=== PATIENT | female | born 1955 | race Caucasian/White ===

== ENCOUNTER 2017-03-30 15:07 | Emergency (ER) | payer MEDICAID, SELFPAY ==
[2017-03-30 15:07] VITALS: BP 136/84; PULSE 79; RESP 18; TEMP 36.7; O2SAT 97; BMI 23.3
--- NOTE | 2017-03-30 15:53 | EKG12_ITS ---
Test Reason : COUGH Blood Pressure : / mmHG Vent. Rate : 069 BPM Atrial Rate : 069 BPM P-R Int : 136 ms QRS Dur : 084 ms QT Int : 414 ms P-R-T Axes : 077 041 052 degrees QTc Int : 443 ms Normal sinus rhythm Low voltage QRS (limb leads) Confirmed by YIN CHINCHILLA, ANUP ([id number]), sports editor DARWIN LAUREANO ([id number]) on 04/02/2017 2:00:55 PM Referred By: HANNAH Confirmed By:ANUP ESQUEDA MD
--- NOTE | 2017-03-30 15:54 | ED.VISSUMM ---
- ER Visit Summary Date of Service: 03/30/17 Chief Complaint: Left chest pain History of Present Illness: The patient is a 61 F who presents for left-sided chest pain since this morning. Patient states she had a vomiting illness 2 days ago with associated diarrhea. Yesterday she felt just fatigued. Today she is felt better except she woke up with left-sided sharp chest pain, worse with breathing, coughing or laughing. She denies any fever. No history of DVT or PE. She does have a history of pleurisy. No cardiac history but has had an ablation for an arrhythmia. She is not on any blood thinners. Physical Examination: Vital signs: afebrile, hemodynamically stable, no hypoxia on room air General: well nourished, well developed, in no distress Skin: warm, dry, no rash, no pallor HEENT: normocephalic and atraumatic; PERRL, EOMI, moist mucous membranes Cardiovascular: regular rate and rhythm without murmurs, no peripheral edema, 2+ pulses all distal extremities, no chest wall tenderness, no rash Respiratory: No increased work of breathing, inhalation depth limited secondary to pain, lungs are clear to auscultation bilaterally, no rales, rhonchi or wheezing and no pleural friction rubs Abdominal: Abdomen is soft, nontender with normoactive bowel sounds, no guarding or rebound, no masses MSK: Moves all extremities, no deformities, normal strength Neuro: Awake and alert, oriented ?4. No facial droop, sensation and motor function intact and symmetric Test Results: Abnormal Lab Results 03/30/17 03/30/17 03/30/17 16:25 16:25 16:25 WBC 5.8 RBC 4.38 Hgb 14.1 Hct 41.5 MCV 94.7 MCH 32.2 H MCHC 34.0 RDW 13.7 RDW Differential 46.0 H Plt Count 217 MPV 9.5 Immature Gran % (Auto) 0.200 Neut % (Auto) 53.7 Lymph % (Auto) 36.8 [place] % (Auto) 7.4 Eos % (Auto) 1.2 Baso % (Auto) 0.7 Absolute Neuts (auto) 3.1 Absolute Lymphs (auto) 2.13 Total Counted Not Reportable PT 13.5 INR 1.1 APTT 26.4 D-Dimer Quant (PE/DVT) 0.37 Sodium 140 Potassium 3.4 L Chloride 107 Carbon Dioxide 27.0 Anion Gap 6 BUN 20 H Creatinine 0.76 Estim Creat Clear Calc 70.83 Est GFR (MDRD) Af Amer 99 Est GFR (MDRD) Non-Af 82 BUN/Creatinine Ratio 26.2 H Glucose 81 Calcium 8.5 Troponin I < 0.02 Emergency Department Course and Treatment: Patient was given aspirin and morphine. EKG showed sinus rhythm without ischemia or ectopy. Chest x-ray showed no infiltrate, effusion or pneumothorax. Labs were unremarkable. Troponin negative. D-dimer was within normal limits. Patient's workup was on concerning for an emergent cause of her chest pain, and this is most likely pleurisy versus a strained muscle in the chest wall from vomiting. Patient was given a prescription for Motrin to use to help with the inflammation and pain. She was given return precautions. Discharged home. Treatment Plan: [] Disposition: [] Impression: Pleurisy This note was generated with [employer] dictation software. It may contain incorrect words, spelling, and punctuation that were not noted in review of the chart prior to signing ED Disposition - Plan for ED Patient: Disposition: Home or Assisted Living Chief Complaint: Cough Instructions: ED Chest Pain Pleurisy Prescriptions: Ibuprofen 600 mg PO 4X/DAY #30 tab Referrals: Alexi Montesinos MD [Primary Care Provider] - 3-5 Days if not improving Additional Instructions: Please use the ibuprofen every 6 hours for the first 3 days to help with pain and inflammation in your left chest. After that you may use it as needed. You may also find some relief from a heating pad. If you have any worsening of your condition or any new concerning symptoms, please come back to emergency department for another evaluation.
[2017-03-30 15:56] VITALS: O2SAT 98
--- NOTE | 2017-03-30 16:00 | RAD_ITS ---
STUDY: X-RAY CHEST REASON FOR EXAM: Female, 61 years old. Left chest pain with inspiration. TECHNIQUE: 2 views COMPARISON: Prior chest of November 29, 2016 FINDINGS: Continued hyperexpansion of the lungs without new consolidation, focal atelectasis or a substantial pleural effusion. Stable chronic changes. Normal size heart. Normal mediastinum and tena. Normal visualized pulmonary arteries. There is atherosclerotic tortuosity of the aortic arch and descending thoracic aorta. Minimal degenerative changes of the thoracic spine. Normal visualized ribs, clavicles, and shoulders. There is no demonstrated abnormality of the visualized soft tissue structures of the upper abdomen. RAD/Chest PA and Lateral IMPRESSION: No acute cardiopulmonary findings or changes. Continued hyperexpansion and stable chronic changes. Normal cardiac size without pulmonary venous congestion. Negative for pleural effusion. Electronically Signed: Zahra Bazan MD at 16:17 EST , Service support ,
[2017-03-30] MEDS: 0.9% Normal Saline 1,000 ML 1000 ML IV (16:22)
[2017-03-30] MEDS: Aspirin 81 MG TAB.CHEW 324 MG PO (16:22)
[2017-03-30 16:44] LABS: Absolute Lymphocyte Count 2.13 X10^3/ul (0.83-4.51); Absolute Neutrophil Count 3.1 X10^3/uL (2.0-7.7); Basophil# 0.04 X10^3/uL; Basophil% 0.7 % (0-1); Eosinophil# 0.07 X10^3/uL; Eosinophils% 1.2 % (0-5); Hematocrit 41.5 % (37-47); Hemoglobin 14.1 g/dl (12.0-15.0); Lymphocyte # 2.13 X10^3/ul (4.0); Lymphocyte % 36.8 % (19-41); Mean Corpuscular Hgb 32.2 pg (27.0-32.0); Mean Corpuscular Volume 94.7 fL (81-99); Mean Platelet Vol. 9.5 fl (6.2-12.0); Monocyte# 0.43 X10^3/uL; Monocyte% 7.4 % (0-10); Neutrophil # 3.11 X10^3/uL (2.7-7.7); Neutrophil % 53.7 % (47-70); Platelet Count 217 K/mm3 (150-450); RBC Distribution Width CV 13.7 % (11.6-14.6); Red Blood Count 4.38 M/mm3 (4.2-5.4); White Blood Count 5.8 K/mm3 (4.4-11.0)
[2017-03-30 16:45] LABS: POSITIVE COUNT NO; POSITIVE DIFFERENTIAL NO; POSITIVE MORPHOLOGY NO
[2017-03-30 17:01] LABS: International Normalized Ratio 1.1; Prothrombin Time (Protime)PT. 13.5 SECONDS (11.7-14.9)
[2017-03-30 17:02] LABS: Partial Thromboplast Time 26.4 Seconds (24.1-36.2)
[2017-03-30 17:04] LABS: Anion Gap 6 (5-15); BUN 20 mg/dL (7-18); BUN/Creat Ratio 26.2 RATIO (10-20); Calcium,Total 8.5 mg/dL (8.5-10.1); Chloride 107 mmol/L (98-107); Creatinine, Serum 0.76 mg/dL (0.55-1.02); EST Glomerular Filtration Rate 82 mL/min (>60); Est Glom Filt Rate - Afr Amer 99 mL/min (>60); Estimated Creatinine Clearance 70.83 ml/min; Glucose 81 mg/dL (74-106); Potassium 3.4 mmol/L (3.5-5.1); Sodium Level 140 mmol/L (136-145)
[2017-03-30 17:07] LABS: D-Dimer Quantitative (DVT/PE) 0.37 FEU/ug/m (0.27-0.49)
[2017-03-30 17:16] VITALS: BP 143/79; PULSE 75; RESP 22; O2SAT 96
--- NOTE | 2017-03-30 17:52 | ED.DEP ---
ED Disposition - Plan for ED Patient: Disposition: Home or Assisted Living Chief Complaint: Cough Instructions: ED Chest Pain Pleurisy Prescriptions: Ibuprofen 600 mg PO 4X/DAY #30 tab Referrals: Alexi Montesinos MD [Primary Care Provider] - 3-5 Days if not improving Additional Instructions: Please use the ibuprofen every 6 hours for the first 3 days to help with pain and inflammation in your left chest. After that you may use it as needed. You may also find some relief from a heating pad. If you have any worsening of your condition or any new concerning symptoms, please come back to emergency department for another evaluation.
[2017-03-30] MEDS: Ketorolac 30 MG/ML Syringe 15 MG IV (18:02)
[2017-03-30 18:05] VITALS: BP 144/80; PULSE 68
== END 2017-03-30 18:06 | disposition home or self-care (01) ==
PROVIDERS: Emergency Provider Emergency Medicine; Family Provider Family Medicine; PCP Family Medicine
DX: R09.1 Pleurisy (principal); Z72.0 Tobacco use
CPT/HCPCS: 71046; 80048; 84484; 85025; 85379; 85610; 85730; 93005; 99285

== ENCOUNTER → 2017-04-07 14:01 | Outpatient (CLI) | payer MEDICAID, SELFPAY ==
--- NOTE | 2017-04-07 14:06 | RAD_ITS ---
STUDY: X-RAY - PELVIS AND LEFT HIP REASON FOR EXAM: Female, 61 years old. Patient fell TECHNIQUE: Radiological exam, hip, unilateral, with pelvis when performed; 2 or 3 views. COMPARISON: None. FINDINGS: The sacroiliac and right hip joints look well-maintained. There are minimal degenerative changes of the left hip. There is suspicion of a fracture involving the medial aspect of the body of the pubic bone on the left. A CT scan is suggested if pain continues. RAD/Hip 2-3 Views with Pelvis IMPRESSION: Suspicion of a fracture involving the medial aspect of the body of the left pubic bone. Confirmation with a CT scan is suggested. Electronically Signed: Mychal Boggs, at 3:01 EST Tel , Service support ,
--- NOTE | 2017-04-07 14:07 | RAD_ITS ---
STUDY: X-RAY - LUMBAR SPINE REASON FOR EXAM: Female, 61 years old. Patient fell TECHNIQUE: 4 view(s) of the lumbar spine were obtained. COMPARISON: None FINDINGS: There is a 23 degree thoracolumbar scoliosis with convexity to the right with the apex of the curve at L2. Bilateral laminectomies at L4 and L5 are noted. Intervertebral osteochondrosis at L3-4 L4-5 and L5-S1 are seen. These aren't demonstrated by narrowing of the disc spaces. There are no acute fracture. RAD/L/S Spine Comp/w Bending Views IMPRESSION: No acute fractures. 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 A 23 degree thoracolumbar scoliosis with convexity to the right with the apex at L2 Electronically Signed: Mychal Boggs, at 3:07 EST Tel , Service support ,
== END ==
PROVIDERS: Family Provider Family Medicine; PCP Family Medicine
DX: M79.606 Pain in leg, unspecified (principal); M54.16 Radiculopathy, lumbar region
CPT/HCPCS: 72114; 73502

== ENCOUNTER → 2017-04-07 14:35 | Outpatient (CLI) | payer MEDICAID, SELFPAY ==
[2017-04-07 16:06] LABS: BUN 10 mg/dL (7-18); Creatinine, Serum 0.89 mg/dL (0.55-1.02); EST Glomerular Filtration Rate 69 mL/min (>60); Est Glom Filt Rate - Afr Amer 83 mL/min (>60)
== END ==
PROVIDERS: Family Provider Family Medicine; PCP Family Medicine
DX: M54.16 Radiculopathy, lumbar region (principal)
CPT/HCPCS: 36415; 72114; 73502; 82565; 84520

== ENCOUNTER → 2017-04-14 09:10 | Outpatient (CLI) | payer MEDICAID, SELFPAY ==
--- NOTE | 2017-04-14 09:21 | MRI_ITS ---
STUDY: MRI LUMBAR SPINE WITH AND WITHOUT CONTRAST REASON FOR EXAM: Female, 61 years old. radiculopathy, LBP, RT LEG PAIN, HX PRIOR SURGERY. TECHNIQUE: Standardized fat and water weighted pulse sequences were obtained in the sagittal and axial planes. 7 ml of Gadavist contrast material was administered for the contrast portion of the examination. COMPARISON: December 08, 2015 FINDINGS: T12-L1: There is no significant disc herniation, spinal canal or foramina stenosis. Normal lumbar lordosis. There is mild scoliosis Normal conus medullaris that terminates at the L1 L1-2: There is a small Schmorl's node. There is no significant disc herniation, spinal canal or foramina stenosis.. L2-3: There is a small Schmorl's node. There is no significant disc herniation, spinal canal or foramina stenosis.. L3-4: There is moderate disc space narrowing and endplate spondylosis asymmetric to the left. There is moderate disc bulge asymmetric to the left with moderate left foraminal stenosis. There is a decompression laminectomy now with patent central canal and right foraminal stenosis. L4-5: There is moderate disc space narrowing and endplate spondylosis asymmetric to the right with moderate right foraminal stenosis. There is a decompression laminectomy now. There is a widely patent central canal and left foraminal. L5-S1: There is moderate disc space narrowing and endplate spondylosis asymmetric to the right with moderate right foraminal stenosis. There is a decompression laminectomy now. The central canal is widely patent. There is mild left foraminal stenosis. Normal visualized paraspinous soft tissue structures. MRI/Spine Lumbar W/WO Contrast IMPRESSION: Interval decompression laminectomies. Scoliosis and multilevel degenerative changes. L3/L4: Stable moderate left foraminal stenosis. L4/L5: Stable moderate right foraminal stenosis. L5/S1: Stable moderate right foraminal stenosis. Electronically Signed: Brandie Yates MD at 8:04 EST Tel , Service support ,
== END ==
PROVIDERS: Family Provider Family Medicine; PCP Family Medicine
DX: M54.16 Radiculopathy, lumbar region (principal)
CPT/HCPCS: 72158; A9585

== ENCOUNTER → 2017-05-01 06:37 | Outpatient (CLI) | payer MEDICAID, SELFPAY ==
--- NOTE | 2017-05-01 06:42 | CT_ITS ---
STUDY: CT PELVIS WITHOUT CONTRAST REASON FOR EXAM: Female, 61 years old. Pain status post fall 3 weeks ago. RADIATION DOSAGE (If Supplied By Facility): CTDIvol = ( 13.71 ) mGy, DLP = ( 355.91 ) mGycm TECHNIQUE: Transaxial imaging of the pelvis was performed without oral contrast, and without intravenous administration of contrast material. Multiplanar coronal and sagittal images were reformatted. Individualized dose optimization techniques were used for this CT. COMPARISON: X-ray April 07, 2017 FINDINGS: Normal urinary bladder. Normal visualized small intestine. Normal visualized colon. There is no pelvic fluid. There is a 5.3 cm right pelvic intermediate density structure suggesting enlarged adnexa. Normal visualized pelvic arteries. Normal abdominal wall. There is degenerative change of the lower spine with previous laminectomy. There is mild arthritic change of the sacroiliac joints. There is mild degenerative change of the right hip. There is moderate degenerative change of the left hip. There is a nonspecific 0.8 cm sclerotic region of the intertrochanteric region of the proximal left femur. CT/Pelvis without IV Contrast IMPRESSION: Degenerative change. No fracture. Possible adnexal mass. Ultrasound recommended for further evaluation. N.B. : The above information has been verbally conveyed by Santino Hernandez MD to Umu Montgomery, Referring Physician- statistical engineer, on 05/02/2017 10:38:05 (ET). Electronically Signed: Santino Hernandez MD at 10:31 EDT , Service support , N.B. : The above information has been verbally conveyed by Santino Hernandez MD to Umu Montgomery, Referring Physician- statistical engineer, on 05/02/2017 10:38:05 (ET).
== END ==
PROVIDERS: Family Provider Family Medicine; PCP Family Medicine; Visit Provider Family Medicine
DX: R10.2 Pelvic and perineal pain (principal)
CPT/HCPCS: 72192

== ENCOUNTER → 2017-05-07 10:31 | Outpatient (CLI) | payer MEDICAID, SELFPAY ==
--- NOTE | 2017-05-07 10:34 | US_ITS ---
STUDY: PELVIC ULTRASOUND TRANSVAGINAL REASON FOR EXAM: Female, 61 years old. Right adnexal mass LMP: Unknown. TECHNIQUE: Transverse and longitudinal imaging of the pelvis was obtained transvaginally using real-time ultrasound. COMPARISON: CT pelvis dated May 01, 2017 FINDINGS: The uterus is surgically absent. The right ovary is visualized. The right ovary measures 6.0 x 2.8 x 4.5 cm. There is a cystic mass in the right ovary measuring 1.7 cm. There is no visualized right adnexal mass or complex lesion. There is normal arterial and normal venous vascularity. The left ovary is not visualized. There is no fluid in the cul-de-sac. US/Transvaginal Non- IMPRESSION: The right ovary is enlarged and shows evidence of a collapsed cyst measuring 1.7 cm. No other discrete masses are seen in the right ovary. A follow-up ultrasound can be obtained in 4-6 weeks to reevaluate. Electronically Signed: Naz Pinto MD at 19:26 EDT Tel Direct: [phone], Service support ,
== END ==
PROVIDERS: Family Provider Family Medicine; PCP Family Medicine; Visit Provider Family Medicine
DX: R19.00 Intra-abdominal and pelvic swelling, mass and lump, unspecified site (principal)
CPT/HCPCS: 76830; 93976

== ENCOUNTER 2017-05-14 22:04 | Emergency (ER) | payer MEDICARE, MEDICAID, SELFPAY ==
[2017-05-14 22:06] VITALS: BP 126/83; PULSE 91; RESP 16; TEMP 36.6; O2SAT 99; BMI 23.1
--- NOTE | 2017-05-14 22:35 | ED.VISSUMM ---
- ER Visit Summary Date of Service: 05/14/17 Chief Complaint: Bilateral leg and back pain History of Present Illness: The patient is a 61 F history of COPD, chronic back pain status post laminectomies, who presents for 4 days of leg pain and now back pain. She states 4 days ago she struck her right serna getting out of the car, and later had a large bruise develop on the lateral serna. She thought it was a varicose vein ruptured. She had pain and swelling at the area and was examined by her doctor yesterday, who encouraged her to continue taking ibuprofen.. Patient states the pain is now radiating up her leg. She then began having back pain on the left lumbar paraspinal region radiating around the hip into the groin. She states today her pain in both legs was severe and caused her to fall, landing on her tailbone. Patient has been taking gabapentin, ibuprofen and Mobic for her pain without relief. She denies shortness of breath, chest pain, urinary symptoms, bowel changes, abdominal pain, fever. Patient states that 1-1/2 months ago she had fallen and was diagnosed with a questionable pelvis fracture and placed on Vicodin. She had a CT scan performed that showed no fracture but showed a pelvic mass, that was later shown to be a ruptured ovarian cyst. Chart review shows the CT scan showed no pelvic fracture and the ultrasound showed no adnexal mass but rather a decompressed right ovarian cyst. Physical Examination: Vital signs: afebrile, hemodynamically stable, no hypoxia on room air General: well nourished, well developed, in no distress Skin: warm, dry, no rash, no pallor HEENT: normocephalic and atraumatic; PERRL, EOMI, moist mucous membranes Cardiovascular: regular rate and rhythm without murmurs, no peripheral edema, 2+ pulses all distal extremities Respiratory: No increased work of breathing, lungs are clear to auscultation bilaterally, no rales, rhonchi or wheezing Abdominal: Abdomen is soft, nontender with normoactive bowel sounds, no guarding or rebound, no masses Back: Paraspinal tenderness over the lumbar left region and hip. No deformities. Negative logroll bilaterally. Large midline surgical scar well-healed, no erythema, induration or fluctuance MSK: Moves all extremities, no deformities, normal strength in the plantar flexion, dorsiflexion and EHL. Right serna has a healing contusion on the anterolateral distal third. Neuro: Awake and alert, oriented ?4. No facial droop, sensation and motor function intact and symmetric Test Results: [] Emergency Department Course and Treatment: Patient has no red flag symptoms on her history or exam that would be concerning for cauda equina syndrome, epidural hematoma or abscess. Patient was given [place] for pain. X-rays were performed of the hips, pelvis and lumbar spine and showed no acute fractures. Patient's pain is consistent with her chronic back pain. We discussed her current pain regimen, and she is currently taking Mobic and multiple doses of ibuprofen daily. We discussed that these are both NSAIDs and she should not take both. She will switch to Tylenol instead of the ibuprofen. She was given a home dose pack of the [place], but we discussed that I cannot write her prescription for opiates as she is a chronic pain patient. Patient agreed and is to follow-up with her primary care doctor. There was no findings on exam that were concerning for DVT, as the location of patient's right lower extremity pain is not consistent with the deep venous circulation and appears as a healing contusion consistent with patient's area of injury 4 days ago.. She was discharged home. Treatment Plan: [] Disposition: [] Impression: acute exacerbation of chronic back pain, right lower extremity contusion This note was generated with [employer] dictation software. It may contain incorrect words, spelling, and punctuation that were not noted in review of the chart prior to signing ED Disposition - Plan for ED Patient: Disposition: Home or Assisted Living Chief Complaint: Lower Extremity Injury Instructions: ED Low Back Pain Injury Referrals: Alexi Montesinos MD [Primary Care Provider] - As soon as possible Additional Instructions: Your x-rays did not show any fractures. Please apply ice to the bruise on your right lower leg to help with pain. Continue your pain medications as prescribed, but do not take ibuprofen with the Mobic. Please take Tylenol instead. Follow-up with your doctor as soon as possible to discuss further pain regimen changes since you are having worsening chronic pain. If you have any worsening of your condition or any new concerning symptoms, please return to the emergency department for another evaluation.
--- NOTE | 2017-05-14 22:39 | ED.DCSUM_ITS ---
- ER Visit Summary Date of Service: 05/14/17 Chief Complaint: Bilateral leg and back pain History of Present Illness: The patient is a 61 F history of COPD, chronic back pain status post laminectomies, who presents for 4 days of leg pain and now back pain. She states 4 days ago she struck her right serna getting out of the car, and later had a large bruise develop on the lateral serna. She thought it was a varicose vein ruptured. She had pain and swelling at the area and was examined by her doctor yesterday, who encouraged her to continue taking ibuprofen.. Patient states the pain is now radiating up her leg. She then began having back pain on the left lumbar paraspinal region radiating around the hip into the groin. She states today her pain in both legs was severe and caused her to fall, landing on her tailbone. Patient has been taking gabapentin , ibuprofen and Mobic for her pain without relief. She denies shortness of breath, chest pain, urinary symptoms, bowel changes, abdominal pain, fever. Patient states that 1-1/2 months ago she had fallen and was diagnosed with a questionable pelvis fracture and placed on Vicodin. She had a CT scan performed that showed no fracture but showed a pelvic mass, that was later shown to be a ruptured ovarian cyst. Chart review shows the CT scan showed no pelvic fracture and the ultrasound showed no adnexal mass but rather a decompressed right ovarian cyst. Physical Examination: Vital signs: afebrile, hemodynamically stable, no hypoxia on room air General: well nourished, well developed, in no distress Skin: warm, dry, no rash, no pallor HEENT: normocephalic and atraumatic; PERRL, EOMI, moist mucous membranes Cardiovascular: regular rate and rhythm without murmurs, no peripheral edema, 2 + pulses all distal extremities Respiratory: No increased work of breathing, lungs are clear to auscultation bilaterally, no rales, rhonchi or wheezing Abdominal: Abdomen is soft, nontender with normoactive bowel sounds, no guarding or rebound, no masses Back: Paraspinal tenderness over the lumbar left region and hip. No deformities. Negative logroll bilaterally. Large midline surgical scar well- healed, no erythema, induration or fluctuance MSK: Moves all extremities, no deformities, normal strength in the plantar flexion, dorsiflexion and EHL. Right serna has a healing contusion on the anterolateral distal third. Neuro: Awake and alert, oriented ?4. No facial droop, sensation and motor function intact and symmetric Test Results: [] Emergency Department Course and Treatment: Patient has no red flag symptoms on her history or exam that would be concerning for cauda equina syndrome, epidural hematoma or abscess. Patient was given [place] for pain. X-rays were performed of the hips, pelvis and lumbar spine and showed no acute fractures. Patient's pain is consistent with her chronic back pain. We discussed her current pain regimen, and she is currently taking Mobic and multiple doses of ibuprofen daily. We discussed that these are both NSAIDs and she should not take both. She will switch to Tylenol instead of the ibuprofen. She was given a home dose pack of the [place], but we discussed that I cannot write her prescription for opiates as she is a chronic pain patient. Patient agreed and is to follow-up with her primary care doctor. There was no findings on exam that were concerning for DVT, as the location of patient's right lower extremity pain is not consistent with the deep venous circulation and appears as a healing contusion consistent with patient's area of injury 4 days ago.. She was discharged home. Treatment Plan: [] Disposition: [] Impression: acute exacerbation of chronic back pain, right lower extremity contusion This note was generated with [employer] dictation software. It may contain incorrect words, spelling, and punctuation that were not noted in review of the chart prior to signing ED Disposition - Plan for ED Patient: Disposition: Home or Assisted Living Chief Complaint: Lower Extremity Injury Instructions: ED Low Back Pain Injury Referrals: Alexi Montesinos MD [Primary Care Provider] - As soon as possible Additional Instructions: Your x-rays did not show any fractures. Please apply ice to the bruise on your right lower leg to help with pain. Continue your pain medications as prescribed , but do not take ibuprofen with the Mobic. Please take Tylenol instead. Follow-up with your doctor as soon as possible to discuss further pain regimen changes since you are having worsening chronic pain. If you have any worsening of your condition or any new concerning symptoms, please return to the emergency department for another evaluation.
[2017-05-14] MEDS: HYDROcodone Bitartrate/Apap 5/325 Tablet PO (22:40)
--- NOTE | 2017-05-14 22:40 | RAD_ITS ---
STUDY: X-RAY - LUMBAR SPINE REASON FOR EXAM: Female, 61 years old. Back pain TECHNIQUE: 3 view(s) of the lumbar spine were obtained. COMPARISON: None FINDINGS: Mild dextro convex lumbar scoliotic curvature. This space narrowing at multiple levels. Degenerative changes in the sacroiliac joints. Multilevel facet arthrosis. Prior laminectomies in the lower lumbar spine. Anterior and posterior osteophytic spurring. Vascular calcifications of the abdominal aorta. Prior cholecystectomy clips. IMPRESSION: Dextroconvex lumbar curvature with spondylotic changes. No evidence for acute lumbar spine fractures Electronically Signed: Shayne Jeffrey, at 23:37 EDT Tel , Service support , RAD/Lumbar Spine 2 or 3 Views
--- NOTE | 2017-05-14 22:43 | RAD_ITS ---
STUDY: X-RAY - PELVIS AND BILATERAL HIPS REASON FOR EXAM: Female, 61 years old. Bilateral hip pain TECHNIQUE: Radiological exam, hip, bilateral, with pelvis when performed; minimum of 5 views COMPARISON: None. FINDINGS: Degenerative changes in the hip joints. No definite evidence for acute fractures. Bony pelvic ring appears intact. Overlying bowel gas limits assessment of the sacrum. Degenerative changes in the lower lumbar spine. Degenerative changes in the sacroiliac joints. Ill-defined sclerotic density in the left proximal femur possibly enchondroma however this can be assessed with nonemergent bone scan IMPRESSION: No definite evidence for acute fractures Electronically Signed: Shayne Jeffrey, at 23:36 EDT Tel , Service support , RAD/Hips B/L min 2 views w/ Pelvis
--- NOTE | 2017-05-15 00:14 | DCINST.ED_ITS ---
ED Disposition - Plan for ED Patient: Chief Complaint: Lower Extremity Injury Instructions: ED Low Back Pain Injury Referrals: Alexi Montesinos MD [Primary Care Provider] - As soon as possible Additional Instructions: Your x-rays did not show any fractures. Please apply ice to the bruise on your right lower leg to help with pain. Continue your pain medications as prescribed , but do not take ibuprofen with the Mobic. Please take Tylenol instead. Follow-up with your doctor as soon as possible to discuss further pain regimen changes since you are having worsening chronic pain. If you have any worsening of your condition or any new concerning symptoms, please return to the emergency department for another evaluation.
[2017-05-15 00:27] VITALS: PULSE 78; O2SAT 97
[2017-05-15] MEDS: HYDROcodone Bitartrate/Apap 5/325 Tablet PO (00:27)
== END 2017-05-15 00:28 | disposition home or self-care (01) ==
PROVIDERS: Emergency Provider Emergency Medicine; Family Provider Family Medicine; PCP Family Medicine
DX: G89.29 Other chronic pain (principal); M54.9 Dorsalgia, unspecified; S80.11XA Contusion of right lower leg, initial encounter; W22.8XXA Striking against or struck by other objects, initial encounter; Y93.9 Activity, unspecified; Y92.89 Other specified places as the place of occurrence of the external cause; Y99.9 Unspecified external cause status; J44.9 Chronic obstructive pulmonary disease, unspecified
CPT/HCPCS: 72100; 73521; 99283

== ENCOUNTER → 2017-06-18 10:39 | Outpatient (CLI) | payer MEDICARE, MEDICAID, SELFPAY ==
--- NOTE | 2017-06-18 10:43 | US_ITS ---
STUDY: ULTRASOUND TRANSVAGINAL CLINICAL: Female, 61 years old. Follow-up right ovarian cyst TECHNIQUE: Transvaginal COMPARISON: Prior study of 05/07/2017 FINDINGS: Status post hysterectomy changes are noted. There is a cervical nabothian cyst. Normal right ovary, measuring 9.8 x 8.0 x 6.1 cm. There is a large right ovarian cyst containing debris measuring 8.4 x 6.3 x 4.6 cm.. The left ovary was not visualized. There is no free fluid in the pelvis. Polycystic ovary disease: No. US/Transvaginal Non- IMPRESSION: Status post hysterectomy. Large right ovarian cyst containing debris measuring 8.4 x 6.3 x 4.6 cm. This has significantly increased in size from prior ultrasound of 05/07/2017, where it measured 1.7 cm. The possibility of neoplastic process should be considered. Cervical nabothian cyst. The left ovary was not identified. Electronically Signed: Juan Brewster MD at 19:46 EDT , Service support ,
== END ==
PROVIDERS: Family Provider Family Medicine; PCP Family Medicine; Visit Provider Family Medicine
DX: R19.00 Intra-abdominal and pelvic swelling, mass and lump, unspecified site (principal)
CPT/HCPCS: 76830

== ENCOUNTER → 2017-06-25 14:23 | Outpatient (CLI) | payer MEDICARE, MEDICAID, SELFPAY | PROVIDERS: Visit Provider Obstetrics & Gynecology | DX: D39.12 Neoplasm of uncertain behavior of left ovary (principal) | CPT/HCPCS: 36415; 86304 ==

== ENCOUNTER 2017-07-02 08:14 | Day surgery (SDC) | payer MEDICARE, MEDICAID, SELFPAY ==
--- NOTE | 2017-07-01 12:37 | EKG12_ITS ---
Test Reason : PRE-OP Blood Pressure : / mmHG Vent. Rate : 067 BPM Atrial Rate : 067 BPM P-R Int : 130 ms QRS Dur : 080 ms QT Int : 410 ms P-R-T Axes : 075 045 057 degrees QTc Int : 433 ms Normal sinus rhythm Normal ECG Confirmed by YIN CHINCHILLA, ANUP ([id number]), general expeditor DARWIN LAUREANO ([id number] on 07/04/2017 11:00:50 AM Referred By: Glen Richey Confirmed By:ANUP ESQUEDA MD
[2017-07-01 12:48] LABS: Hematocrit 47.1 % (37-47); Hemoglobin 15.8 g/dl (12.0-15.0); Mean Corp Hgb Conc 33.5 g/gl (32-36); Mean Corpuscular Hgb 32.4 pg (27.0-32.0); Mean Corpuscular Volume 96.5 fL (81-99); Mean Platelet Vol. 9.7 fl (6.2-12.0); Platelet Count 214 K/mm3 (150-450); RBC Distribution Width CV 13.3 % (11.6-14.6); RBC Distribution Width SD 47.3 fl (35.1-43.9); Red Blood Count 4.88 M/mm3 (4.2-5.4); Scan Indicated on CBC? Y/N NO; White Blood Count 6.5 K/mm3 (4.4-11.0)
[2017-07-01 13:03] LABS: Prothrombin Time (Protime)PT. 12.9 SECONDS (11.7-14.9)
--- NOTE | 2017-07-01 13:03 | RAD_ITS ---
STUDY: X-RAY CHEST REASON FOR EXAM: Female, 62 years old. Preoperative evaluation. History of COPD. TECHNIQUE: PA and lateral views of the chest. COMPARISON: Comparison is made with prior study dated March 30, 2017. FINDINGS: Hyperinflation. Decreased bronchovascular markings in the upper lobes suggestive of emphysematous changes. No acute abnormality is seen. There is no demonstrated pleural abnormality. Normal size heart. Normal mediastinum and tena. Normal visualized pulmonary arteries. Normal visualized aortic arch and descending thoracic aorta. There are mild degenerative changes of the visualized thoracic spine. Mild dextro scoliosis of the thoracolumbar spine. Normal visualized ribs, clavicles, and shoulders. There is no demonstrated abnormality of the visualized soft tissue structures of the upper abdomen. RAD/Chest PA and Lateral IMPRESSION: Hyperinflation. No acute infiltrate is seen. Electronically Signed: Ari Doran MD at 14:44 EDT Tel [phone], Service support ,
[2017-07-01 13:04] LABS: Partial Thromboplast Time 26.4 Seconds (24.1-36.2)
[2017-07-01 13:26] LABS: ALB/GLOB Ratio 0.9 RATIO (0.9-2.4); AST(SGOT) 17 U/L (15-37); Alanine Aminotransfer ALT/SGPT 19 U/L (13-56); Albumin, Serum 3.6 g/dL (3.2-5.0); Alkaline Phosphatase 98 U/L (45-117); Anion Gap 6 (5-15); BUN 16 mg/dL (7-18); BUN/Creat Ratio 13.3 RATIO (10-20); Chloride 104 mmol/L (98-107); EST Glomerular Filtration Rate 49 mL/min (>60); Est Glom Filt Rate - Afr Amer 59 mL/min (>60); Glucose 76 mg/dL (74-106); Potassium 4.4 mmol/L (3.5-5.1); Protein, Total 7.6 g/dL (6.4-8.2); Sodium Level 140 mmol/L (136-145)
[2017-07-02] VITALS (11 sets, daily range): BP systolic 95–146; BP diastolic 65–91; PULSE 65–90; RESP 16; TEMP 36.4–36.8; O2SAT 95–99; BMI 22.2
--- NOTE | 2017-07-02 10:00 | OV_PTH ---
PATIENT: KENZIE HYLTON LOC: [facility] – [place] U#:[id number] AGE/SX: 62/F ROOM: RE07/02/[address]: Dr. Glen Richey MD : 1955 BED: DIS: 07/02/2017 SPEC #: [id number] RECD: 07/02/17 12:39 STATUS: AMALIA RACHEL #: [id number] MILES: 07/02/17 10:[address]: Glen Richey DEPT: SURGICAL PATHOLOGY RECD BY: Vasu Beltran ENTERED: 07/02/17 12:40 SP TYPE: OVARY OTHR DR: Dr. 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 Bilateral fallopian tubes - no pathologic diagnosis. SJ:yovany 07/04/17 COMMENT OVARIAN TUMOR SUMMARY: Specimen ? bilateral fallopian tubes and ovaries Procedure - bilateral salpingo-oophorectomy Lymph node sampling ? not performed Specimen integrity ? intact both right and left ovary Primary tumor site ? right ovary Ovarian surface involvement - absent Tumor size: Right ovary ? approximately 7 x 5 x 2.5 cm. Almost entire ovary is completely involved by the tumor. Left ovary ? 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 not applicable. Implants ? not applicable Regional lymph nodes ? no nodes submitted or found Distant metastasis ? 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 Ancillary studies ? not performed Clinical history ? not applicable PATHOLOGIC STAGE: pT1a pNx Mx The above summary is in compliance with [employer] (CAP) Cancer Protocols Checklist and [place] Joint Committee on Cancer (AJCC), Staging Manual, 8th Ed. The granulosa cell tumor involves >90% of the right ovary and appears to be confined to the ovary. Case has been reviewed in consultation with Dr. Corley who concurs with the above diagnosis. IDC:AM MICROSCOPIC DESCRIPTION Slides are reviewed. GROSS DESCRIPTION Received in fixative is one container labeled with the patient's name and designated ovaries and fallopian tubes. The specimen consists of a smooth, glistening, crinkled, pink-yellow left ovary measuring 3 x 1.7 x 1 cm. Adjacent to this is a fragment of fallopian tube measuring 4 cm in length and 0.5 cm in diameter and containing a normal fimbriated end. The fallopian tube is focally adherent to the ovary. This ovary and fallopian tube is inked in blue ink. Serial sections do not reveal mass lesions. Incubator Tender sections from this ovary and fallopian tube are submitted in cassettes 1 & 2. The right ovary is smooth, glistening and cystic in appearance measuring 7 x 5 x 2.5 cm. A fallopian tube is attached to it along one aspect measuring 7 cm in length and 0.4 cm in average diameter. No tubo-ovarian adhesions are seen and a normal fimbriated end is present. The external surface of this right ovary and portions of fallopian tube are inked in black ink. Serial sections of this ovary reveal a friable, reddish-malagon cut surface which appears to form a central cyst occupying 30% of the ovary. Incubator Tender sections of the right fallopian tube are submitted in cassette 3. Incubator Tender sections of the right ovary are submitted in cassettes 4-8. / AM:yovany 07/02/17 More sections are submitted as follows: 9 ? rest of the left ovary, 10-13 ? labor service representative sections of right ovary. / SJ:yovany 07/03/17 TC:1 CPT: 29362 x2
--- NOTE | 2017-07-02 10:00 | FLU_PTH ---
PATIENT: KENZIE HYLTON LOC: [facility] [place] U#:[id number] AGE/SX: 62/F ROOM: RE07/02/[address]: Dr. Glen Richey MD : 1955 BED: DIS: 07/02/2017 SPEC #: [id number] RECD: 07/02/17 12:40 STATUS: AMALIA RACHEL #: [id number] MILES: 07/02/17 10:[address]: Glen Richey DEPT: CYTOLOGY RECD BY: Vasu Beltran ENTERED: 07/02/17 12:40 SP TYPE: Fluid OTHR DR: Dr. Renzo Montesinos MD Tissues: Pelvis, NOS Procedures: Pap Stain (control) Special Stain Group II Surgery Specimen Level IV Cell Block Cytospin Fluid HEADER OPERATION: Laparoscopic salpingo-oophorectomy, pelvic washings PRE-OP DIAGNOSIS: Large complex right adnexal mass view on ultrasound TISSUE SUBMITTED: Pelvic washings DIAGNOSIS CYTOLOGY Pelvic washings (cytospin and cell block): Negative for malignant cells. See cytology study. SJ:rg 07/03/17 CYTOLOGY STUDY Slides are reviewed. The specimen predominantly consists of benign mesothelial cells and a few macrophages and inflammatory cells. CYTOLOGY GROSS Received is 50 ml of pink, cloudy fluid labeled with the patient's name and and designated per the requisition as pelvic washings. Submitted for cytology preparation including cell block. / 07/02/17 TC:5 CPT: 07101, 36601
--- NOTE | 2017-07-02 11:08 | PCM.DC ---
- Discharge Diagnoses Reason(s) for Visit for Discharge Instructions: Laparoscopy You will use the following diet at home:: No restrictions Discharge Activity: Return to Normal Activity, May Not Drive, May not drive while taking narcotic pain medications., May Shower Return to work on:: 07/21/17 May resume sexual activity in: 3 weeks Call your doctor if your incision/area has: Sudden Increased Bleeding, Increased Pain/ Swelling, Increased Redness, Foul Smelling Discharge, Swelling at the incision site Call your doctor if you observe: Fever of 101 or Higher, Inability to urinate, Inability to have a bowel movement, Using more than one pad per hour, Shortness of breath, Chest pain, Calf discomfort, Uncontrolled pain Remove Dressing in (days):: 1 Cleanse incision/area with: Soap & Water Allergies/Adverse Reactions: Allergies No Known Allergies Allergy (Verified 06/30/17 14:18) Medications to take at Discharge Gabapentin 800 mg PO TID 05/01/14 Albuterol Inhaler [Ventolin Hfa] 2 puff INHALATION Q6H PRN PRN #1 inhaler 05/02/14 Clonazepam [Klonopin] 0.5 mg PO DAILY 10/30/15 Meloxicam [Mobic] 15 mg PO DAILY 08/03/16 Mometasone/Formoterol [Dulera 100 Mcg/5 Mcg Inhaler] 2 puff IH BID 08/03/16 Tiotropium [place] [Spiriva 18 MCG] 1 puff INHALATION DAILY 08/03/16 Omeprazole 20 mg PO DAILY 11/29/16 Tizanidine HCl 4 mg PO TID 11/29/16 Duloxetine Hcl [Cymbalta] 120 mg PO DAILY 01/05/17 Albuterol Aerosols [Ventolin Aerosols] 2.5 mg INHALATION Q6HWA.RT PRN 06/30/17 traZODone [Desyrel] 100 mg PO QHS 06/30/17 Ibuprofen [Ibu] 600 mg PO Q6H PRN PRN #30 tab 07/02/17 Oxycodone [Oxyir] 10 mg PO Q6H PRN PRN 7 Days #30 tab 07/02/17 The following prescriptions were given: Ibuprofen [Ibu] 600 mg PO Q6H PRN PRN #30 tab PRN Reason: pain or cramping Oxycodone [Oxyir] 10 mg PO Q6H PRN PRN 7 Days #30 tab PRN Reason: Severe Pain (-11/19) Primary Care Physician: Alexi Montesinos MD [Primary Care Provider] - Please Follow Up With: Glen Richey MD When: one week Proposed Discharge Date: 07/02/17
--- NOTE | 2017-07-02 11:10 | PCM.OPRPT ---
Problem List (1) Adnexal mass Status: Chronic Report of Operation Date of Procedure: 07/02/17 Pre-Operative Diagnosis: Right Adnexal Mass Post-Operative Diagnosis: Large right hemorrhagic ovarian cyst. Surgery/Procedure Performed:: Laparoscopic bilateral salpingooophorectomy, pelvic washings Description of Surgical Findings:: Right hemorrhagic ovarian cyst (likely endometrioma), Normal appearing left ovary, normal fallopian tubes bilaterally. Some adhesions of bowel to left lower abdomen and pelvis. Normal appearing liver and appendix. dropper tank storage: Luly Pizano Type of Anesthesia:: General Anesthesiologist: Jarod Pemberton Special Medications: none Specimen's removed: Right and left ovaries and fallopian tubes Drains: none Estimated Blood Loss (mL): minimal Fluids Replaced: 800cc LR Description of Procedure: Janeth was taken to the OR with IV running. She was given 2 grams of Cefotetan intravenously prior to the start of the procedure. General anesthesia was introduced without complication. She was then prepped and draped in the supine position. A red rubber catheter was used to drain the bladder. A 5mm vertical skin incision was made in the lower base of the umbilicus. The underlying subcutaneous tissue was dissected down to the level of the facia using blunt dissection with a Divya clamp. The abdominal wall was then elevated and a Veress needle was placed through the umbilical defect into the abdominal cavity. The abdomen was then inflated to 12 Torr using CO2 gas. The Veress needle was then removed and replaced with a 5mm trocar and sleeve. The trocar was removed and replaced with the laparoscope. Two lateral side prots were placed one on the right and one on the left about 3 cm below the level of the umbilicus lateral to the inferior epigastric vessels. Both were placed with direct visualization with the laparoscope. hemostasis was excellent after port placement. A thorough survey of the abdomen and pelvis was performed. Attention was then directed to the right adnexa. The ovary was grasped, elevated and using the Ligasure device the right infundibulopelvic ligament was grasped, cauterized and cut. The mesosalpinx/mesoovarian tissue was then dissected thus removing all connections of the ovary and tube to the pelvic sidewall. In a similar fashion the left ovary and fallopian tube were dissected. The umbilical port site was enlarged and the 5 mm laparoscopic port was replaced with a 12 mm port. The specimens were then placed in an endocatch and brought to the abdomen. The right ovary was incised and using suction was evaluated of fluid (this was bloody). The specimens were then removed without spillage from the abdomen. Inspection revealed good hemostasis at all surgical sites. Pelvic washings were then obtained. The laparoscopic ports were removed The umbilical deep fascial layer was closed with 0-Vicryl suture. The skin incisions were closed with 4-0 Monocryl. The skin incision sites were injected with 0.25% Marcaine. Sponge, needle and instrument counts were correct. She was reversed from anesthesia and taken to the recovery room in stable condition. Grafts/Implants Used: none - Complications none - Admit VTE Documentation VTE Present on Admission: No VTE Mechan Device Prophylaxis: SCD's VTE Pharm Prophylaxis ordered?: No
[2017-07-02] MEDS: Bupivacaine 0.25% 30 ML Vial (11:53)
[2017-07-02] MEDS: oxyCODONE 5 MG Tablet 10 MG PO (14:20)
[2017-07-11 13:50] LABS: Cytology, Body Fluid / CSF SEE PATHOLOGY REPORT
== END 2017-07-02 14:56 | disposition home or self-care (01) ==
LOC: SDC 08:15 → AC 08:16
PROVIDERS: Family Provider Family Medicine; PCP Family Medicine; Visit Provider Obstetrics & Gynecology
PROC: (CPT 58661; principal; 2017-07-02 09:45)
DX: D39.11 Neoplasm of uncertain behavior of right ovary (principal); J44.9 Chronic obstructive pulmonary disease, unspecified; F17.200 Nicotine dependence, unspecified, uncomplicated; K21.9 Gastro-esophageal reflux disease without esophagitis
CPT/HCPCS: 00840; 58661; 36415; 71046; 80053; 85027; 85610; 85730; 86850; 86900; 88108; 88305; 88307; 88313; 93005; J7120

== ENCOUNTER → 2017-10-07 11:58 | Outpatient (CLI) | payer MEDICARE, SELFPAY ==
[2017-10-07 14:00] LABS: Erythrocyte Sedimentation Rate 19 mm/hr (0-30)
[2017-10-07 14:03] LABS: Absolute Lymphocyte Count 2.01 X10^3/ul (0.83-4.51); Absolute Neutrophil Count 4.4 X10^3/uL (2.0-7.7); Basophil# 0.02 X10^3/uL; Basophil% 0.3 % (0-1); Eosinophil# 0.12 X10^3/uL; Eosinophils% 1.7 % (0-5); Hematocrit 42.9 % (37-47); Lymphocyte # 2.01 X10^3/ul (4.0); Lymphocyte % 28.6 % (19-41); Mean Corp Hgb Conc 32.6 g/gl (32-36); Mean Corpuscular Hgb 31.7 pg (27.0-32.0); Mean Corpuscular Volume 97.3 fL (81-99); Mean Platelet Vol. 9.7 fl (6.2-12.0); Monocyte# 0.51 X10^3/uL; Monocyte% 7.3 % (0-10); Neutrophil # 4.35 X10^3/uL (2.7-7.7); POSITIVE COUNT NO; POSITIVE DIFFERENTIAL NO; POSITIVE MORPHOLOGY NO; Platelet Count 229 K/mm3 (150-450); RBC Distribution Width CV 13.9 % (11.6-14.6); RBC Distribution Width SD 49.7 fl (35.1-43.9); Red Blood Count 4.41 M/mm3 (4.2-5.4)
[2017-10-07 14:20] LABS: ALB/GLOB Ratio 0.9 RATIO (0.9-2.4); AST(SGOT) 13 U/L (15-37); Alanine Aminotransfer ALT/SGPT 21 U/L (13-56); Albumin, Serum 3.5 g/dL (3.2-5.0); Alkaline Phosphatase 87 U/L (45-117); Anion Gap 9 (5-15); BUN 11 mg/dL (7-18); BUN/Creat Ratio 11.3 RATIO (10-20); CPK Total, Creatine Kinase 44 U/L (26-192); CRP < 2.90 mg/L (0.0-3.0); Calcium,Total 8.8 mg/dL (8.5-10.1); Chloride 107 mmol/L (98-107); Creatinine, Serum 0.97 mg/dL (0.55-1.02); EST Glomerular Filtration Rate 62 mL/min (>60); Est Glom Filt Rate - Afr Amer 75 mL/min (>60); Ferritin 41 ng/mL (8-252); Globulin 3.7 g/dL (2.2-4.2); Glucose 81 mg/dL (74-106); Iron 80 ug/dL (50-170); Magnesium 2.2 mg/dL (1.6-2.6); Potassium 4.2 mmol/L (3.5-5.1); Prealbumin 19.9 mg/dL (20.0-40.0); Protein, Total 7.2 g/dL (6.4-8.2); Rheumatoid Factor < 10.0 IU/mL (<15); Sodium Level 142 mmol/L (136-145); Thyroid Stim Hormone (TSH) 2.56 uIU/mL (0.358-3.74)
[2017-10-08 09:50] LABS: Vitamin B12 257 pg/mL (211-911); Vitamin D,25 Hydroxy 68.4 ng/mL (29.95-100.01)
[2017-10-08 14:58] LABS: ANTINUCLEAR ANTIBODIES DIRECT Negative (Negative)
[2017-10-08 16:11] LABS: PROEL- Albumin 3.4 g/dL (2.9-4.4); PROEL- Alpha-1 Globulin 0.2 g/dL (0.0-0.4); PROEL- Alpha-2 Globulin 0.8 g/dL (0.4-1.0); PROEL- Gamma Globulin 1.4 g/dL (0.4-1.8); PROEL- Globulin, Total 3.4 g/dL (2.2-3.9); PROEL- TOTAL PROTEIN 6.8 g/dL (6.0-8.5)
[2017-10-08 17:14] LABS: Aldolase 3.8 U/L (3.3-10.3)
[2017-10-09 14:07] LABS: PROELU- Albumin, Urine 37.6 % (.); PROELU- Alpha-1-Globulin,Ur 2.6 % (.); PROELU- Alpha-2-Globulin,Ur 20.5 % (.); PROELU- Beta Globulin, Ur 28.6 % (.); PROELU- Gamma Globulin, Ur 10.8 % (.); Total Protein, Ur 6.4 mg/dL (Not Estab.)
== END ==
PROVIDERS: Family Provider Family Medicine; PCP Family Medicine; Visit Provider Nurse Practitioner Adult Health
DX: R05 Cough (principal); R63.4 Abnormal weight loss; M79.7 Fibromyalgia; R25.2 Cramp and spasm
CPT/HCPCS: 36415; 71046; 80053; 82085; 82306; 82550; 82607; 82728; 83540; 83735; 84134; 84165; 84166; 84443; 85025; 85652; 86038; 86140; 86431

== ENCOUNTER → 2017-10-14 13:52 | Outpatient (CLI) | payer MEDICARE, SELFPAY | PROVIDERS: Family Provider Family Medicine; PCP Family Medicine; Visit Provider Family Medicine | DX: M54.2 Cervicalgia (principal); M25.512 Pain in left shoulder | CPT/HCPCS: 72050; 73030 ==

== ENCOUNTER 2017-12-04 10:37 | Inpatient (IN) | payer MEDICARE, SELFPAY ==
[2017-12-04] VITALS (18 sets, daily range): BP systolic 86–117; BP diastolic 55–78; PULSE 54–87; RESP 14–20; TEMP 36.3–36.8; O2SAT 94–100; BMI 22.4; BMI 21.3
--- NOTE | 2017-12-04 10:47 | RAD_ITS ---
STUDY: X-RAY CHEST REASON FOR EXAM: Female, 62 years old. Cough. Increasing shortness of breath. TECHNIQUE: Single AP portable view of the chest. COMPARISON: Comparison is made with prior study dated October 07, 2017. FINDINGS: EKG electrodes are seen. Hyperinflation. No acute abnormality is seen. There is no demonstrated pleural abnormality. Normal size heart. Normal mediastinum and tena. Normal visualized pulmonary arteries. Normal visualized aortic arch and descending thoracic aorta. Normal visualized thoracic spine. Normal visualized ribs, clavicles, and shoulders. There is no demonstrated abnormality of the visualized soft tissue structures of the upper abdomen. RAD/Chest 1 View (Portable) IMPRESSION: Hyperinflation. Electronically Signed: Ari Doran MD at 11:23 EDT Tel [phone], Service support ,
--- NOTE | 2017-12-04 10:47 | EKG12_ITS ---
Test Reason : Blood Pressure : / mmHG Vent. Rate : 073 BPM Atrial Rate : 073 BPM P-R Int : 130 ms QRS Dur : 082 ms QT Int : 410 ms P-R-T Axes : 084 034 064 degrees QTc Int : 451 ms Normal sinus rhythm Normal ECG Confirmed by JENIFER CESPEDES ([id number]), rewrite editor DARWIN LAUREANO ([id number]) on 12/09/2017 8:58:18 AM Referred By: CONRADO Confirmed By:JENIFER CESPEDES
[2017-12-04 11:07] LABS: Absolute Lymphocyte Count 1.55 X10^3/ul (0.83-4.51); Absolute Neutrophil Count 5.4 X10^3/uL (2.0-7.7); Basophil# 0.02 X10^3/uL; Basophil% 0.3 % (0-1); Eosinophil# 0.06 X10^3/uL; Eosinophils% 0.8 % (0-5); Hematocrit 45.8 % (37-47); Hemoglobin 15.4 g/dl (12.0-15.0); Lymphocyte # 1.55 X10^3/ul (4.0); Lymphocyte % 20.9 % (19-41); Mean Corp Hgb Conc 33.6 g/gl (32-36); Mean Corpuscular Hgb 32.6 pg (27.0-32.0); Mean Platelet Vol. 8.9 fl (6.2-12.0); Monocyte# 0.41 X10^3/uL; Monocyte% 5.5 % (0-10); Neutrophil # 5.37 X10^3/uL (2.7-7.7); Neutrophil % 72.4 % (47-70); Platelet Count 253 K/mm3 (150-450); RBC Distribution Width CV 13.2 % (11.6-14.6); RBC Distribution Width SD 47.3 fl (35.1-43.9); Red Blood Count 4.72 M/mm3 (4.2-5.4); White Blood Count 7.4 K/mm3 (4.4-11.0)
[2017-12-04 11:09] LABS: POSITIVE COUNT NO; POSITIVE DIFFERENTIAL NO; POSITIVE MORPHOLOGY NO
[2017-12-04] MEDS: Aspirin 81 MG TAB.CHEW 324 MG PO (11:15)
[2017-12-04 11:23] LABS: Anion Gap 8 (5-15); BUN 15 mg/dL (7-18); BUN/Creat Ratio 14.4 RATIO (10-20); Calcium,Total 9.6 mg/dL (8.5-10.1); Chloride 104 mmol/L (98-107); Creatinine, Serum 1.04 mg/dL (0.55-1.02); EST Glomerular Filtration Rate 57 mL/min (>60); Est Glom Filt Rate - Afr Amer 69 mL/min (>60); Estimated Creatinine Clearance 51.12 ml/min; Glucose 108 mg/dL (74-106); Potassium 3.8 mmol/L (3.5-5.1); Sodium Level 138 mmol/L (136-145)
[2017-12-04] MEDS: Enoxaparin 60 MG/0.6 ML Syringe SC (12:35)
--- NOTE | 2017-12-04 12:36 | PCM.CONS.C ---
Problem List (1) Pleuritic chest pain Status: Acute (2) Shortness of breath Status: Acute (3) Tobacco dependence syndrome Status: Chronic Reason for Consult Date of Consultation: 12/04/17 Reason for Consultation: Chest pain, shortness of breath, COPD, History of Present Illness: The patient is a 62 year old F, nondiabetic, current smoker of 1-2 packs/day, started smoking at age 19 with a total of 34-lpbg-bcvs history thus far, on chronic O2 therapy at night only, no previous CVA or coronary artery disease. Patient was doing well up until around 3 weeks ago when she contracted a respiratory illness which is progressively worsened into shortness of breath, dyspnea on exertion, productive sputum but no fevers or chills. Patient is also noted substernal chest pressure after walking up several flights of stairs which requires between 15 and 60 minutes to resolve. In addition she was awoken this morning with substernal chest pressure similar to her exertional symptoms which took about 15 minutes to resolve as well. Patient's pain was described as a chest heaviness, without radiation with associated shortness of breath. The patient presented to [facility] ER and an EKG was performed which showed normal sinus rhythm, no acute changes, no previous myocardial infarction noted. Chest x-ray demonstrates no overt pneumonia but does have evidence of COPD. In addition her initial troponin was negative. On further history the patient has never had a echocardiogram, but did have PVR several years ago by a peripheral vascular surgeon at the [facility]. She was told that they were normal. In addition the patient complains of bilateral lower extremity claudication type symptoms although she has excellent 2+ DP and PT pulses bilaterally. Patient does not have a survey research analyst despite her O2 therapy at night. She also states that her symptoms are somewhat pleuritic with respiration of the last several weeks. She denies any presyncope, syncope, lightheadedness, dizziness, lower extremity edema, nausea or vomiting. [] Past Medical History Allergies/Adverse Reactions: Allergies No Known Allergies Allergy (Verified 06/30/17 14:18) Home Medications: Ambulatory Orders Medication Instructions Recorded Gabapentin 800 mg PO TID 05/01/14 Albuterol Inhaler [Ventolin Hfa] 2 puff INHALATION Q6H PRN PRN #1 05/02/14 inhaler Clonazepam [Klonopin] 0.5 mg PO DAILY PRN 10/30/15 Tiotropium [place] [Spiriva 18 MCG] 1 puff INHALATION DAILY 08/03/16 Omeprazole 20 mg PO DAILY 11/29/16 Tizanidine HCl 4 mg PO TID 11/29/16 Duloxetine Hcl [Cymbalta] 120 mg PO DAILY 01/05/17 Albuterol Aerosols [Ventolin 2.5 mg INHALATION Q6HWA.RT PRN 06/30/17 Aerosols] traZODone [Desyrel] 100 mg PO QHS 06/30/17 Ibuprofen [Ibu] 600 mg PO Q6H PRN PRN #30 tab 07/02/17 Oxycodone [Oxyir] 5 mg PO Q6H PRN PRN 12/04/17 Past Medical History (Chronic Problems): Chronic Problems Adnexal mass (Chronic) Panic disorder (Chronic) Tobacco dependence syndrome (Chronic) COPD (chronic obstructive pulmonary disease) (Chronic) Fibromyalgia (Chronic) Surgical History: cholecystectomy, hysterectomy, tonsillectomy, - - Heart ablation, foot surgery Psychiatric History: - - Panic disorder 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 Denies: Fever, Fatigue, Night Sweats Cardiovascular: Reports: Chest Discomfort, Chest Discomfort at Rest, Chest Discomfort with Exertion, Chest Pressure, Chest Tightness, Shortness of Breath, Shortness of Breath at Rest, Shortness of Breath with Exertion, Claudication. Denies: Orthopnea, PND, Peripheral Edema, Palpitations, Lightheadedness, Dizziness, Near Syncope, Syncope Respiratory: Denies: Cough, Sputum Production, Hemoptysis Gastrointestinal: Denies: Hematemesis, Hematochezia, Melena Genitourinary: Denies: Dysuria, Hematuria Skin: Denies: Rash Subjectve: Patient resting comfortably, no acute distress. Hemodynamically stable. Family at the bedside. Objective: Vital Signs Temp Pulse Resp BP Pulse Ox 98.1 F 79 18 107/74 98 12/04/17 10:38 12/04/17 12:21 12/04/17 12:21 12/04/17 12:21 12/04/17 12:21 Oxygen Flow Rate (L/min) 2 Oxygen Delivery Method Room Air Weight: 134 lb 11.239 oz Body Mass Index (BMI) 22.4 General: Awake, Alert, Oriented x 3 HEENT: PERRL, EOMI, Sclera Non Icteric Neck: Supple, Good ROM, No Lymph Node Enlargement Lungs: Clear to auscultation Cardiovascular: Regular Rhythm, Normal S1, Normal S2, No Murmurs, No Rubs, No Gallops Vascular: No Carotid Bruits, Normal Femoral Pulses, Normal Radial Pulses, Normal Dorsalis Pedal Pulse, Normal Posterior Tibial Pulses Abdomen: Bowel Sounds Present, Soft, Non Tender, No HSM, No Organomegaly Extremities: No Cyanosis, No Clubbing, No edema Neurological: No Focal Motor or Sensory Deficit 12/04/17 11:01: WBC 7.4, RBC 4.72, Hgb 15.4 H, Hct 45.8, MCV 97.0, MCH 32.6 H, MCHC 33.6, RDW 13.2, RDW Differential 47.3 H, Plt Count 253, MPV 8.9, Immature Gran % (Auto) 0.100, Neut % (Auto) 72.4 H, Lymph % (Auto) 20.9, [place] % (Auto) 5.5, Eos % (Auto) 0.8, Baso % (Auto) 0.3, Absolute Neuts (auto) 5.4, Total Counted Not Reportable 12/04/17 11:01: Sodium 138, Potassium 3.8, Chloride 104, Carbon Dioxide 26.0, Anion Gap 8, BUN 15, Creatinine 1.04 H, Est GFR (MDRD) Af Amer 69, Est GFR (MDRD) Non-Af 57 L, BUN/Creatinine Ratio 14.4, Glucose 108 H, Calcium 9.6, Troponin I < 0.015 Rhythm: EKG: Normal sinus rhythm, normal axis, normal interval. No acute changes. No previous myocardial infarction. ECHO: Pending Stress Test: Pending Cardiac Cath: PCI: CT Surgery: Holter monitor: EPS: PPM: CXR: Chest CT Scan: Assessment/Plan 1. Chest pain: Patient has been struggling with what sounds like bronchitis over the last several weeks with worsening shortness of breath, dyspnea on exertion, and exertional chest pain symptoms at the top of walking several flights of stairs. This morning, upon awakening the patient had recurrent substernal chest pressure which was nonradiating which lasted approximately 15 minutes and sought medical attention at [facility]. Her initial troponin is negative and her EKG is negative as well. The patient has several risk factors for coronary disease including her age, heavy smoking history, ongoing smoking, and previous hyperlipidemia. I recommended the patient be given baby aspirin x4 which is artery been done, and loaded with Plavix 300 mg x1 now should her troponins become abnormal. If her troponins remain negative, I recommend a modified [place] treadmill echocardiogram to determine the patient's exercise capacity, blood pressure response to exercise, and to evaluate for possible ischemia. If this is grossly abnormal, she may require diagnostic coronary angiogram. If her troponins become abnormal throughout the evening, I would skip her stress test and go directly to left heart catheterization tomorrow morning. She will continue baby aspirin and Plavix 75 mg p.o. daily. In addition I recommend she undergo a 2D echo with Doppler to assess her LV function. If her LV function is poor, I would skip her stress test as well and go directly to left heart catheterization. Would also recommend the patient have a pulmonary consultation for her COPD/emphysema and her chronic O2 therapy at night. 2. Hyperlipidemia: Recommend obtaining a fasting lipid profile. Recommend treating with statin based medications of her LDL is greater than 130. 3. Pleuritic type chest pain: Recommend obtaining sed rate or at bedtime CRP to evaluate for possible pleuritis/pericarditis. 4. Discussed with Dr. Vuong and Dr. Alva. Thank you very much for the opportunity to put dissipate in the cardiac care of your patient. Consultation time took place between 12 PM and 12:45 PM. Code Visit Inpatient E&M: 57004 Init Hosp L2
--- NOTE | 2017-12-04 12:37 | ED.VISSUMM ---
- ER Visit Summary Date of Service: 12/04/17 Chief Complaint: Shortness of breath and chest discomfort patient states upon awakening she noted she had pressure sensation mid chest/left side of the chest with shortness of breath without radiation and nausea. She denied diaphoresis. History of Present Illness: The patient is a 62 F who presents with shortness of breath and chest pain. Chest pain occurred at rest. She described as a pressure sensation mid left chest without radiation. There was associated nausea, and dyspnea. Upon further questioning she admits to exertional chest heaviness past week. She states when she was up a flight of stairs to become short of breath has become diaphoretic nauseated short of breath. After she is at the top step and takes anywhere between 15-60+ minutes before the chest tightness goes away. The past several months she has had symptoms of claudication both calves. She is a smoker 1-1/2 packs/day. She does have history of COPD. She denies history hypertension, hypercholesterolemia or diabetes. She denies fever, chills or night sweats. She does report mild nasal congestion and sore throat which is chronic. She denies orthopnea or PND. She denies vomiting or diarrhea. She denies urologic symptoms. She denies myalgias, arthralgias or back pain. She denies rash, abrasion or any skin lesions. She denies headache, anesthesia, paresthesia or motor weakness. She has no allergic symptoms. Physical Examination: Vital signs noted and are unremarkable. Patient is well developed and somewhat cachectic. Head is atraumatic normocephalic. Pupils are equal round reactive. Extraocular muscles are intact. TMs are pearly white with landmarks noted. Nares patent with no drainage. Posterior pharynx without erythema or exudate. Uvula is midline. There is no dysphonia or dysphasia. Trachea is midline. There is no stridor with auscultation of the neck. Heart is regular without murmur, gallop or rub. S1 and S2 are normal. Lungs are clear to auscultation with good movement of air bilaterally. Abdomen is soft nontender. There is no palpable cell mass abdominal bruit. Lower extremity exam is remarkable for stigmata of peripheral arterial disease. There is no palpable pulses. There is no hair on her toes. Neuro exam is nonfocal. Test Results: EKG reveals a sinus rhythm rate of 73 and is normal. [place] interval, Q bapt[place], QT interval and axis are normal. Portable chest x-ray reveals chronic changes with normal chronic silhouette, mediastinum and lung parenchyma. The chest x-ray was interpreted by me at the time it was taken. Blood work is unremarkable. Troponin is less than 0.015. Creatinine is 1.04. Emergency Department Course and Treatment: Chest pain order set was initiated to evaluate patient's chest pain. Concerned this represents classic exertional angina. She was treated with aspirin, nitroglycerin sublingual and 1 mg/kg of Lovenox subcu Case was discussed with Dr. Bahena and the hospitalist Dr. Alva. Treatment Plan: Aspirin, nitro, Lovenox cardiology consult Disposition: PCU Impression: 1. New onset exertional angina 2. History of COPD 3. History depression This note was generated with [employer] dictation software. It may contain incorrect words, spelling, and punctuation that were not noted in review of the chart prior to signing ED Disposition - Plan for ED Patient: Chief Complaint: Shortness of Breath Referrals: Alexi Montesinos MD [Primary Care Provider] -
--- NOTE | 2017-12-04 12:39 | ED.RN ---
DR CESPEDES DOWN AT BEDSIDE WITH DR. SANCHEZ TO DISCUSS CARE.
--- NOTE | 2017-12-04 12:41 | ED.DCSUM_ITS ---
- ER Visit Summary Date of Service: 12/04/17 Chief Complaint: Shortness of breath and chest discomfort patient states upon awakening she noted she had pressure sensation mid chest/left side of the chest with shortness of breath without radiation and nausea. She denied diaphoresis. History of Present Illness: The patient is a 62 F who presents with shortness of breath and chest pain. Chest pain occurred at rest. She described as a pressure sensation mid left chest without radiation. There was associated nausea, and dyspnea. Upon further questioning she admits to exertional chest heaviness past week. She states when she was up a flight of stairs to become short of breath has become diaphoretic nauseated short of breath. After she is at the top step and takes anywhere between 15-60+ minutes before the chest tightness goes away. The past several months she has had symptoms of claudication both calves. She is a smoker 1-1/2 packs/day. She does have history of COPD. She denies history hypertension, hypercholesterolemia or diabetes. She denies fever, chills or night sweats. She does report mild nasal congestion and sore throat which is chronic. She denies orthopnea or PND. She denies vomiting or diarrhea. She denies urologic symptoms. She denies myalgias, arthralgias or back pain. She denies rash, abrasion or any skin lesions. She denies headache, anesthesia, paresthesia or motor weakness. She has no allergic symptoms. Physical Examination: Vital signs noted and are unremarkable. Patient is well developed and somewhat cachectic. Head is atraumatic normocephalic. Pupils are equal round reactive. Extraocular muscles are intact. TMs are pearly white with landmarks noted. Nares patent with no drainage. Posterior pharynx without erythema or exudate. Uvula is midline. There is no dysphonia or dysphasia. Trachea is midline. There is no stridor with auscultation of the neck. Heart is regular without murmur, gallop or rub. S1 and S2 are normal. Lungs are clear to auscultation with good movement of air bilaterally. Abdomen is soft n ontender. There is no palpable cell mass abdominal bruit. Lower extremity exam is remarkable for stigmata of peripheral arterial disease. There is no palpable pulses. There is no hair on her toes. Neuro exam is nonfocal. Test Results: EKG reveals a sinus rhythm rate of 73 and is normal. [place] interval, Q yaz[place], QT interval and axis are normal. Portable chest x-ray reveals chronic changes with normal chronic silhouette, mediastinum and lung parenchyma. The chest x-ray was interpreted by me at the time it was taken. Blood work is unremarkable. Troponin is less than 0.015. Creatinine is 1.04. Emergency Department Course and Treatment: Chest pain order set was initiated to evaluate patient's chest pain. Concerned this represents classic exertional angina. She was treated with aspirin, nitroglycerin sublingual and 1 mg/kg of Lovenox subcu Case was discussed with Dr. Bahena and the hospitalist Dr. Alva. Treatment Plan: Aspirin, nitro, Lovenox cardiology consult Disposition: PCU Impression: 1. New onset exertional angina 2. History of COPD 3. History depression This note was generated with [employer] dictation software. It may contain incorrect words, spelling, and punctuation that were not noted in review of the chart prior to signing ED Disposition - Plan for ED Patient: Chief Complaint: Shortness of Breath Referrals: Alexi Motnesinos MD [Primary Care Provider] -
--- NOTE | 2017-12-04 12:41 | CON.PCM_ITS ---
Problem List (1) Pleuritic chest pain Status: Acute (2) Shortness of breath Status: Acute (3) Tobacco dependence syndrome Status: Chronic Reason for Consult Date of Consultation: 12/04/17 Reason for Consultation: Chest pain, shortness of breath, COPD, History of Present Illness: The patient is a 62 year old F, nondiabetic, current smoker of 1-2 packs/day, started smoking at age 19 with a total of [id number] history thus far, on chronic O2 therapy at night only, no previous CVA or coronary artery disease. Patient was doing well up until around 3 weeks ago when she contracted a respiratory illness which is progressively worsened into shortness of breath, dyspnea on exertion, productive sputum but no fevers or chills. Patient is also noted substernal chest pressure after walking up several flights of stairs which requires between 15 and 60 minutes to resolve. In addition she was awoken this morning with substernal chest pressure similar to her exertional symptoms which took about 15 minutes to resolve as well. Patient's pain was described as a chest heaviness, without radiation with associated shortness of breath. The patient presented to [facility] ER and an EKG was performed which showed normal sinus rhythm, no acute changes, no previous myocardial infarction noted. Chest x-ray demonstrates no overt pneumonia but does have evidence of COPD. In addition her initial troponin was negative. On further history the patient has never had a echocardiogram, but did have PVR several years ago by a peripheral vascular surgeon at the [facility]. She was told that they were normal. In addition the patient complains of bilateral lower extremity claudication type symptoms although she has excellent 2+ DP and PT pulses bilaterally. 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 She also states that her symptoms are somewhat pleuritic with respiration of the last several weeks. She denies any presyncope, syncope, lightheadedness, dizziness, lower extremity edema, nausea or vomiting. [] Past Medical History Allergies/Adverse Reactions: Allergies No Known Allergies Allergy (Verified 06/30/17 14:18) Home Medications: Ambulatory Orders Medication Instructions Recorded Gabapentin 800 mg PO TID 05/01/14 Albuterol Inhaler [Ventolin Hfa] 2 puff INHALATION Q6H PRN PRN #1 05/02/14 inhaler Clonazepam [Klonopin] 0.5 mg PO DAILY PRN 10/30/15 Tiotropium [place] [Spiriva 18 MCG] 1 puff INHALATION DAILY 08/03/16 Omeprazole 20 mg PO DAILY 11/29/16 Tizanidine HCl 4 mg PO TID 11/29/16 Duloxetine Hcl [Cymbalta] 120 mg PO DAILY 01/05/17 Albuterol Aerosols [Ventolin 2.5 mg INHALATION Q6HWA.RT PRN 06/30/17 Aerosols] traZODone [Desyrel] 100 mg PO QHS 06/30/17 Ibuprofen [Ibu] 600 mg PO Q6H PRN PRN #30 tab 07/02/17 Oxycodone [Oxyir] 5 mg PO Q6H PRN PRN 12/04/17 Past Medical History (Chronic Problems): Chronic Problems Adnexal mass (Chronic) Panic disorder (Chronic) Tobacco dependence syndrome (Chronic) COPD (chronic obstructive pulmonary disease) (Chronic) Fibromyalgia (Chronic) Surgical History: cholecystectomy, hysterectomy, tonsillectomy, - - Heart ablation, foot surgery Psychiatric History: - - Panic disorder 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 Denies: Fever, Fatigue, Night Sweats Cardiovascular: Reports: Chest Discomfort, Chest Discomfort at Rest, Chest Discomfort with Exertion, Chest Pressure, Chest Tightness, Shortness of Breath, Shortness of Breath at Rest, Shortness of Breath with Exertion, Claudication. Denies: Orthopnea, PND, Peripheral Edema, Palpitations, Lightheadedness, Dizziness, Near Syncope, Syncope Respiratory: Denies: Cough, Sputum Production, Hemoptysis Gastrointestinal: Denies: Hematemesis, Hematochezia, Melena Genitourinary: Denies: Dysuria, Hematuria Skin: Denies: Rash Subjectve: Patient resting comfortably, no acute distress. Hemodynamically stable. Family at the bedside. Objective: Vital Signs Temp Pulse Resp BP Pulse Ox 98.1 F 79 18 107/74 98 12/04/17 10:38 12/04/17 12:21 12/04/17 12:21 12/04/17 12:21 12/04/17 12:21 Oxygen Flow Rate (L/min) 2 Oxygen Delivery Method Room Air Weight: 134 lb 11.239 oz Body Mass Index (BMI) 22.4 General: Awake, Alert, Oriented x 3 HEENT: PERRL, EOMI, Sclera Non Icteric Neck: Supple, Good ROM, No Lymph Node Enlargement Lungs: Clear to auscultation Cardiovascular: Regular Rhythm, Normal S1, Normal S2, No Murmurs, No Rubs, No Gallops Vascular: No Carotid Bruits, Normal Femoral Pulses, Normal Radial Pulses, Normal Dorsalis Pedal Pulse, Normal Posterior Tibial Pulses Abdomen: Bowel Sounds Present, Soft, Non Tender, No HSM, No Organomegaly Extremities: No Cyanosis, No Clubbing, No edema Neurological: No Focal Motor or Sensory Deficit 12/04/17 11:01: WBC 7.4, RBC 4.72, Hgb 15.4 H, Hct 45.8, MCV 97.0, MCH 32.6 H, MCHC 33.6, RDW 13.2, RDW Differential 47.3 H, Plt Count 253, MPV 8.9, Immature Gran % (Auto) 0.100, Neut % (Auto) 72.4 H, Lymph % (Auto) 20.9, [place] % (Auto) 5.5, Eos % (Auto) 0.8, Baso % (Auto) 0.3, Absolute Neuts (auto) 5.4, Total Counted Not Reportable 12/04/17 11:01: Sodium 138, Potassium 3.8, Chloride 104, Carbon Dioxide 26.0, Anion Gap 8, BUN 15, Creatinine 1.04 H, Est GFR (MDRD) Af Amer 69, Est GFR (MDRD) Non-Af 57 L, BUN/Creatinine Ratio 14.4, Glucose 108 H, Calcium 9.6, Troponin I < 0.015 Rhythm: EKG: Normal sinus rhythm, normal axis, normal interval. No acute changes. No previous myocardial infarction. ECHO: Pending Stress Test: Pending Cardiac Cath: PCI: CT Surgery: Holter monitor: EPS: PPM: CXR: Chest CT Scan: Assessment/Plan 1. Chest pain: Patient has been struggling with what sounds like bronchitis over the last several weeks with worsening shortness of breath, dyspnea on exertion, and exertional chest pain symptoms at the top of walking several flights of stairs. This morning, upon awakening the patient had recurrent substernal chest pressure which was nonradiating which lasted approximately 15 minutes and sought medical attention at [facility]. Her initial troponin is negative and her EKG is negative as well. The patient has several risk factors for coronary disease including her age, heavy smoking history, ongoing smoking, and previous hyperlipidemia. I re commended the patient be given baby aspirin x4 which is artery been done, and loaded with Plavix 300 mg x1 now should her troponins become abnormal. If her troponins remain negative, I recommend a modified [place] treadmill echocardiogram to determine the patient's exercise capacity, blood pressure response to exercise, and to evaluate for possible ischemia. If this is grossly abnormal, she may require diagnostic coronary angiogram. If her troponins become abnormal throughout the evening, I would skip her stress test and go directly to left heart catheterization tomorrow morning. She will continue baby aspirin and Plavix 75 mg p.o. daily. In addition I recommend she undergo a 2D echo with Doppler to assess her LV function. If her LV function is poor, I would skip her stress test as well and go directly to left heart catheterization. Would also recommend the patient have a pulmonary consultation for her COPD/emphysema and her chronic O2 therapy at night. 2. Hyperlipidemia: Recommend obtaining a fasting lipid profile. Recommend treating with statin based medications of her LDL is greater than 130. 3. Pleuritic type chest pain: Recommend obtaining sed rate or at bedtime CRP to evaluate for possible pleuritis/pericarditis. 4. Discussed with Dr. Vuong and Dr. Alva. Thank you very much for the opportunity to put dissipate in the cardiac care of your patient. Consultation time took place between 12 PM and 12:45 PM. Code Visit Inpatient E&M: 82669 Init Hosp L2
[2017-12-04] MEDS: Clopidogrel Bisulfate 300 MG Tablet PO (12:45)
--- NOTE | 2017-12-04 12:54 | PCM.HP.STD ---
Problem List (1) Unstable angina Status: Acute (2) COPD exacerbation Status: Acute (3) Adnexal mass Status: Chronic (4) Lactic acid acidosis Status: Resolved (5) SIRS (systemic inflammatory response syndrome) Status: Resolved (6) Pneumonia Status: Resolved (7) Pleuritic chest pain Status: Acute (8) Shortness of breath Status: Acute (9) Panic disorder Status: Chronic (10) Tobacco dependence syndrome Status: Chronic (11) Fibromyalgia Status: Chronic (12) Chronic lumbar back pain Status: Chronic History of Present Illness Date of Admission: 12/04/17 Chief Complaint: Progressive worsening of shortness of breath and chest pressure today The patient is a 62 year old F with history of nicotine dependence, current smoker 1/2 packs/day since age of 19, COPD/emphysema, chronic hypoxic respiratory failure on 2 L of oxygen at night, last admission in October 2015 for COPD exacerbation came to ER with progressive worsening of shortness of breath on exertion for 3 weeks URI symptoms of cold, postnasal drip, chronic cough and chest pressure/tightness today. Chest pressure is located anteriorly midsternal without exacerbating, relieving or precipitating factor. She had shortness of breath persistent even at rest today. Patient had to use oxygen even during daytime today. she denies any previous history of coronary artery disease. [] Had echo in December 2015 which shows EF 60% With diastolic dysfunction. Trivial TR, unable to estimate RV systolic pressure you technically difficult study. In ED, EKG shows normal sinus rhythm at 73 bpm. She was seen by nougat cutter machine Dr. Bahena. Given aspirin 325 and loading dose of Plavix 300 mg. First troponin is negative. Chest x-ray shows chronic changes of COPD. Past Medical History Past Medical History (Chronic Problems): Chronic Problems Adnexal mass (Chronic) Chronic lumbar back pain (Chronic) Panic disorder (Chronic) Tobacco dependence syndrome (Chronic) Fibromyalgia (Chronic) Allergies No Known Allergies Allergy (Verified 06/30/17 14:18) Home Medications: Ambulatory Orders Medication Instructions Recorded Gabapentin 800 mg PO TID 05/01/14 Albuterol Inhaler [Ventolin Hfa] 2 puff INHALATION Q6H PRN PRN #1 05/02/14 inhaler Clonazepam [Klonopin] 0.5 mg PO DAILY PRN 10/30/15 Tiotropium [place] [Spiriva 18 MCG] 1 puff INHALATION DAILY 08/03/16 Omeprazole 20 mg PO DAILY 11/29/16 Tizanidine HCl 4 mg PO TID 11/29/16 Duloxetine Hcl [Cymbalta] 120 mg PO DAILY 01/05/17 Albuterol Aerosols [Ventolin 2.5 mg INHALATION Q6HWA.RT PRN 06/30/17 Aerosols] traZODone [Desyrel] 100 mg PO QHS 06/30/17 Ibuprofen [Ibu] 600 mg PO Q6H PRN PRN #30 tab 07/02/17 Oxycodone [Oxyir] 5 mg PO Q6H PRN PRN 12/04/17 Surgical History: cholecystectomy, hysterectomy, tonsillectomy, - - Heart ablation, foot surgery Psychiatric History: - - Panic disorder 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 Denies: Head Aches, Sinus Drainage Cardiovascular: Reports: Chest Pressure, Chest Tightness. Denies: Palpitations Respiratory: Reports: Shortness of breath at rest, Shortness of breath upon exertion. Denies: Cough, Sputum production Gastrointestinal: Denies: Abdominal Pain, Nausea, Vomiting Genitourinary: Denies: Dysuria Musculoskeletal: Reports: Back Pain, Joint Pain, Leg Pain. Denies: Joint Tenderness Skin: Denies: Rash, Wounds Neurological: Denies: Numbness, Tingling, Focal weakness Psychiatric: Denies: Anxiety, Depression, Homicidal Ideations, Suicidal Ideations Hematologic/ Lymphatic: Denies: Easy Bruising, Easy Bleeding VTE Information - Inpt Only VTE Present on Admission: No VTE Mechan Device Prophylaxis: None VTE Pharm Prophylaxis ordered?: Yes Patient Problems: Active and Suspected Problems Unstable angina (Acute) COPD exacerbation (Acute) - Physical Exam General: Alert, Oriented x3, Cooperative HEENT: Atraumatic, PERRLA, EOMI, Normocephalic Neck: Supple, No JVD, Negative Carotid Bruits Lungs: Diminished - Air entry severely diminished bilaterally, Rhonchi - Expiratory rhonchi present., - - On 2 L of oxygen. Cardiovascular: Regular rate, No murmurs Abdomen: Bowel Sounds Present, Soft, Non Tender Extremities: No edema, Capillary Refill Less than 3 Seconds, - - Bilateral [employer], dorsalis pedis and popliteal artery are palpable and good volume Skin: No rashes, No breakdown Musculoskeletal: No Tenderness to Palpation of Joints or Extremities, Arthritic Changes, Muscle Wasting Neurological: Cranial nerves II-XII grossly intact, Motor Exam 5/5 strength throughout Psych/Mental Status: Normal Affect, Appropriate Vital Signs Temp Pulse Resp BP Pulse Ox 98.1 F 78 18 102/59 L 100 12/04/17 10:38 12/04/17 12:42 12/04/17 12:42 12/04/17 12:42 12/04/17 12:42 Oxygen Flow Rate (L/min) 2 Oxygen Delivery Method Room Air Weight: 134 lb 11.239 oz Body Mass Index (BMI) 22.4 Laboratory Tests Past 24 Hrs 12/04/17 12/04/17 12/04/17 11:01 11:01 11:01 WBC 7.4 RBC 4.72 Hgb 15.4 H Hct 45.8 MCV 97.0 MCH 32.6 H MCHC 33.6 RDW 13.2 RDW Differential 47.3 H Plt Count 253 MPV 8.9 Immature Gran % (Auto) 0.100 Neut % (Auto) 72.4 H Lymph % (Auto) 20.9 [place] % (Auto) 5.5 Eos % (Auto) 0.8 Baso % (Auto) 0.3 Absolute Neuts (auto) 5.4 Absolute Lymphs (auto) 1.55 Total Counted Not Reportable ESR Sodium 138 Potassium 3.8 Chloride 104 Carbon Dioxide 26.0 Anion Gap 8 BUN 15 Creatinine 1.04 H Estim Creat Clear Calc 51.12 Est GFR (MDRD) Af Amer 69 Est GFR (MDRD) Non-Af 57 L BUN/Creatinine Ratio 14.4 Glucose 108 H Calcium 9.6 Troponin I < 0.015 Triglycerides Pending Cholesterol Pending LDL Cholesterol Pending VLDL Cholesterol Pending HDL Cholesterol Pending 12/04/17 11:01 WBC RBC Hgb Hct MCV MCH MCHC RDW RDW Differential Plt Count MPV Immature Gran % (Auto) Neut % (Auto) Lymph % (Auto) [place] % (Auto) Eos % (Auto) Baso % (Auto) Absolute Neuts (auto) Absolute Lymphs (auto) Total Counted ESR Pending Sodium Potassium Chloride Carbon Dioxide Anion Gap BUN Creatinine Estim Creat Clear Calc Est GFR (MDRD) Af Amer Est GFR (MDRD) Non-Af BUN/Creatinine Ratio Glucose Calcium Troponin I Triglycerides Cholesterol LDL Cholesterol VLDL Cholesterol HDL Cholesterol Assessment/Plan All Active Problems Unstable angina (Acute) COPD exacerbation (Acute) Lactic acid acidosis (Resolved) SIRS (systemic inflammatory response syndrome) (Resolved) Pneumonia (Resolved) Pleuritic chest pain (Acute) Shortness of breath (Acute) The patient is a 62 year old F with history of nicotine dependence, current smoker 1/2 packs/day since age of 19, COPD/emphysema, chronic hypoxic respiratory failure on 2 L of oxygen at night, last admission in October 2015 for COPD exacerbation came to ER with progressive worsening of shortness of breath on exertion for 3 weeks URI symptoms of cold, postnasal drip, chronic cough and chest pressure/tightness today. Chest pressure is located anteriorly midsternal without exacerbating, relieving or precipitating factor. She denies any previous history of coronary artery disease. [] Had echo in December 2015 which shows EF 60% With diastolic dysfunction. Trivial TR, unable to estimate RV systolic pressure you technically difficult study. In ED, EKG shows normal sinus rhythm at 73 bpm without ischemic changes. She was seen by nougat cutter machine Dr. Bahena. First troponin is negative. Chest x-ray shows chronic changes of COPD. 1. Atypical chest pain with shortness of breath high suspicion of unstable angina: Patient is being admitted in PCU floor. On ACS protocol with serial troponin enzymes. Stress echo tomorrow morning if troponins are negative. If troponins are positive, Dr. Bahena explained the procedure of cardiac cath. Patient received 1 dose of Lovenox 60 mg, loading dose of Plavix and aspirin 325 mg in the ER. 2. COPD exacerbation nicotine dependence: Started on bronchodilator every 4 hourly while awake, Solu-Medrol, incentive spirometry, chest physiotherapy and Zithromax. Influenza test ordered. Sputum culture. Chest x-ray reviewed and does not show acute consolidation but chronic changes suggestive of COPD. Patient was a strongly encouraged for smoking cessation by me and the nougat cutter machine. 3. Chronic lumbar back pain most probably secondary to moderate lumbar spinal stenosis with sciatica pain radiation into mainly right lower extremity: C had a CT lumbar spinal in January 2016 which reported multilevel degenerative changes with marked disc narrowing at L3-4, L4-5 and L5-S1 with moderate ligamentous and facet hypertrophy and moderate to mild bilateral foraminal narrowing. PT and OT ordered. Further management as an outpatient with pain management. 4. Moderate protein calorie malnutrition: Patient weight is 134 pounds. Looks thin with mild to moderate muscle atrophy in extremities. Gas Cutter consult. Other chronic disorders include chronic smoking, fibromyalgia, and panic disorder. DVT prophylaxis: On Lovenox 40 mg subcu daily Code Visit Inpatient E&M: 76060 Init Hosp L3
--- NOTE | 2017-12-04 13:00 | HP.PCM_ITS ---
Problem List (1) Unstable angina Status: Acute (2) COPD exacerbation Status: Acute (3) Adnexal mass Status: Chronic (4) Lactic acid acidosis Status: Resolved (5) SIRS (systemic inflammatory response syndrome) Status: Resolved (6) Pneumonia Status: Resolved (7) Pleuritic chest pain Status: Acute (8) Shortness of breath Status: Acute (9) Panic disorder Status: Chronic (10) Tobacco dependence syndrome Status: Chronic (11) Fibromyalgia Status: Chronic (12) Chronic lumbar back pain Status: Chronic History of Present Illness Date of Admission: 12/04/17 Chief Complaint: Progressive worsening of shortness of breath and chest pressure today The patient is a 62 year old F with history of nicotine dependence, current smoker 1/2 packs/day since age of 19, COPD/emphysema, chronic hypoxic respira tory failure on 2 L of oxygen at night, last admission in October 2015 for COPD exacerbation came to ER with progressive worsening of shortness of breath on exertion for 3 weeks URI symptoms of cold, postnasal drip, chronic cough and chest pressure/tightness today. Chest pressure is located anteriorly midsternal without exacerbating, relieving or precipitating factor. She had shortness of breath persistent even at rest today. Patient had to use oxygen even during daytime today. she denies any previous history of coronary artery disease. [] Had echo in December 2015 which shows EF 60% With diastolic dysfunction. Trivial TR, unable to estimate RV systolic pressure you technically difficult study. In ED, EKG shows normal sinus rhythm at 73 bpm. She was seen by bonbon cream warmer Dr. Bahena. Given aspirin 325 and loading dose of Plavix 300 mg. First troponin is negative. Chest x-ray shows chronic changes of COPD. Past Medical History Past Medical History (Chronic Problems): Chronic Problems Adnexal mass (Chronic) Chronic lumbar back pain (Chronic) Panic disorder (Chronic) Tobacco dependence syndrome (Chronic) Fibromyalgia (Chronic) Allergies No Known Allergies Allergy (Verified 06/30/17 14:18) Home Medications: Ambulatory Orders Medication Instructions Recorded Gabapentin 800 mg PO TID 05/01/14 Albuterol Inhaler [Ventolin Hfa] 2 puff INHALATION Q6H PRN PRN #1 05/02/14 inhaler Clonazepam [Klonopin] 0.5 mg PO DAILY PRN 10/30/15 Tiotropium [place] [Spiriva 18 MCG] 1 puff INHALATION DAILY 08/03/16 Omeprazole 20 mg PO DAILY 11/29/16 Tizanidine HCl 4 mg PO TID 11/29/16 Duloxetine Hcl [Cymbalta] 120 mg PO DAILY 01/05/17 Albuterol Aerosols [Ventolin 2.5 mg INHALATION Q6HWA.RT PRN 06/30/17 Aerosols] traZODone [Desyrel] 100 mg PO QHS 06/30/17 Ibuprofen [Ibu] 600 mg PO Q6H PRN PRN #30 tab 07/02/17 Oxycodone [Oxyir] 5 mg PO Q6H PRN PRN 12/04/17 Surgical History: cholecystectomy, hysterectomy, tonsillectomy, - - Heart ablation, foot surgery Psychiatric History: - - 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 Denies: Head Aches, Sinus Drainage Cardiovascular: Reports: Chest Pressure, Chest Tightness. Denies: Palpitations Respiratory: Reports: Shortness of breath at rest, Shortness of breath upon exertion. Denies: Cough, Sputum production Gastrointestinal: Denies: Abdominal Pain, Nausea, Vomiting Genitourinary: Denies: Dysuria Musculoskeletal: Reports: Back Pain, Joint Pain, Leg Pain. Denies: Joint Tenderness Skin: Denies: Rash, Wounds Neurological: Denies: Numbness, Tingling, Focal weakness Psychiatric: Denies: Anxiety, Depression, Homicidal Ideations, Suicidal Ideations Hematologic/ Lymphatic: Denies: Easy Bruising, Easy Bleeding VTE Information - Inpt Only VTE Present on Admission: No VTE Mechan Device Prophylaxis: None VTE Pharm Prophylaxis ordered?: Yes Patient Problems: Active and Suspected Problems Unstable angina (Acute) COPD exacerbation (Acute) - Physical Exam General: Alert, Oriented x3, Cooperative HEENT: Atraumatic, PERRLA, EOMI, Normocephalic Neck: Supple, No JVD, Negative Carotid Bruits Lungs: Diminished - Air entry severely diminished bilaterally, Rhonchi - Expiratory rhonchi present., - - On 2 L of oxygen. Cardiovascular: Regular rate, No murmurs Abdomen: Bowel Sounds Present, Soft, Non Tender Extremities: No edema, Capillary Refill Less than 3 Seconds, - - Bilateral [employer] DIRECTOR [employer] SALES, dorsalis pedis and popliteal artery are palpable and good volume Skin: No rashes, No breakdown Musculoskeletal: No Tenderness to Palpation of Joints or Extremities, Arthritic Changes, Muscle Wasting Neurological: Cranial nerves II-XII grossly intact, Motor Exam 5/5 strength throughout Psych/Mental Status: Normal Affect, Appropriate Vital Signs Temp Pulse Resp BP Pulse Ox 98.1 F 78 18 102/59 L 100 12/04/17 10:38 12/04/17 12:42 12/04/17 12:42 12/04/17 12:42 12/04/17 12:42 Oxygen Flow Rate (L/min) 2 Oxygen Delivery Method Room Air Weight: 134 lb 11.239 oz Body Mass Index (BMI) 22.4 Laboratory Tests Past 24 Hrs 12/04/17 12/04/17 12/04/17 11:01 11:01 11:01 WBC 7.4 RBC 4.72 Hgb 15.4 H Hct 45.8 MCV 97.0 MCH 32.6 H MCHC 33.6 RDW 13.2 RDW Differential 47.3 H Plt Count 253 MPV 8.9 Immature Gran % (Auto) 0.100 Neut % (Auto) 72.4 H Lymph % (Auto) 20.9 [place] % (Auto) 5.5 Eos % (Auto) 0.8 Baso % (Auto) 0.3 Absolute Neuts (auto) 5.4 Absolute Lymphs (auto) 1.55 Total Counted Not Reportable ESR Sodium 138 Potassium 3.8 Chloride 104 Carbon Dioxide 26.0 Anion Gap 8 BUN 15 Creatinine 1.04 H Estim Creat Clear Calc 51.12 Est GFR (MDRD) Af Amer 69 Est GFR (MDRD) Non-Af 57 L BUN/Creatinine Ratio 14.4 Glucose 108 H Calcium 9.6 Troponin I < 0.015 Triglycerides Pending Cholesterol Pending LDL Cholesterol Pending VLDL Cholesterol Pending HDL Cholesterol Pending 12/04/17 11:01 WBC RBC Hgb Hct MCV MCH MCHC RDW RDW Differential Plt Count MPV Immature Gran % (Auto) Neut % (Auto) Lymph % (Auto) [place] % (Auto) Eos % (Auto) Baso % (Auto) Absolute Neuts (auto) Absolute Lymphs (auto) Total Counted ESR Pending Sodium Potassium Chloride Carbon Dioxide Anion Gap BUN Creatinine Estim Creat Clear Calc Est GFR (MDRD) Af Amer Est GFR (MDRD) Non-Af BUN/Creatinine Ratio Glucose Calcium Troponin I Triglycerides Cholesterol LDL Cholesterol VLDL Cholesterol HDL Cholesterol Assessment/Plan All Active Problems Unstable angina (Acute) COPD exacerbation (Acute) Lactic acid acidosis (Resolved) SIRS (systemic inflammatory response syndrome) (Resolved) Pneumonia (Resolved) Pleuritic chest pain (Acute) Shortness of breath (Acute) The patient is a 62 year old F with history of nicotine dependence, current smoker 1/2 packs/day since age of 19, COPD/emphysema, chronic hypoxic respiratory failure on 2 L of oxygen at night, last admission in October 2015 for COPD exacerbation came to ER with progressive worsening of shortness of breath on exertion for 3 weeks URI symptoms of cold, postnasal drip, chronic cough and chest pressure/tightness today. Chest pressure is located anteriorly midsternal without exacerbating, relieving or precipitating factor. She denies any previous history of coronary artery disease. [] Had echo in December 2015 which shows EF 60% With diastolic dysfunction. Trivial TR, unable to estimate RV systolic pressure you technically difficult study. In ED, EKG shows normal sinus rhythm at 73 bpm without ischemic changes. She was seen by bonbon cream warmer Dr. Bahena. First troponin is negative. Chest x-ray shows chronic changes of COPD. 1. Atypical chest pain with shortness of breath high suspicion of unstable angina: Patient is being admitted in PCU floor. On ACS protocol with serial troponin enzymes. Stress echo tomorrow morning if troponins are negative. If troponins are positive, Dr. Bahena explained the procedure of cardiac cath. Patient received 1 dose of Lovenox 60 mg, loading dose of Plavix and aspirin 325 mg in the ER. 2. COPD exacerbation nicotine dependence: Started on bronchodilator every 4 hourly while awake, Solu-Medrol, incentive spirometry, chest physiotherapy and Zithromax. Influenza test ordered. Sputum culture. Chest x-ray reviewed and does not show acute consolidation but chronic changes suggestive of COPD. Patient was a strongly encouraged for smoking cessation by me and the bonbon cream warmer. 3. Chronic lumbar back pain most probably secondary to moderate lumbar spinal stenosis with sciatica pain radiation into mainly right lower extremity: C had a CT lumbar spinal in January 2016 which reported multilevel degenerative changes with marked disc narrowing at L3-4, L4-5 and L5-S1 with moderate ligamentous and facet hypertrophy and moderate to mild bilateral foraminal narrowing. PT and OT ordered. Further management as an outpatient with pain management. 4. Moderate protein calorie malnutrition: Patient weight is 134 pounds. Looks thin with mild to moderate muscle atrophy in extremities. Hand Flesher consult. Other chronic disorders include chronic smoking, fibromyalgia, and panic disorder. DVT prophylaxis: On Lovenox 40 mg subcu daily Code Visit Inpatient E&M: 56097 Init Hosp L3
[2017-12-04 13:04] LABS: Erythrocyte Sedimentation Rate 26 mm/hr (0-30)
[2017-12-04 13:06] LABS: Cholesterol 181 mg/dL (200); High Density Lipoprotein 57 mg/dL; Triglycerides 113 mg/dL; Very Low Density Lipoprotein 23 mg/dL (5-40)
--- NOTE | 2017-12-04 13:20 | ECHOD_ITS ---
[id number] ECHO^ECHOD^Echo Complete [id number] TAG_START [facility] Echocardiogram [address] [place], [place] [address] Ordering Physician: Trenton Bahena TAG_ENDED TAG_START Name: KENZIE HYLTON Study Date: 12/04/2017 02:28 PM BP: 102/55 mmHg Patient Location: [facility]^[id number]^1 BSA: 1.6 m2 : 1955 Gender: Female Height: 65 in Age: 62 yrs Ethnicity: C Weight: 128 lb History: COPD, SMOKER, Adnexal mass, pneumonia, panic disorder TAG_ENDED Reason For Study: Chest pain Procedure This was a 2D Doppler, Color Flow transthoracic echocardiogram. Exam performed portable in patient room. Left Ventricle Normal size and thickness. The estimated ejection fraction is 65 %. Normal diastology for age. No regional wall motion abnormalities noted. TAG_START I Segments Size 1-2 small X - Cannot 1 - Normal 2 - 3 - Akinetic 4 - Dyskinetic3-5 moderate Interpret Hypokinetic 6-14 large 5 - Aneurysmal 15-16 diffuse TAG_ENDED Right Ventricle Normal size and thickness. Normal systolic function. Atria Normal left atrium. Normal right atrium. Normal atrial septum. Mitral Valve The mitral valve is structurally normal. No prolapse or stenosis seen. Tricuspid Valve Normal tricuspid valve. Trivial tricuspid valve insufficiency. Right ventricular systolic pressure estimated to be 25 mmHg. Aortic Valve Trisinus/trileaflet aortic valve. Normal aortic valve. Pulmonic Valve Normal pulmonic valve. Great Vessels Normal aortic root. Normal arch. Normal inferior vena cava. Inferior vena cava collapse with sniff. Pericardium/Pleural No pericardial effusion. MMode/2D Measurements & Calculations RVDd: 3.4 cm LVIDd: 4.3 cm FS: 31.3 % IVSd: 0.72 cm LVIDs: 3.0 cm LVPWd: 0.77 cm Ao root diam: 3.2 cm LVAd ap4: 26.2 cm2 SV(MOD-sp4): 42.9 ml LA dimension: 2.7 cm EDV(MOD-sp4): 69.8 ml EDV(sp4-el): 71.6 ml LVAs ap4: 15.0 cm2 ESV(MOD-sp4): 27.0 ml ESV(sp4-el): 27.0 ml EF(MOD-sp4): 61.4 % EF(sp4-el): 62.3 % SV(sp4-el): 44.6 ml Doppler Measurements & Calculations MV E max jose: 63.9 cm/sec MV V2 max: 79.0 cm/sec MV dec time: 0.42 sec MV A max jose: 58.3 cm/sec MV max P.5 mmHg MV E/A: 1.1 MV V2 mean: 54.8 cm/sec MV mean P.3 mmHg MV V2 VTI: 25.5 cm Ao V2 max: 108.6 cm/sec LV V1 max P.3 mmHg TR max jose: 225.2 cm/sec Ao max P.7 mmHg LV V1 max: 90.9 cm/sec TR max P.3 mmHg Pediatric Measurements & Calculations Lat Peak E' Jose: 11.4 cm/sec Med Peak E' Jose: 8.8 cm/sec Interpretation Summary The estimated ejection fraction is 65 %. Normal diastology for age. Trivial tricuspid valve insufficiency. Right ventricular systolic pressure estimated to be 25 mmHg. Compared to echo report dated 12/14/2015, no appreciable changes noted. TAG_START TAG_ENDED Ordering Physician: Trenton Bahena Referring Physician: FUNMILAYO LIRIANO Performed By: Nan Knutson, KAILASH, RVT
[2017-12-04] MEDS: 0.9% Normal Saline 1,000 ML 75 ML IV (14:24)
[2017-12-04] MEDS: 0.9% NaCl Peripheral Flush Adult/Peds IV (14:24)
[2017-12-04] MEDS: Acetaminophen 325 MG Tablet 650 MG PO (14:28)
[2017-12-04] MEDS: Ipratropium/Albuterol Sulfate 3 ML AMPUL.NEB INHALATION ×2 (15:20→18:54)
--- NOTE | 2017-12-04 16:00 | EKG12_ITS ---
Test Reason : CP ADMISSION Blood Pressure : / mmHG Vent. Rate : 061 BPM Atrial Rate : 061 BPM P-R Int : 130 ms QRS Dur : 082 ms QT Int : 440 ms P-R-T Axes : 074 049 067 degrees QTc Int : 442 ms Normal sinus rhythm with sinus arrhythmia Normal ECG When compared with ECG of 04-DEC-2017 11:04, MANUAL COMPARISON REQUIRED, DATA IS UNCONFIRMED Confirmed by JENIFER CESPEDES ([id number]), editor producer DARWIN LAUREANO ([id number]) on 12/09/2017 11:23:44 AM Referred By: DANIEL Confirmed By:JENIFER CESPEDES
--- NOTE | 2017-12-04 16:06 | LEAS ---
Arterial Study - Arterial Study Arterial Study: Bilateral lower extremity noninvasive arterial exam at rest Right lower extremity The right PT and DP ankle-brachial index at rest to 1.051.01 respectively with triphasic Doppler waveforms. Volume pulse recordings do not demonstrate amplification the calf the ankle and digital waveforms are adequately maintained Left lower extremity The left PT and DP ankle-brachial index at rest are 1.19 and 1.28 respectively with triphasic Doppler waveforms. The volume pulse recordings do not demonstrate amplification the calf the ankle and digital waveforms are adequately maintained Impression Normal bilateral lower extremity resting ankle-brachial indices and waveforms. If vascular claudication is of concern then would consider pursuing a exercise PVR Jai Mae M.D., F.A.C.S.
[2017-12-04] MEDS: oxyCODONE 5 MG Tablet PO (17:12)
[2017-12-04] MEDS: Gabapentin 800 MG Tablet PO (21:13)
[2017-12-04] MEDS: traZODone 100 MG Tablet PO (21:13)
[2017-12-04] MEDS: tiZANidine HCl 2 MG Tablet 4 MG PO (21:14)
[2017-12-05] VITALS (39 sets, daily range): BP systolic 89–147; BP diastolic 57–105; PULSE 64–106; RESP 14–27; TEMP 36.4–36.7; O2SAT 94–99
--- NOTE | 2017-12-05 05:55 | EKG12_ITS ---
Test Reason : MORNING EKG Blood Pressure : / mmHG Vent. Rate : 066 BPM Atrial Rate : 066 BPM P-R Int : 144 ms QRS Dur : 080 ms QT Int : 418 ms P-R-T Axes : 075 054 053 degrees QTc Int : 438 ms Normal sinus rhythm Normal ECG When compared with ECG of 04-DEC-2017 13:12, MANUAL COMPARISON REQUIRED, DATA IS UNCONFIRMED Confirmed by JENIFER CESPEDES ([id number]), editor map DARWIN LAURENAO ([id number] on 12/09/2017 12:48:35 PM Referred By: DANIEL Confirmed By:JENIFER CESPEDES
[2017-12-05] MEDS: tiZANidine HCl 2 MG Tablet 4 MG PO ×3 (06:08→21:16)
[2017-12-05] MEDS: Gabapentin 800 MG Tablet PO ×3 (06:08→21:16)
[2017-12-05] MEDS: Aspirin E.C. 81 MG Tablet PO (06:08)
[2017-12-05] MEDS: 0.9% NaCl Peripheral Flush Adult/Peds IV ×3 (06:09→21:16)
[2017-12-05] MEDS: Ibuprofen 600 MG Tablet PO (06:12)
[2017-12-05 06:48] LABS: Absolute Lymphocyte Count 0.97 X10^3/ul (0.83-4.51); Absolute Neutrophil Count 9.9 X10^3/uL (2.0-7.7); Hemoglobin 13.9 g/dl (12.0-15.0); Lymphocyte # 0.97 X10^3/ul (4.0); Lymphocyte % 8.8 % (19-41); Mean Corp Hgb Conc 33.9 g/gl (32-36); Mean Corpuscular Hgb 32.9 pg (27.0-32.0); Mean Corpuscular Volume 97.2 fL (81-99); Mean Platelet Vol. 9.3 fl (6.2-12.0); Monocyte# 0.22 X10^3/uL; Neutrophil # 9.85 X10^3/uL (2.7-7.7); Neutrophil % 89.1 % (47-70); Platelet Count 280 K/mm3 (150-450); RBC Distribution Width CV 12.8 % (11.6-14.6); Red Blood Count 4.22 M/mm3 (4.2-5.4); White Blood Count 11.1 K/mm3 (4.4-11.0)
[2017-12-05 06:50] LABS: International Normalized Ratio 1.1; Partial Thromboplast Time 26.7 Seconds (24.1-36.2); Prothrombin Time (Protime)PT. 13.7 SECONDS (11.7-14.9)
[2017-12-05 06:53] LABS: POSITIVE COUNT NO; POSITIVE DIFFERENTIAL NO; POSITIVE MORPHOLOGY NO
[2017-12-05] MEDS: Ipratropium/Albuterol Sulfate 3 ML AMPUL.NEB INHALATION ×3 (06:56→19:12)
[2017-12-05 07:16] LABS: Anion Gap 7 (5-15); BUN 14 mg/dL (7-18); BUN/Creat Ratio 17.3 RATIO (10-20); Calcium,Total 9.1 mg/dL (8.5-10.1); Chloride 107 mmol/L (98-107); Creatinine, Serum 0.81 mg/dL (0.55-1.02); EST Glomerular Filtration Rate 76 mL/min (>60); Est Glom Filt Rate - Afr Amer 92 mL/min (>60); Estimated Creatinine Clearance 65.63 ml/min; Glucose 129 mg/dL (74-106); Potassium 4.4 mmol/L (3.5-5.1); Sodium Level 140 mmol/L (136-145); Thyroid Stim Hormone (TSH) 0.62 uIU/mL (0.358-3.74)
[2017-12-05] MEDS: oxyCODONE 5 MG Tablet PO ×2 (07:19→13:19)
--- NOTE | 2017-12-05 08:00 | STE_ITS ---
[id number] ECHO^CECILIO^Stress Test Echo w/o Contrast [id number] TAG_START Cardiovascular Services Stress Echocardiogram [facility] [place] [id number] Ordering Physician: Trenton Bahena TAG_ENDED TAG_START Name: KENZIE HYLTON Study Date: 12/05/2017 09:46 AM BP: 110/64 mmHg Patient Location: [place] [address]^1 BSA: 1.6 m2 : 1955 Gender: Female Height: 65 in Age: 62 yrs Weight: 128 lb History: HLD, Smoker, Family HX of CAD, COPD, Adrenal Mass, Fibromyalgia, Lumbar Pain, Back Surgery Medications: Aspirin, Klonopin, Colace, Cymbalta, Lovenox, Neurontin, Solu-Medrol, Protonix, Miralax, Desyrel, Zanaflex TAG_ENDED Reason For Study: Chest Pain Stress Results Protocol: Modified [place]hel Protocol Maximum Predicted HR: 159 bpm Target HR: 135 bpm % Maximum Predicted HR: 87 % DurationHeart Rate Stage (mm:ss) (bpm) BP Comment Baseline 68 110/64No Chest Pain Modified [place] Protocol Stage 0 3:00 121 116/62No Chest Pain; Mild Dyspnea Modified [place]hel Protocol Stage 1/2 3:00 133 136/60No Chest Pain; Moderate Dyspnea Modified [place]hel Protocol Stage 1 2:00 139 142/66No Chest Pain; Moderate Dyspnea Recovery 88 118/70No Chest Pain; No Dyspnea Stress Duration: 8:00 mm:ss Maximum Stress HR: 139 bpm METS: 4 TAG_START I Segments Size 1-2 small X - Cannot 1 - Normal 2 - 3 - Akinetic 4 - Dyskinetic3-5 moderate Interpret Hypokinetic 6-14 large 5 - Aneurysmal 15-16 diffuse TAG_ENDED Baseline Echocardiogram Findings The estimated ejection fraction is 65 %. Stress Echo Wall motion Data Resting WM Intermediate WM Stress WM Resting Wall Motion Wall Motion Stress No regional wall motion No regional wall motion abnormalities noted. abnormalities noted. EKG Data The baseline ECG displays normal sinus rhythm. No clinical angina was noted. Interpretation Summary The estimated ejection fraction is 65 %. Normal, adequate, modified Bethel treadmill echocardiogram. Negative for ischemia by EKG and echocardiographic criteria. No anginal symptoms noted. No arrhythmias noted. Appropriate blood pressure response to exercise. Markedly reduced exercise capacity for age. Moderate dyspnea experienced during peak exercise which may be an anginal equivalent. Final LVEF is 75%. No complications. TAG_START TAG_ENDED Ordering Physician: Trenton Bahena Referring Physician: Trenton Bahena Performed By: Nan Knutson, KAILASH, RVT
[2017-12-05] MEDS: Pantoprazole Sodium 20 MG Tablet PO (10:23)
[2017-12-05] MEDS: DULoxetine Hcl 60 MG Capsule 120 MG PO (10:23)
[2017-12-05] MEDS: Polyethylene Glycol 3350 17 GM PACKET PO (10:28)
--- NOTE | 2017-12-05 12:33 | PCM.PROGNOTE ---
<Yulia Foley - Last Filed: 12/05/17 13:14> Patient Problems: Active and Suspected Problems Unstable angina (Acute) COPD exacerbation (Acute) Subjective: Patient seen and examined. Denies further chest pain. Complains of increased shortness of breath and wheezing. States she has had upper respiratory symptoms for 3 weeks now. Patient underwent stress echo this morning which was negative for ischemia. - Physical Exam General: Alert, Oriented x3, Cooperative HEENT: Atraumatic, PERRLA, EOMI, Normocephalic Neck: Supple, No JVD, Negative Carotid Bruits Lungs: Diminished, Wheezes Cardiovascular: Regular rate, Regular Rhythm, Normal S1, Normal S2, No murmurs Abdomen: Bowel Sounds Present, Soft, Non Tender, Non-Distended Extremities: No clubbing, No cyanosis, No edema, Capillary Refill Less than 3 Seconds Skin: No rashes, No breakdown Musculoskeletal: No Tenderness to Palpation of Joints or Extremities Neurological: Cranial nerves II-XII grossly intact, Neuro grossly intact Psych/Mental Status: Normal Affect, Appropriate Vital Signs Temp Pulse Resp BP Pulse Ox 98 F 91 16 103/58 L 97 12/05/17 10:18 12/05/17 10:38 12/05/17 10:38 12/05/17 10:18 12/05/17 10:18 Oxygen Flow Rate (L/min) 2 Oxygen Delivery Method Room Air Weight: 128 lb 1.417 oz Body Mass Index (BMI) 21.3 Intake and Output for Last 24 Hours 12/03/17 12/04/17 12/05/17 23:59 23:59 23:59 Intake Total 1474 / 1474 1076 / 1076 Balance 1474 / 1474 1076 / 1076 Microbiology Past 72 Hours 12/04/17 15:17 Influenza Types A,B Direct FA (PEDRO) - Final Mucosa - Nasopharyngeal Laboratory Tests Past 24 Hrs 12/04/17 12/04/17 12/04/17 11:01 11:01 14:02 WBC RBC Hgb Hct MCV MCH MCHC RDW RDW Differential Plt Count MPV Immature Gran % (Auto) Neut % (Auto) Lymph % (Auto) Mcdonough % (Auto) Eos % (Auto) Baso % (Auto) Absolute Neuts (auto) Absolute Lymphs (auto) Total Counted ESR 26 PT INR APTT Sodium Potassium Chloride Carbon Dioxide Anion Gap BUN Creatinine Estim Creat Clear Calc Est GFR (MDRD) Af Amer Est GFR (MDRD) Non-Af BUN/Creatinine Ratio Glucose Calcium Troponin I < 0.015 Triglycerides 113 Cholesterol 181 LDL Cholesterol 101 VLDL Cholesterol 23 HDL Cholesterol 57 TSH 12/04/17 12/04/17 12/05/17 17:07 19:21 05:39 WBC RBC Hgb Hct MCV MCH MCHC RDW RDW Differential Plt Count MPV Immature Gran % (Auto) Neut % (Auto) Lymph % (Auto) Mcdonough % (Auto) Eos % (Auto) Baso % (Auto) Absolute Neuts (auto) Absolute Lymphs (auto) Total Counted ESR PT INR APTT Sodium 140 Potassium 4.4 Chloride 107 Carbon Dioxide 26.0 Anion Gap 7 BUN 14 Creatinine 0.81 Estim Creat Clear Calc 65.63 Est GFR (MDRD) Af Amer 92 Est GFR (MDRD) Non-Af 76 BUN/Creatinine Ratio 17.3 Glucose 129 H Calcium 9.1 Troponin I < 0.015 < 0.015 Triglycerides Cholesterol LDL Cholesterol VLDL Cholesterol HDL Cholesterol TSH 0.62 12/05/17 12/05/17 05:39 05:39 WBC 11.1 H RBC 4.22 Hgb 13.9 Hct 41.0 MCV 97.2 MCH 32.9 H MCHC 33.9 RDW 12.8 RDW Differential 45.0 H Plt Count 280 MPV 9.3 Immature Gran % (Auto) 0.100 Neut % (Auto) 89.1 H Lymph % (Auto) 8.8 L Mcdonough % (Auto) 2.0 Eos % (Auto) 0.0 Baso % (Auto) 0.0 Absolute Neuts (auto) 9.9 H Absolute Lymphs (auto) 0.97 Total Counted Not Reportable ESR PT 13.7 INR 1.1 APTT 26.7 Sodium Potassium Chloride Carbon Dioxide Anion Gap BUN Creatinine Estim Creat Clear Calc Est GFR (MDRD) Af Amer Est GFR (MDRD) Non-Af BUN/Creatinine Ratio Glucose Calcium Troponin I Triglycerides Cholesterol LDL Cholesterol VLDL Cholesterol HDL Cholesterol TSH Medical Necessity - Tobacco Use Smoking Status: Current every day smoker Assessment/Plan All Active Problems Unstable angina (Acute) COPD exacerbation (Acute) Lactic acid acidosis (Resolved) SIRS (systemic inflammatory response syndrome) (Resolved) Pneumonia (Resolved) Pleuritic chest pain (Acute) Shortness of breath (Acute) 1. Atypical chest pain-Troponin negative. Patient underwent stress echo which was negative for ischemia. EF 65%. Cardiology consulted. Patient to undergo cardiac catheterization due to dyspnea during stress echo. Echocardiogram showed an EF of 65%, RVSP estimated to be 25 mmHg. 2. Acute on chronic hypoxic respiratory failure secondary to COPD exacerbation-now stable on room air. Wears supplemental oxygen at bedtime at home. Continue IV Solu-Medrol. Continue IV azithromycin. Albuterol and DuoNeb aerosols. Chest x-ray on admission showed hyperinflation. Previously followed with Dr. Estes. States she was unable to see him due to unpaid bill. Called pulmonary medicine office and she is able to return to their office for outpatient follow-up. 3. Chronic lumbar back pain-PT/OT. Continue home PRN pain regimen. 4. Moderate protein malnutrition-nutrition consult. 5. GERD-continue PPI. 6. Depression/anxiety-continue home Cymbalta, Klonopin regimen. 7. Tobacco dependence-encourage smoking cessation. 8. Chronic kidney disease stage II-stable, trend BMP. DVT prophylaxis-heparin subcu This patient was seen by Yulia Foley NP-C under the supervision of Dr. Alva. <Jeremi Alva - Last Filed: 12/05/17 18:37> Subjective: The patient was seen and examined. Patient is still short of breath and wheezing. Rapidly due to COPD exacerbation. Patient had stress echo which was negative for inducible ischemia. - Physical Exam Lungs: Diminished - Air entry diminished bilaterally. Bilateral wheezing present. Patient is still short of breath, Short of Breath Cardiovascular: Regular rate, Regular Rhythm, Normal S1, Normal S2, No murmurs Abdomen: Bowel Sounds Present, Soft, Non Tender, Non-Distended Extremities: No clubbing, No cyanosis, No edema, Capillary Refill Less than 3 Seconds Skin: No rashes, No breakdown Musculoskeletal: No Tenderness to Palpation of Joints or Extremities, Arthritic Changes, Muscle Wasting Neurological: Cranial nerves II-XII grossly intact, Neuro grossly intact Vital Signs Temp Pulse Resp BP Pulse Ox 98.0 F 84 19 H 122/71 H 98 12/05/17 14:24 12/05/17 18:17 12/05/17 18:17 12/05/17 18:17 12/05/17 18:17 Oxygen Flow Rate (L/min) 2 Oxygen Delivery Method Room Air Weight: 128 lb 1.417 oz Body Mass Index (BMI) 21.3 Intake and Output for Last 24 Hours 12/03/17 12/04/17 12/05/17 23:59 23:59 23:59 Intake Total 1474 / 1474 1076 / 1076 Balance 1474 / 1474 1076 / 1076 Microbiology Past 72 Hours 12/04/17 15:17 Influenza Types A,B Direct FA (PEDRO) - Final Mucosa - Nasopharyngeal Laboratory Tests Past 24 Hrs 12/04/17 12/05/17 12/05/17 19:21 05:39 05:39 WBC 11.1 H RBC 4.22 Hgb 13.9 Hct 41.0 MCV 97.2 MCH 32.9 H MCHC 33.9 RDW 12.8 RDW Differential 45.0 H Plt Count 280 MPV 9.3 Immature Gran % (Auto) 0.100 Neut % (Auto) 89.1 H Lymph % (Auto) 8.8 L Mcdonough % (Auto) 2.0 Eos % (Auto) 0.0 Baso % (Auto) 0.0 Absolute Neuts (auto) 9.9 H Absolute Lymphs (auto) 0.97 Total Counted Not Reportable PT INR APTT Activated Clotting Time Specimen Type pH Bicarbonate Actual POC Total CO2 Base Excess O2 Saturation ABG pCO2 ABG pO2 VBG pH VBG pO2 VBG O2 Sat (Calc) VBG O2 Content VBG Base Excess POC Mix VBG pCO2 Pt Tmp Sodium 140 Potassium 4.4 Chloride 107 Carbon Dioxide 26.0 Anion Gap 7 BUN 14 Creatinine 0.81 Estim Creat Clear Calc 65.63 Est GFR (MDRD) Af Amer 92 Est GFR (MDRD) Non-Af 76 BUN/Creatinine Ratio 17.3 Glucose 129 H Calcium 9.1 Troponin I < 0.015 TSH 0.62 12/05/17 12/05/17 12/05/17 05:39 14:57 15:00 WBC RBC Hgb Hct MCV MCH MCHC RDW RDW Differential Plt Count MPV Immature Gran % (Auto) Neut % (Auto) Lymph % (Auto) Mcdonough % (Auto) Eos % (Auto) Baso % (Auto) Absolute Neuts (auto) Absolute Lymphs (auto) Total Counted PT 13.7 INR 1.1 APTT 26.7 Activated Clotting Time Specimen Type CHARLA CHARLA pH Bicarbonate Actual POC Total CO2 Base Excess O2 Saturation ABG pCO2 ABG pO2 VBG pH 7.44 H 7.43 H VBG pO2 38 41 H VBG O2 Sat (Calc) 74 H 78 H VBG O2 Content 25 25 VBG Base Excess -1 -1 POC Mix VBG pCO2 Pt Tmp 35.1 L 35.4 L Sodium Potassium Chloride Carbon Dioxide Anion Gap BUN Creatinine Estim Creat Clear Calc Est GFR (MDRD) Af Amer Est GFR (MDRD) Non-Af BUN/Creatinine Ratio Glucose Calcium Troponin I TSH 12/05/17 12/05/17 12/05/17 15:04 15:23 18:00 WBC RBC Hgb Hct MCV MCH MCHC RDW RDW Differential Plt Count MPV Immature Gran % (Auto) Neut % (Auto) Lymph % (Auto) Mcdonough % (Auto) Eos % (Auto) Baso % (Auto) Absolute Neuts (auto) Absolute Lymphs (auto) Total Counted PT INR APTT Activated Clotting Time 208 H 164 H Specimen Type ART pH 7.43 Bicarbonate Actual 23.5 POC Total CO2 25 Base Excess -1 O2 Saturation 93 L ABG pCO2 35.7 ABG pO2 65 L VBG pH VBG pO2 VBG O2 Sat (Calc) VBG O2 Content VBG Base Excess POC Mix VBG pCO2 Pt Tmp Sodium Potassium Chloride Carbon Dioxide Anion Gap BUN Creatinine Estim Creat Clear Calc Est GFR (MDRD) Af Amer Est GFR (MDRD) Non-Af BUN/Creatinine Ratio Glucose Calcium Troponin I TSH Assessment/Plan This patient was seen in conjunction with PUBLIC EMPLOYMENT MEDIATOR, Yulia. I have independently interviewed and examined the patient and reviewed pertinent history, examination findings, laboratory and plan of management. I have reviewed the note and agree with the documented findings with the few additional points. In brief, patient is admitted for acute on chronic hypoxic respiratory failure secondary to COPD examination and chest tightness which was concern for unstable angina. Patient had stress echo which was negative for ischemia by EKG and echocardiographic criteria although patient had moderate dyspnea during peak exercise which may be an anginal equivalent. No arrhythmias noted. Echo reported as EF 65% with normal diastole for age. No regional wall motion abnormality. He denies normal-sized right ventricle and systolic function. Normal left and right atria. Trivial TR, RVSP 25. Thereafter, patient was taken for diagnostic cardiac cath and showed single vessel coronary disease of mid circumflex 55%. EF by LV gram 65%. FFR baseline 0.9 and and FFR post adenosine 0.92. patient was transferred to ICU she had FFR and the sheath could not able to pulled out. Goes to the nursing staff. I have discussed my assessment with PUBLIC EMPLOYMENT MEDIATORYulia and orders have been reviewed. Code Visit Inpatient E&M: 34890 Subs Hosp L3
--- NOTE | 2017-12-05 12:47 | CASEMGMT ---
According to [place] website, the following are in-network tertiary facilities: [facility], [place], [facility], [facility], [facility], [facility], [facility], [facility], and . Anuel CORREIA CM
--- NOTE | 2017-12-05 13:08 | CASEMGMT ---
MASOOD SOLORZANO assessment: Face to Face with patient for initial transition planning/care coordination assessment. MASOOD SOLORZANO introduced self and role at [facility], pt voices understanding and consents to assessment at this time. Pt is sitting up in chair in no distress at this time. Pt is A/O x4 at this time and answers all questions appropriately at this time. Care providers, pharmacy, and demographics verified at this time. PCP: [facility]: Pt states does not currently have any specialists. Preferred Pharmacy: [facility] Insurance: [employer] Prescription Benefit: [employer] Living Will/HPOA: Pt states does not currently have LW/HPOA but states would like to complete at this time. Pt gets teary eyed when discussing this at this time but she also just found out that she is going to now have a heart cath. Referral to Kimberlee GARCIA at this time, voices understanding and into room to speak with pt at this time. LNOK: Divya Dalton, daughter; Smith Staples, son Living Arrangements: Pt states lives with friends on the main level of a 2 story home and states no concerns at home at this time. Transportation: Pt states drives self and states no transportation concerns at this time. DME/HHC: :Pt states has home oxygen at bedtime, 2liters, thru [employer]. Pt states no hx of HHC or SNF in the past. Pt states no concerns with going home at time of discharge. Pt states still smokes 1.5pack/day and states drinks ETOH occasionally. Pt voices no further concerns/needs at this time. CM to follow for any further discharge planning/needs. Advised pt to ask for CM if any further questions/concerns/needs arise, voices understanding. Plan: [place] MASOOD SOLORZANO
--- NOTE | 2017-12-05 13:12 | PN_ITS ---
<Yulia Foley - Last Filed: 12/05/17 13:14> Patient Problems: Active and Suspected Problems Unstable angina (Acute) COPD exacerbation (Acute) Subjective: Patient seen and examined. Denies further chest pain. Complains of increased shortness of breath and wheezing. States she has had upper respiratory symptoms for 3 weeks now. Patient underwent stress echo this morning which was negative for ischemia. - Physical Exam General: Alert, Oriented x3, Cooperative HEENT: Atraumatic, PERRLA, EOMI, Normocephalic Neck: Supple, No JVD, Negative Carotid Bruits Lungs: Diminished, Wheezes Cardiovascular: Regular rate, Regular Rhythm, Normal S1, Normal S2, No murmurs Abdomen: Bowel Sounds Present, Soft, Non Tender, Non-Distended Extremities: No clubbing, No cyanosis, No edema, Capillary Refill Less than 3 Seconds Skin: No rashes, No breakdown Musculoskeletal: No Tenderness to Palpation of Joints or Extremities Neurological: Cranial nerves II-XII grossly intact, Neuro grossly intact Psych/Mental Status: Normal Affect, Appropriate Vital Signs Temp Pulse Resp BP Pulse Ox 98 F 91 16 103/58 L 97 12/05/17 10:18 12/05/17 10:38 12/05/17 10:38 12/05/17 10:18 12/05/17 10:18 Oxygen Flow Rate (L/min) 2 Oxygen Delivery Method Room Air Weight: 128 lb 1.417 oz Body Mass Index (BMI) 21.3 Intake and Output for Last 24 Hours 12/03/17 12/04/17 12/05/17 23:59 23:59 23:59 Intake Total 1474 / 1474 1076 / 1076 Balance 1474 / 1474 1076 / 1076 Microbiology Past 72 Hours 12/04/17 15:17 Influenza Types A,B Direct FA (PEDRO) - Final Mucosa - Nasopharyngeal Laboratory Tests Past 24 Hrs 12/04/17 12/04/17 12/04/17 11:01 11:01 14:02 WBC RBC Hgb Hct MCV MCH MCHC RDW RDW Differential Plt Count MPV Immature Gran % (Auto) Neut % (Auto) Lymph % (Auto) [place] % (Auto) Eos % (Auto) Baso % (Auto) Absolute Neuts (auto) Absolute Lymphs (auto) Total Counted ESR 26 PT INR APTT Sodium Potassium Chloride Carbon Dioxide Anion Gap BUN Creatinine Estim Creat Clear Calc Est GFR (MDRD) Af Amer Est GFR (MDRD) Non-Af BUN/Creatinine Ratio Glucose Calcium Troponin I < 0.015 Triglycerides 113 Cholesterol 181 LDL Cholesterol 101 VLDL Cholesterol 23 HDL Cholesterol 57 TSH 12/04/17 12/04/17 12/05/17 17:07 19:21 05:39 WBC RBC Hgb Hct MCV MCH MCHC RDW RDW Differential Plt Count MPV Immature Gran % (Auto) Neut % (Auto) Lymph % (Auto) [place] % (Auto) Eos % (Auto) Baso % (Auto) Absolute Neuts (auto) Absolute Lymphs (auto) Total Counted ESR PT INR APTT Sodium 140 Potassium 4.4 Chloride 107 Carbon Dioxide 26.0 Anion Gap 7 BUN 14 Creatinine 0.81 Estim Creat Clear Calc 65.63 Est GFR (MDRD) Af Amer 92 Est GFR (MDRD) Non-Af 76 BUN/Creatinine Ratio 17.3 Glucose 129 H Calcium 9.1 Troponin I < 0.015 < 0.015 Triglycerides Cholesterol LDL Cholesterol VLDL Cholesterol HDL Cholesterol TSH 0.62 12/05/17 12/05/17 05:39 05:39 WBC 11.1 H RBC 4.22 Hgb 13.9 Hct 41.0 MCV 97.2 MCH 32.9 H MCHC 33.9 RDW 12.8 RDW Differential 45.0 H Plt Count 280 MPV 9.3 Immature Gran % (Auto) 0.100 Neut % (Auto) 89.1 H Lymph % (Auto) 8.8 L [place]on % (Auto) 2.0 Eos % (Auto) 0.0 Baso % (Auto) 0.0 Absolute Neuts (auto) 9.9 H Absolute Lymphs (auto) 0.97 Total Counted Not Reportable ESR PT 13.7 INR 1.1 APTT 26.7 Sodium Potassium Chloride Carbon Dioxide Anion Gap BUN Creatinine Estim Creat Clear Calc Est GFR (MDRD) Af Amer Est GFR (MDRD) Non-Af BUN/Creatinine Ratio Glucose Calcium Troponin I Triglycerides Cholesterol LDL Cholesterol VLDL Cholesterol HDL Cholesterol TSH Medical Necessity - Tobacco Use Smoking Status: Current every day smoker Assessment/Plan All Active Problems Unstable angina (Acute) COPD exacerbation (Acute) Lactic acid acidosis (Resolved) SIRS (systemic inflammatory response syndrome) (Resolved) Pneumonia (Resolved) Pleuritic chest pain (Acute) Shortness of breath (Acute) 1. Atypical chest pain-Troponin negative. Patient underwent stress echo which was negative for ischemia. EF 65%. Cardiology consulted. Patient to undergo cardiac catheterization due to dyspnea during stress echo. Echocardiogram showed an EF of 65%, RVSP estimated to be 25 mmHg. 2. Acute on chronic hypoxic respiratory failure secondary to COPD exacerbation- now stable on room air. Wears supplemental oxygen at bedtime at home. Continue IV Solu-Medrol. Continue IV azithromycin. Albuterol and DuoNeb aerosols. Chest x-ray on admission showed hyperinflation. Previously followed with Dr. Estes. States she was unable to see him due to unpaid bill. Called pulmonary medicine office and she is able to return to their office for outpatient follow- up. 3. Chronic lumbar back pain-PT/OT. Continue home PRN pain regimen. 4. Moderate protein malnutrition-nutrition consult. 5. GERD-continue PPI. 6. Depression/anxiety-continue home Cymbalta, Klonopin regimen. 7. Tobacco dependence-encourage smoking cessation. 8. Chronic kidney disease stage II-stable, trend BMP. DVT prophylaxis-heparin subcu This patient was seen by Yulia Foley NP-C under the supervision of Dr. Alva. <Jeremi Alva - Last Filed: 12/05/17 18:37> Subjective: The patient was seen and examined. Patient is still short of breath and wheezing. Rapidly due to COPD exacerbation. Patient had stress echo which was negative for inducible ischemia. - Physical Exam Lungs: Diminished - Air entry diminished bilaterally. Bilateral wheezing present. Patient is still short of breath, Short of Breath Cardiovascular: Regular rate, Regular Rhythm, Normal S1, Normal S2, No murmurs Abdomen: Bowel Sounds Present, Soft, Non Tender, Non-Distended Extremities: No clubbing, No cyanosis, No edema, Capillary Refill Less than 3 Seconds Skin: No rashes, No breakdown Musculoskeletal: No Tenderness to Palpation of Joints or Extremities, Arthritic Changes, Muscle Wasting Neurological: Cranial nerves II-XII grossly intact, Neuro grossly intact Vital Signs Temp Pulse Resp BP Pulse Ox 98.0 F 84 19 H 122/71 H 98 12/05/17 14:24 12/05/17 18:17 12/05/17 18:17 12/05/17 18:17 12/05/17 18:17 Oxygen Flow Rate (L/min) 2 Oxygen Delivery Method Room Air Weight: 128 lb 1.417 oz Body Mass Index (BMI) 21.3 Intake and Output for Last 24 Hours 12/03/17 12/04/17 12/05/17 23:59 23:59 23:59 Intake Total 1474 / 1474 1076 / 1076 Balance 1474 / 1474 1076 / 1076 Microbiology Past 72 Hours 12/04/17 15:17 Influenza Types A,B Direct FA (PEDRO) - Final Mucosa - Nasopharyngeal Laboratory Tests Past 24 Hrs 12/04/17 12/05/17 12/05/17 19:21 05:39 05:39 WBC 11.1 H RBC 4.22 Hgb 13.9 Hct 41.0 MCV 97.2 MCH 32.9 H MCHC 33.9 RDW 12.8 RDW Differential 45.0 H Plt Count 280 MPV 9.3 Immature Gran % (Auto) 0.100 Neut % (Auto) 89.1 H Lymph % (Auto) 8.8 L [place] % (Auto) 2.0 Eos % (Auto) 0.0 Baso % (Auto) 0.0 Absolute Neuts (auto) 9.9 H Absolute Lymphs (auto) 0.97 Total Counted Not Reportable PT INR APTT Activated Clotting Time Specimen Type pH Bicarbonate Actual POC Total CO2 Base Excess O2 Saturation ABG pCO2 ABG pO2 VBG pH VBG pO2 VBG O2 Sat (Calc) VBG O2 Content VBG Base Excess POC Mix VBG pCO2 Pt Tmp Sodium 140 Potassium 4.4 Chloride 107 Carbon Dioxide 26.0 Anion Gap 7 BUN 14 Creatinine 0.81 Estim Creat Clear Calc 65.63 Est GFR (MDRD) Af Amer 92 Est GFR (MDRD) Non-Af 76 BUN/Creatinine Ratio 17.3 Glucose 129 H Calcium 9.1 Troponin I < 0.015 TSH 0.62 12/05/17 12/05/17 12/05/17 05:39 14:57 15:00 WBC RBC Hgb Hct MCV MCH MCHC RDW RDW Differential Plt Count MPV Immature Gran % (Auto) Neut % (Auto) Lymph % (Auto) [place] % (Auto) Eos % (Auto) Baso % (Auto) Absolute Neuts (auto) Absolute Lymphs (auto) Total Counted PT 13.7 INR 1.1 APTT 26.7 Activated Clotting Time Specimen Type CHARLA CHARLA pH Bicarbonate Actual POC Total CO2 Base Excess O2 Saturation ABG pCO2 ABG pO2 VBG pH 7.44 H 7.43 H VBG pO2 38 41 H VBG O2 Sat (Calc) 74 H 78 H VBG O2 Content 25 25 VBG Base Excess -1 -1 POC Mix VBG pCO2 Pt Tmp 35.1 L 35.4 L Sodium Potassium Chloride Carbon Dioxide Anion Gap BUN Creatinine Estim Creat Clear Calc Est GFR (MDRD) Af Amer Est GFR (MDRD) Non-Af BUN/Creatinine Ratio Glucose Calcium Troponin I TSH 12/05/17 12/05/17 12/05/17 15:04 15:23 18:00 WBC RBC Hgb Hct MCV MCH MCHC RDW RDW Differential Plt Count MPV Immature Gran % (Auto) Neut % (Auto) Lymph % (Auto) [place] % (Auto) Eos % (Auto) Baso % (Auto) Absolute Neuts (auto) Absolute Lymphs (auto) Total Counted PT INR APTT Activated Clotting Time 208 H 164 H Specimen Type ART pH 7.43 Bicarbonate Actual 23.5 POC Total CO2 25 Base Excess -1 O2 Saturation 93 L ABG pCO2 35.7 ABG pO2 65 L VBG pH VBG pO2 VBG O2 Sat (Calc) VBG O2 Content VBG Base Excess POC Mix VBG pCO2 Pt Tmp Sodium Potassium Chloride Carbon Dioxide Anion Gap BUN Creatinine Estim Creat Clear Calc Est GFR (MDRD) Af Amer Est GFR (MDRD) Non-Af BUN/Creatinine Ratio Glucose Calcium Troponin I TSH Assessment/Plan This patient was seen in conjunction with CLERK ENTRY LEVEL, Yulia. I have independently interviewed and examined the patient and reviewed pertinent history, examination findings, laboratory and plan of management. I have reviewed the note and agree with the documented findings with the few additional points. In brief, patient is admitted for acute on chronic hypoxic respiratory failure secondary to COPD examination and chest tightness which was concern for unstable angina. Patient had stress echo which was negative for ischemia by EKG and echocardiographic criteria although patient had moderate dyspnea during peak exercise which may be an anginal equivalent. No arrhythmias noted. Echo re ported as EF 65% with normal diastole for age. No regional wall motion abnormality. He denies normal-sized right ventricle and systolic function. Normal left and right atria. Trivial TR, RVSP 25. Thereafter, patient was taken for diagnostic cardiac cath and showed single vessel coronary disease of mid circumflex 55%. EF by LV gram 65%. FFR baseline 0.9 and and FFR post adenosine 0.92. patient was transferred to ICU she had FFR and the sheath could not able to pulled out. Goes to the nursing staff. I have discussed my assessment with CLERK ENTRY LEVELYulia and orders have been reviewed. Code Visit Inpatient E&M: 79649 Subs Hosp L3
--- NOTE | 2017-12-05 14:08 | CASEMGMT ---
SW met with patient, introduced self and role at [facility]. SW completed advance directives with patient. Copies made, a copy of each placed in chart and originals given to patient. Farzana GARCIA
[2017-12-05] MEDS: DiphenhydrAMINE 25 MG Capsule 50 MG PO (14:18)
[2017-12-05] MEDS: Clopidogrel Bisulfate 75 MG Tablet PO (14:18)
--- NOTE | 2017-12-05 15:33 | CL.D_ITS ---
Patient Name: KENZIE HYLTON Study Date: 12/05/2017 Performing: Trenton Bahena MD Ht: 64.96 inches 165 cm : 1955 Wt: 127.87 lbs 58 kg Age: 62 Gender: female BSA: 1.63 PROCEDURE(S) PERFORMED [id number]/LHC/COR/LV [id number], CORONARY OR GRAFT, INITIAL VESSEL CLINICAL PROFILE AND INDICATIONS Indications: ACS <= 24 hrs Heart Failure: None Stress/Imaging Stress Echocardiogram: Yes Result: NegativeStress Echocardiogram: Negative Angina Classification Anginal Classification w/in 2 Weeks: CCS III CAD Presentations: Unstable angina. Comorbidities/Risk Factors: Current/Recent Smoker (< 1year) Hypertension Dyslipidemia Chronic Lung Disease CONCLUSIONS Single vessel CAD of the LCX Normal Left Ventricular systolic function Normal LV size, wall motion,and systolic function RECOMMENDATIONS Staged for FFR Risk factor modification ASA Indefinitely Management as per referring Program Eligibility Specialist d/c plavix. Tobacco cessation. Manual sheath removal. DESCRIPTION OF PROCEDURE The patient arrived to the procedure lab. The risks and benefits of the procedure as well as a full d escription of our services here and current unavailability of surgical backup were fully explained to the patient and/or their significant other prior to the catheterization. The Timeout was completed, verifying the correct patient and procedure. The patient's procedural site was prepped and draped in the usual fashion. Local anesthetic was given subcutaneously to right groin region with Lidocaine 2%. Using a modified Seldinger technique, arterial access was obtained via the right femoral artery, a 4 Fr sheath was inserted Venous access was obtained via the right femoral vein, a 7Fr sheath was insert ed. A 7Fr thermal dilution catheter was inserted and right heart pressures were recorded, it was then advanced to PA position for cardiac outputs. Thermal dilution cardiac outputs were then recorded. O2 saturations were then obtained. The Thermal dilution catheter was then removed. Simultaneous pressures were then recorded. Left Ventriculography was performed in HOLT projection usin g a 4 Fr. Pigtail catheter. LV to AO pullback pressures were then recorded. Left Coronary Artery wojciech ctive angiography was performed in multiple views using a 4 Fr. JL5 catheter. Right Coronary Artery s elective angiography was then performed in multiple views using a 4 Fr. 3DRC catheter. The FFR wire w as inserted. The pressure wire was then positioned across the lesion in the Circumflex. Adenosine was then given per protocol. Pressures and FFR were recorded. FFR Ratio Baseline: 0.99. FFR Ratio Post A denosine: 0.92.The arterial sheath was sutured in place and capped. The venous sheath was then suture d inplace and capped CORONARY ANGIOGRAPHY DOMINANCE: Right Dominant LEFT HEART ASSESSMENT Left Ventricular Ejection Fraction: by LV Gram 65 % Normal LV wall motion Normal Left Ventricular systolic function RIGHT HEART ASSESSMENT Thermal CO: 6.8 Thermal CI: 4.17 Philip CO: 6.75 Philip CI: 4.14 PW: 11 PA: 32/11 22 RV: 36/0 8 RA: 09/15 3 PVR: 129 SVR: 965 LEFT MAIN: Angiographically normal LEFT ANTERIOR DECENDING ARTERY: Angiographically normal CIRCUMFLEX ARTERY: MID CIRC: 50 % Stenosis RIGHT CORONARY ARTERY: Angiographically normal COMPLICATIONS No Complications PROCEDURE MEDICATIONS Versed 1 mg IV Heparin 6000 unit(s) IV 12/05/2017 15:12:24 Nitro 200 mcg IC 12/05/2017 15:05:17 Nitro 200 mcg IC 12/05/2017 15:05:17 SUMMARY OF HEMODYNAMIC DATA Time AIR REST ECG 14:41:08 RA / (3) SV 14:53:26 RV 36/0, 8 14:53:39 PW (11) PV 14:54:18 PA 32/11 (22) PA 14:54:29 LV 130/-20, 5 14:58:34 LV 135/-20, 5 14:58:41 LV 120/-16, 5 14:59:04 PW 01/22 (9) 14:59:04 LV 130/-22, 9 14:59:27 RV 35/-2, 7 14:59:27 LV 120/-18, 16 15:00:43 LV 119/-19, 13 15:00:50 LVp 122/-19, 11 15:00:55 AOp 124/61 (88) 15:01:00 AO 105/68 (85) SA 15:02:58 Type SV CO (l/m) CI (l/m/ HR Time AIR REST Thermal 75.60 6.80 4.17 90 14:41:08 Philip 75.00 6.75 4.14 90 14:41:08 Label % O2 Pres/Loc Time AIR REST AO 93 PV 15:08:08 PA 76 PA 15:08:19 Signed By Trenton Bahena MD On 12/05/2017 15:32:27 Trenton Bahena MD
[2017-12-05 15:41] LABS: Blood Gas Specimen Type VEN; VBG BASE EXCESS -1 mmol/L (-1.0-3.5); VBG Bicarbonate 24 mmol/L (22-26); VBG Oxygen Content 25 mmol/L (23-33); VBG PO2 38 mmHg (25-40); VBG SO2 74 % (50-70); VBG pCO2 35.1 mmHg (41-51); VBG pH 7.44 (7.32-7.42)
[2017-12-05 15:41] LABS: Blood Gas Specimen Type VEN; VBG BASE EXCESS -1 mmol/L (-1.0-3.5); VBG Bicarbonate 24 mmol/L (22-26); VBG Oxygen Content 25 mmol/L (23-33); VBG PO2 41 mmHg (25-40); VBG SO2 78 % (50-70); VBG pCO2 35.4 mmHg (41-51); VBG pH 7.43 (7.32-7.42)
[2017-12-05 15:41] LABS: Base Excess -1 mmol/L (-2 to +2); Bicarbonate 23.5 mmol/L (22-26); Blood Gas Specimen Type ART; PO2 65 mmHG (75-100); SO2 93 % (95-99); Total Carbon Dioxide 25 mmol/L; pCO2 35.7 mmHg (35-45); pH 7.43 (7.35-7.45)
[2017-12-05 15:41] LABS: ACT Activated Clotting Time 208 sec (74-137)
[2017-12-05] MEDS: Morphine 2 MG/ML Syringe IV (18:05)
[2017-12-05 18:15] LABS: ACT Activated Clotting Time 164 sec (74-137)
[2017-12-05] MEDS: traZODone 100 MG Tablet PO (21:16)
[2017-12-06] VITALS (16 sets, daily range): BP systolic 81–108; BP diastolic 50–64; PULSE 54–81; RESP 15–24; TEMP 36.9; O2SAT 94–99
[2017-12-06] MEDS: Morphine 2 MG/ML Syringe IV (04:35)
[2017-12-06] MEDS: 0.9% NaCl Peripheral Flush Adult/Peds IV ×2 (04:36→05:41)
[2017-12-06] MEDS: Gabapentin 800 MG Tablet PO (05:42)
[2017-12-06] MEDS: tiZANidine HCl 2 MG Tablet 4 MG PO (05:42)
[2017-12-06] MEDS: Ipratropium/Albuterol Sulfate 3 ML AMPUL.NEB INHALATION (07:02)
[2017-12-06] MEDS: predniSONE 10 MG Tablet 40 MG PO (10:01)
[2017-12-06] MEDS: Aspirin E.C. 81 MG Tablet PO (10:01)
[2017-12-06] MEDS: Pantoprazole Sodium 20 MG Tablet PO (10:01)
[2017-12-06] MEDS: DULoxetine Hcl 60 MG Capsule 120 MG PO (10:02)
[2017-12-06] MEDS: Polyethylene Glycol 3350 17 GM PACKET PO (10:02)
--- NOTE | 2017-12-06 10:02 | PCM.DC ---
- Discharge Diagnoses Current Active Problems: Current Active and Chronic Problems Unstable angina (Acute) COPD exacerbation (Acute) Chronic lumbar back pain (Chronic) You will use the following diet at home:: Cardiac Discharge Activity: Return to Normal Activity Call your doctor if you observe: Fever of 101 or Higher, Shortness of breath, Dizziness, Fainting spells, Chest pain Allergies/Adverse Reactions: Allergies No Known Allergies Allergy (Verified 06/30/17 14:18) Medications to take at Discharge Gabapentin 800 mg PO TID 05/01/14 Albuterol Inhaler [Ventolin Hfa] 2 puff INHALATION Q6H PRN PRN #1 inhaler 05/02/14 Clonazepam [Klonopin] 0.5 mg PO DAILY PRN 10/30/15 Tiotropium [place] [Spiriva 18 MCG] 1 puff INHALATION DAILY 08/03/16 Omeprazole 20 mg PO DAILY 11/29/16 Tizanidine HCl 4 mg PO TID 11/29/16 Duloxetine Hcl [Cymbalta] 120 mg PO DAILY 01/05/17 Albuterol Aerosols [Ventolin Aerosols] 2.5 mg INHALATION Q6HWA.RT PRN 06/30/17 traZODone [Desyrel] 100 mg PO QHS 06/30/17 Ibuprofen [Ibu] 600 mg PO Q6H PRN PRN #30 tab 07/02/17 Oxycodone [Oxyir] 5 mg PO Q6H PRN PRN 12/04/17 Aspirin E.C. [Ecotrin] 81 mg PO DAILY@0800 #30 tablet 12/06/17 Atorvastatin Calcium [Lipitor] 20 mg PO QHS #30 tablet 12/06/17 Azithromycin [Zithromax] 250 mg PO DAILY #3 tablet 12/06/17 Prednisone See Taper PO DAILY #30 tablet 12/06/17 The following prescriptions were given: Aspirin E.C. [Ecotrin] 81 mg PO DAILY@0800 #30 tablet Atorvastatin Calcium [Lipitor] 20 mg PO QHS #30 tablet Azithromycin [Zithromax] 250 mg PO DAILY #3 tablet Prednisone See Taper PO DAILY #30 tablet Primary Care Physician: Alexi Montesinos MD [Primary Care Provider] - Please follow up with your Primary Care Physician in: 1 Week Test Results: Test results from this visit will be discussed in further detail at your follow-up appointment, if applicable. Please Follow Up With: Bethel Estes MD When: Call for appt in 1-2 weeks, May see DAY TRADER Please Follow Up With: Trenton Bahena MD When: Office to call you Friday for appt within next 2 weeks Proposed Discharge Date: 12/06/17
--- NOTE | 2017-12-06 10:08 | DCINST_ITS ---
- Discharge Diagnoses Current Active Problems: Current Active and Chronic Problems Unstable angina (Acute) COPD exacerbation (Acute) Chronic lumbar back pain (Chronic) You will use the following diet at home:: Cardiac Discharge Activity: Return to Normal Activity Call your doctor if you observe: Fever of 101 or Higher, Shortness of breath, Dizziness, Fainting spells, Chest pain Allergies/Adverse Reactions: Allergies No Known Allergies Allergy (Verified 06/30/17 14:18) Medications to take at Discharge Gabapentin 800 mg PO TID 05/01/14 Albuterol Inhaler [Ventolin Hfa] 2 puff INHALATION Q6H PRN PRN #1 inhaler 05/02/14 Clonazepam [Klonopin] 0.5 mg PO DAILY PRN 10/30/15 Tiotropium [place] [Spiriva 18 MCG] 1 puff INHALATION DAILY 08/03/16 Omeprazole 20 mg PO DAILY 11/29/16 Tizanidine HCl 4 mg PO TID 11/29/16 Duloxetine Hcl [Cymbalta] 120 mg PO DAILY 01/05/17 Albuterol Aerosols [Ventolin Aerosols] 2.5 mg INHALATION Q6HWA.RT PRN 06/30/17 traZODone [Desyrel] 100 mg PO QHS 06/30/17 Ibuprofen [Ibu] 600 mg PO Q6H PRN PRN #30 tab 07/02/17 Oxycodone [Oxyir] 5 mg PO Q6H PRN PRN 12/04/17 Aspirin E.C. [Ecotrin] 81 mg PO DAILY@0800 #30 tablet 12/06/17 Atorvastatin Calcium [Lipitor] 20 mg PO QHS #30 tablet 12/06/17 Azithromycin [Zithromax] 250 mg PO DAILY #3 tablet 12/06/17 Prednisone See Taper PO DAILY #30 tablet 12/06/17 The following prescriptions were given: Aspirin E.C. [Ecotrin] 81 mg PO DAILY@0800 #30 tablet Atorvastatin Calcium [Lipitor] 20 mg PO QHS #30 tablet Azithromycin [Zithromax] 250 mg PO DAILY #3 tablet Prednisone See Taper PO DAILY #30 tablet Primary Care Physician: Alexi Montesinos MD [Primary Care Provider] - Please follow up with your Primary Care Physician in: 1 Week Test Results: Test results from this visit will be discussed in further detail at your follow- up appointment, if applicable. Please Follow Up With: Bethel Estes MD When: Call for appt in 1-2 weeks, May see HOUSEKEEPING ROOM ATTENDANT Please Follow Up With: Trenton Bahena MD When: Office to call you Friday for appt within next 2 weeks Proposed Discharge Date: 12/06/17
--- NOTE | 2017-12-06 10:10 | PCM.PN.CARD ---
Subjectve: Patient doing very well this morning. No chest pain or 24-hour events. Telemetry shows normal sinus rhythm, no acute changes. Right groin is clean/dry/intact without evidence of thrills, bruits or hematoma. Objective: Vital Signs Temp Pulse Resp BP Pulse Ox 98.4 F 67 17 99/63 96 12/06/17 04:00 12/06/17 09:00 12/06/17 09:00 12/06/17 09:00 12/06/17 09:00 Oxygen Flow Rate (L/min) 2 Oxygen Delivery Method Room Air Weight: 128 lb 11.999 oz Body Mass Index (BMI) 21.3 Intake and Output for Last 24 Hours 12/04/17 12/05/17 12/06/17 23:59 23:59 23:59 Intake Total 1474 / 1474 1476 / 1476 720 / 720 Output Total 650 / 650 1225 / 1225 Balance 1474 / 1474 826 / 826 -505 / -505 General: Awake, Alert, Oriented x 3 HEENT: PERRL, EOMI, Sclera Non Icteric Neck: Supple, Good ROM, No Lymph Node Enlargement Lungs: Clear to auscultation Cardiovascular: Regular Rhythm, Normal S1, Normal S2, No Murmurs, No Rubs, No Gallops Vascular: No Carotid Bruits, Normal Femoral Pulses, Normal Radial Pulses, Normal Dorsalis Pedal Pulse, Normal Posterior Tibial Pulses Abdomen: Bowel Sounds Present, Soft, Non Tender, No HSM, No Organomegaly Extremities: No Cyanosis, No Clubbing, No edema Neurological: No Focal Motor or Sensory Deficit 12/05/17 14:57: VBG pH 7.44 H, VBG pO2 38, VBG O2 Sat (Calc) 74 H, VBG O2 Content 25, VBG Base Excess -1 12/05/17 15:00: VBG pH 7.43 H, VBG pO2 41 H, VBG O2 Sat (Calc) 78 H, VBG O2 Content 25, VBG Base Excess -1 12/05/17 15:04: pH 7.43, Bicarbonate Actual 23.5, POC Total CO2 25, Base Excess -1, O2 Saturation 93 L, ABG pCO2 35.7, ABG pO2 65 L Rhythm: EKG: ECHO: Stress Test: Cardiac Cath: Nonobstructive coronary artery disease. FFR of left circumflex was 0.92. No stenting performed. Normal LV function per PCI: CT Surgery: Holter monitor: EPS: PPM: CXR: Chest CT Scan: Medical Necessity - Tobacco Use Smoking Status: Current every day smoker Assessment/Plan 1. Chest pain: Patient has been struggling with what sounds like bronchitis over the last several weeks with worsening shortness of breath, dyspnea on exertion, and exertional chest pain symptoms at the top of walking several flights of stairs. This morning, upon awakening the patient had recurrent substernal chest pressure which was nonradiating which lasted approximately 15 minutes and sought medical attention at [facility]. Her initial troponin is negative and her EKG is negative as well. The patient has several risk factors for coronary disease including her age, heavy smoking history, ongoing smoking, and previous hyperlipidemia. Patient underwent a treadmill echocardiogram in which he became profoundly dyspneic which may have been an anginal equivalent although she had no overt wall motion abnormalities. She underwent a left and right heart catheterization which showed normal right heart pressures, normal LV function, nonobstructive coronary disease with a possibly significant left circumflex lesion. She underwent FFR evaluation which was 0.92 and therefore no stenting was performed. At this point I recommend discontinuation of Plavix continuing baby aspirin, and aggressive LDL reduction for plaque stabilization purposes. She was placed on Lipitor 20 mill grams p.o. nightly, and will repeat lipid profile in 6 weeks time. She will can follow-up with Dr. Bahena going forward. Would also recommend the patient have a pulmonary consultation for her COPD/emphysema and her chronic O2 therapy at night. 2. Hyperlipidemia: Recommend obtaining a fasting lipid profile. Recommend treating with statin based medications of her LDL is greater than 130. 3. Pleuritic type chest pain: Recommend obtaining sed rate or at bedtime CRP to evaluate for possible pleuritis/pericarditis. 4. Patient may be discharged home.
--- NOTE | 2017-12-06 10:14 | PN.CARD_ITS ---
Subjectve: Patient doing very well this morning. No chest pain or 24-hour events. Telemetry shows normal sinus rhythm, no acute changes. Right groin is clean/ dry/intact without evidence of thrills, bruits or hematoma. Objective: Vital Signs Temp Pulse Resp BP Pulse Ox 98.4 F 67 17 99/63 96 12/06/17 04:00 12/06/17 09:00 12/06/17 09:00 12/06/17 09:00 12/06/17 09:00 Oxygen Flow Rate (L/min) 2 Oxygen Delivery Method Room Air Weight: 128 lb 11.999 oz Body Mass Index (BMI) 21.3 Intake and Output for Last 24 Hours 12/04/17 12/05/17 12/06/17 23:59 23:59 23:59 Intake Total 1474 / 1474 1476 / 1476 720 / 720 Output Total 650 / 650 1225 / 1225 Balance 1474 / 1474 826 / 826 -505 / -505 General: Awake, Alert, Oriented x 3 HEENT: PERRL, EOMI, Sclera Non Icteric Neck: Supple, Good ROM, No Lymph Node Enlargement Lungs: Clear to auscultation Cardiovascular: Regular Rhythm, Normal S1, Normal S2, No Murmurs, No Rubs, No Gallops Vascular: No Carotid Bruits, Normal Femoral Pulses, Normal Radial Pulses, Normal Dorsalis Pedal Pulse, Normal Posterior Tibial Pulses Abdomen: Bowel Sounds Present, Soft, Non Tender, No HSM, No Organomegaly Extremities: No Cyanosis, No Clubbing, No edema Neurological: No Focal Motor or Sensory Deficit 12/05/17 14:57: VBG pH 7.44 H, VBG pO2 38, VBG O2 Sat (Calc) 74 H, VBG O2 Content 25, VBG Base Excess -1 12/05/17 15:00: VBG pH 7.43 H, VBG pO2 41 H, VBG O2 Sat (Calc) 78 H, VBG O2 Content 25, VBG Base Excess -1 12/05/17 15:04: pH 7.43, Bicarbonate Actual 23.5, POC Total CO2 25, Base Excess -1, O2 Saturation 93 L, ABG pCO2 35.7, ABG pO2 65 L Rhythm: EKG: ECHO: Stress Test: Cardiac Cath: Nonobstructive coronary artery disease. FFR of left circumflex was 0.92. No stenting performed. Normal LV function per PCI: CT Surgery: Holter monitor: EPS: PPM: CXR: Chest CT Scan: Medical Necessity - Tobacco Use Smoking Status: Current every day smoker Assessment/Plan 1. Chest pain: Patient has been struggling with what sounds like bronchitis over the last several weeks with worsening shortness of breath, dyspnea on exertion, and exertional chest pain symptoms at the top of walking several flights of stairs. This morning, upon awakening the patient had recurrent substernal chest pressure which was nonradiating which lasted approximately 15 minutes and sought medical attention at [facility] [place]. Her initial troponin is negative and her EKG is negative as well. The patient has several risk factors for coronary disease including her age, heavy smoking history, ongoing smoking, and previous hyperlipidemia. Patient underwent a treadmill echocardiogram in which he became profoundly dyspneic which may have been an anginal equivalent although she had no overt wall motion abnormalities. She underwent a left and right heart catheterization which showed normal right heart pressures, normal LV function, nonobstructive coronary disease with a possibly significant left circumflex lesion. She underwent FFR evaluation which was 0.92 and therefore no stenting was performed. At this point I recommend discontinuation of Plavix continuing baby aspirin, and aggressive LDL reduction for plaque stabilization purposes. She was placed on Lipitor 20 mill grams p.o. nightly, and will repeat lipid profile in 6 weeks time. She will can follow-up with Dr. Bahena going forward. Would also recommend the patient have a pulmonary consultation for her COPD/emphysema and her chronic O2 therapy at night. 2. Hyperlipidemia: Recommend obtaining a fasting lipid profile. Recommend tr eating with statin based medications of her LDL is greater than 130. 3. Pleuritic type chest pain: Recommend obtaining sed rate or at bedtime CRP to evaluate for possible pleuritis/pericarditis. 4. Patient may be discharged home.
--- NOTE | 2017-12-06 10:16 | PCM.DC.SUM ---
<uYlia Foley - Last Filed: 12/06/17 10:27> Discharge Date and Diagnosis Date of Admission: 12/04/17 Date of Discharge: 12/06/17 - Primary Discharge Diagnosis Active and Suspected Problems 1. Atypical chest pain, nonobstructive coronary disease-ACS ruled out 2. Acute on chronic hypoxic respiratory failure secondary to COPD exacerbation 3. Chronic lumbar back pain 4. Moderate protein calorie malnutrition 5. GERD 6. Depression/anxiety 7. Tobacco dependence 8. Chronic kidney disease stage II - Secondary Discharge Diagnosis Chronic Problems Adnexal mass (Chronic) Chronic lumbar back pain (Chronic) Panic disorder (Chronic) Tobacco dependence syndrome (Chronic) Fibromyalgia (Chronic) Hospital Course and Treatment Imaging Results: Diagnostic Data Chest X-Ray 12/04/17 10:47 IMPRESSION: Hyperinflation. Electronically Signed: Ari Doran MD at 11:23 EDT Tel [phone], Service support , Dr. Bahena- Cardiology Operations: None Procedures: Cardiac catheterization, - - Stress echo Summary of Care Provided: The patient is a 62 year old F admitted 12/04/2017 due to progressive shortness of breath and chest pressure. 1. Atypical chest pain, nonobstructive coronary artery disease-ACS ruled out. Troponin negative. Patient underwent stress echo which was negative for ischemia. EF 65%. Cardiology consulted. Patient underwent cardiac catheterization due to dyspnea during stress echo. Echocardiogram showed an EF of 65%, RVSP estimated to be 25 mmHg. Patient underwent cardiac catheterization 12/05/2017 which showed nonobstructive coronary artery disease with possibly significant left circumflex lesion. She underwent FFR and no stenting was necessary. Continue aspirin, statin. 2. Acute on chronic hypoxic respiratory failure secondary to COPD exacerbation-now stable on room air. Wears supplemental oxygen at bedtime at home. Prednisone taper at discharge. Continue azithromycin for 3 days at discharge to complete 5-day course. Continue home inhaler and aerosol regimen. Chest x-ray on admission showed hyperinflation. Previously followed with Dr. Estes. States she was unable to see him due to unpaid bill. Called pulmonary medicine office and she is able to return to their office for outpatient follow-up. Follow-up with Dr. Estes or [facility] in 1-2 weeks. 3. Chronic lumbar back pain-Continue home PRN pain regimen. 4. Moderate protein malnutrition 5. GERD-continue PPI. 6. Depression/anxiety-continue home Cymbalta, Klonopin regimen. 7. Tobacco dependence-encourage smoking cessation. 8. Chronic kidney disease stage II-stable. General: Alert, Oriented x3, Cooperative HEENT: Atraumatic, PERRLA, EOMI, Normocephalic Neck: Supple, No JVD, Negative Carotid Bruits Lungs: Diminished, Wheezes Cardiovascular: Regular rate, Regular Rhythm, Normal S1, Normal S2, No murmurs Abdomen: Bowel Sounds Present, Soft, Non Tender, Non-Distended Extremities: No clubbing, No cyanosis, No edema, Capillary Refill Less than 3 Seconds Skin: No rashes, No breakdown Musculoskeletal: No Tenderness to Palpation of Joints or Extremities Neurological: Cranial nerves II-XII grossly intact, Neuro grossly intact Psych/Mental Status: Normal Affect, Appropriate Patient seen exam prior to discharge. Physical assessment as noted above. Patient stable for discharge home with the follow-up her conditions as noted above. This patient was seen by LACHELLE Madison under the supervision of Dr. Collins. - Physical Exam Vital Signs Temp Pulse Resp BP Pulse Ox 98.4 F 67 17 99/63 96 12/06/17 04:00 12/06/17 09:00 12/06/17 09:00 12/06/17 09:00 12/06/17 09:00 Oxygen Flow Rate (L/min) 2 Oxygen Delivery Method Room Air Weight: 128 lb 11.999 oz Body Mass Index (BMI) 21.3 Intake and Output for Last 24 Hours 12/04/17 12/05/17 12/06/17 23:59 23:59 23:59 Intake Total 1474 / 1474 1476 / 1476 720 / 720 Output Total 650 / 650 1225 / 1225 Balance 1474 / 1474 826 / 826 -505 / -505 Microbiology Past 72 Hours 12/04/17 15:17 Influenza Types A,B Direct FA (PEDRO) - Final Mucosa - Nasopharyngeal Laboratory Tests Past 24 Hrs 12/05/17 12/05/17 12/05/17 14:57 15:00 15:04 Activated Clotting Time Specimen Type CHARLA CHARLA ART pH 7.43 Bicarbonate Actual 23.5 POC Total CO2 25 Base Excess -1 O2 Saturation 93 L ABG pCO2 35.7 ABG pO2 65 L VBG pH 7.44 H 7.43 H VBG pO2 38 41 H VBG O2 Sat (Calc) 74 H 78 H VBG O2 Content 25 25 VBG Base Excess -1 -1 POC Mix VBG pCO2 Pt Tmp 35.1 L 35.4 L 12/05/17 12/05/17 15:23 18:00 Activated Clotting Time 208 H 164 H Specimen Type pH Bicarbonate Actual POC Total CO2 Base Excess O2 Saturation ABG pCO2 ABG pO2 VBG pH VBG pO2 VBG O2 Sat (Calc) VBG O2 Content VBG Base Excess POC Mix VBG pCO2 Pt Tmp Discharge Diet: Low fat/ Low Cholesterol Discharge Activity: Return to Normal Activity Call your doctor if you observe: Fever of 101 or Higher, Shortness of breath, Dizziness, Fainting spells, Chest pain Home Medications: Medications to take at Discharge Gabapentin 800 mg PO TID 05/01/14 Albuterol Inhaler [Ventolin Hfa] 2 puff INHALATION Q6H PRN PRN #1 inhaler 05/02/14 Clonazepam [Klonopin] 0.5 mg PO DAILY PRN 10/30/15 Tiotropium [place] [Spiriva 18 MCG] 1 puff INHALATION DAILY 08/03/16 Omeprazole 20 mg PO DAILY 11/29/16 Tizanidine HCl 4 mg PO TID 11/29/16 Duloxetine Hcl [Cymbalta] 120 mg PO DAILY 01/05/17 Albuterol Aerosols [Ventolin Aerosols] 2.5 mg INHALATION Q6HWA.RT PRN 06/30/17 traZODone [Desyrel] 100 mg PO QHS 06/30/17 Ibuprofen [Ibu] 600 mg PO Q6H PRN PRN #30 tab 07/02/17 Oxycodone [Oxyir] 5 mg PO Q6H PRN PRN 12/04/17 Aspirin E.C. [Ecotrin] 81 mg PO DAILY@0800 #30 tablet 12/06/17 Atorvastatin Calcium [Lipitor] 20 mg PO QHS #30 tablet 12/06/17 Azithromycin [Zithromax] 250 mg PO DAILY #3 tablet 12/06/17 Prednisone See Taper PO DAILY #30 tablet 12/06/17 Following Prescrptions Were Given to Patient: Aspirin E.C. [Ecotrin] 81 mg PO DAILY@0800 #30 tablet Atorvastatin Calcium [Lipitor] 20 mg PO QHS #30 tablet Azithromycin [Zithromax] 250 mg PO DAILY #3 tablet Prednisone See Taper PO DAILY #30 tablet Primary Care Physician: Alexi Montesinos MD [Primary Care Provider] - Please follow up with your Primary Care Physician in: 1 Week Please Follow Up With: Bethel Estes MD When: Call for appt in 1-2 weeks, May see [facility] Please Follow Up With: Trenton Bahena MD When: Office to call you Friday for appt within next 2 weeks Disposition: Home Minutes spent on discharge:: 35 Patient Condition:: Stable Medical Necessity - Tobacco Use Smoking Status: Current every day smoker Meaningful Use Info Meaningful Use Diagnoses (Choose all that apply): None applicable <Kristen Collins - Last Filed: 12/08/17 07:32> Discharge Date and Diagnosis - Secondary Discharge Diagnosis Chronic Problems Adnexal mass (Chronic) Chronic lumbar back pain (Chronic) Panic disorder (Chronic) Tobacco dependence syndrome (Chronic) Fibromyalgia (Chronic) Hospital Course and Treatment Summary of Care Provided: The patient is a 62 year old F with past history of nicotine dependence, COPD, history of chronic hypoxic respiratory failure on 2 L of home oxygen admitted with progressive shortness of breath as well as chest pain. Patient had chest pain that was midsternal, persistent , no aggravating or relieving factors. Patient's EKG on admission shows normal sinus rhythm, no acute ST-T changes. Seen by cardiology, underwent cardiac cath showed nonobstructive coronary artery disease with possibly significant left circumflex lesion. No stenting was done. Patient was medically managed improvement. She was discharged home on 3 more days of azithromycin as well as prednisone. Will follow up with her primary care and pulmonology. Subjective: Patient was seen and examined on the day of discharge. Denied any new complaints. Objective: Physical Exam General: Alert, Oriented x3, Cooperative HEENT: Atraumatic, PERRLA, EOMI, Normocephalic Neck: Supple, No JVD, Negative Carotid Bruits Lungs: Diminished, Wheezes Cardiovascular: Regular rate, Regular Rhythm, Normal S1, Normal S2, No murmurs Abdomen: Bowel Sounds Present, Soft, Non Tender, Non-Distended Extremities: No clubbing, No cyanosis, No edema, Capillary Refill Less than 3 Seconds Skin: No rashes, No breakdown Musculoskeletal: No Tenderness to Palpation of Joints or Extremities Neurological: Cranial nerves II-XII grossly intact, Neuro grossly intact Psych/Mental Status: Normal Affect, Appropriate - Physical Exam Vital Signs Temp Pulse Resp BP Pulse Ox 98.4 F 72 16 95/64 94 12/06/17 04:00 12/06/17 10:03 12/06/17 10:03 12/06/17 10:03 12/06/17 10:03 Oxygen Flow Rate (L/min) 2 Oxygen Delivery Method Room Air Weight: 58.4 kg Body Mass Index (BMI) 21.3 Intake and Output for Last 24 Hours 12/06/17 12/07/17 12/08/17 23:59 23:59 23:59 Intake Total 720 / 720 Output Total 1225 / 1225 Balance -505 / -505 Code Visit Inpatient E&M: 72286 Disch Hosp
--- NOTE | 2017-12-06 10:21 | DS.PCM_ITS ---
<Yulia Foley - Last Filed: 12/06/17 10:27> Discharge Date and Diagnosis Date of Admission: 12/04/17 Date of Discharge: 12/06/17 - Primary Discharge Diagnosis Active and Suspected Problems 1. Atypical chest pain, nonobstructive coronary disease-ACS ruled out 2. Acute on chronic hypoxic respiratory failure secondary to COPD exacerbation 3. Chronic lumbar back pain 4. Moderate protein calorie malnutrition 5. GERD 6. Depression/anxiety 7. Tobacco dependence 8. Chronic kidney disease stage II - Secondary Discharge Diagnosis Chronic Problems Adnexal mass (Chronic) Chronic lumbar back pain (Chronic) Panic disorder (Chronic) Tobacco dependence syndrome (Chronic) Fibromyalgia (Chronic) Hospital Course and Treatment Imaging Results: Diagnostic Data Chest X-Ray 12/04/17 10:47 IMPRESSION: Hyperinflation. Electronically Signed: Ari Doran MD at 11:23 EDT Tel [phone], Service support , Dr. Bahena- Cardiology Operations: None Procedures: Cardiac catheterization, - - Stress echo Summary of Care Provided: The patient is a 62 year old F admitted 12/04/2017 due to progressive shortness of breath and chest pressure. 1. Atypical chest pain, nonobstructive coronary artery disease-ACS ruled out. Troponin negative. Patient underwent stress echo which was negative for ischemia. EF 65%. Cardiology consulted. Patient underwent cardiac catheterization due to dyspnea during stress echo. Echocardiogram showed an EF of 65%, RVSP estimated to be 25 mmHg. Patient underwent cardiac catheterization 12/05/2017 which showed nonobstructive coronary artery disease with possibly significant left circumflex lesion. She underwent FFR and no stenting was necessary. Continue aspirin, statin. 2. Acute on chronic hypoxic respiratory failure secondary to COPD exacerbation- now stable on room air. Wears supplemental oxygen at bedtime at home. Prednisone taper at discharge. Continue azithromycin for 3 days at discharge to complete 5-day course. Continue home inhaler and aerosol regimen. Chest x-ray on admission showed hyperinflation. Previously followed with Dr. Estes. States she was unable to see him due to unpaid bill. Called pulmonary medicine office and she is able to return to their office for outpatient follow-up. Follow-up with Dr. Estes or [facility] in 1-2 weeks. 3. Chronic lumbar back pain-Continue home PRN pain regimen. 4. Moderate protein malnutrition 5. GERD-continue PPI. 6. Depression/anxiety-continue home Cymbalta, Klonopin regimen. 7. Tobacco dependence-encourage smoking cessation. 8. Chronic kidney disease stage II-stable. General: Alert, Oriented x3, Cooperative HEENT: Atraumatic, PERRLA, EOMI, Normocephalic Neck: Supple, No JVD, Negative Carotid Bruits Lungs: Diminished, Wheezes Cardiovascular: Regular rate, Regular Rhythm, Normal S1, Normal S2, No murmurs Abdomen: Bowel Sounds Present, Soft, Non Tender, Non-Distended Extremities: No clubbing, No cyanosis, No edema, Capillary Refill Less than 3 Seconds Skin: No rashes, No breakdown Musculoskeletal: No Tenderness to Palpation of Joints or Extremities Neurological: Cranial nerves II-XII grossly intact, Neuro grossly intact Psych/Mental Status: Normal Affect, Appropriate Patient seen exam prior to discharge. Physical assessment as noted above. Patient stable for discharge home with the follow-up her conditions as noted above. This patient was seen by LACHELLE Madison under the supervision of Dr. Collins. - Physical Exam Vital Signs Temp Pulse Resp BP Pulse Ox 98.4 F 67 17 99/63 96 12/06/17 04:00 12/06/17 09:00 12/06/17 09:00 12/06/17 09:00 12/06/17 09:00 Oxygen Flow Rate (L/min) 2 Oxygen Delivery Method Room Air Weight: 128 lb 11.999 oz Body Mass Index (BMI) 21.3 Intake and Output for Last 24 Hours 12/04/17 12/05/17 12/06/17 23:59 23:59 23:59 Intake Total 1474 / 1474 1476 / 1476 720 / 720 Output Total 650 / 650 1225 / 1225 Balance 1474 / 1474 826 / 826 -505 / -505 Microbiology Past 72 Hours 12/04/17 15:17 Influenza Types A,B Direct FA (PEDRO) - Final Mucosa - Nasopharyngeal Laboratory Tests Past 24 Hrs 12/05/17 12/05/17 12/05/17 14:57 15:00 15:04 Activated Clotting Time Specimen Type CHARLA CHARLA ART pH 7.43 Bicarbonate Actual 23.5 POC Total CO2 25 Base Excess -1 O2 Saturation 93 L ABG pCO2 35.7 ABG pO2 65 L VBG pH 7.44 H 7.43 H VBG pO2 38 41 H VBG O2 Sat (Calc) 74 H 78 H VBG O2 Content 25 25 VBG Base Excess -1 -1 POC Mix VBG pCO2 Pt Tmp 35.1 L 35.4 L 12/05/17 12/05/17 15:23 18:00 Activated Clotting Time 208 H 164 H Specimen Type pH Bicarbonate Actual POC Total CO2 Base Excess O2 Saturation ABG pCO2 ABG pO2 VBG pH VBG pO2 VBG O2 Sat (Calc) VBG O2 Content VBG Base Excess POC Mix VBG pCO2 Pt Tmp Discharge Diet: Low fat/ Low Cholesterol Discharge Activity: Return to Normal Activity Call your doctor if you observe: Fever of 101 or Higher, Shortness of breath, Dizziness, Fainting spells, Chest pain Home Medications: Medications to take at Discharge Gabapentin 800 mg PO TID 05/01/14 Albuterol Inhaler [Ventolin Hfa] 2 puff INHALATION Q6H PRN PRN #1 inhaler 05/02/14 Clonazepam [Klonopin] 0.5 mg PO DAILY PRN 10/30/15 Tiotropium [place] [Spiriva 18 MCG] 1 puff INHALATION DAILY 08/03/16 Omeprazole 20 mg PO DAILY 11/29/16 Tizanidine HCl 4 mg PO TID 11/29/16 Duloxetine Hcl [Cymbalta] 120 mg PO DAILY 01/05/17 Albuterol Aerosols [Ventolin Aerosols] 2.5 mg INHALATION Q6HWA.RT PRN 06/30/17 traZODone [Desyrel] 100 mg PO QHS 06/30/17 Ibuprofen [Ibu] 600 mg PO Q6H PRN PRN #30 tab 07/02/17 Oxycodone [Oxyir] 5 mg PO Q6H PRN PRN 12/04/17 Aspirin E.C. [Ecotrin] 81 mg PO DAILY@0800 #30 tablet 12/06/17 Atorvastatin Calcium [Lipitor] 20 mg PO QHS #30 tablet 12/06/17 Azithromycin [Zithromax] 250 mg PO DAILY #3 tablet 12/06/17 Prednisone See Taper PO DAILY #30 tablet 12/06/17 Following Prescrptions Were Given to Patient: Aspirin E.C. [Ecotrin] 81 mg PO DAILY@0800 #30 tablet Atorvastatin Calcium [Lipitor] 20 mg PO QHS #30 tablet Azithromycin [Zithromax] 250 mg PO DAILY #3 tablet Prednisone See Taper PO DAILY #30 tablet Primary Care Physician: Alexi Montesinos MD [Primary Care Provider] - Please follow up with your Primary Care Physician in: 1 Week Please Follow Up With: Bethel Estes MD When: Call for appt in 1-2 weeks, May see [facility] Please Follow Up With: Trenton Bahena MD When: Office to call you Friday for appt within next 2 weeks Disposition: Home Minutes spent on discharge:: 35 Patient Condition:: Stable Medical Necessity - Tobacco Use Smoking Status: Current every day smoker Meaningful Use Info Meaningful Use Diagnoses (Choose all that apply): None applicable <Kristen Collins - Last Filed: 12/08/17 07:32> Discharge Date and Diagnosis - Secondary Discharge Diagnosis Chronic Problems Adnexal mass (Chronic) Chronic lumbar back pain (Chronic) Panic disorder (Chronic) Tobacco dependence syndrome (Chronic) Fibromyalgia (Chronic) Hospital Course and Treatment Summary of Care Provided: The patient is a 62 year old F with past history of nicotine dependence, COPD, history of chronic hypoxic respiratory failure on 2 L of home oxygen admitted with progressive shortness of breath as well as chest pain. Patient had chest pain that was midsternal, persistent , no aggravating or relieving factors. Patient's EKG on admission shows normal sinus rhythm, no acute ST-T changes. Seen by cardiology, underwent cardiac cath showed nonobstructive coronary artery disease with possibly significant left circumflex lesion. No stenting was done. Patient was medically managed improvement. She was discharged home on 3 more days of azithromycin as well as prednisone. Will follow up with her primary care and pulmonology. Subjective: Patient was seen and examined on the day of discharge. Denied any new complaints. Objective: Physical Exam General: Alert, Oriented x3, Cooperative HEENT: Atraumatic, PERRLA, EOMI, Normocephalic Neck: Supple, No JVD, Negative Carotid Bruits Lungs: Diminished, Wheezes Cardiovascular: Regular rate, Regular Rhythm, Normal S1, Normal S2, No murmurs Abdomen: Bowel Sounds Present, Soft, Non Tender, Non-Distended Extremities: No clubbing, No cyanosis, No edema, Capillary Refill Less than 3 Seconds Skin: No rashes, No breakdown Musculoskeletal: No Tenderness to Palpation of Joints or Extremities Neurological: Cranial nerves II-XII grossly intact, Neuro grossly intact Psych/Mental Status: Normal Affect, Appropriate - Physical Exam Vital Signs Temp Pulse Resp BP Pulse Ox 98.4 F 72 16 95/64 94 12/06/17 04:00 12/06/17 10:03 12/06/17 10:03 12/06/17 10:03 12/06/17 10:03 Oxygen Flow Rate (L/min) 2 Oxygen Delivery Method Room Air Weight: 58.4 kg Body Mass Index (BMI) 21.3 Intake and Output for Last 24 Hours 12/06/17 12/07/17 12/08/17 23:59 23:59 23:59 Intake Total 720 / 720 Output Total 1225 / 1225 Balance -505 / -505 Code Visit Inpatient E&M: [id number] Disch Hosp
--- NOTE | 2017-12-06 11:28 | NURSING ---
Upon d/c pt walking out to elevator, refused wheelchair. Pt son back to unit stating pt c/o tightness in ribs and back. Upon assessment pt denies chest pain and describes it as more of a muscle cramp in ribs. VS obtained BP 116/71 HR 62 RR 32. Yulia Foely STUDENT RECORDS COORDINATOR notified of VS and pt assessment. Ok'd to proceed with d/c.Pt taken by wheelchair to son's vehicle.
== END 2017-12-06 11:50 | disposition home or self-care (01) | DRG 286 ==
LOC: ED 10:54 → PCU 12:50 → ICU 12-05 16:04
PROVIDERS: Internal Medicine Cardiovascular Disease; Admitting Provider Internal Medicine; Emergency Provider Emergency Medicine; Family Provider Family Medicine; PCP Family Medicine; Visit Provider Internal Medicine
DX: R07.89 Other chest pain (principal); J96.21 Acute and chronic respiratory failure with hypoxia; E44.0 Moderate protein-calorie malnutrition; J44.1 Chronic obstructive pulmonary disease with (acute) exacerbation; M79.7 Fibromyalgia; Z68.21 Body mass index [BMI] 21.0-21.9, adult; G89.29 Other chronic pain; M54.5 Low back pain; Z99.81 Dependence on supplemental oxygen; K21.9 Gastro-esophageal reflux disease without esophagitis; F17.210 Nicotine dependence, cigarettes, uncomplicated; F32.9 Major depressive disorder, single episode, unspecified; F41.9 Anxiety disorder, unspecified; N18.3 Chronic kidney disease, stage 3 (moderate); F41.0 Panic disorder [episodic paroxysmal anxiety]
CPT/HCPCS: 36415; 71045; 80048; 80061; 82803; 84443; 84484; 85025; 85347; 85610; 85652; 85730; 87804; 93005; 93017; 93306; 93350; 93460; 93571; 93923; 94640; 94667; 94668; 99285; 99406; J0153; J7030; J7040; Q9967; A4216; C1751; C1769; C1887; C1894

== ENCOUNTER → 2018-04-13 17:08 | Outpatient (CLI) | payer MEDICARE, SELFPAY ==
[2017-12-04 13:11] VITALS: BMI 21.3
--- NOTE | 2018-04-13 17:13 | RAD_ITS ---
STUDY: X-RAY CHEST REASON FOR EXAM: Female, 62 years old. COPD, acute exacerbation TECHNIQUE: Frontal and lateral views COMPARISON: December 04, 2017 FINDINGS: The lungs are mildly hyperaerated. There is no demonstrated pleural abnormality. Normal size heart. Normal mediastinum and tena. Normal visualized pulmonary arteries. Normal visualized aortic arch and descending thoracic aorta. Scoliosis of the thoracic spine. Normal visualized ribs, clavicles, and shoulders. There is no demonstrated abnormality of the visualized soft tissue structures of the upper abdomen. RAD/Chest PA and Lateral IMPRESSION: Mild hyperaeration. No acute pulmonary pathology.. Electronically Signed: Jhony Natarajan DO at 23:23 EST Tel [phone], Service support ,
== END ==
PROVIDERS: Family Provider Family Medicine; PCP Family Medicine; Referring Provider Family Medicine; Visit Provider Family Medicine
DX: J44.1 Chronic obstructive pulmonary disease with (acute) exacerbation (principal)
CPT/HCPCS: 71046

== ENCOUNTER 2018-05-20 09:25 | Emergency (ER) | payer MEDICARE, SELFPAY ==
[2018-05-20 09:27] VITALS: BP 125/96; PULSE 108; RESP 20; TEMP 37.1; O2SAT 8; BMI 22.9
--- NOTE | 2018-05-20 09:35 | EKG12_ITS ---
Test Reason : CP Blood Pressure : / mmHG Vent. Rate : 076 BPM Atrial Rate : 076 BPM P-R Int : 122 ms QRS Dur : 082 ms QT Int : 390 ms P-R-T Axes : 084 048 060 degrees QTc Int : 438 ms Normal sinus rhythm Normal ECG Confirmed by EFE CHINCHILLA, CIRO ([id number]), market editor DARWIN LAUREANO ([id number] on 05/25/2018 4:25:22 PM Referred By: CONRADO Confirmed By:CIRO WILKS MD
--- NOTE | 2018-05-20 09:40 | ED.VIS.GEN ---
History of Present Illness Chief Complaint: Palpitations Informant: Patient Onset: Weeks - Approximately 2 weeks of palpitations and irregular heartbeat. Upon awakening describes aching left-sided chest discomfort. Context: Sudden Onset Timing: Continuous - Chest discomfort is constant since onset at 0600, Intermittent - The palpitations and irregular heartbeat have been intermittent for the past 2 weeks. Quality: Aching chest pain and palpitations skipped beat Location: Chest Current Severity: Mild Maximum Severity: Moderate Worsened by: Nothing Relieved by: Nothing Associated Symptoms: Patient states she is always short of breath. She also complains of consta Narrative: Patient is an elderly woman who presents with palpitations and irregular heartbeat for approximately 2 weeks. She states she feels it skipping a beat. At times she feels as if it stops and there is a grabbing sensation and it restarts. Nothing precipitates, exacerbates or alleviates her palpitations. This morning upon awakening she had discomfort in her chest. She is unable to determine if she is more short of breath than normal and unable to determine if the discomfort in her neck and jaw is different than her chronic pain. She was admitted for unstable angina November 2017. Cardiac catheter reveals 50% stenosis of the circumflex vessel. The left main, left anterior descending and right coronary which is the dominant vessel were all angiographic normal. She states she did not follow-up with network relations consultant as instructed. Triage documents wheezing. Presently she is not wheezing nor is she tachycardia cardiac, tachypneic or complaining of shortness of breath from her baseline. She is a smoker. She denies leg pain, swelling discoloration. There is no history of PE, DVT and she denies any risk factors. - Past Medical History (1) COPD exacerbation Status: Acute (2) Unstable angina Status: Acute (3) Fibromyalgia Status: Chronic (4) Panic disorder Status: Chronic (5) Tobacco dependence syndrome Status: Chronic Past Medical History - Allergies and Home Meds Allergies/Adverse Reactions: Allergies No Known Allergies Allergy (Verified 05/20/18 09:27) Primary Care Physician: Alexi Montesinos MD [STAFF PHYSICIAN] - Prior records reviewed: Yes - Reviewed cath report November 2017 Surgical History: cholecystectomy, hysterectomy, tonsillectomy, - - Heart ablation, foot surgery Lives: Alone Smoking Status: Current every day smoker Alcohol: None - Family History Maternal Family History: Family History (Last Reviewed 01/13/18 @ 17:47 by Terra Blanco) Mother CAD (coronary artery disease) Father Cancer Family History: Reports: Heart Disease Paternal Family History: Family History (Last Reviewed 01/13/18 @ 17:47 by Terra Blanco) Mother CAD (coronary artery disease) Father Cancer Family History: Reports: Cancer Sibling Family History: Family History (Last Reviewed 01/13/18 @ 17:47 by Terra Blanco) Mother CAD (coronary artery disease) Father Cancer Family History: Reports: COPD Review of Systems General: Denies: Chills, Fever, Malaise, Sweats, Weight loss Eyes: Denies: Visual changes - bilaterally, Diplopia ENT: Denies: Rhinorrhea, Sore throat Cardiovascular: Reports: Chest pain, Palpitations Respiratory: Reports: Dyspnea, Cough, Dyspnea on exertion. Denies: Sputum, Orthopnea, Paroxysmal nocturnal dyspnea, -, - Gastrointestinal: Denies: Abdominal pain, Nausea, Vomiting, Diarrhea, Melena, Hematochezia Genitourinary: Denies: Dysuria, Hematuria, Frequency Musculoskeletal: Denies: Back pain, Extremity Pain Skin: Denies: Rash, Wounds Neurological: Denies: Headache, Weakness, Numbness Hematologic: Denies: Easy bruising, Easy bleeding Allergy: Denies: Uticaria Physical Exam Vital Signs/Narrative: Vital Signs Temp Pulse Resp BP Pulse Ox 05/20/18 09:27 98.8 F 108 H 20 H 125/96 H 8 Inital Vital Signs reviewed: Yes General: Well nourished, Well developed, No Acute Distress, - - Patient is very thin. Head: Normocephalic, Atraumatic Eyes: Perrl, EOMI, Pale conjunctiva, Scleral icterus ENT: Moist mucous membranes, No rhinorrhea, TM's clear Neck: Supple, Nontender, No lymphadenopathy, No JVD Cardiovascular: Regular rate, Regular rhythm, No murmurs, Normal S1, Normal S2 Respiratory: No distress, Chest nontender, Rales - Rales noted at the bases, end inspiratory Abdomen: Soft, Nontender, Nondistended, Normal bowel sounds, No masses Rectal: Deferred Back: Nontender, Normal Inspection Extremities: Nontender, No edema, - - There is no asymmetry, swelling, discoloration, leg vein distention, palpable cords or tenderness along the distribution of the deep venous system. Skin: Normal color, No rash. Negative for: Cyanosis, Jaundice Neurological: Alert, Oriented x3, Cranial nerves II-XII grossly intact, Normal Strength, Normal Sensation Psychological: Normal affect, Normal Mood Diagnostic/Tx/Re-eval Chest X-Ray - ED: 1 View, Read by ED Physician, Normal, Heart, Mediastinum, Bony Structures, No Acute Disease, Chronic Changes Impressions Chest X-Ray 05/20/18 09:46 IMPRESSION: Hyperinflation. The lungs are clear. Electronically Signed: Ari Espinoza, at 10:19 EDT , Service support , 05/20/18 09:46 Chest 1 View (Portable) [RAD] Stat Laboratory Results 05/20/18 05/20/18 09:50 09:50 WBC 6.6 RBC 4.62 Hgb 14.5 Hct 42.9 MCV 92.9 MCH 31.4 MCHC 33.8 RDW 13.2 RDW Differential 45.0 H Plt Count 255 MPV 9.4 Immature Gran % (Auto) 0.000 Neut % (Auto) 65.8 Lymph % (Auto) 26.7 [place] % (Auto) 5.7 Eos % (Auto) 1.5 Baso % (Auto) 0.3 Absolute Neuts (auto) 4.4 Absolute Lymphs (auto) 1.77 Total Counted Not Reportable Sodium 139 Potassium 3.8 Chloride 107 Carbon Dioxide 28.0 Anion Gap 4 L BUN 11 Creatinine 0.98 Estim Creat Clear Calc 54.25 Est GFR (MDRD) Af Amer 74 Est GFR (MDRD) Non-Af 61 BUN/Creatinine Ratio 11.2 Glucose 106 Calcium 9.0 Troponin I < 0.015 TSH 2.67 Initial troponin is negative. Since she has known lesion in the circumflex vessel will obtain a 3-hour troponin. Once results are available will contact Dr. Bahena. - Rhythm Strip Rhythm Strip: Sinus Rhythm Rate: 94 Ectopy: None - EKG Initial EKG Interpretation: Sinus Rhythm - Ventricular rate is 76. CA interval, Q adventist, QT interval and axis are normal. The EKG is normal. - Medical Decision Making With complaints of palpitation will assess EKG to determine if there is any dysrhythmia. Because of chest discomfort and abnormal cath will obtain EKG also to evaluate for ischemia. First EKG is suboptimal because artifact. The tech was asked to repeat it because there is abnormality noted and concern for circumflex lesion. She was treated with aspirin. TSH was obtained because she is thin to determine if she is hyperthyroid. Her dyspnea and palpitations may also be dysrhythmia i.e. multifocal H tachycardia since she has a long-standing history of COPD. EKG even though inadequate reveals a sinus rhythm with a ventricular rate of 91. CA interval Q adventist QT interval and axis are normal. Unable to determine if there is abnormality in the distribution of the circumflex vessel because of artifact. Patient did receive aspirin. Case was discussed with Dr. Bahena. Since repeat 3-hour troponin is normal and EKG is normal will discharge to home to follow-up with Dr. Bahena. ED Disposition - Plan for ED Patient: Disposition: Home or Assisted Living Diagnosis: Left-sided chest pain, Intermittent palpitations, Coronary artery disease circumflex arter Instructions: ED Palpitations, ED Chest Pain Atypical Unkn Cause Referrals: Alexi Montesinos MD [STAFF PHYSICIAN] - Frances Bahena MD [[facility]] - 5-7 Days
--- NOTE | 2018-05-20 09:44 | ED.DCSUM_ITS ---
History of Present Illness Chief Complaint: Palpitations Informant: Patient Onset: Weeks - Approximately 2 weeks of palpitations and irregular heartbeat. Upon awakening describes aching left-sided chest discomfort. Context: Sudden Onset Timing: Continuous - Chest discomfort is constant since onset at 0600, Intermittent - The palpitations and irregular heartbeat have been intermittent for the past 2 weeks. Quality: Aching chest pain and palpitations skipped beat Location: Chest Current Severity: Mild Maximum Severity: Moderate Worsened by: Nothing Relieved by: Nothing Associated Symptoms: Patient states she is always short of breath. She also complains of consta Narrative: Patient is an elderly woman who presents with palpitations and irregular heartbeat for approximately 2 weeks. She states she feels it skipping a beat. At times she feels as if it stops and there is a grabbing sensation and it restarts. Nothing precipitates, exacerbates or alleviates her palpitations. This morning upon awakening she had discomfort in her chest. She is unable to determine if she is more short of breath than normal and unable to determine if the discomfort in her neck and jaw is different than her chronic pain. She was admitted for unstable angina November 2017. Cardiac catheter reveals 50% stenosis of the circumflex vessel. The left main, left anterior descending and right coronary which is the dominant vessel were all angiographic normal. She states she did not follow-up with energy conservation representative as instructed. Triage documents wheezing. Presently she is not wheezing nor is she tachycardia cardiac, tachypneic or complaining of shortness of breath from her baseline. She is a smoker. She denies leg pain, swelling discoloration. There is no history of PE, DVT and she denies any risk factors. - Past Medical History (1) COPD exacerbation Status: Acute (2) Unstable angina Status: Acute (3) Fibromyalgia Status: Chronic (4) Panic disorder Status: Chronic (5) Tobacco dependence syndrome Status: Chronic Past Medical History - Allergies and Home Meds Allergies/Adverse Reactions: Allergies No Known Allergies Allergy (Verified 05/20/18 09:27) Primary Care Physician: Alexi Montesinos MD [STAFF PHYSICIAN] - Prior records reviewed: Yes - Reviewed cath report November 2017 Surgical History: cholecystectomy, hysterectomy, tonsillectomy, - - Heart ablation, foot surgery Lives: Alone Smoking Status: Current every day smoker Alcohol: None - Family History Maternal Family History: Family History (Last Reviewed 01/13/18 @ 17:47 by Terra Blanco) Mother CAD (coronary artery disease) Father Cancer Family History: Reports: Heart Disease Paternal Family History: Family History (Last Reviewed 01/13/18 @ 17:47 by Terra Blanco) Mother CAD (coronary artery disease) Father Cancer Family History: Reports: Cancer Sibling Family History: Family History (Last Reviewed 01/13/18 @ 17:47 by Terra Blanco) Mother CAD (coronary artery disease) Father Cancer Family History: Reports: COPD Review of Systems General: Denies: Chills, Fever, Malaise, Sweats, Weight loss Eyes: Denies: Visual changes - bilaterally, Diplopia ENT: Denies: Rhinorrhea, Sore throat Cardiovascular: Reports: Chest pain, Palpitations Respiratory: Reports: Dyspnea, Cough, Dyspnea on exertion. Denies: Sputum, Orthopnea, Paroxysmal nocturnal dyspnea, -, - Gastrointestinal: Denies: Abdominal pain, Nausea, Vomiting, Diarrhea, Melena, Hematochezia Genitourinary: Denies: Dysuria, Hematuria, Frequency Musculoskeletal: Denies: Back pain, Extremity Pain Skin: Denies: Rash, Wounds Neurological: Denies: Headache, Weakness, Numbness Hematologic: Denies: Easy bruising, Easy bleeding Allergy: Denies: Uticaria Physical Exam Vital Signs/Narrative: Vital Signs Temp Pulse Resp BP Pulse Ox 05/20/18 09:27 98.8 F 108 H 20 H 125/96 H 8 Inital Vital Signs reviewed: Yes General: Well nourished, Well developed, No Acute Distress, - - Patient is very thin. Head: Normocephalic, Atraumatic Eyes: Perrl, EOMI, Pale conjunctiva, Scleral icterus ENT: Moist mucous membranes, No rhinorrhea, TM's clear Neck: Supple, Nontender, No lymphadenopathy, No JVD Cardiovascular: Regular rate, Regular rhythm, No murmurs, Normal S1, Normal S2 Respiratory: No distress, Chest nontender, Rales - Rales noted at the bases, end inspiratory Abdomen: Soft, Nontender, Nondistended, Normal bowel sounds, No masses Rectal: Deferred Back: Nontender, Normal Inspection Extremities: Nontender, No edema, - - There is no asymmetry, swelling, discoloration, leg vein distention, palpable cords or tenderness along the distribution of the deep venous system. Skin: Normal color, No rash. Negative for: Cyanosis, Jaundice Neurological: Alert, Oriented x3, Cranial nerves II-XII grossly intact, Normal Strength, Normal Sensation Psychological: Normal affect, Normal Mood Diagnostic/Tx/Re-eval Chest X-Ray - ED: 1 View, Read by ED Physician, Normal, Heart, Mediastinum, Bony Structures, No Acute Disease, Chronic Changes Impressions Chest X-Ray 05/20/18 09:46 IMPRESSION: Hyperinflation. The lungs are clear. Electronically Signed: Ari Espinoza, at 10:19 EDT , Service support , 05/20/18 09:46 Chest 1 View (Portable) [RAD] Stat Laboratory Results 05/20/18 05/20/18 09:50 09:50 WBC 6.6 RBC 4.62 Hgb 14.5 Hct 42.9 MCV 92.9 MCH 31.4 MCHC 33.8 RDW 13.2 RDW Differential 45.0 H Plt Count 255 MPV 9.4 Immature Gran % (Auto) 0.000 Neut % (Auto) 65.8 Lymph % (Auto) 26.7 [place] % (Auto) 5.7 Eos % (Auto) 1.5 Baso % (Auto) 0.3 Absolute Neuts (auto) 4.4 Absolute Lymphs (auto) 1.77 Total Counted Not Reportable Sodium 139 Potassium 3.8 Chloride 107 Carbon Dioxide 28.0 Anion Gap 4 L BUN 11 Creatinine 0.98 Estim Creat Clear Calc 54.25 Est GFR (MDRD) Af Amer 74 Est GFR (MDRD) Non-Af 61 BUN/Creatinine Ratio 11.2 Glucose 106 Calcium 9.0 Troponin I < 0.015 TSH 2.67 Initial troponin is negative. Since she has known lesion in the circumflex vessel will obtain a 3-hour troponin. Once results are available will contact Dr. Bahena. - Rhythm Strip Rhythm Strip: Sinus Rhythm Rate: 94 Ectopy: None - EKG Initial EKG Interpretation: Sinus Rhythm - Ventricular rate is 76. UT interval, Q zoroastrian, QT interval and axis are normal. The EKG is normal. - Medical Decision Making With complaints of palpitation will assess EKG to determine if there is any dysrhythmia. Because of chest discomfort and abnormal cath will obtain EKG also to evaluate for ischemia. First EKG is suboptimal because artifact. The tech was asked to repeat it because there is abnormality noted and concern for circumflex lesion. She was treated with aspirin. TSH was obtained because she is thin to determine if she is hyperthyroid. Her dyspnea and palpitations may also be dysrhythmia i.e. multifocal H tachycardia since she has a long-standing history of COPD. EKG even though inadequate reveals a sinus rhythm with a ventricular rate of 91. UT interval Q zoroastrian QT interval and axis are normal. Unable to determine if there is abnormality in the distribution of the circumflex vessel because of artifact. Patient did receive aspirin. Case was discussed with Dr. Bahena. Since repeat 3-hour troponin is normal and EKG is normal will discharge to home to follow-up with Dr. Bahena. ED Disposition - Plan for ED Patient: Disposition: Home or Assisted Living Diagnosis: Left-sided chest pain, Intermittent palpitations, Coronary artery disease circumflex arter Instructions: ED Palpitations, ED Chest Pain Atypical Unkn Cause Referrals: Alexi Montesinos MD [STAFF PHYSICIAN] - Frances Bahena MD [[facility]] - 5-7 Days
[2018-05-20 09:45] VITALS: BP 136/82; PULSE 86; PULSE 88; RESP 18; RESP 20; TEMP 37.1; O2SAT 98; O2SAT 99
--- NOTE | 2018-05-20 09:46 | RAD_ITS ---
STUDY: X-RAY CHEST REASON FOR EXAM: Female, 62 years old. Chest pain. Tachycardia. TECHNIQUE: Single AP portable view of the chest. COMPARISON: Comparison is made with prior study of April 13, 2018. FINDINGS: EKG electrodes are seen. Hyperinflation. Scattered calcified granulomas. There is no demonstrated pleural abnormality. Normal size heart. Normal mediastinum and tena. Normal visualized pulmonary arteries. Normal visualized aortic arch and descending thoracic aorta. Normal visualized thoracic spine. Normal visualized ribs, clavicles, and shoulders. There is no demonstrated abnormality of the visualized soft tissue structures of the upper abdomen. RAD/Chest 1 View (Portable) IMPRESSION: Hyperinflation. The lungs are clear. Electronically Signed: Ari Doran, at 10:19 EDT , Service support ,
[2018-05-20] MEDS: Aspirin 81 MG TAB.CHEW 324 MG PO (09:58)
[2018-05-20 09:59] LABS: Absolute Lymphocyte Count 1.77 X10^3/ul (0.83-4.51); Absolute Neutrophil Count 4.4 X10^3/uL (2.0-7.7); Basophil# 0.02 X10^3/uL; Basophil% 0.3 % (0-1); Eosinophils% 1.5 % (0-5); Hematocrit 42.9 % (37-47); Hemoglobin 14.5 g/dl (12.0-15.0); Lymphocyte # 1.77 X10^3/ul (4.0); Lymphocyte % 26.7 % (19-41); Mean Corp Hgb Conc 33.8 g/gl (32-36); Mean Corpuscular Hgb 31.4 pg (27.0-32.0); Mean Corpuscular Volume 92.9 fL (81-99); Mean Platelet Vol. 9.4 fl (6.2-12.0); Monocyte# 0.38 X10^3/uL; Monocyte% 5.7 % (0-10); Neutrophil # 4.37 X10^3/uL (2.7-7.7); Neutrophil % 65.8 % (47-70); Platelet Count 255 K/mm3 (150-450); RBC Distribution Width CV 13.2 % (11.6-14.6); Red Blood Count 4.62 M/mm3 (4.2-5.4); White Blood Count 6.6 K/mm3 (4.4-11.0)
[2018-05-20 10:00] LABS: POSITIVE COUNT NO; POSITIVE DIFFERENTIAL NO; POSITIVE MORPHOLOGY NO
[2018-05-20 10:20] LABS: Anion Gap 4 (5-15); BUN 11 mg/dL (7-18); BUN/Creat Ratio 11.2 RATIO (10-20); Chloride 107 mmol/L (98-107); Creatinine, Serum 0.98 mg/dL (0.55-1.02); EST Glomerular Filtration Rate 61 mL/min (>60); Est Glom Filt Rate - Afr Amer 74 mL/min (>60); Estimated Creatinine Clearance 54.25 ml/min; Glucose 106 mg/dL (74-106); Potassium 3.8 mmol/L (3.5-5.1); Sodium Level 139 mmol/L (136-145); Thyroid Stim Hormone (TSH) 2.67 uIU/mL (0.358-3.74)
--- NOTE | 2018-05-20 11:24 | NURSING ---
NOT CURRENT SEPSIS RISK
[2018-05-20 11:39] VITALS: BP 117/72; PULSE 60; RESP 10; O2SAT 99
[2018-05-20 13:35] VITALS: BP 121/74; PULSE 69; RESP 14; O2SAT 98
== END 2018-05-20 13:35 | disposition home or self-care (01) ==
PROVIDERS: Emergency Provider Emergency Medicine; Family Provider Family Medicine; PCP Family Medicine
DX: R07.9 Chest pain, unspecified (principal); R00.2 Palpitations; I25.10 Atherosclerotic heart disease of native coronary artery without angina pectoris; F17.200 Nicotine dependence, unspecified, uncomplicated; J44.9 Chronic obstructive pulmonary disease, unspecified; M79.7 Fibromyalgia; F41.0 Panic disorder [episodic paroxysmal anxiety]
CPT/HCPCS: 71045; 80048; 84443; 84484; 85025; 93005; 99284; A4216

== ENCOUNTER → 2018-06-15 09:59 | Outpatient (CLI) | payer MEDICARE, SELFPAY ==
[2018-05-20 09:27] VITALS: BMI 22.9
[2018-06-15 12:07] LABS: Absolute Lymphocyte Count 1.83 X10^3/ul (0.83-4.51); Absolute Neutrophil Count 4.3 X10^3/uL (2.0-7.7); Basophil# 0.03 X10^3/uL; Basophil% 0.4 % (0-1); Eosinophil# 0.22 X10^3/uL; Eosinophils% 3.2 % (0-5); Hematocrit 45.9 % (37-47); Hemoglobin 15.1 g/dl (12.0-15.0); Lymphocyte # 1.83 X10^3/ul (4.0); Lymphocyte % 26.6 % (19-41); Mean Corp Hgb Conc 32.9 g/gl (32-36); Mean Corpuscular Hgb 30.8 pg (27.0-32.0); Mean Corpuscular Volume 93.5 fL (81-99); Mean Platelet Vol. 10.3 fl (6.2-12.0); Monocyte# 0.48 X10^3/uL; Neutrophil # 4.32 X10^3/uL (2.7-7.7); Neutrophil % 62.7 % (47-70); Platelet Count 274 K/mm3 (150-450); RBC Distribution Width CV 13.3 % (11.6-14.6); RBC Distribution Width SD 44.6 fl (35.1-43.9); Red Blood Count 4.91 M/mm3 (4.2-5.4); White Blood Count 6.9 K/mm3 (4.4-11.0)
[2018-06-15 12:13] LABS: POSITIVE COUNT NO; POSITIVE DIFFERENTIAL NO; POSITIVE MORPHOLOGY NO
[2018-06-15 12:14] LABS: ALB/GLOB Ratio 0.9 RATIO (0.9-2.4); AST(SGOT) 22 U/L (15-37); Alanine Aminotransfer ALT/SGPT 20 U/L (13-56); Albumin, Serum 3.7 g/dL (3.2-5.0); Alkaline Phosphatase 107 U/L (45-117); Anion Gap 7 (5-15); BUN 9 mg/dL (7-18); BUN/Creat Ratio 8.3 RATIO (10-20); Calcium,Total 9.3 mg/dL (8.5-10.1); Chloride 104 mmol/L (98-107); Cholesterol 131 mg/dL (200); Creatinine, Serum 1.09 mg/dL (0.55-1.02); EST Glomerular Filtration Rate 54 mL/min (>60); Est Glom Filt Rate - Afr Amer 65 mL/min (>60); Globulin 3.9 g/dL (2.2-4.2); Glucose 78 mg/dL (74-106); High Density Lipoprotein 59 mg/dL; Potassium 4.3 mmol/L (3.5-5.1); Protein, Total 7.6 g/dL (6.4-8.2); Sodium Level 138 mmol/L (136-145); Triglycerides 75 mg/dL; Very Low Density Lipoprotein 15 mg/dL (5-40)
== END ==
PROVIDERS: Family Provider Family Medicine; PCP Family Medicine; Visit Provider Family Medicine
DX: E78.5 Hyperlipidemia, unspecified (principal); J44.9 Chronic obstructive pulmonary disease, unspecified
CPT/HCPCS: 36415; 80053; 80061; 85025

== ENCOUNTER → 2018-07-15 | Outpatient (CLI) | payer MEDICARE, SELFPAY ==
--- NOTE | 2018-07-15 08:23 | CT_ITS ---
STUDY: LOW DOSE CT LUNG CANCER SCREENING REASON FOR EXAM: Female, 63 years old. 60 pack-year history. RADIATION DOSAGE (If Supplied By Facility): CTDIvol = ( 2.01 ) mGy, DLP = ( 70.22 ) mGycm TECHNIQUE: No contrast was administered. Low dose technique was utilized (average mAS-38 and kVp 120). 1.25 mm axial source images with a slice interval of 1.25-mm were reconstructed in lung windows. 2.5 mm axial source images with a slice interval of 2.5-mm were reconstructed in lung windows. 5.0 mm axial source images with a slice interval of 5.0-mm were reconstructed in soft tissue windows. Nodule measured using lung windows on PACS and/or independent workstation with automated measurement of minimum and maximum diameter. Nodule measurement reported as average diameter rounded to the nearest whole number. Growth is defined as an increase ins size of greater than 1.5 mm. COMPARISON: CTA of the chest, November 29, 2016. NODULES: Total lung nodules (excluding granulomas): 0 Emphysema: There is mild emphysematous changes lungs with slight atelectasis in the lingula. Endobronchial lesion: None Aorta: Normal Coronary arteries: There are minimal coronary artery calcifications. Heart: Normal in size Pulmonary artery: Normal Mediastinal nodes: None Other chest and abdominal findings: There are minimal degenerative changes of the thoracic spine. CT/Low Dose CT Lung Screening IMPRESSION: Lung-RADS category 1 - Continue annual screening with LDCT in 12 months. IMPORTANT NOTES FOR USE: ACR Lung-RADS Version 1.0 Assessment Categories Release Date: June 07, 2013 Category: Coded 0-4 bases on nodule(s) with highest degree of suspicion. Negative screen is defined as categories 1 and 2; a positive screen is defined as categories 3 and 4. Category 3 and 4A nodules that are unchanged on interval CT should be coded as category 2, and individuals returned to screening in 12 months. Category 4X: Category 3 or 4 nodules with additional imaging findings that increase the suspicion of lung cancer, such as spiculation, GGN that doubles in size in 1 year, enlarged lymph notes, etc. Category Modifiers: S (significant finding unrelated to lung cancer) and C (prior history of treated lung cancer) may be added to the 0-4 Lung-RADS Electronically Signed: Clem Covington DO at 22:19 EDT Tel [phone], Service support ,
== END | disposition home or self-care (01) ==
PROVIDERS: Family Provider Family Medicine; PCP Family Medicine; Referring Provider Family Medicine; Visit Provider Family Medicine
DX: Z87.891 Personal history of nicotine dependence (principal); Z12.2 Encounter for screening for malignant neoplasm of respiratory organs; F17.200 Nicotine dependence, unspecified, uncomplicated
CPT/HCPCS: G0297

== ENCOUNTER 2019-01-01 06:30 | Emergency (ER) | payer MEDICARE, SELFPAY ==
[2019-01-01 06:31] VITALS: BP 136/90; PULSE 94; RESP 30; TEMP 36.4; O2SAT 95; BMI 23.5
--- NOTE | 2019-01-01 06:32 | RAD_ITS ---
STUDY: X-RAY CHEST REASON FOR EXAM: Female, 63 years old. Cough, history of COPD. TECHNIQUE: Single AP portable view of the chest. COMPARISON: . FINDINGS: The lungs are clear and expanded. There is no demonstrated pleural abnormality. Normal size heart. Normal mediastinum and tena. Normal visualized pulmonary arteries. Normal visualized aortic arch and descending thoracic aorta. Normal visualized thoracic spine. Normal visualized ribs, clavicles, and shoulders. There is no demonstrated abnormality of the visualized soft tissue structures of the upper abdomen. RAD/Chest 1 View (Portable) IMPRESSION: Normal x-ray examination of the chest. Electronically Signed: Bambi Garcia MD at 6:58 EST , Service support ,
--- NOTE | 2019-01-01 06:32 | EKG12_ITS ---
Test Reason : SOB Blood Pressure : / mmHG Vent. Rate : 103 BPM Atrial Rate : 103 BPM P-R Int : 126 ms QRS Dur : 078 ms QT Int : 370 ms P-R-T Axes : 083 048 074 degrees QTc Int : 484 ms Sinus tachycardia Otherwise normal ECG Confirmed by EFE CHINCHILLA, CIRO ([id number]), material expeditor LEX PEREZ ([id number]) on 01/04/2019 9:32:33 AM Referred By: DARREL Confirmed By:CIRO WILKS MD
[2019-01-01 06:35] VITALS: BP 136/90; PULSE 113; RESP 20; TEMP 36.4; O2SAT 93
[2019-01-01 06:37] VITALS: O2SAT 94
--- NOTE | 2019-01-01 06:39 | ED.VIS.GEN ---
History of Present Illness Chief Complaint: Shortness of Breath Informant: Patient Narrative: Patient stated she woke this morning with wheezing and shortness of breath. She used her albuterol inhaler with no relief and called paramedics. They gave a DuoNeb breathing treatment and albuterol treatment followed by Brittaney. She is on oxygen at night for COPD. Over the last 2 days she has had upper respiratory symptoms with cough and nasal congestion. She did have much wheezing per patient. She has not had a recent exacerbation. She still smokes cigarettes. She feels significantly better currently after treatment by paramedics. Denies any fevers or chills or productive sputum. Denies any chest pain. Current severity is mild. Severity at maximum was moderate to severe. - Past Medical History (1) COPD exacerbation Status: Acute (2) Pleuritic chest pain Status: Acute (3) Shortness of breath Status: Acute (4) Unstable angina Status: Acute (5) Adnexal mass Status: Chronic (6) Chronic lumbar back pain Status: Chronic (7) Fibromyalgia Status: Chronic (8) History of right and left heart catheterization Status: Chronic Comment: Per Dr. Bahena @ [facility]: single vessel CAD of LCX (50%), all other vessels normal. EF 65% (9) Panic disorder Status: Chronic (10) Tobacco dependence syndrome Status: Chronic (11) Lactic acid acidosis Status: Resolved (12) Pneumonia Status: Resolved (13) SIRS (systemic inflammatory response syndrome) Status: Resolved Past Medical History - Allergies and Home Meds Allergies/Adverse Reactions: Allergies No Known Allergies Allergy (Verified 05/20/18 09:27) Primary Care Physician: Roxy Whelan MD [Primary Care Provider] - Prior records reviewed: Yes Past Medical History: - - See problem list Surgical History: cholecystectomy, hysterectomy, tonsillectomy, - - Heart ablation, foot surgery Lives: With Family Smoking Status: Current every day smoker Alcohol: None Drugs: None - Family History Maternal Family History: Family History (Last Reviewed 01/13/18 @ 17:47 by Terra Blanco) Mother CAD (coronary artery disease) Father Cancer Family History: Reports: Heart Disease Paternal Family History: Family History (Last Reviewed 01/13/18 @ 17:47 by Terra Blanco) Mother CAD (coronary artery disease) Father Cancer Family History: Reports: Cancer Sibling Family History: Family History (Last Reviewed 01/13/18 @ 17:47 by Terra Blanco) Mother CAD (coronary artery disease) Father Cancer Family History: Reports: COPD Review of Systems General: Denies: Chills, Fever, Sweats Eyes: Denies: Visual changes - bilaterally, Diplopia ENT: Reports: Rhinorrhea. Denies: Sore throat Cardiovascular: Denies: Chest pain, Palpitations Respiratory: Reports: Dyspnea, Cough. Denies: Dyspnea on exertion Gastrointestinal: Denies: Abdominal pain, Nausea, Vomiting, Diarrhea, Melena, Hematochezia Genitourinary: Denies: Dysuria, Hematuria, Frequency Musculoskeletal: Denies: Back pain, Extremity Pain Skin: Denies: Rash, Wounds Neurological: Denies: Headache, Weakness, Numbness Physical Exam Vital Signs/Narrative: Vital Signs Temp Pulse Resp BP Pulse Ox 01/01/19 06:35 97.6 F L 113 H 20 H 136/90 H 93 01/01/19 06:31 97.6 F L 94 30 H 136/90 H 95 General: Well nourished, Well developed, No Acute Distress Head: Normocephalic, Atraumatic Eyes: Perrl, EOMI ENT: Moist mucous membranes, No rhinorrhea Neck: Supple, Nontender Cardiovascular: Regular rhythm, No murmurs, Tachycardia Respiratory: No distress, Chest nontender, Wheezing - Wheezing throughout all lung orr on expiratory phase., Decreased Air Movement. Negative for: CTA bilaterally Abdomen: Soft, Nontender, Nondistended, Normal bowel sounds Back: Nontender, Normal Inspection Extremities: Nontender, No edema Skin: Normal color, No rash Neurological: Alert, Oriented x3, Cranial nerves II-XII grossly intact, Normal Strength, Normal Sensation Psychological: Normal affect, Normal Mood Diagnostic/Tx/Re-eval - Medical Decision Making She given albuterol treatment. EKG and chest x-ray obtained. received steroids by EMS. Patient felt significantly better after breathing treatment. Chest x-ray shows chronic changes without acute pneumonia. Mild increased interstitial markings right lower lobe. Patient given results of azithromycin for COPD exacerbation. She has an inhaler at home. She has oxygen to use at night and she may use during the day if needed. Patient will be discharged with prednisone and azithromycin. I do not feel she needs to be admitted. G shows sinus tachycardia at a rate of 1 without ischemia. ED Disposition - Plan for ED Patient: Disposition: Home or Assisted Living Diagnosis: COPD exacerbation Instructions: Copd Flare Prescriptions: Azithromycin 250 mg PO DAILY #4 tab Transmission Status: Received by [facility] Prednisone [Deltasone] 40 mg PO DAILY #10 tab Transmission Status: Received by [facility] Albuterol Aerosols [Ventolin Aerosols] 2.5 mg INHALATION Q4H PRN #25 vial Transmission Status: Pending to [facility] Referrals: Roxy Whelan MD [Primary Care Provider] -
[2019-01-01 06:40] VITALS: PULSE 116; RESP 24
[2019-01-01] MEDS: Albuterol 2.5 MG/3 ML VIAL.NEB. INHALATION (06:46)
[2019-01-01] MEDS: Azithromycin 250 MG Tablet 500 MG PO (06:58)
[2019-01-01 06:59] VITALS: BP 119/76; PULSE 113; RESP 93
== END 2019-01-01 07:20 | disposition home or self-care (01) ==
PROVIDERS: Emergency Provider Emergency Medicine; Family Provider Family Medicine; PCP Family Medicine
DX: J44.1 Chronic obstructive pulmonary disease with (acute) exacerbation (principal); I25.10 Atherosclerotic heart disease of native coronary artery without angina pectoris; M79.7 Fibromyalgia; Z82.49 Family history of ischemic heart disease and other diseases of the circulatory system; Z90.49 Acquired absence of other specified parts of digestive tract; Z90.710 Acquired absence of both cervix and uterus; F17.210 Nicotine dependence, cigarettes, uncomplicated; G89.29 Other chronic pain; M54.5 Low back pain; F41.0 Panic disorder [episodic paroxysmal anxiety]
CPT/HCPCS: 71045; 93005; 94640; 99285

== ENCOUNTER 2019-01-26 23:23 | Observation (INO) | payer MEDICARE, SELFPAY ==
[2019-01-26 23:30] VITALS: BP 114/100; PULSE 76; RESP 15; TEMP 36.6; O2SAT 98; BMI 24.5
--- NOTE | 2019-01-26 23:30 | EKG12_ITS ---
Test Reason : DIZZY Blood Pressure : / mmHG Vent. Rate : 076 BPM Atrial Rate : 076 BPM P-R Int : 136 ms QRS Dur : 084 ms QT Int : 408 ms P-R-T Axes : 082 064 059 degrees QTc Int : 459 ms Normal sinus rhythm Normal ECG Confirmed by FERNANDA CHINCHILLA, LUCAS ([id number]), desk editor DANIELE VALDERRAMA ([id number]) on 02/01/2019 11:48:24 AM Referred By: KILLIAN Confirmed By:SHANE MICHAEL MD
--- NOTE | 2019-01-26 23:30 | ED.DCSUM_ITS ---
History of Present Illness Chief Complaint: Dizziness Informant: Patient Onset: Today Timing: Intermittent Current Severity: Mild Maximum Severity: Moderate Narrative: Patient presents via EMS with 3 episodes of dizziness today. She states she will suddenly get lightheaded and dizzy and feel as if she may pass out. The most recent episode occurred after she had stood up and walked to the kitchen to get a glass of water. She then became dizzy. She denies chest pain or palpitations. She denies shortness of breath. She denies any recent change to her medication. She has had normal p.o. intake recently and has been urinating normally. - Past Medical History (1) Atrial fibrillation Status: Resolved (2) H/O cardiac radiofrequency ablation Status: Chronic (3) COPD (chronic obstructive pulmonary disease) Status: Chronic (4) Chronic lumbar back pain Status: Chronic (5) Fibromyalgia Status: Chronic (6) Panic disorder Status: Chronic Past Medical History - Allergies and Home Meds Allergies/Adverse Reactions: Allergies No Known Allergies Allergy (Verified 05/20/18 09:27) Primary Care Physician: Roxy Whelan MD [Primary Care Provider] - Prior records reviewed: Yes Surgical History: cholecystectomy, hysterectomy, tonsillectomy, - - Heart ablation, foot surgery Smoking Status: Current every day smoker - Family History Maternal Family History: Family History (Last Reviewed 01/13/18 @ 17:47 by Terra Blanco) Mother CAD (coronary artery disease) Father Cancer Family History: Reports: Heart Disease Paternal Family History: Family History (Last Reviewed 01/13/18 @ 17:47 by Terra Blanco) Mother CAD (coronary artery disease) Father Cancer Family History: Reports: Cancer Sibling Family History: Family History (Last Reviewed 01/13/18 @ 17:47 by Terra Blanco) Mother CAD (coronary artery disease) Father Cancer Family History: Reports: COPD Review of Systems General: Denies: Chills, Fever Eyes: Denies: Visual changes - bilaterally ENT: Denies: Bilateral ear pain Cardiovascular: Denies: Chest pain, Palpitations Respiratory: Denies: Dyspnea, Cough Gastrointestinal: Denies: Abdominal pain, Nausea, Vomiting, Diarrhea Genitourinary: Denies: Dysuria Neurological: Denies: Headache Hematologic: Denies: Easy bruising, Easy bleeding Allergy: Denies: Uticaria Physical Exam Inital Vital Signs reviewed: Yes General: Well nourished, Well developed Head: Normocephalic ENT: Moist mucous membranes Cardiovascular: Regular rate, Regular rhythm Respiratory: No distress, CTA bilaterally Abdomen: Soft, Nontender Extremities: Nontender Skin: Normal color Neurological: Alert, Oriented x3, Normal Strength, Normal Sensation Psychological: Normal affect Diagnostic/Tx/Re-eval Impressions Chest X-Ray 01/26/19 23:34 IMPRESSION: Stable chest no evidence of acute focal infiltrate. Electronically Signed: Mae Valentine MD at 23:47 EST Tel , Service support , 01/26/19 23:34 Chest 1 View (Portable) [RAD] Stat Laboratory Results 01/26/19 01/26/19 01/27/19 23:34 23:34 00:40 WBC 7.4 RBC 3.93 L Hgb 12.9 Hct 38.1 MCV 96.9 MCH 32.8 H MCHC 33.9 RDW Std Deviation 45.7 H RDW Coeff of Disha 12.7 Plt Count 214 MPV 9.2 Immature Gran % (Auto) 0.300 Neut % (Auto) 47.4 Lymph % (Auto) 38.6 Stewart % (Auto) 8.4 Eos % (Auto) 4.5 Baso % (Auto) 0.8 Absolute Neuts (auto) 3.5 Absolute Lymphs (auto) 2.84 Nucleated RBC % 0 Sodium 140 Potassium 3.6 Chloride 108 H Carbon Dioxide 28.0 Anion Gap 4 L BUN 10 Creatinine 0.83 Estim Creat Clear Calc 63.24 Est GFR (MDRD) Af Amer 89 Est GFR (MDRD) Non-Af 74 BUN/Creatinine Ratio 12.0 Glucose 104 Calcium 8.3 L Troponin I < 0.015 Urine Color Yellow Urine Clarity Clear Urine pH 5.0 Ur Specific [place] 1.020 Urine Protein Negative Urine Glucose (UA) Normal Urine Ketones 15 H Urine Occult Blood Negative Urine Nitrite Negative Urine Bilirubin 1 H Urine Urobilinogen 1 H Ur Leukocyte Esterase 25 H Urine RBC 0 SEEN Urine WBC 0-5 SEEN Ur Squamous Epith Cells 0-5 SEEN Urine Bacteria 0 SEEN Urine Mucus 1+ - EKG Initial EKG Interpretation: Sinus Rhythm - Sinus at 76 with no acute ischemia. - Medical Decision Making Patient is given IV fluids here. She has had no evidence of arrhythmia on the monitor. EMS reported the patient was in atrial fibrillation, but I do not have any rhythm strips of there is available to look at. She has been in sinus rhythm here. With patient having multiple episodes of near syncope today I have recommended observation overnight to ensure no cardiac arrhythmias. I will speak with the hospitalist. ED Disposition - Plan for ED Patient: Disposition: Acute Care [facility] Diagnosis: Near syncope Referrals: Roxy Whelan MD [Primary Care Provider] -
--- NOTE | 2019-01-26 23:31 | ED.RN ---
RN CALLED FOR EKG, PULLED OLD EKGS FOR
--- NOTE | 2019-01-26 23:34 | RAD_ITS ---
STUDY: X-RAY CHEST REASON FOR EXAM: Female, 63 years old. Atrial fib TECHNIQUE: 2 AP portable views of the chest. COMPARISON: January 01, 2019 chest x-ray FINDINGS: The lungs are clear and expanded. There is no demonstrated pleural abnormality. Normal size heart. Normal mediastinum and tena. Normal visualized pulmonary arteries. Normal visualized aortic arch and descending thoracic aorta. There are diffuse degenerative changes of the visualized thoracic spine. Normal visualized ribs, clavicles, and shoulders. There is no demonstrated abnormality of the visualized soft tissue structures of the upper abdomen. RAD/Chest 1 View (Portable) IMPRESSION: Stable chest no evidence of acute focal infiltrate. Electronically Signed: Mae Valentine MD at 23:47 EST Tel , Service support ,
[2019-01-26 23:41] LABS: Absolute Lymphocyte Count 2.84 X10^3/uL (0.83-4.51); Absolute Neutrophil Count 3.5 X10^3/uL (2.0-7.7); Basophil# 0.06 X10^3/uL; Basophil% 0.8 % (0-1); Eosinophil# 0.33 X10^3/uL; Eosinophils% 4.5 % (0-5); Hematocrit 38.1 % (37-47); Hemoglobin 12.9 g/dL (12.0-15.0); Lymphocyte # 2.84 X10^3/ul (4.0); Lymphocyte % 38.6 % (19-41); Mean Corp Hgb Conc 33.9 g/dL (32-36); Mean Corpuscular Hgb 32.8 pg (27.0-32.0); Mean Corpuscular Volume 96.9 fL (81-99); Mean Platelet Vol. 9.2 fl (6.2-12.0); Monocyte# 0.62 X10^3/uL; Monocyte% 8.4 % (0-10); NRBC Flagged by Analyzer 0 % (0-5); Neutrophil # 3.49 X10^3/uL (2.7-7.7); Neutrophil % 47.4 % (47-70); Platelet Count 214 K/mm3 (150-450); RBC Distribution Width CV 12.7 % (11.6-14.6); RBC Distribution Width SD 45.7 fl (35.1-43.9); Red Blood Count 3.93 M/mm3 (4.2-5.4); White Blood Count 7.4 K/mm3 (4.4-11.0)
[2019-01-26] MEDS: 0.9% Normal Saline 1,000 ML 150 ML IV (23:42)
[2019-01-27] VITALS (11 sets, daily range): BP systolic 107–151; BP diastolic 72–78; PULSE 65–90; RESP 12–20; TEMP 36.5–36.7; O2SAT 91–98; BMI 23.2
[2019-01-27 00:02] LABS: Anion Gap 4 (5-15); BUN 10 mg/dL (7-18); Calcium,Total 8.3 mg/dL (8.5-10.1); Chloride 108 mmol/L (98-107); Creatinine, Serum 0.83 mg/dL (0.55-1.02); EST Glomerular Filtration Rate 74 mL/min (>60); Est Glom Filt Rate - Afr Amer 89 mL/min (>60); Estimated Creatinine Clearance 63.24 ml/min; Glucose 104 mg/dL (74-106); Potassium 3.6 mmol/L (3.5-5.1); Sodium Level 140 mmol/L (136-145)
[2019-01-27] MEDS: Acetaminophen 500 MG Tablet 1000 MG PO (00:40)
[2019-01-27 00:50] LABS: Bacteria 0 SEEN /hpf (None Seen); Red Blood Cells-Urine 0 SEEN /hpf (0-5)
[2019-01-27 00:56] LABS: Color, Urine Yellow (Yellow); Glucose, Dipstick Normal (Normal); Ketone-Dipstick 15 mg/dl (Negative); Leukocyte Esterase-Dipstick 25 /ul (Negative); Nitrite-Dipstick Negative (Negative); Occult Blood-Urine Negative /ul (Negative); Protein-Dipstick Negative (Negative); Urine Clarity Clear (Clear); Urine Urobilinogen 1 mg/dl (Normal)
[2019-01-27 00:57] LABS: Urine Bilirubin Dipstick 1 mg/dL (Negative)
[2019-01-27 01:04] LABS: Mucous, Urine 1+ /hpf (<or=2+); Squamous Epithelial Cells - UA 0-5 SEEN /hpf (5-10); White Blood Cells 0-5 SEEN /hpf (0-5)
--- NOTE | 2019-01-27 01:49 | PCM.HP.STD ---
Problem List (1) Near syncope Status: Acute (2) H/O cardiac radiofrequency ablation Status: Chronic (3) COPD (chronic obstructive pulmonary disease) Status: Chronic (4) History of right and left heart catheterization Status: Chronic Comment: Per Dr. Bahena @ [facility]: single vessel CAD of LCX (50%), all other vessels normal. EF 65% (5) Adnexal mass Status: Chronic (6) Chronic lumbar back pain Status: Chronic (7) Panic disorder Status: Chronic (8) Tobacco dependence syndrome Status: Chronic (9) Fibromyalgia Status: Chronic History of Present Illness Date of Admission: 01/27/19 Chief Complaint: lightheadness and near syncope The patient is a 63 year old F with a significant history of atrial fibrillation status post ablation; COPD; fibromyalgia who presents emergency department with 3 episodes of lightheadedness and near syncope. Per emergent department doctor that the squad reported that patient was in A. fib en-route to the hospital. However there is no documented evidence of A. fib. At the emergency department patient was in sinus rhythm on the monitor and by EKG. Associated patient symptoms is headache and leg cramps. Of note she denies palpitation. She reported that around 1995 to 1996 he had an ablation and her A. fib resolved. Past Medical History Past Medical History (Chronic Problems): Chronic Problems (Last Reviewed 01/27/19 @ 04:36 by Chirag Olmstead MD) H/O cardiac radiofrequency ablation (Chronic) COPD (chronic obstructive pulmonary disease) (Chronic) History of right and left heart catheterization (Chronic 12/05/17) Per Dr. Bahena @ [facility]: single vessel CAD of LCX (50%), all other vessels normal. EF 65% Adnexal mass (Chronic) Chronic lumbar back pain (Chronic) Panic disorder (Chronic) Tobacco dependence syndrome (Chronic) Fibromyalgia (Chronic) Medical History: Medical History (Last Reviewed 01/27/19 @ 04:36 by Chirag Olmstead MD) Adnexal mass (Chronic) N94.9 Unstable angina (Inactive) I20.0 COPD exacerbation (Inactive) Lactic acid acidosis (Inactive) E87.2 SIRS (systemic inflammatory response syndrome) (Inactive) R65.10 Pneumonia (Inactive) J18.9 Pleuritic chest pain (Inactive) R07.81 Shortness of breath (Inactive) R06.02 Panic disorder (Chronic) F41.0 Tobacco dependence syndrome (Chronic) F17.200 Fibromyalgia (Chronic) Allergies No Known Allergies Allergy (Verified 05/20/18 09:27) Home Medications: Ambulatory Orders Medication Instructions Recorded Gabapentin 800 mg PO TID 05/01/14 Albuterol Inhaler [Ventolin Hfa] 2 puff INHALATION Q6H PRN PRN #1 05/02/14 inhaler Clonazepam [Klonopin] 0.5 mg PO DAILY PRN 10/30/15 Tiotropium [place] [Spiriva 18 MCG] 1 puff INHALATION DAILY 08/03/16 Omeprazole 20 mg PO DAILY 11/29/16 Tizanidine HCl 4 mg PO TID 11/29/16 Duloxetine Hcl [Cymbalta] 120 mg PO DAILY 01/05/17 Albuterol Aerosols [Ventolin 2.5 mg INHALATION Q6HWA.RT PRN 06/30/17 Aerosols] traZODone [Desyrel] 100 mg PO QHS 06/30/17 Ibuprofen [Ibu] 600 mg PO Q6H PRN PRN #30 tab 07/02/17 Aspirin E.C. [Ecotrin] 81 mg PO DAILY@0800 #30 tab 12/06/17 Atorvastatin Calcium [Lipitor] 20 mg PO QHS #30 tab 12/06/17 Albuterol Aerosols [Ventolin 2.5 mg INHALATION Q4H PRN #25 vial 01/01/19 Aerosols] Surgical History: Surgical History (Last Reviewed 01/27/19 @ 04:34 by Chirag Olmstead MD) History of right and left heart catheterization (Chronic) Onset Date: 12/05/[address] Bahena @ [facility]: single vessel CAD of LCX (50%), all other vessels normal. EF 65% History of cholecystectomy Z90.49 History of foot surgery Z98.890 History of hysterectomy Z90.710 History of tonsillectomy Z90.89 Surgical History: cholecystectomy, hysterectomy, tonsillectomy, - - Heart ablation, foot surgery Psychiatric History: Anxiety, Depression, - - Panic disorder DIRECTOR OF HOUSING History: No pertinent DIRECTOR OF HOUSING history Smoking Status: Current every day smoker Tobacco Use: Cigarettes - *Family History Maternal Family History: Family History (Last Reviewed 01/27/19 @ 04:41 by Chirag Olmstead MD) Mother CAD (coronary artery disease) Father Cancer History Items: Heart Disease Paternal Family History: Family History (Last Reviewed 01/27/19 @ 04:41 by Chirag Olmstead MD) Mother CAD (coronary artery disease) Father Cancer History Items: Cancer Sibling Family History: Family History (Last Reviewed 01/27/19 @ 04:41 by Chirag Olmstead MD) Mother CAD (coronary artery disease) Father Cancer History Items: COPD Review of Systems Constitutional: Denies: Chills, Fever, Weight Change HEENT: Reports: Head Aches. Denies: Sinus Congestion, Sinus Drainage Cardiovascular: Reports: Light Headedness. Denies: Chest Pain, Palpitations Respiratory: Reports: Cough - Chronic. Denies: Shortness of breath at rest, Sputum production Gastrointestinal: Denies: Abdominal Pain, Nausea, Vomiting Genitourinary: Denies: Dysuria Musculoskeletal: Denies: Joint Pain, Joint Tenderness Skin: Denies: Rash, Wounds Neurological: Denies: Numbness, Tingling, Focal weakness Psychiatric: Denies: Anxiety, Depression, Homicidal Ideations, Suicidal Ideations Hematologic/ Lymphatic: Denies: Easy Bruising, Easy Bleeding VTE Information - Inpt Only VTE Present on Admission: No VTE Mechan Device Prophylaxis: None VTE Pharm Prophylaxis ordered?: Yes Patient Problems: Active and Suspected Problems (Last Reviewed 01/27/19 @ 04:36 by Chirag Olmstead MD) Near syncope (Acute) - Physical Exam Vitals/I&O's: Vital Signs Temp Pulse Resp BP Pulse Ox 97.8 F 66 12 107/73 91 01/26/19 23:30 01/27/19 01:24 01/27/19 01:24 01/27/19 01:24 01/27/19 01:24 Oxygen Delivery Method Room Air Weight: 66.814 kg Body Mass Index (BMI) 24.5 General: Alert, Oriented x3, Cooperative HEENT: Atraumatic, PERRLA, EOMI, Normocephalic Neck: Supple, No JVD, Negative Carotid Bruits Lungs: Clear to auscultation, Normal air movement Cardiovascular: Regular rate, No murmurs Abdomen: Bowel Sounds Present, Soft, Non Tender Extremities: No edema, Capillary Refill Less than 3 Seconds Skin: No rashes, No breakdown Musculoskeletal: No Tenderness to Palpation of Joints or Extremities Neurological: Cranial nerves II-XII grossly intact Psych/Mental Status: Normal Affect, Appropriate Laboratory Results 01/26/19 23:34: WBC 7.4, RBC 3.93 L, Hgb 12.9, Hct 38.1, MCV 96.9, MCH 32.8 H, MCHC 33.9, RDW Std Deviation 45.7 H, RDW Coeff of Disha 12.7, Plt Count 214, MPV 9.2, Immature Gran % (Auto) 0.300, Neut % (Auto) 47.4, Lymph % (Auto) 38.6, [place] % (Auto) 8.4, Eos % (Auto) 4.5, Baso % (Auto) 0.8, Absolute Neuts (auto) 3.5, Absolute Lymphs (auto) 2.84, Nucleated RBC % 0 01/26/19 23:34: Sodium 140, Potassium 3.6, Chloride 108 H, Carbon Dioxide 28.0, Anion Gap 4 L, BUN 10, Creatinine 0.83, Estim Creat Clear Calc 63.24, Est GFR (MDRD) Af Amer 89, Est GFR (MDRD) Non-Af 74, BUN/Creatinine Ratio 12.0, Glucose 104, Calcium 8.3 L, Troponin I < 0.015 01/27/19 00:40: Urine Color Yellow, Urine Clarity Clear, Urine pH 5.0, Ur Specific [place] 1.020, Urine Protein Negative, Urine Glucose (UA) Normal, Urine Ketones 15 H, Urine Occult Blood Negative, Urine Nitrite Negative, Urine Bilirubin 1 H, Urine Urobilinogen 1 H, Ur Leukocyte Esterase 25 H, Urine RBC 0 SEEN, Urine WBC 0-5 SEEN, Ur Squamous Epith Cells 0-5 SEEN, Urine Bacteria 0 SEEN, Urine Mucus 1+ Current Medications Sodium Chloride () 1,000 mls @ 150 mls/hr IV .Q6H40M [facility] Last Admin: 01/26/19 23:42 Dose: 150 mls/hr Documented by: Assessment/Plan All Active Problems (Last Reviewed 01/27/19 @ 04:36 by Chirag Olmstead MD) Near syncope (Acute) The patient is a 63 year old F with a significant history of atrial fibrillation status post ablation; COPD; fibromyalgia who presents emergency department with 3 episodes of lightheadedness and near syncope. Lightheadedness and near syncope Etiology is unclear at this time. However this could be due to her A. fib. Will place on telemetry at the PCU. Consider [facility] if inpatient telemetry is unremarkable. We will get an echocardiogram. Received NSS IV fluids in emergency department. Because of mild hyperchloremia we will change IV fluids to lactated Ringer's for now. Will get orthostatic blood pressures. Patient is on gabapentin 800 mg 3 times daily. Unclear whether this has anything to do with her lightheadedness. However will de-escalate her gabapentin to 300 mg 3 times daily for now. Trend cardiac enzymes Tylenol PRN for headaches. Tobacco abuse Counseled Declined nicotine patch. COPD Does not appear to be in exacerbation Tiotropium continued PRN albuterol continued Hyperlipidemia Statin continued Depression/anxiety anxiety disorder Clonazepam as needed continued Cymbalta continued Trazodone nightly Fibromyalgia Cymbalta and gabapentin continued. Ibuprofen as needed continued Chronic back pain Tizanidine Gabapentin. De-escalated for now secondary to near syncope. Ibuprofen as needed continued DVT prophylaxis Subcutaneous Lovenox. Code Visit OBSV E&M: 22756 Initial observation care L3
--- NOTE | 2019-01-27 02:36 | ECHOD_ITS ---
Reason For Study: NEAR SYNCOPE Procedure This was a 2D Doppler, Color Flow transthoracic echocardiogram. Exam performed portable in patient room. Left Ventricle Normal size and thickness. The estimated ejection fraction is 65 %. Normal diastology for age. No regional wall motion abnormalities noted. Right Ventricle Normal size and thickness. Normal systolic function. Atria Normal left atrium. Normal right atrium. Normal atrial septum. Mitral Valve The mitral valve is structurally normal. No prolapse or stenosis seen. Tricuspid Valve Normal tricuspid valve. Trivial tricuspid valve insufficiency. Right ventricular systolic pressure estimated to be 25 mmHg. Aortic Valve Normal aortic valve. Trisinus/trileaflet aortic valve. Pulmonic Valve Normal pulmonic valve. Great Vessels Normal aortic root. Normal arch. Normal inferior vena cava. Inferior vena cava collapse with sniff. Pericardium/Pleural No pericardial effusion. MMode/2D Measurements & Calculations LVIDd: 3.4 cm IVSd: 0.60 cm Ao root diam: 3.0 cm LVIDs: 2.4 cm LVPWd: 0.64 cm RVDd: 3.4 cm FS: 28.7 % LAV(MOD-bp): 26.0 ml LVAd ap4: 27.0 cm2 SV(MOD-sp4): 46.0 ml LAV(MOD-bp) Indexed: 15.3 ml/m2 EDV(MOD-sp4): 78.8 ml LAV(MOD-sp2): 28.8 ml EDV(sp4-el): 78.6 ml LAV(MOD-sp4): 21.9 ml LVAs ap4: 16.0 cm2 ESV(MOD-sp4): 32.8 ml ESV(sp4-el): 32.4 ml EF(MOD-sp4): 58.4 % EF(sp4-el): 58.8 % SV(sp4-el): 46.2 ml LA A4 area: 11.2 cm2 LA dimension(2D): 2.4 cm RA A4 area: 11.7 cm2 Time Measurements MV dec time: 0.20 sec Doppler Measurements & Calculations MV E max jose: 88.0 cm/sec Lat Peak E' Jose: 12.4 cm/sec Med Peak E' Joes: 11.6 cm/sec MV A max jose: 81.6 cm/sec E/E' lat: 7.1 E/E' med: 7.6 MV E/A: 1.1 Ao V2 max: 122.3 cm/sec LV V1 max: 87.9 cm/sec PA V2 max: 79.7 cm/sec Ao max P.0 mmHg LV V1 max P.1 mmHg TR max jose: 224.5 cm/sec TR max P.2 mmHg Interpretation Summary The estimated ejection fraction is 65 %. Normal diastology for age. Trivial tricuspid valve insufficiency. Right ventricular systolic pressure estimated to be 25 mmHg. Compared to echo report dated 02/03/2018, no appreciable changes noted. The study was technically difficult. Contrast injection was performed. Ordering Physician: Chirag Olmstead Referring Physician: KITA PEÑA Performed By: Tami Peguero RDCS
[2019-01-27] MEDS: Lactated Ringers 1,000 ML 100 ML IV (03:05)
[2019-01-27] MEDS: tiZANidine HCl 2 MG Tablet 4 MG PO ×2 (05:53→15:18)
[2019-01-27] MEDS: Gabapentin 300 MG Capsule PO ×2 (05:53→14:51)
[2019-01-27] MEDS: Ipratropium 0.5 MG/2.5 ML SOLUTION INHALATION ×2 (07:01→13:20)
[2019-01-27] MEDS: Pantoprazole Sodium 20 MG Tablet PO (07:44)
[2019-01-27] MEDS: Enoxaparin 40 MG/0.4 ML Syringe SC (07:44)
[2019-01-27] MEDS: Aspirin E.C. 81 MG Tablet PO (07:44)
[2019-01-27] MEDS: Ibuprofen 600 MG Tablet PO (07:44)
--- NOTE | 2019-01-27 09:25 | MRI_ITS ---
STUDY: MRI BRAIN WITHOUT CONTRAST REASON FOR EXAM: Female, 63 years old. lightheadedness upon standing general weakness, leg weakness,dizzy TECHNIQUE: Standardized multiplanar fat and water weighted pulse sequences were obtained. COMPARISON: Head CT dated January 27, 2019 FINDINGS: There is mild cerebral atrophy with widening of the extra-axial spaces and ventricular dilatation. There are a limited number of small white matter hyperintensities, distributed throughout the deep white matter tracts of the cerebral hemispheres, consistent with mild chronic white matter ischemic changes. There is no evidence for recent intracranial ischemia or other cause of cytotoxic edema on diffusion weighted imaging (DWI). Normal T2* images of the brain without demonstrated susceptibility artifact. There is no demonstrated hemosiderin stain. No hydrocephalus is present. No midline shift. Normal bilateral basal ganglia. Normal thalami. There is no extra-axial fluid accumulation. Normal flow voids within the major intracranial circulation suggesting patency by spin echo criteria. Normal sella turcica, pituitary gland, infundibular stalk, optic chiasm and hypothalamus. Normal tectal plate and pineal gland. Normal midbrain, lam and medulla. Normal cerebellum. Normal basal cisterns. Normal bilateral temporal bones. Normal bilateral internal auditory canals. No demonstrated orbital abnormality, within the constraints of a routine brain study. There is mucoperiosteal inflammatory disease of the paranasal sinuses consistent with mild chronic sinusitis. Normal calvarium and skull base. Normal visualized soft tissue structures. Normal visualized upper cervical spine. MRI/Brain without Contrast IMPRESSION: 1. Mild chronic involutional and ischemic changes of the brain, as described above. 2. No demonstrated acute infarction. Electronically Signed: Raymundo Donis MD at 17:38 EST , Service support ,
--- NOTE | 2019-01-27 09:28 | CT_ITS ---
STUDY: CTA HEAD AND NECK WITH CONTRAST REASON FOR EXAM: Female, 63 years old. Near syncopal episode. RADIATION DOSAGE (If Supplied By Facility): CTDIvol = ( 28.92 ) mGy, DLP = ( 1462.28 ) mGycm TECHNIQUE: CT angiography was performed with a multi-detector CT scanner. Data acquisition was obtained from the skull base through the vertex following intravenous administration of 100 CC ISOVUE 370. MIP images were reconstructed from the axial data set. Post-processing of the angiographic images was performed, with multiplanar reformation and 3D reconstruction. Individualized dose optimization techniques were used for this CT. COMPARISON: No relevant priors. FINDINGS: Normal bilateral petrous carotid arteries. There is calcified plaque formation of the right cavernous carotid artery, without a cross-sectional luminal stenosis. There is calcified plaque formation of the left cavernous carotid artery, without a cross-sectional luminal stenosis. Normal right A1 segments of the anterior cerebral artery. Normal left A1 segments of the anterior cerebral artery. Normal intact anterior communicating artery (ACOM). Normal bilateral A2 segments of the anterior cerebral arteries. Normal right M1 and M2 segments of the middle cerebral arteries, with a normal M1 bifurcation. Normal left M1 and M2 segments of the middle cerebral arteries, with a normal M1 bifurcation. Normal right posterior communicating artery (PCOM). Normal left posterior communicating artery (PCOM). Normal bilateral vertebral arteries. Normal basilar artery with a normal basilar bifurcation. The visualized bilateral superior cerebellar (SCA) arteries are normal. Normal bilateral P1, P2 and visualized P3 segments of the posterior cerebral arteries. There is no demonstrated aneurysm of the [place]. There is no demonstrated abnormality of the visualized brain. AORTIC ARCH: Mild inhomogeneity of the thyroid gland. Normal visualized aortic arch. Normal origins of the brachiocephalic, left common carotid, and left subclavian arteries. RIGHT CAROTID ARTERIES: Normal right common carotid artery (CCA). Normal right common carotid bulb. There is mild atherosclerotic plaque formation of the origin of the right internal carotid artery with less than 50% cross sectional diameter stenosis. Normal visualized cervical portion of the right internal carotid artery. Normal origin of the right external carotid artery (ECA). LEFT CAROTID ARTERIES: Normal left common carotid artery (CCA). Normal left common carotid bulb. There is mild atherosclerotic plaque formation of the origin of the left internal carotid artery with less than 50% cross sectional diameter stenosis. Normal visualized cervical portion of the left internal carotid artery. Normal origin of the left external carotid artery (ECA). VERTEBRAL ARTERIES: Normal bilateral vertebral arteries. CT/CTA Head AND Neck W/ Contrast IMPRESSION: Minimal degree of atherosclerotic plaque formation at the origins of the right and left internal carotid arteries. Electronically Signed: Ari Doran, at 12:15 EST , Service support ,
[2019-01-27] MEDS: DULoxetine Hcl 60 MG Capsule 120 MG PO (10:50)
[2019-01-27] MEDS: 0.9% Saline Lock 10 ML Syringe IV (13:04)
--- NOTE | 2019-01-27 14:43 | PCM.DC ---
- Discharge Diagnoses Current Active Problems: Current Active and Chronic Problems (Last Reviewed 01/27/19 @ 04:36 by Chirag Olmstead MD) Near syncope (Acute) You will use the following diet at home:: Cardiac Your food should be the consistency of: Regular Your liquids should be the consistency of: Regular/Thin Discharge Activity: Return to Normal Activity Allergies/Adverse Reactions: Allergies No Known Allergies Allergy (Verified 05/20/18 09:27) Medications to take at Discharge Albuterol Inhaler [Ventolin Hfa] 2 puff INHALATION Q6H PRN PRN #1 inhaler 05/02/14 Clonazepam [Klonopin] 0.5 mg PO DAILY PRN 10/30/15 Tiotropium [place] [Spiriva 18 MCG] 1 puff INHALATION DAILY 08/03/16 Omeprazole 20 mg PO DAILY 11/29/16 Tizanidine HCl 4 mg PO TID 11/29/16 Duloxetine Hcl [Cymbalta] 120 mg PO DAILY 01/05/17 Albuterol Aerosols [Ventolin Aerosols] 2.5 mg INHALATION Q6HWA.RT PRN 06/30/17 traZODone [Desyrel] 100 mg PO QHS 06/30/17 Ibuprofen [Ibu] 600 mg PO Q6H PRN PRN #30 tab 07/02/17 Aspirin E.C. [Ecotrin] 81 mg PO DAILY@0800 #30 tab 12/06/17 Atorvastatin Calcium [Lipitor] 20 mg PO QHS #30 tab 12/06/17 Albuterol Aerosols [Ventolin Aerosols] 2.5 mg INHALATION Q4H PRN #25 vial 01/01/19 Acetaminophen [Tylenol Tablet] 650 mg PO Q6H PRN PRN tablet 01/27/19 Gabapentin [Neurontin] 300 mg PO TID capsule 01/27/19 Orders to be completed after discharge: Cardiac Holter Monitor, Set-Up [[facility]] Time Frame: 01/27/19, Location: None Selected Primary Care Physician: Roxy Whelan MD [Primary Care Provider] - Please follow up with your Primary Care Physician in: 1 week Test Results: Test results from this visit will be discussed in further detail at your follow-up appointment, if applicable. Please Follow Up With: Eugene Funez MD - Holter monitor follow up When: call for appointment Proposed Discharge Date: 01/27/19
--- NOTE | 2019-01-27 16:14 | DS.PCM_ITS ---
<Stef Paul - Last Filed: 01/27/19 17:27> Discharge Date and Diagnosis Date of Admission: 01/27/19 Date of Discharge: 01/27/19 - Primary Discharge Diagnosis Active and Suspected Problems (Last Reviewed 01/27/19 @ 04:36 by Chirag Olmstead MD) Dizziness, suspect 2/2 gabapentin CVA ruled out hx Afib hx COPD no exacerbation Anxiety disorder Fibromyalgia GERD - Secondary Discharge Diagnosis Chronic Problems (Last Reviewed 01/27/19 @ 04:36 by Chirag Olmstead MD) H/O cardiac radiofrequency ablation (Chronic) COPD (chronic obstructive pulmonary disease) (Chronic) History of right and left heart catheterization (Chronic 12/05/17) Per Dr. Bahena @ [facility]: single vessel CAD of LCX (50%), all other vessels normal. EF 65% Adnexal mass (Chronic) Chronic lumbar back pain (Chronic) Panic disorder (Chronic) Tobacco dependence syndrome (Chronic) Fibromyalgia (Chronic) Hospital Course and Treatment Imaging Results: IMAGIN01/27/19 09:25 MRI Brain [Brain without Contrast] [MRI] Urgent 01/27/19 09:28 CTA Head AND Neck W/ Contrast [CT] Urgent CT/CTA Head AND Neck W/ Contrast IMPRESSION: Minimal degree of atherosclerotic plaque formation at the origins of the right and left internal carotid arteries. RAD/Chest 1 View (Portable) IMPRESSION: Stable chest no evidence of acute focal infiltrate. Echo: Interpretation Summary The estimated ejection fraction is 65 %. Normal diastology for age. Trivial tricuspid valve insufficiency. Right ventricular systolic pressure estimated to be 25 mmHg. Compared to echo report dated 02/03/2018, no appreciable changes noted. The study was technically difficult. Contrast injection was performed. Operations: None Procedures: 2-D Echocardiogram Summary of Care Provided: Hospital Course: The patient is a 63 year old F with pmhx as above notably afib for which she had a successful ablation in 1995, formerly pt of Dr. Pemberton, who presented to the ER with dizziness. The patient had 3 episodes where she was standing or turning her head and became suddenly dizzy, feeling like she might pass out, and very weak. She denied any spinning sensation. She also c/o a headache on the top right side of her head. She had negative EKG, negative troponin, negative CXR. She was admitted with concerns for near syncope, and her home gabapentin (800 TID) was decreased to 300 TID as this was felt to be contributing. She was maintained on tele which was unremarkable. She had an Echo (negative), CTA head and neck (negative), and MRI of the brain (this is pending) She had no issues at all after admission, and per PT and OT no need for any further therapy. As there is a concern she may have had a paroxysmal episode of afib causing her symptoms, we recommended a cardiac holter monitor for 48 hours. She has no guest experience representative, and she was referred to Dr. Funez for follow up. She was discharged home in stable condition. She will also need to follow up with her PCP in 1-2 weeks. This patient was seen by Stef Paul PA-C under the supervision of Doctor Bry bryant [] - Physical Exam Vitals/I&O's: Vital Signs Temp Pulse Resp BP Pulse Ox 98.1 F 82 18 151/77 H 97 01/27/19 14:45 01/27/19 15:23 01/27/19 14:45 01/27/19 14:45 01/27/19 14:45 Oxygen Flow Rate (L/min) 2 Oxygen Delivery Method Room Air Weight: 139 lb 5.314 oz Body Mass Index (BMI) 23.2 Orthostatic Vital Signs Start: 01/27/19 03:36 Freq: q24h Status: Active Protocol: Activity Type Activity Date Activity User E-Sign Co-Sign Detail Recorded Client Recorded Date Recorded By Document 01/27/19 03:36 [facility] [id number] 01/27/19 03:37 [facility] 01/27/19 03:36 Orthostatic Vitals Lying -Blood Pressure (90/60-120/80) 127/76 H -Extremity Use Right Arm -Pulse Rate (60-100) 78 Sitting -Blood Pressure (90/60-120/80) 123/74 H -Extremity Use Right Arm -Pulse Rate (60-100) 76 Standing -Blood Pressure (90/60-120/80) 119/78 -Extremity Use Right Arm -Pulse Rate (60-100) 85 Intake and Output for Last 24 Hours 01/25/19 01/26/19 01/27/19 23:59 23:59 23:59 Intake Total 1570.33 / 1570.33 Balance 1570.33 / 1570.33 General: Alert, Oriented x3, Cooperative HEENT: Atraumatic, PERRLA, EOMI, Normocephalic Neck: Supple, No JVD, Negative Carotid Bruits Lungs: Clear to auscultation, Normal air movement Cardiovascular: Regular rate, No murmurs Abdomen: Bowel Sounds Present, Soft, Non Tender Extremities: No edema, Capillary Refill Less than 3 Seconds Skin: No rashes, No breakdown Musculoskeletal: No Tenderness to Palpation of Joints or Extremities Neurological: Cranial nerves II-XII grossly intact Psych/Mental Status: Normal Affect, Appropriate Laboratory Results 01/26/19 23:34: WBC 7.4, RBC 3.93 L, Hgb 12.9, Hct 38.1, MCV 96.9, MCH 32.8 H, MCHC 33.9, RDW Std Deviation 45.7 H, RDW Coeff of Disha 12.7, Plt Count 214, MPV 9.2, Immature Gran % (Auto) 0.300, Neut % (Auto) 47.4, Lymph % (Auto) 38.6, Williamson % (Auto) 8.4, Eos % (Auto) 4.5, Baso % (Auto) 0.8, Absolute Neuts (auto) 3.5, Absolute Lymphs (auto) 2.84, Nucleated RBC % 0 01/26/19 23:34: Sodium 140, Potassium 3.6, Chloride 108 H, Carbon Dioxide 28.0, Anion Gap 4 L, BUN 10, Creatinine 0.83, Estim Creat Clear Calc 63.24, Est GFR (MDRD) Af Amer 89, Est GFR (MDRD) Non-Af 74, BUN/Creatinine Ratio 12.0, Glucose 104, Calcium 8.3 L, Troponin I < 0.015 01/27/19 00:40: Urine Color Yellow, Urine Clarity Clear, Urine pH 5.0, Ur Specific [place] 1.020, Urine Protein Negative, Urine Glucose (UA) Normal, Urine Ketones 15 H, Urine Occult Blood Negative, Urine Nitrite Negative, Urine Bilirubin 1 H, Urine Urobilinogen 1 H, Ur Leukocyte Esterase 25 H, Urine RBC 0 SEEN, Urine WBC 0-5 SEEN, Ur Squamous Epith Cells 0-5 SEEN, Urine Bacteria 0 SEEN, Urine Mucus 1+ 01/27/19 02:57: Troponin I < 0.015 01/27/19 05:40: Troponin I < 0.015 Current Medications Acetaminophen (Tylenol) 650 mg PO Q6H PRN PRN PRN Reason: Pain Score 1-10/Temp > 100.7 F Albuterol Sulfate (Ventolin Aerosols) 2.5 mg INHALATION Q2H PRN PRN PRN Reason: sob/wheezing Aspirin (Ecotrin) 81 mg PO DAILY@0800 [facility] Last Admin: 01/27/19 07:44 Dose: 81 mg Documented by: Atorvastatin Calcium (Lipitor) 20 mg PO QHS [facility] Clonazepam (Klonopin) 0.5 mg PO DAILY PRN PRN PRN Reason: ANXIETY Duloxetine HCl (Cymbalta) 120 mg PO DAILY [facility] Last Admin: 01/27/19 10:50 Dose: 120 mg Documented by: Enoxaparin Sodium (Lovenox) 40 mg SC DAILY [facility] Last Admin: 01/27/19 07:44 Dose: 40 mg Documented by: Gabapentin (Neurontin) 300 mg PO TID [facility] Last Admin: 01/27/19 14:51 Dose: 300 mg Documented by: Glucagon () 1 mg IM .X1 PRN PRN Reason: Hypoglycemia Dextrose (Dextrose 10%-Water) 250 mls @ 999 mls/hr IV .Q16M PRN; Protocol PRN Reason: HYPOGLYCEMIA Sodium Chloride () 250 mls @ 15 mls/hr IV .[id number] PRN PRN Reason: Saline Flush Sodium Chloride () 250 mls @ 15 mls/hr IV .[id number] PRN PRN Reason: Additional IVPB Infusion Ibuprofen (Motrin) 600 mg PO Q6H PRN PRN PRN Reason: pain (1-10) or cramping Last Admin: 01/27/19 07:44 Dose: 600 mg Documented by: Ipratropium [place] (Atrovent) 0.5 mg INHALATION Q6HWA.RT [facility] Last Admin: 01/27/19 13:20 Dose: 0.5 mg Documented by: Ondansetron HCl (Zofran) 4 mg IV Q8H PRN PRN PRN Reason: NAUSEA/VOMITING Pantoprazole Sodium (Protonix) 20 mg PO DAILY [facility] Last Admin: 01/27/19 07:44 Dose: 20 mg Documented by: Sodium Chloride () 10 - 40 ml IV UD PRN PRN Reason: SALINE FLUSH Last Admin: 01/27/19 13:04 Dose: 10 ml Documented by: Tizanidine HCl (Zanaflex) 4 mg PO TID [facility] Last Admin: 01/27/19 15:18 Dose: 4 mg Documented by: Trazodone HCl (Desyrel) 100 mg PO QHS ANT Discharge Diet: Low fat/ Low Cholesterol, 2000 mg Sodium Diet Discharge Activity: Return to Normal Activity Home Medications: Medications to take at Discharge Albuterol Inhaler [Ventolin Hfa] 2 puff INHALATION Q6H PRN PRN #1 inhaler 05/02/14 Clonazepam [Klonopin] 0.5 mg PO DAILY PRN 10/30/15 Tiotropium [place] [Spiriva 18 MCG] 1 puff INHALATION DAILY 08/03/16 Omeprazole 20 mg PO DAILY 11/29/16 Tizanidine HCl 4 mg PO TID 11/29/16 Duloxetine Hcl [Cymbalta] 120 mg PO DAILY 01/05/17 Albuterol Aerosols [Ventolin Aerosols] 2.5 mg INHALATION Q6HWA.RT PRN 06/30/17 traZODone [Desyrel] 100 mg PO QHS 06/30/17 Ibuprofen [Ibu] 600 mg PO Q6H PRN PRN #30 tab 07/02/17 Aspirin E.C. [Ecotrin] 81 mg PO DAILY@0800 #30 tab 12/06/17 Atorvastatin Calcium [Lipitor] 20 mg PO QHS #30 tab 12/06/17 Albuterol Aerosols [Ventolin Aerosols] 2.5 mg INHALATION Q4H PRN #25 vial 01/01/19 Acetaminophen [Tylenol Tablet] 650 mg PO Q6H PRN PRN tab 01/27/19 Gabapentin [Neurontin] 300 mg PO TID cap 01/27/19 Other Amb Orders: Cardiac Holter Monitor, Set-Up [[facility]] Time Frame: 01/27/19, Location: None Selected Primary Care Physician: Roxy Whelan MD [Primary Care Provider] - Please follow up with your Primary Care Physician in: 1 week Please Follow Up With: Eugene Funez MD - Holter monitor follow up When: call for appointment Disposition: Home Minutes spent on discharge:: 35 Medical Necessity - Tobacco Use Smoking Status: Current every day smoker Tobacco Use: Cigarettes Meaningful Use Info Meaningful Use Diagnoses (Choose all that apply): None applicable <Glen Arechiga - Last Filed: 01/28/19 09:08> Discharge Date and Diagnosis - Secondary Discharge Diagnosis Chronic Problems (Last Reviewed 01/27/19 @ 04:36 by Chirag Olmstead MD) H/O cardiac radiofrequency ablation (Chronic) COPD (chronic obstructive pulmonary disease) (Chronic) History of right and left heart catheterization (Chronic 12/05/17) Per Dr. Bahena @ [facility]: single vessel CAD of LCX (50%), all other vessels normal. EF 65% Adnexal mass (Chronic) Chronic lumbar back pain (Chronic) Panic disorder (Chronic) Tobacco dependence syndrome (Chronic) Fibromyalgia (Chronic) Hospital Course and Treatment Summary of Care Provided: This patient was seen in conjunction with Stef Paul PA-C . I have independently interviewed and examined the patient and reviewed pertinent historical, laboratory, and other data. Please refer to Stef Paul PA-C note for details of this patient's presentation, findings, and recommendations. I have reviewed Stef Paul PA-C note and concur with documented findings. In brief, patient is a 63-year-old lady admitted with presyncope and dizziness symptoms. Patient was placed on a monitored bed where she underwent subsequent evaluation Hospital course: As documented above - Physical Exam Vitals/I&O's: Vital Signs Temp Pulse Resp BP Pulse Ox 98.1 F 82 18 151/77 H 97 01/27/19 14:45 01/27/19 15:23 01/27/19 14:45 01/27/19 14:45 01/27/19 14:45 Oxygen Flow Rate (L/min) 2 Oxygen Delivery Method Room Air Weight: 63.2 kg Body Mass Index (BMI) 23.2 Orthostatic Vital Signs Start: 01/27/19 03:36 Freq: q24h Status: Active Protocol: Activity Type Activity Date Activity User E-Sign Co-Sign Detail Recorded Client Recorded Date Recorded By Document 01/27/19 03:36 [facility] [id number] 01/27/19 03:37 [facility] 01/27/19 03:36 Orthostatic Vitals Lying -Blood Pressure (90/60-120/80) 127/76 H -Extremity Use Right Arm -Pulse Rate (60-100) 78 Sitting -Blood Pressure (90/60-120/80) 123/74 H -Extremity Use Right Arm -Pulse Rate (60-100) 76 Standing -Blood Pressure (90/60-120/80) 119/78 -Extremity Use Right Arm -Pulse Rate (60-100) 85 Intake and Output for Last 24 Hours 01/26/19 01/27/19 01/28/19 23:59 23:59 23:59 Intake Total 1570.33 / 1570.33 Balance 1570.33 / 1570.33 Code Visit OBSV E&M: [id number] Observation care discharge
== END 2019-01-27 14:44 | disposition home or self-care (01) ==
LOC: ED 01-27 01:42 → PCU 01-27 02:43
PROVIDERS: Admitting Provider Hospitalist; Emergency Provider Emergency Medicine; Family Provider Family Medicine; PCP Family Medicine; Visit Provider Internal Medicine
DX: R42 Dizziness and giddiness (principal); K21.9 Gastro-esophageal reflux disease without esophagitis; I48.91 Unspecified atrial fibrillation; J44.9 Chronic obstructive pulmonary disease, unspecified; M79.7 Fibromyalgia; G89.29 Other chronic pain; F41.0 Panic disorder [episodic paroxysmal anxiety]; F17.210 Nicotine dependence, cigarettes, uncomplicated; I07.1 Rheumatic tricuspid insufficiency; Z79.899 Other long term (current) drug therapy; Z79.82 Long term (current) use of aspirin
CPT/HCPCS: 36415; 70496; 70498; 70551; 71045; 80048; 81001; 84484; 85025; 93005; 93306; 94640; 96360; 96361; 97161; 97166; 99218; 99251; 99285; 99406; J7030; J7120; Q9957; Q9967; A4216; G0378; G0463

== ENCOUNTER → 2019-02-05 10:47 | Outpatient (CLI) | payer MEDICARE, SELFPAY ==
[2019-01-27 02:51] VITALS: BMI 23.2
== END ==
PROVIDERS: Family Provider Family Medicine; PCP Family Medicine; Referring Provider Physician Assistant; Visit Provider Physician Assistant
DX: R42 Dizziness and giddiness (principal)
CPT/HCPCS: 93225; 93226

== ENCOUNTER 2019-06-07 20:47 | Emergency (ER) | payer MEDICARE, SELFPAY ==
[2019-02-25 15:51] VITALS: BMI 23.2
[2019-06-07 20:48] VITALS: BP 104/74; PULSE 71; RESP 13; TEMP 35.9; O2SAT 97; BMI 22.4
--- NOTE | 2019-06-07 20:53 | EKG12_ITS ---
Test Reason : SYNCOPE Blood Pressure : / mmHG Vent. Rate : 061 BPM Atrial Rate : 061 BPM P-R Int : 140 ms QRS Dur : 078 ms QT Int : 426 ms P-R-T Axes : 080 054 059 degrees QTc Int : 428 ms Normal sinus rhythm Normal ECG Confirmed by JENIFER CESPEDES ([id number]), video editor DARWIN LAUREANO ([id number]) on 06/14/2019 2:52:36 PM Referred By: Confirmed By:JENIFER CESPEDES
--- NOTE | 2019-06-07 20:54 | ED.VIS.GEN ---
History of Present Illness Chief Complaint: General Illness Informant: Patient Onset: Today Context: Sudden Onset Timing: Continuous Current Severity: Mild Maximum Severity: Moderate Narrative: The patient is a 63-year-old female with medical history significant for COPD who is on 2 L of oxygen at night, fibromyalgia, and orthostasis who presents to the emergency department with a near syncopal episode. The patient states she was lying in bed. She got up quickly to go to the kitchen. She states she got suddenly lightheaded and felt like she was going to pass out. She states she also felt dyspneic. She states she took her blood pressure and it was in the 50s systolic. She states this has happened before and she was actually admitted about 4 months ago for the same symptoms. At that point, she had MRI, MRA, echo, and Holter monitor which are unremarkable. It was attributed to her gabapentin. She states she is been eating and drinking without issue. She denies any change in stools or rectal bleeding. She denies any vomiting. Prior similar symptoms: Yes Recent Illness/Hospitalization: No Past Medical History - Allergies and Home Meds Allergies/Adverse Reactions: Allergies No Known Allergies Allergy (Verified 06/07/19 20:52) Primary Care Physician: Roxy Whelan MD [Primary Care Provider] - Prior records reviewed: Yes Past Medical History: - - COPD, fibromyalgia, chronic pain Surgical History: cholecystectomy, hysterectomy, tonsillectomy, - - Heart ablation, foot surgery Smoking Status: Current every day smoker - Family History Maternal Family History: Family History (Last Reviewed 02/05/19 @ 09:12 by Terra Blanco) Mother CAD (coronary artery disease) Father Cancer Family History: Reports: Heart Disease Paternal Family History: Family History (Last Reviewed 02/05/19 @ 09:12 by Terra Blanco) Mother CAD (coronary artery disease) Father Cancer Family History: Reports: Cancer Sibling Family History: Family History (Last Reviewed 02/05/19 @ 09:12 by Terra Blanco) Mother CAD (coronary artery disease) Father Cancer Family History: Reports: COPD Review of Systems General: Denies: Chills, Fever, Sweats Eyes: Denies: Visual changes - bilaterally, Diplopia ENT: Denies: Rhinorrhea, Sore throat Cardiovascular: Denies: Chest pain, Palpitations Respiratory: Reports: Dyspnea. Denies: Cough, Dyspnea on exertion Gastrointestinal: Denies: Abdominal pain, Nausea, Vomiting, Diarrhea, Melena, Hematochezia Genitourinary: Denies: Dysuria, Hematuria, Frequency Musculoskeletal: Denies: Back pain, Extremity Pain Skin: Denies: Rash, Wounds Neurological: Denies: Headache, Weakness, Numbness Physical Exam Vital Signs/Narrative: Vital Signs Temp Pulse Resp BP Pulse Ox 06/07/19 20:48 96.7 F L 71 13 104/74 97 Inital Vital Signs reviewed: Yes General: Well nourished, Well developed, No Acute Distress Head: Normocephalic, Atraumatic Eyes: Perrl, EOMI ENT: Moist mucous membranes, No rhinorrhea Neck: Supple, Nontender Cardiovascular: Regular rate, Regular rhythm, No murmurs Respiratory: No distress, CTA bilaterally, Chest nontender Abdomen: Soft, Nontender, Nondistended, Normal bowel sounds Back: Nontender, Normal Inspection Extremities: Nontender, No edema Skin: Normal color, No rash Neurological: Alert, Oriented x3, Cranial nerves II-XII grossly intact, Normal Strength, Normal Sensation Psychological: Normal affect, Normal Mood Diagnostic/Tx/Re-eval Chest X-Ray - ED: 1 View, Normal, Heart, Lungs, Mediastinum Clinical Impression(s) from Imaging Studies Chest X-Ray 06/07/19 21:01 IMPRESSION: Mild hyperinflation. No acute disease Electronically Signed: Hector Quick MD at 21:15 EDT , Service support , Abnormal Lab Results 06/07/19 06/07/19 20:53 20:53 WBC 10.1 RBC 3.97 L Hgb 12.7 Hct 38.2 MCV 96.2 MCH 32.0 MCHC 33.2 RDW Std Deviation 45.5 H RDW Coeff of Disha 12.7 Plt Count 194 MPV 9.7 Immature Gran % (Auto) 0.300 Neut % (Auto) 53.9 Lymph % (Auto) 34.4 [place] % (Auto) 8.1 Eos % (Auto) 2.9 Baso % (Auto) 0.4 Absolute Neuts (auto) 5.4 Absolute Lymphs (auto) 3.46 Nucleated RBC % 0 Sodium 139 Potassium 4.1 Chloride 107 Carbon Dioxide 27.0 Anion Gap 5 BUN 17 Creatinine 0.85 Estim Creat Clear Calc 64.24 Est GFR (MDRD) Af Amer 87 Est GFR (MDRD) Non-Af 72 BUN/Creatinine Ratio 20.0 Glucose 94 Calcium 8.8 Total Bilirubin 0.40 AST 14 L ALT 16 Alkaline Phosphatase 80 Troponin I < 0.015 Total Protein 6.4 Albumin 3.1 L Globulin 3.3 Albumin/Globulin Ratio 0.9 - Rhythm Strip Rhythm Strip: Sinus Rhythm Rate: 70 Ectopy: None - EKG Initial EKG Interpretation: Sinus Rhythm, No Acute Injury Pattern Prior: Unchanged - Medical Decision Making The patient presents with near syncopal episode with rapid change in position. She has a normal neurologic examination. She has had no chest pain. EKG was obtained which was sinus rhythm without acute ischemia. Orthostatics were obtained and were negative, but the patient was mildly hypotensive. Chest x-ray shows no significant volume overload. Labs are unremarkable. The patient was hydrated and is feeling improved. At this point, I do feel this is likely secondary to orthostasis. Patient will be discharged home and continue oral hydration. She was counseled on concerning symptoms and reasons to return. She will be discharged home. Impression 1. Orthostatic near syncope ED Disposition - Plan for ED Patient: Instructions: ED Hypotension Orthostatic Referrals: Roxy Whelan MD [Primary Care Provider] -
--- NOTE | 2019-06-07 21:01 | RAD_ITS ---
STUDY: X-RAY CHEST REASON FOR EXAM: Female, 63 years old. SOB FELT LIKE SHE WAS GOING TO PASSOUT HX OF AFIB HYPERTENSION AND COPD TECHNIQUE: AP portable COMPARISON: January 26, 2019 FINDINGS: Lungs are mildly hyperinflated but clear.. There is no demonstrated pleural abnormality. Normal size heart. Normal mediastinum and tena. Normal visualized pulmonary arteries. Normal visualized aortic arch and descending thoracic aorta. Dorsal spine demonstrates minor scoliosis and degenerative change. Normal visualized ribs, clavicles, and shoulders. There is no demonstrated abnormality of the visualized soft tissue structures of the upper abdomen. No significant changes since prior study RAD/Chest 1 View (Portable) IMPRESSION: Mild hyperinflation. No acute disease Electronically Signed: Hector Quick MD at 21:15 EDT , Service support ,
[2019-06-07 21:04] LABS: Absolute Lymphocyte Count 3.46 X10^3/uL (0.83-4.51); Absolute Neutrophil Count 5.4 X10^3/uL (2.0-7.7); Basophil# 0.04 X10^3/uL; Basophil% 0.4 % (0-1); Eosinophil# 0.29 X10^3/uL; Eosinophils% 2.9 % (0-5); Hematocrit 38.2 % (37-47); Hemoglobin 12.7 g/dL (12.0-15.0); Lymphocyte # 3.46 X10^3/ul (4.0); Lymphocyte % 34.4 % (19-41); Mean Corp Hgb Conc 33.2 g/dL (32-36); Mean Corpuscular Volume 96.2 fL (81-99); Mean Platelet Vol. 9.7 fl (6.2-12.0); Monocyte# 0.81 X10^3/uL; Monocyte% 8.1 % (0-10); NRBC Flagged by Analyzer 0 % (0-5); Neutrophil # 5.43 X10^3/uL (2.7-7.7); Neutrophil % 53.9 % (47-70); Platelet Count 194 K/mm3 (150-450); RBC Distribution Width CV 12.7 % (11.6-14.6); RBC Distribution Width SD 45.5 fl (35.1-43.9); Red Blood Count 3.97 M/mm3 (4.2-5.4); White Blood Count 10.1 K/mm3 (4.4-11.0)
[2019-06-07 21:17] VITALS: BP 87/75; BP 94/67; BP 98/71; PULSE 66; PULSE 76
[2019-06-07 21:18] LABS: ALB/GLOB Ratio 0.9 RATIO (0.9-2.4); AST(SGOT) 14 U/L (15-37); Alanine Aminotransfer ALT/SGPT 16 U/L (13-56); Albumin, Serum 3.1 g/dL (3.2-5.0); Alkaline Phosphatase 80 U/L (45-117); Anion Gap 5 (5-15); BUN 17 mg/dL (7-18); Calcium,Total 8.8 mg/dL (8.5-10.1); Chloride 107 mmol/L (98-107); Creatinine, Serum 0.85 mg/dL (0.55-1.02); EST Glomerular Filtration Rate 72 mL/min (>60); Est Glom Filt Rate - Afr Amer 87 mL/min (>60); Estimated Creatinine Clearance 64.24 ml/min; Globulin 3.3 g/dL (2.2-4.2); Glucose 94 mg/dL (74-106); Potassium 4.1 mmol/L (3.5-5.1); Protein, Total 6.4 g/dL (6.4-8.2); Sodium Level 139 mmol/L (136-145)
[2019-06-07] MEDS: 0.9% Normal Saline 1,000 ML 1000 ML IV (21:19)
[2019-06-07 21:46] VITALS: BP 114/77; PULSE 58; RESP 10; O2SAT 98
[2019-06-07 22:18] VITALS: BP 131/88; PULSE 68; RESP 14; O2SAT 98
== END 2019-06-07 22:32 | disposition home or self-care (01) ==
LOC: ED 21:25
PROVIDERS: Emergency Provider Emergency Medicine; PCP Family Medicine
DX: R55 Syncope and collapse (principal); G89.29 Other chronic pain; J44.9 Chronic obstructive pulmonary disease, unspecified; M79.7 Fibromyalgia; F17.200 Nicotine dependence, unspecified, uncomplicated; Z82.49 Family history of ischemic heart disease and other diseases of the circulatory system; Z90.49 Acquired absence of other specified parts of digestive tract; Z90.710 Acquired absence of both cervix and uterus
CPT/HCPCS: 71045; 80053; 84484; 85025; 93005; 99285; J7030; A4216

== ENCOUNTER → 2019-07-02 09:25 | Outpatient (CLI) | payer MEDICARE, SELFPAY ==
[2019-06-07 20:48] VITALS: BMI 22.4
--- NOTE | 2019-07-02 09:52 | RAD_ITS ---
STUDY: X-RAY - PELVIS AND BILATERAL HIPS REASON FOR EXAM: Bilateral hip pain, worse on the right. TECHNIQUE: AP view of the pelvis.? 2 views of the right hip, and 2 views of the left hip were obtained. COMPARISON: Radiographs 05/14/2017 and 04/07/2017. FINDINGS: Normal visualized soft tissue structures. There is mild arthrosis of the sacroiliac joints bilaterally. Normal bilateral iliac wings visualized sacrum. Normal bilateral superior and inferior pubic rami. Normal pubic symphysis. Normal bilateral ischial tuberosities. Normal visualized right femoral head. Normal right acetabulum. Normal right hip joint. Normal visualized left femoral head. There is an enchondroma in the left greater trochanteric base on the prior study. Normal left acetabulum. There are are small marginal osteophytes of the left femoral head without joint space narrowing of the left hip joint. RAD/Hips B/L min 2 views w/ Pelvis IMPRESSION: Small marginal osteophytes of the left femoral head. Mild arthrosis of the sacroiliac joints bilaterally. Enchondroma in the proximal left femur. Electronically Signed: Harjit Chao MD at 11:38 EDT Tel , Service support ,
== END ==
LOC: RAD.FUTURE 09:25 → MTRAD 09:51
PROVIDERS: PCP Family Medicine; Referring Provider Family Medicine; Visit Provider Family Medicine
DX: M25.551 Pain in right hip (principal); M25.552 Pain in left hip; Z51.81 Encounter for therapeutic drug level monitoring; G89.29 Other chronic pain
CPT/HCPCS: 36415; 73521

== ENCOUNTER → 2019-07-23 11:19 | Outpatient (CLI) | payer MEDICARE, SELFPAY ==
[2019-07-23 15:30] LABS: OXY Internal Control LINE = VALID (VALID); Oxycodone Drug Screen Positive (<100 ng/mL)
[2019-07-23 16:08] LABS: Amphetamine Urine VISTA NEGATIVE (<1000 ng/mL); Barbiturate Urine VISTA NEGATIVE (< 200 ng/mL); Benzodiazepine Urine VISTA NEGATIVE (< 200 ng/mL); Cocaine Urine VISTA NEGATIVE (< 300 ng/mL); Ecstacy Urine VISTA POSITIVE (< 500 ng/mL); Methadone Urine VISTA NEGATIVE (< 300 ng/mL); PCP Urine VISTA NEGATIVE (< 25 ng/mL); THC Urine VISTA NEGATIVE (< 50 ng/mL); Vista UDS pH Range 6
== END ==
PROVIDERS: PCP Family Medicine; Visit Provider Family Medicine
DX: Z51.81 Encounter for therapeutic drug level monitoring (principal); G89.29 Other chronic pain
CPT/HCPCS: 80307; 80365; G0480

== ENCOUNTER → 2019-09-03 09:36 | Outpatient (CLI) | payer MEDICARE, SELFPAY ==
[2019-09-03 14:05] LABS: Amphetamine Urine VISTA NEGATIVE (<1000 ng/mL); Barbiturate Urine VISTA NEGATIVE (< 200 ng/mL); Benzodiazepine Urine VISTA NEGATIVE (< 200 ng/mL); Cocaine Urine VISTA NEGATIVE (< 300 ng/mL); Ecstacy Urine VISTA NEGATIVE (< 500 ng/mL); Methadone Urine VISTA NEGATIVE (< 300 ng/mL); PCP Urine VISTA NEGATIVE (< 25 ng/mL); THC Urine VISTA NEGATIVE (< 50 ng/mL); Vista UDS pH Range 7
[2019-09-03 14:13] LABS: OXY Internal Control LINE = VALID (VALID); Oxycodone Drug Screen Positive (<100 ng/mL)
== END ==
PROVIDERS: PCP Family Medicine; Visit Provider Family Medicine
DX: Z51.81 Encounter for therapeutic drug level monitoring (principal); G89.29 Other chronic pain
CPT/HCPCS: 80307; 80365; G0480

== ENCOUNTER → 2019-10-29 15:04 | Outpatient (CLI) | payer MEDICARE, SELFPAY ==
--- NOTE | 2019-10-29 15:20 | CT_ITS ---
STUDY: LOW DOSE CT LUNG CANCER SCREENING REASON FOR EXAM: Female, 64 years old. Tobacco use, 1PPD X 45 YEARS. COPD RADIATION DOSAGE (If Supplied By Facility): CTDIvol = ( 2.01 ) mGy, DLP = ( 77.51 ) mGycm TECHNIQUE: No contrast was administered. Low dose technique was utilized (average mAS-38 and kVp 120). 1.25 mm axial source images with a slice interval of 1.25-mm were reconstructed in lung windows. 2.5 mm axial source images with a slice interval of 2.5-mm were reconstructed in lung windows. 5.0 mm axial source images with a slice interval of 5.0-mm were reconstructed in soft tissue windows. Nodule measured using lung windows on PACS and/or independent workstation with automated measurement of minimum and maximum diameter. Nodule measurement reported as average diameter rounded to the nearest whole number. Growth is defined as an increase ins size of greater than 1.5 mm. COMPARISON: Comparison is made with prior examination dated 07/15/2018. NODULES: No suspicious nodules are seen. Emphysema: Stable minimal scarring in the medial aspect of the right lung apex. There is evidence of emphysematous changes in both lungs. Endobronchial lesion: None Aorta: Scattered atherosclerotic plaques. Coronary arteries: Mild coronary artery calcification. Mediastinal nodes: Small mediastinal lymph nodes. Other chest and abdominal findings: Mild degree of degenerative changes of the thoracic spine. CT/Low Dose CT Lung Screening IMPRESSION: Lung-RADS category 2 - Continue annual screening with LDCT in 12 months. IMPORTANT NOTES FOR USE: ACR Lung-RADS Version 1.0 Assessment Categories Release Date: June 07, 2013 Category: Coded 0-4 bases on nodule(s) with highest degree of suspicion. Negative screen is defined as categories 1 and 2; a positive screen is defined as categories 3 and 4. Category 3 and 4A nodules that are unchanged on interval CT should be coded as category 2, and individuals returned to screening in 12 months. Category 4X: Category 3 or 4 nodules with additional imaging findings that increase the suspicion of lung cancer, such as spiculation, GGN that doubles in size in 1 year, enlarged lymph notes, etc. Category Modifiers: S (significant finding unrelated to lung cancer) and C (prior history of treated lung cancer) may be added to the 0-4 Lung-RADS Electronically Signed: Ari Doran, at 15:43 EDT , Service support ,
== END ==
PROVIDERS: PCP Family Medicine; Referring Provider Family Medicine; Visit Provider Family Medicine
DX: Z12.2 Encounter for screening for malignant neoplasm of respiratory organs (principal); J44.9 Chronic obstructive pulmonary disease, unspecified; F17.210 Nicotine dependence, cigarettes, uncomplicated
CPT/HCPCS: G0297

== ENCOUNTER 2019-11-02 13:25 | Emergency (ER) | payer MEDICARE, SELFPAY ==
[2019-11-02 13:26] VITALS: BP 114/76; PULSE 99; RESP 16; TEMP 36.7; O2SAT 98; BMI 21.2
[2019-11-02 14:06] LABS: Absolute Lymphocyte Count 2.61 X10^3/uL (0.83-4.51); Absolute Neutrophil Count 3.9 X10^3/uL (2.0-7.7); Basophil# 0.03 X10^3/uL; Basophil% 0.4 % (0-1); Eosinophil# 0.23 X10^3/uL; Eosinophils% 3.1 % (0-5); Hematocrit 42.4 % (37-47); Hemoglobin 13.9 g/dL (12.0-15.0); Lymphocyte # 2.61 X10^3/ul (4.0); Lymphocyte % 35.5 % (19-41); Mean Corp Hgb Conc 32.8 g/dL (32-36); Mean Corpuscular Volume 94.6 fL (81-99); Mean Platelet Vol. 9.6 fl (6.2-12.0); Monocyte# 0.53 X10^3/uL; Monocyte% 7.2 % (0-10); NRBC Flagged by Analyzer 0 % (0-5); Neutrophil # 3.93 X10^3/uL (2.7-7.7); Neutrophil % 53.4 % (47-70); Platelet Count 240 K/mm3 (150-450); RBC Distribution Width CV 12.4 % (11.6-14.6); RBC Distribution Width SD 43.3 fl (35.1-43.9); Red Blood Count 4.48 M/mm3 (4.2-5.4); White Blood Count 7.4 K/mm3 (4.4-11.0)
--- NOTE | 2019-11-02 14:08 | ED.VIS.GEN ---
History of Present Illness Chief Complaint: Abd Pain Informant: Patient Onset: Days Context: Gradual Onset Timing: Continuous Current Severity: Moderate Maximum Severity: Moderate Narrative: Patient is a 64-year-old female with history of coronary vascular disease, prior adnexal mass, prior hysterectomy, and history of COPD the presents to the emergency department abdominal pain. Patient states over the past 3 days, she is had a dull progressive pain in her right lower quadrant. She denies fevers or chills. She states it hurts all the time, but with motion or coughing it makes the pain worse. It does not radiate. She states that today, the pain did get significantly increased so she came in for further evaluation. She states she is otherwise been in her normal state of health. She denies any recent sick contacts. There is been no dysuria or hematuria. She is not noticed a bulge or hernia. Prior similar symptoms: No Recent Illness/Hospitalization: No Past Medical History - Allergies and Home Meds Allergies/Adverse Reactions: Allergies No Known Allergies Allergy (Verified 11/02/19 13:28) Primary Care Physician: Rom Lee DO [Primary Care Provider] - Prior records reviewed: Yes Past Medical History: - - COPD, coronary vascular disease, fibromyalgia Surgical History: cholecystectomy, hysterectomy, tonsillectomy, - - Heart ablation, foot surgery Smoking Status: Current every day smoker - Family History Maternal Family History: Family History (Last Reviewed 02/05/19 @ 09:12 by Terra Blanco) Mother CAD (coronary artery disease) Father Cancer Family History: Reports: Heart Disease Paternal Family History: Family History (Last Reviewed 02/05/19 @ 09:12 by Terra Blanco) Mother CAD (coronary artery disease) Father Cancer Family History: Reports: Cancer Sibling Family History: Family History (Last Reviewed 02/05/19 @ 09:12 by Terra Blanco) Mother CAD (coronary artery disease) Father Cancer Family History: Reports: COPD Review of Systems General: Denies: Chills, Fever, Sweats Eyes: Denies: Visual changes - bilaterally, Diplopia ENT: Denies: Rhinorrhea, Sore throat Cardiovascular: Denies: Chest pain, Palpitations Respiratory: Denies: Dyspnea, Cough, Dyspnea on exertion Gastrointestinal: Reports: Abdominal pain. Denies: Nausea, Vomiting, Diarrhea, Melena, Hematochezia Genitourinary: Denies: Dysuria, Hematuria, Frequency Musculoskeletal: Denies: Back pain, Extremity Pain Skin: Denies: Rash, Wounds Neurological: Denies: Headache, Weakness, Numbness Physical Exam Vital Signs/Narrative: Vital Signs Temp Pulse Resp BP Pulse Ox 11/02/19 13:26 98.1 F 99 16 114/76 98 Inital Vital Signs reviewed: Yes General: Well nourished, Well developed, No Acute Distress Head: Normocephalic, Atraumatic Eyes: Perrl, EOMI ENT: Moist mucous membranes, No rhinorrhea Neck: Supple, Nontender Cardiovascular: Regular rate, Regular rhythm, No murmurs Respiratory: No distress, CTA bilaterally, Chest nontender Abdomen: Soft, Nondistended, Normal bowel sounds, Tender. Negative for: Guarding, Rebound tenderness Back: Nontender, Normal Inspection Extremities: Nontender, No edema Skin: Normal color, No rash Neurological: Alert, Oriented x3, Cranial nerves II-XII grossly intact, Normal Strength, Normal Sensation Psychological: Normal affect, Normal Mood Diagnostic/Tx/Re-eval Clinical Impression(s) from Imaging Studies Abdomen/Pelvis CT 11/02/19 14:32 IMPRESSION: Large amount of fecal material is seen throughout the colon more prominent in the transverse colon. Status post cholecystectomy with intrahepatic biliary ductal dilatation. Electronically Signed: Ari Doran, at 14:57 EDT , Service support , Abnormal Lab Results 11/02/19 11/02/19 11/02/19 13:58 13:58 13:58 WBC 7.4 RBC 4.48 Hgb 13.9 Hct 42.4 MCV 94.6 MCH 31.0 MCHC 32.8 RDW Std Deviation 43.3 RDW Coeff of Disha 12.4 Plt Count 240 MPV 9.6 Immature Gran % (Auto) 0.400 Neut % (Auto) 53.4 Lymph % (Auto) 35.5 [place] % (Auto) 7.2 Eos % (Auto) 3.1 Baso % (Auto) 0.4 Absolute Neuts (auto) 3.9 Absolute Lymphs (auto) 2.61 Nucleated RBC % 0 Sodium 138 Potassium 3.8 Chloride 103 Carbon Dioxide 30.0 Anion Gap 5 BUN 12 Creatinine 0.93 Estim Creat Clear Calc 55.71 Est GFR (MDRD) Af Amer 78 Est GFR (MDRD) Non-Af 65 BUN/Creatinine Ratio 12.9 Glucose 88 Calcium 9.1 Total Bilirubin 0.40 Direct Bilirubin 0.14 AST 18 ALT 16 Alkaline Phosphatase 103 Total Protein 7.2 Albumin 3.3 Globulin 3.9 Urine Color Urine Clarity Urine pH Ur Specific [place] Urine Protein Urine Glucose (UA) Urine Ketones Urine Occult Blood Urine Nitrite Urine Bilirubin Urine Urobilinogen Ur Leukocyte Esterase Urine RBC Urine WBC Ur Squamous Epith Cells Urine Bacteria Urine Mucus 11/02/19 14:30 WBC RBC Hgb Hct MCV MCH MCHC RDW Std Deviation RDW Coeff of Disha Plt Count MPV Immature Gran % (Auto) Neut % (Auto) Lymph % (Auto) [place] % (Auto) Eos % (Auto) Baso % (Auto) Absolute Neuts (auto) Absolute Lymphs (auto) Nucleated RBC % Sodium Potassium Chloride Carbon Dioxide Anion Gap BUN Creatinine Estim Creat Clear Calc Est GFR (MDRD) Af Amer Est GFR (MDRD) Non-Af BUN/Creatinine Ratio Glucose Calcium Total Bilirubin Direct Bilirubin AST ALT Alkaline Phosphatase Total Protein Albumin Globulin Urine Color Yellow Urine Clarity Sl. Cloudy Urine pH 6.0 Ur Specific [place] 1.015 Urine Protein Negative Urine Glucose (UA) Normal Urine Ketones 5 H Urine Occult Blood Negative Urine Nitrite Negative Urine Bilirubin Negative Urine Urobilinogen Normal Ur Leukocyte Esterase 100 H Urine RBC 0 SEEN Urine WBC 10-25 SEEN Ur Squamous Epith Cells 0-5 SEEN Urine Bacteria 1+ Urine Mucus 0 SEEN - Medical Decision Making Patient presents with suprapubic pain into her right lower quadrant. Is been going on for 3 days and seems to be worsening. She does have some increased urinary frequency. She denies any fevers or chills. She was tender mostly in the suprapubic area into the right lower quadrant. She had a negative psoas and obturator sign. Patient underwent CT of the abdomen and pelvis. Her appendix is visualized and is normal. There is significant stool burden. Her urine does show some trace evidence of infection and culture was added. With her urinary symptoms and pain, I am going to treat her with Keflex. I do not suspect pyelonephritis. I will also add MiraLAX to her regimen. On reevaluation, her pain is markedly improved and she is resting comfortably. I do feel that she is safe for outpatient follow-up. Impression 1. Acute cystitis 2. Constipation ED Disposition - Plan for ED Patient: Instructions: ED Constipation, ED CYSTITIS Female Adult Prescriptions: Cephalexin [Keflex] 500 mg PO Q8 #21 cap Prescription Printed Polyethylene Glycol 3350 [Miralax] 17 gm PO DAILY #10 packet Prescription Printed Referrals: Rom Lee DO [Primary Care Provider] -
[2019-11-02 14:18] LABS: Anion Gap 5 (5-15); BUN 12 mg/dL (7-18); BUN/Creat Ratio 12.9 RATIO (10-20); Calcium,Total 9.1 mg/dL (8.5-10.1); Chloride 103 mmol/L (98-107); Creatinine, Serum 0.93 mg/dL (0.55-1.02); EST Glomerular Filtration Rate 65 mL/min (>60); Est Glom Filt Rate - Afr Amer 78 mL/min (>60); Estimated Creatinine Clearance 55.71 ml/min; Glucose 88 mg/dL (74-106); Potassium 3.8 mmol/L (3.5-5.1); Sodium Level 138 mmol/L (136-145)
[2019-11-02] MEDS: 0.9% Normal Saline 1,000 ML 1000 ML IV (14:21)
[2019-11-02] MEDS: Morphine 4 MG/ML Syringe IV (14:22)
[2019-11-02] MEDS: Ondansetron 4 MG/2 ML Vial IV (14:22)
--- NOTE | 2019-11-02 14:32 | CT_ITS ---
STUDY: CT ABDOMEN AND PELVIS WITH CONTRAST REASON FOR EXAM: Female, 64 years old. ABDOMINAL PAIN X 3 DAYS RADIATION DOSAGE (If Supplied By Facility): CTDIvol = ( 10.06 ) mGy, DLP = ( 448.56 ) mGycm TECHNIQUE: Transaxial images were obtained from the dome of the diaphragm to the symphysis pubis without oral contrast. IV 100mL Isovue-300 was administered. Sagittal and coronal images were reconstructed. Individualized dose optimization techniques were used for this CT. COMPARISON: None. FINDINGS: The visualized lung bases are unremarkable. The visualized portions of the heart are within normal limits. Normal liver. There are surgical clips in the gallbladder fossa consistent with a prior cholecystectomy. Dilated intrahepatic biliary ducts. Dilatation of the common bile duct with a transverse measurement of 1 cm. Normal spleen. Normal pancreas. Normal bilateral adrenal glands. Normal right kidney. Normal left kidney. Normal visualized stomach. Normal small intestine. Large amount of fecal material is seen in the colon. The appendix is visualized and appears normal. There is diffuse atherosclerotic calcification of the abdominal aorta, without a demonstrated aneurysm. Normal inferior vena cava. Normal retroperitoneum. Normal urinary bladder. Normal abdominal wall. There are diffuse degenerative changes of the visualized lumbar spine. Dextroscoliosis. CT/Abdomen/Pelvis W IV Cont ONLY IMPRESSION: Large amount of fecal material is seen throughout the colon more prominent in the transverse colon. Status post cholecystectomy with intrahepatic biliary ductal dilatation. Electronically Signed: Ari Doran, at 14:57 EDT , Service support ,
[2019-11-02 14:43] LABS: Mucous, Urine 0 SEEN /hpf (<or=2+); Red Blood Cells-Urine 0 SEEN /hpf (0-5)
[2019-11-02 14:45] LABS: Color, Urine Yellow (Yellow); Glucose, Dipstick Normal (Normal); Ketone-Dipstick 5 mg/dl (Negative); Leukocyte Esterase-Dipstick 100 /ul (Negative); Nitrite-Dipstick Negative (Negative); Occult Blood-Urine Negative /ul (Negative); Protein-Dipstick Negative (Negative); Specific Gravity, Urine 1.015 (1.002-1.030); Urine Bilirubin Dipstick Negative (Negative); Urine Clarity Sl. Cloudy (Clear); Urine Urobilinogen Normal (Normal)
[2019-11-02 14:55] LABS: Bacteria 1+ /hpf (None Seen); Squamous Epithelial Cells - UA 0-5 SEEN /hpf (5-10); White Blood Cells 10-25 SEEN /hpf (0-5)
[2019-11-02 15:04] LABS: AST(SGOT) 18 U/L (15-37); Alanine Aminotransfer ALT/SGPT 16 U/L (13-56); Albumin, Serum 3.3 g/dL (3.2-5.0); Alkaline Phosphatase 103 U/L (45-117); Bilirubin, Direct 0.14 mg/dL (0.00-0.30); Globulin 3.9 g/dL (2.2-4.2); Protein, Total 7.2 g/dL (6.4-8.2)
[2019-11-02 15:49] VITALS: BP 144/82; PULSE 74; RESP 16; O2SAT 95
--- NOTE | 2019-11-02 15:50 | ED.RN ---
IV DC'ED, CATHETER INTACT, SMALL GAUZE DRESSING PLACE. DISCHARGE INSTRUCTIONS GIVEN TO AND REVIEWED WITH PATIENT, PATIENT DENIES QUESTIONS OR CONCERNS AND VOICES UNDERSTANDING OF DISCHARGE INSTRUCTIONS. PT AMBULATES OUT OF ROOM WITHOUT DIFFICULTY.
== END 2019-11-02 15:51 | disposition home or self-care (01) ==
LOC: ED 14:15
PROVIDERS: Emergency Provider Emergency Medicine; PCP Family Medicine
DX: N30.00 Acute cystitis without hematuria (principal); K59.00 Constipation, unspecified; J44.9 Chronic obstructive pulmonary disease, unspecified; M79.7 Fibromyalgia; Z82.49 Family history of ischemic heart disease and other diseases of the circulatory system; Z90.49 Acquired absence of other specified parts of digestive tract; Z90.710 Acquired absence of both cervix and uterus; F17.200 Nicotine dependence, unspecified, uncomplicated
CPT/HCPCS: 74177; 80048; 80076; 81001; 85025; 87086; 87088; 96361; 96374; 96375; 99285; J7030; Q9967; A4216; J2405

== ENCOUNTER 2019-12-15 14:51 | Emergency (ER) | payer MEDICARE, SELFPAY ==
[2019-12-15 14:52] VITALS: BP 123/74; PULSE 89; RESP 18; TEMP 36.6; O2SAT 97; BMI 21.2
[2019-12-15 15:55] VITALS: BP 133/83; PULSE 82; RESP 17; TEMP 36.6; O2SAT 98
[2019-12-15 16:00] VITALS: BP 133/83; PULSE 79; RESP 18; TEMP 36.6; O2SAT 98
[2019-12-15 17:00] VITALS: BP 144/80; PULSE 76; RESP 18; TEMP 36.8; O2SAT 99
--- NOTE | 2019-12-15 17:04 | EKG12_ITS ---
Test Reason : SOB Blood Pressure : / mmHG Vent. Rate : 075 BPM Atrial Rate : 288 BPM P-R Int : 000 ms QRS Dur : 078 ms QT Int : 392 ms P-R-T Axes : 053 064 056 degrees QTc Int : 437 ms Normal sinus rhythm Abnormal ECG Confirmed by FERNANDA CHINCHILLA, LUCAS ([id number]), publication editor LEX PEREZ ([id number]) on 12/16/2019 12:10:34 PM Referred By: RAKEL Confirmed By:SHANE MICHAEL MD
--- NOTE | 2019-12-15 17:05 | ED.VIS.GEN ---
History of Present Illness Chief Complaint: Shortness of Breath Narrative: Presents with shortness of breath for the past few days, she has a cough which is nonproductive she has no fever or chills. She tells me she is worried about Covid. She does not have any obvious contacts. This feels more like a COPD exacerbation. No chest pain no abdominal pain no back pain or tearing sensation. She has no pleuritic component.. Past Medical History - Allergies and Home Meds Allergies/Adverse Reactions: Allergies No Known Allergies Allergy (Verified 12/15/19 14:55) Primary Care Physician: Rom Lee DO [Primary Care Provider] - Past Medical History: - - COPD, hypertension, hypercholesterolemia, fibromyalgia Surgical History: cholecystectomy, hysterectomy, tonsillectomy, - - Heart ablation, foot surgery Smoking Status: Former smoker - Family History Maternal Family History: Family History (Last Reviewed 11/08/19 @ 16:[address] Tamar Sales MD) Mother CAD (coronary artery disease) Father Cancer Family History: Reports: Heart Disease Paternal Family History: Family History (Last Reviewed 11/08/19 @ 16:[address] Tamar Sales MD) Mother CAD (coronary artery disease) Father Cancer Family History: Reports: Cancer Sibling Family History: Family History (Last Reviewed 11/08/19 @ 16:[address] Tamar Sales MD) Mother CAD (coronary artery disease) Father Cancer Family History: Reports: COPD Review of Systems All systems negative except as indicated General: Denies: Fever Eyes: Denies: Visual changes - bilaterally ENT: Denies: Rhinorrhea, Sore throat Cardiovascular: Denies: Chest pain Respiratory: Reports: Dyspnea, Cough. Denies: Sputum Gastrointestinal: Denies: Abdominal pain, Nausea Musculoskeletal: Denies: Myalgias, Arthralgias Skin: Denies: Rash Neurological: Denies: Headache, Weakness Psych: Denies: Depression Endocrine: Denies: Polyuria Allergy: Denies: Uticaria Physical Exam Vital Signs/Narrative: Vital Signs Temp Pulse Resp BP Pulse Ox 12/15/19 16:00 98 F 79 18 133/83 H 98 12/15/19 15:55 98 F 82 17 133/83 H 98 12/15/19 14:52 97.8 F 89 18 123/74 H 97 General: - - She does not appear in distress she is comfortable she is speaking in full sentences ENT: Moist mucous membranes Neck: Supple Cardiovascular: Regular rate, Regular rhythm Respiratory: - - Can take expiratory wheezing with diminished breath sounds bilaterally she is not tachypneic she is speaking in full sentences. She does not appear in any respiratory distress Abdomen: Soft, Nontender Back: Nontender, Normal Inspection. Negative for: CVA tenderness Extremities: Nontender, No edema Skin: Normal color Diagnostic/Tx/Re-eval - Medical Decision Making Peers well, she is not hypoxic. She did improve with nebulizers. I did send the Covid but I will take a few days regardless she has normal oxygenation she appears well she is not struggling to breathe. She will be discharged with COPD treatment. ED Disposition - Plan for ED Patient: Diagnosis: COPD exacerbation Instructions: ED COPD Flare Prescriptions: Doxycycline 100 mg PO BID #20 cap Prescription Printed Prednisone 40 mg PO DAILY #10 tab Prescription Printed Referrals: Rom Lee DO [Primary Care Provider] - 3-5 Days
[2019-12-15] MEDS: Ipratropium/Albuterol Sulfate 3 ML AMPUL.NEB INHALATION (17:15)
[2019-12-15 17:30] VITALS: PULSE 86; RESP 21
[2019-12-15 17:34] LABS: Absolute Lymphocyte Count 3.56 X10^3/uL (0.83-4.51); Absolute Neutrophil Count 4.2 X10^3/uL (2.0-7.7); Basophil# 0.05 X10^3/uL; Basophil% 0.6 % (0-1); Eosinophil# 0.24 X10^3/uL; Eosinophils% 2.8 % (0-5); Hematocrit 46.8 % (37-47); Lymphocyte # 3.56 X10^3/ul (4.0); Lymphocyte % 41.1 % (19-41); Mean Corp Hgb Conc 32.1 g/dL (32-36); Mean Corpuscular Hgb 30.5 pg (27.0-32.0); Mean Corpuscular Volume 95.1 fL (81-99); Mean Platelet Vol. 9.8 fl (6.2-12.0); Monocyte# 0.61 X10^3/uL; NRBC Flagged by Analyzer 0 % (0-5); Neutrophil # 4.18 X10^3/uL (2.7-7.7); Neutrophil % 48.3 % (47-70); Platelet Count 294 K/mm3 (150-450); RBC Distribution Width CV 12.9 % (11.6-14.6); RBC Distribution Width SD 45.8 fl (35.1-43.9); Red Blood Count 4.92 M/mm3 (4.2-5.4); White Blood Count 8.7 K/mm3 (4.4-11.0)
--- NOTE | 2019-12-15 17:40 | RAD_ITS ---
STUDY: X-RAY CHEST REASON FOR EXAM: Female, 64 years old. COPD, CHEST TIGHTNESS THAT GOES INTO BACK, SOB. TECHNIQUE: Single AP portable view of the chest. COMPARISON: 06/07/2019. FINDINGS: The lungs are clear and expanded. Upper lucency of the upper lungs. There is no demonstrated pleural abnormality. Normal size heart. Normal mediastinum and tena. Normal visualized pulmonary arteries. Normal visualized aortic arch and descending thoracic aorta. Normal visualized thoracic spine. Normal visualized ribs, clavicles, and shoulders. There is no demonstrated abnormality of the visualized soft tissue structures of the upper abdomen. RAD/Chest 1 View (Portable) IMPRESSION: 1. No acute findings. 2. COPD. Electronically Signed: Joselin Ledesma MD at 18:32 EST Tel , Service support ,
[2019-12-15 17:50] LABS: Anion Gap 5 (5-15); BUN 12 mg/dL (7-18); BUN/Creat Ratio 11.7 RATIO (10-20); Calcium,Total 9.4 mg/dL (8.5-10.1); Chloride 104 mmol/L (98-107); Creatinine, Serum 1.03 mg/dL (0.55-1.02); EST Glomerular Filtration Rate 57 mL/min (>60); Est Glom Filt Rate - Afr Amer 70 mL/min (>60); Estimated Creatinine Clearance 50.31 ml/min; Glucose 98 mg/dL (74-106); Potassium 3.8 mmol/L (3.5-5.1); Sodium Level 137 mmol/L (136-145)
[2019-12-15] MEDS: MethylPREDNISolone 125 MG/2 ML Vial IV (17:52)
[2019-12-15 18:49] VITALS: BP 144/100; PULSE 69; RESP 18; TEMP 36.5; O2SAT 98
== END 2019-12-15 18:51 | disposition home or self-care (01) ==
PROVIDERS: Emergency Provider Emergency Medicine; PCP Family Medicine
DX: J44.1 Chronic obstructive pulmonary disease with (acute) exacerbation (principal); E78.00 Pure hypercholesterolemia, unspecified; I10 Essential (primary) hypertension; M79.7 Fibromyalgia; Z82.49 Family history of ischemic heart disease and other diseases of the circulatory system; Z90.49 Acquired absence of other specified parts of digestive tract; Z90.710 Acquired absence of both cervix and uterus
CPT/HCPCS: 71045; 80048; 84484; 85025; 87635; 93005; 94640; 96374; 99284; A4216; U0003

== ENCOUNTER → 2019-12-30 12:13 | Outpatient (CLI) | payer MEDICARE, SELFPAY ==
[2019-12-15 14:52] VITALS: BMI 21.2
== END ==
PROVIDERS: PCP Family Medicine; Referring Provider Family Medicine; Visit Provider Family Medicine
DX: I48.0 Paroxysmal atrial fibrillation (principal)
CPT/HCPCS: 93225; 93226

== ENCOUNTER → 2020-06-26 10:04 | Outpatient (CLI) | payer MEDICARE, SELFPAY ==
--- NOTE | 2020-06-26 10:09 | RAD_ITS ---
STUDY: X-RAY CHEST REASON FOR EXAM: Female, 65 years old. Chest pain/pressure TECHNIQUE: PA and lateral views of the chest. COMPARISON: 12/15/2019 FINDINGS: Lungs are hyperexpanded with chronic interstitial changes, no superimposed acute pulmonary process. There is no demonstrated pleural abnormality. Normal size heart. Normal mediastinum and tena. Normal visualized pulmonary arteries. Normal visualized aortic arch and descending thoracic aorta. There are diffuse degenerative changes of the visualized thoracic spine. Normal visualized ribs, clavicles, and shoulders. There is no demonstrated abnormality of the visualized soft tissue structures of the upper abdomen. RAD/Chest PA and Lateral IMPRESSION: Hyperexpanded lungs with chronic interstitial changes, no superimposed acute pulmonary process Electronically Signed: Daniel Kaur MD at 11:34 EDT , Service support ,
[2020-06-26 12:25] LABS: Absolute Lymphocyte Count 2.14 X10^3/uL (0.83-4.51); Absolute Neutrophil Count 4.1 X10^3/uL (2.0-7.7); Basophil# 0.05 X10^3/uL; Basophil% 0.7 % (0-1); Eosinophil# 0.24 X10^3/uL; Eosinophils% 3.5 % (0-5); Hematocrit 48.2 % (37-47); Hemoglobin 15.3 g/dL (12.0-15.0); Lymphocyte # 2.14 X10^3/ul (0.83-4.51); Lymphocyte % 30.8 % (19-41); Mean Corp Hgb Conc 31.7 g/dL (32-36); Mean Corpuscular Hgb 30.9 pg (27.0-32.0); Mean Corpuscular Volume 97.4 fL (81-99); Monocyte# 0.45 X10^3/uL; Monocyte% 6.5 % (0-10); NRBC Flagged by Analyzer 0 % (0-5); Neutrophil # 4.05 X10^3/uL (2.7-7.7); Neutrophil % 58.2 % (47-70); Platelet Count 272 K/mm3 (150-450); RBC Distribution Width CV 12.9 % (11.6-14.6); RBC Distribution Width SD 46.2 fl (35.1-43.9); Red Blood Count 4.95 M/mm3 (4.2-5.4)
[2020-06-26 12:32] LABS: Color, Urine Yellow (Yellow); Glucose, Dipstick Normal (Normal); Ketone-Dipstick 5 mg/dl (Negative); Leukocyte Esterase-Dipstick 25 /ul (Negative); Nitrite-Dipstick Negative (Negative); Occult Blood-Urine 10 /ul (Negative); Protein-Dipstick 15 mg/dl (Negative); Specific Gravity, Urine 1.015 (1.002-1.030); Urine Clarity Clear (Clear); Urine Urobilinogen 1 mg/dl (Normal)
[2020-06-26 12:43] LABS: Vitamin D,25 Hydroxy 48.4 ng/mL
[2020-06-26 12:49] LABS: Urine Bilirubin Dipstick 1 mg/dL (Negative)
[2020-06-26 12:53] LABS: ALB/GLOB Ratio 0.9 RATIO (0.9-2.4); AST(SGOT) 15 U/L (15-37); Alanine Aminotransfer ALT/SGPT 18 U/L (13-56); Albumin, Serum 3.5 g/dL (3.2-5.0); Alkaline Phosphatase 112 U/L (45-117); Anion Gap 2 (5-15); BUN 18 mg/dL (7-18); BUN/Creat Ratio 20.1 RATIO (10-20); Calcium,Total 9.3 mg/dL (8.5-10.1); Chloride 105 mmol/L (98-107); EST Glomerular Filtration Rate 67 mL/min (>60); Est Glom Filt Rate - Afr Amer 81 mL/min (>60); Glucose 91 mg/dL (74-106); Potassium 4.2 mmol/L (3.5-5.1); Protein, Total 7.5 g/dL (6.4-8.2); Sodium Level 138 mmol/L (136-145); T4 Free Direct 1.26 ng/dL (0.76-1.46); Thyroid Stim Hormone (TSH) 2.49 uIU/mL (0.358-3.74)
== END ==
LOC: MTLAB 10:07
PROVIDERS: PCP Family Medicine; Referring Provider Family Medicine; Visit Provider Family Medicine
DX: J44.9 Chronic obstructive pulmonary disease, unspecified (principal); R63.4 Abnormal weight loss; I47.1 Supraventricular tachycardia; I10 Essential (primary) hypertension; M85.80 Other specified disorders of bone density and structure, unspecified site
CPT/HCPCS: 36415; 71046; 80053; 81002; 82306; 84439; 84443; 85025

== ENCOUNTER 2020-08-18 15:33 | Emergency (ER) | payer MEDICARE, SELFPAY ==
[2020-08-18 15:33] VITALS: BP 112/64; PULSE 88; RESP 20; TEMP 36.7; O2SAT 94; BMI 19.1
--- NOTE | 2020-08-18 16:28 | EDS_ITS ---
HPI History of Present Illness Chief Complaint: Back Informant: patient Narrative Narrative: Patient is a 65-year-old female with a past medical history of COPD, atrial fibrillation, fibromyalgia, chronic back pain who presents to the emergency department for right-sided groin pain. Starts on the outside of her hip and wraps around. It has been present over the past couple of weeks. Movement makes it worse. There is only on certain positions are she lays on her left side relieves the pain. She does take Percocet at baseline which has not been helping her pain. She denies any change in moving her bowels. No urinary symptoms. No fevers or chills. No nausea/vomiting. She denies any weakness or loss sensation going down her legs. She does have chronic pain in her legs that is no worse than normal. She denies any trauma or falls at the onset of her symptoms a few weeks prior. [facility] Medical History (Updated 08/18/20 @ 18:[address] Chirag Deng, ) Adnexal mass Atrial fibrillation Chronic lumbar back pain COPD (chronic obstructive pulmonary disease) COPD exacerbation Fibromyalgia Lactic acid acidosis Near syncope Panic disorder Pleuritic chest pain Pneumonia Shortness of breath SIRS (systemic inflammatory response syndrome) Tobacco dependence syndrome Unstable angina Home Medications albuterol sulfate 2 puff INHALATION Q6H PRN PRN #1 inhaler 05/02/14 [Rx Last Taken 10/30/15] clonazepam 0.5 mg PO DAILY PRN 10/30/15 [History Last Taken 10/29/15] tiotropium bromide 1 puff INHALATION DAILY 08/03/16 [History Last Taken Unknown] albuterol sulfate 2.5 mg INHALATION Q6HWA.RT PRN 06/30/17 [History Last Taken Unknown] trazodone 100 mg PO QHS 06/30/17 [History Last Taken Unknown] aspirin 81 mg PO DAILY@0800 #30 tab 12/06/17 [Rx Last Taken Unknown] atorvastatin 20 mg tablet 20 mg PO QHS #30 tab 02/11/19 [Rx Last Taken Unknown] loratadine 10 mg PO DAILY 06/07/19 [History Last Taken Unknown] aripiprazole 2 mg PO DAILY 11/02/19 [History Last Taken Unknown] oxycodone-acetaminophen 1 ea PO BID 11/02/19 [History Last Taken Unknown] cyclobenzaprine 10 mg tablet 10 mg PO QHS 11/08/19 [History Last Taken Unknown] duloxetine 60 mg capsule,delayed release 120 mg PO DAILY cap 11/08/19 [History Last Taken Unknown] gabapentin 800 mg tablet 800 mg PO TID tab 11/08/19 [History Last Taken Unknown] diltiazem HCl 120 mg capsule,extended release 24 hr 120 mg PO DAILY #90 cap 04/24/20 [Rx Last Taken Unknown] naproxen [Naprosyn] 500 mg PO BID PRN #20 tab 08/18/20 [Rx Last Taken Unknown] Allergy/AdvReac Type Severity Reaction Status Date / Time No Known Allergies Allergy Verified 08/18/20 15:36 Family History Mother CAD (coronary artery disease) Father Cancer Surgical History H/O cardiac radiofrequency ablation History of cholecystectomy History of foot surgery History of hysterectomy History of right and left heart catheterization (12/05/17) History of tonsillectomy Social History Smoking Status: Current some day smoker tobacco type: cigarettes alcohol intake: never substance use type: does not use caffeine: Yes Type: carbonated beverages and coffee ROS ROS ED Constitutional Constitutional ED: Denies chills or fever(s) Eyes Eyes: Denies change in vision ENT ENT ED: Denies epistaxis or rhinorrhea Cardiovascular Cardiovascular: Denies chest pain or palpitations Respiratory/Chest Respiratory/Chest: Denies cough, dyspnea or dyspnea on exertion Gastrointestinal Gastrointestinal: Denies abdominal pain, diarrhea, nausea or vomiting Genitourinary Genitourinary ED: Denies dysuria, hematuria or urinary frequency Musculoskeletal Musculoskeletal: Reports arthralgias and back pain; Denies neck pain Integumentary Denies rash Neurologic Neurologic: Denies dizziness, headache(s) or weakness EXAM Physical Exam Const Vital Signs: 08/18/20 15:33 Temperature 98.1 F Temperature Source Temporal Pulse Rate 88 Respiratory Rate 20 H Blood Pressure 112/64 Blood Pressure Mean 80 Pulse Ox 94 Oxygen Delivery Method Room Air Positive well nourished and well developed General Appearance ED: well developed and NAD HEENT Reports normocephalic, head/scalp atraumatic and moist mucous membranes Eyes PERRL and EOMs intact bilaterally Neck supple Chest Wall inspection of chest normal Resp normal respiratory effort and clear to auscultation bilaterally Cardio regular rate, regular rhythm and no murmurs GI normal to inspection, nondistended, normoactive bowel sounds and non-tender Palpation: soft; Negative for guarding or rebound tenderness present Back/Spine no CVA tenderness Extremity normal to inspection Extremity Narrative: 5 out of 5 muscle strength throughout. Neurovascularly intact. No overlying skin change of the right hip. General Extremety ED: Negative for edema or tenderness General Extremity: Negative for edema Neuro oriented x3, CN's II-XII intact bilaterally and no sensory deficits noted Sensorium / Orientation: alert Motor Exam: strength 5/5 throughout Psych mental status grossly normal Skin no rashes or lesions noted MDM MDM MDM Narrative Medical decision making narrative: Patient presents to the emergency department for right groin pain. It is worse with movement. She is here to get an x-ray of her hip/pelvis. She already takes Percocet at home for this. She does have a benign physical exam. No red blood symptoms for acute surgical spinal emergency. Her back pain is no worse than normal. The new pain is all in the right hip/groin. X-ray obtained which did not reveal any obvious acute abnormality. We will write a prescription for Naprosyn. She is given referral for orthopedic surgery. Return precautions are reviewed. No concern for septic arthritis or spinal surgical emergency. Discharged home in stable condition. All questions were answered. Radiography Diagnostic Testing: Radiology Impression Hip/Pelvis X-Ray 08/18/20 16:50 IMPRESSION: No acute process Electronically Signed: Raymundo Donis MD at 18:23 EDT , Service support , Hip and pelvis x-ray interpreted by myself. No obvious fracture or dislocation. Agree with radiologist interpretation. Discharge Plan Triage Chief Complaint: Back ED Provider: Chirag Deng Dx/Rx/DC Orders Clinical Impression: Hip pain Instructions: ED Hip Strain Prescriptions: New naproxen [Naprosyn] 500 mg tablet 500 mg PO BID PRN (Reason: pain) Qty: 20 RF: 0 No Action atorvastatin 20 mg tablet 20 mg PO QHS Qty: 30 RF: 11 duloxetine 60 mg capsule,delayed release(DR/EC) 120 mg PO DAILY RF: 0 gabapentin 800 mg tablet 800 mg PO TID RF: 0 cyclobenzaprine 10 mg tablet 10 mg PO QHS RF: 0 albuterol sulfate 1 INHALER inhaler 2 puff inhalation Q6H PRN PRN (Reason: Shortness Of Breath) Qty: 1 RF: 0 clonazepam 0.5 MG tablet 0.5 mg PO DAILY PRN (Reason: Anxiety) RF: 0 tiotropium bromide 1 PUFF inhaler 1 puff inhalation DAILY RF: 0 albuterol sulfate 2.5 MG/3 ML solution for nebulization 2.5 mg inhalation Q6HWA.RT PRN (Reason: COPD) RF: 0 trazodone 100 MG tablet 100 mg PO QHS RF: 0 aspirin 81 MG tablet 81 mg PO DAILY@0800 Qty: 30 RF: 0 loratadine 10 MG capsule 10 mg PO DAILY RF: 0 oxycodone-acetaminophen 1 EACH tablet 1 ea PO BID RF: 0 aripiprazole 2 MG tablet 2 mg PO DAILY RF: 0 diltiazem HCl 120 mg capsule,extended release 24hr 120 mg PO DAILY Qty: 90 RF: 3 Primary Care Provider: Rom Lee Referrals: Oh Solano DO [STAFF PHYSICIAN] - 3-5 Days if not improving Rom Lee DO [Primary Care Provider] - Disposition Disposition: Home, Self Care Discharge Date/Time: 08/18/20 18:40
--- NOTE | 2020-08-18 16:50 | RAD_ITS ---
STUDY: X-RAY - PELVIS AND RIGHT HIP REASON FOR EXAM: Female, 65 years old. Nontraumatic right groin pain TECHNIQUE: 3 views of the pelvis and hip. COMPARISON: None. FINDINGS: There is a non-specific bowel gas pattern. Normal visualized soft tissue structures. No visualized fracture or displaced bony fragment. Asymmetric disc space narrowing and scoliosis seen in the lower lumbar spine. Decompressive defects also seen. Normal bilateral iliac wings, sacroiliac joints and visualized sacrum. Normal bilateral superior and inferior pubic rami. Normal pubic symphysis. Normal bilateral ischial tuberosities. Normal visualized femoral head. Normal acetabulum. Normal hip joint. RAD/HIP, UNI W/ Pelvis 2-3 Views IMPRESSION: No acute process Electronically Signed: Raymundo Donis MD at 18:23 EDT , Service support ,
== END 2020-08-18 18:40 | disposition home or self-care (01) ==
PROVIDERS: Emergency Provider Emergency Medicine; PCP Family Medicine
DX: M25.559 Pain in unspecified hip (principal); F17.210 Nicotine dependence, cigarettes, uncomplicated; J44.9 Chronic obstructive pulmonary disease, unspecified; Z79.82 Long term (current) use of aspirin; Z79.899 Other long term (current) drug therapy
CPT/HCPCS: 73502; 99282

== ENCOUNTER 2020-09-07 03:38 | Emergency (ER) | payer MEDICARE, SELFPAY ==
[2020-09-07 03:39] VITALS: BP 141/82; PULSE 72; RESP 21; TEMP 36.7; O2SAT 99; BMI 18.7
--- NOTE | 2020-09-07 03:42 | RAD_ITS ---
STUDY: X-RAY CHEST REASON FOR EXAM: Female, 65 years old. SOB TECHNIQUE: Single AP portable view of the chest. COMPARISON: 06/26/2020 FINDINGS: There are superimposed monitor leads. Stable hyperinflation with flattening of the diaphragms. There is no focal parenchymal abnormality. There is no demonstrated pneumothorax. There is no demonstrated pleural abnormality. Normal size heart. Normal mediastinum and tena. Normal visualized pulmonary arteries. Normal visualized aortic arch and descending thoracic aorta. There are diffuse degenerative changes of the visualized thoracic spine. Normal visualized ribs, clavicles, and shoulders. There is no demonstrated abnormality of the visualized soft tissue structures of the upper abdomen. RAD/Chest 1 View (Portable) IMPRESSION: Stable COPD. Next on exam No pulmonary edema, congestive heart failure or confluent pneumonia. Electronically Signed: Melida Guthrie MD at 4:12 EDT , Service support ,
[2020-09-07 03:43] VITALS: BP 141/82; PULSE 72; RESP 21; TEMP 36.7; O2SAT 98; O2SAT 99
--- NOTE | 2020-09-07 03:43 | EKG12_ITS ---
Test Reason : SOB Blood Pressure : / mmHG Vent. Rate : 067 BPM Atrial Rate : 067 BPM P-R Int : 138 ms QRS Dur : 076 ms QT Int : 412 ms P-R-T Axes : 082 064 070 degrees QTc Int : 435 ms Normal sinus rhythm Normal ECG Confirmed by FERNANDA CHINCHILLA, LUCAS ([id number]), purchase request editor DANIELE VALDERRAMA ([id number]) on 09/11/2020 9:10:35 AM Referred By: ANALY Confirmed By:SHANE MICHAEL MD
[2020-09-07 03:44] VITALS: O2SAT 99
--- NOTE | 2020-09-07 03:50 | EDS_ITS ---
HPI History of Present Illness Chief Complaint: Shortness of Breath Informant: patient Narrative Narrative: Patient is a 65-year-old female with a past medical history of COPD who presents to the emergency department for shortness of breath. This started a few hours prior to arrival to the ED. She has a chronic cough that is no worse than normal. No sputum production. She denies any fevers or chills. No chest pain associated with this. She does wear 2 L of supplemental oxygen at nighttime. Whenever EMS arrived they bumped up to 4 L and she has been feeling better. She feels like she was wheezing initially but not anymore. She denies any leg swelling or calf pain. No history of CAD or thromboembolism. Patient does continue to smoke cigarettes. She denies any abdominal pain or nausea/vomiting or diarrhea. [facility] Medical History (Updated 09/07/20 @ 04:[address] Chirag Deng, ) Adnexal mass Atrial fibrillation Chronic lumbar back pain COPD (chronic obstructive pulmonary disease) COPD exacerbation Fibromyalgia Lactic acid acidosis Near syncope Panic disorder Pleuritic chest pain Pneumonia Shortness of breath SIRS (systemic inflammatory response syndrome) Tobacco dependence syndrome Unstable angina Home Medications albuterol sulfate 2 puff INHALATION Q6H PRN PRN #1 inhaler 05/02/14 [Rx Last Taken 10/30/15] clonazepam 0.5 mg PO DAILY PRN 10/30/15 [History Last Taken 10/29/15] tiotropium bromide 1 puff INHALATION DAILY 08/03/16 [History Last Taken Unknown] albuterol sulfate 2.5 mg INHALATION Q6HWA.RT PRN 06/30/17 [History Last Taken Unknown] trazodone 100 mg PO QHS 06/30/17 [History Last Taken Unknown] aspirin 81 mg PO DAILY@0800 #30 tab 12/06/17 [Rx Last Taken Unknown] atorvastatin 20 mg tablet 20 mg PO QHS #30 tab 02/11/19 [Rx Last Taken Unknown] loratadine 10 mg PO DAILY 06/07/19 [History Last Taken Unknown] aripiprazole 2 mg PO DAILY 11/02/19 [History Last Taken Unknown] oxycodone-acetaminophen 1 ea PO BID 11/02/19 [History Last Taken Unknown] cyclobenzaprine 10 mg tablet 10 mg PO QHS 11/08/19 [History Last Taken Unknown] duloxetine 60 mg capsule,delayed release 120 mg PO DAILY cap 11/08/19 [History Last Taken Unknown] gabapentin 800 mg tablet 800 mg PO TID tab 11/08/19 [History Last Taken Unknown] diltiazem HCl 120 mg capsule,extended release 24 hr 120 mg PO DAILY #90 cap 04/24/20 [Rx Last Taken Unknown] naproxen [Naprosyn] 500 mg PO BID PRN #20 tab 08/18/20 [Rx Last Taken Unknown] Allergy/AdvReac Type Severity Reaction Status Date / Time No Known Allergies Allergy Verified 09/07/20 03:44 Family History Mother CAD (coronary artery disease) Father Cancer Surgical History H/O cardiac radiofrequency ablation History of cholecystectomy History of foot surgery History of hysterectomy History of right and left heart catheterization (12/05/17) History of tonsillectomy Social History Smoking Status: Current some day smoker tobacco type: cigarettes alcohol intake: never substance use type: does not use caffeine: Yes Type: carbonated beverages and coffee ROS ROS ED Constitutional Constitutional ED: Denies chills or fever(s) Eyes Eyes: Denies change in vision ENT ENT ED: Denies epistaxis or rhinorrhea Cardiovascular Cardiovascular: Denies chest pain or palpitations Respiratory/Chest Respiratory/Chest: Reports cough and dyspnea; Denies sputum Gastrointestinal Gastrointestinal: Denies abdominal pain, diarrhea, nausea or vomiting Musculoskeletal Musculoskeletal: Denies back pain or neck pain Integumentary Denies rash Neurologic Neurologic: Denies dizziness, headache(s) or weakness EXAM Physical Exam Const Vital Signs: 09/07/20 03:39 09/07/20 03:43 09/07/20 03:44 Temperature 98.1 F 98.1 F Temperature Source Oral Oral Pulse Rate 72 72 Respiratory Rate 21 H 21 H Respiratory Effort Normal Non-Labored Respiratory Depth Normal Respiratory Pattern Normal Blood Pressure 141/82 H 141/82 H Blood Pressure Mean 101 101 Pulse Ox 99 98 Oxygen Delivery Method Nasal Cannula Nasal Cannula Nasal Cannula Oxygen Flow Rate (L/min) 2 2 2 Positive well nourished and well developed General Appearance ED: well developed and NAD HEENT Reports normocephalic, head/scalp atraumatic and moist mucous membranes Eyes PERRL and EOMs intact bilaterally Neck supple Resp normal respiratory effort Resp Narrative: Mild expiratory wheezes. Able speak in full sentences. No respiratory distress. Auscultation: Negative for rales or rhonchi Cardio regular rate, regular rhythm and no murmurs GI normal to inspection, nondistended, normoactive bowel sounds and non-tender Palpation: soft; Negative for guarding or rebound tenderness present Extremity normal to inspection General Extremety ED: Negative for edema or tenderness General Extremity: Negative for edema Neuro no sensory deficits noted Sensorium / Orientation: alert Motor Exam: strength 5/5 throughout Psych mental status grossly normal Skin no rashes or lesions noted MDM MDM MDM Narrative Medical decision making narrative: Patient presents to the emergency department for shortness of breath. This was only affecting her for the past few hours. On arrival to the ED she is starting to feel better. Will check basic lab work, chest x-ray and EKG. Patient is weaned off of oxygen and is on room air satting in the mid to high 90s. Her lab work-up did not show a high white blood cell count. She is not anemic. Her CO2 is mildly elevated. Her troponin is well within normal limits. Her chest x-ray which was interpreted by myself did not show any evidence of acute consolidation, pleural effusions. On reexamination she is resting comfortably. She states that she is breathing back to her baseline. She thinks that she just had a panic attack causing her shortness of breath. She does feel comfortable being discharged home at this time. She is to follow-up with her PCP. Return precautions are reviewed. This time I have low concern for ACS or thromboembolism causing her dyspnea. Lab Data Labs: Laboratory Results - last 24 hr 09/07/20 09/07/20 03:45 03:45 WBC 7.5 RBC 4.84 Hgb 14.9 Hct 46.2 MCV 95.5 MCH 30.8 MCHC 32.3 RDW Std Deviation 46.0 H RDW Coeff of Disha 12.9 Plt Count 234 MPV 9.7 Immature Gran % (Auto) 0.300 Neut % (Auto) 46.6 L Lymph % (Auto) 39.5 [place] % (Auto) 7.7 Eos % (Auto) 5.2 H Baso % (Auto) 0.7 Absolute Neuts (auto) 3.5 Absolute Lymphs (auto) 2.97 Nucleated RBC % 0 Sodium 141 Potassium 3.9 Chloride 105 Carbon Dioxide 33.0 H Anion Gap 3 L BUN 12 Creatinine 0.75 Estim Creat Clear Calc 61.13 Est GFR (MDRD) Af Amer 100 Est GFR (MDRD) Non-Af 83 BUN/Creatinine Ratio 16.0 Glucose 95 Calcium 9.0 Troponin I High Sens 17.2 Radiography Diagnostic Testing: Radiology Impression Chest X-Ray 09/07/20 03:42 IMPRESSION: Stable COPD. Next on exam No pulmonary edema, congestive heart failure or confluent pneumonia. Electronically Signed: Melida Guthrie MD at 4:12 EDT , Service support , EKG Initial EKG: Attestation: I personally reviewed and interpreted this EKG as follows: (Rate of 67 bpm normal sinus rhythm. Normal intervals. Normal axis. No significant ST elevations or depressions. No T wave abnormalities.) Discharge Plan Triage Chief Complaint: Shortness of Breath ED Provider: Chirag Deng Dx/Rx/DC Orders Clinical Impression: Dyspnea Instructions: ED Dyspnea Prescriptions: No Action atorvastatin 20 mg tablet 20 mg PO QHS Qty: 30 RF: 11 duloxetine 60 mg capsule,delayed release(DR/EC) 120 mg PO DAILY RF: 0 gabapentin 800 mg tablet 800 mg PO TID RF: 0 cyclobenzaprine 10 mg tablet 10 mg PO QHS RF: 0 albuterol sulfate 1 INHALER inhaler 2 puff inhalation Q6H PRN PRN (Reason: Shortness Of Breath) Qty: 1 RF: 0 clonazepam 0.5 MG tablet 0.5 mg PO DAILY PRN (Reason: Anxiety) RF: 0 tiotropium bromide 1 PUFF inhaler 1 puff inhalation DAILY RF: 0 albuterol sulfate 2.5 MG/3 ML solution for nebulization 2.5 mg inhalation Q6HWA.RT PRN (Reason: COPD) RF: 0 trazodone 100 MG tablet 100 mg PO QHS RF: 0 aspirin 81 MG tablet 81 mg PO DAILY@0800 Qty: 30 RF: 0 loratadine 10 MG capsule 10 mg PO DAILY RF: 0 oxycodone-acetaminophen 1 EACH tablet 1 ea PO BID RF: 0 aripiprazole 2 MG tablet 2 mg PO DAILY RF: 0 naproxen [Naprosyn] 500 mg tablet 500 mg PO BID PRN (Reason: pain) Qty: 20 RF: 0 diltiazem HCl 120 mg capsule,extended release 24hr 120 mg PO DAILY Qty: 90 RF: 3 Primary Care Provider: Rom Lee Referrals: Rom Lee DO [Primary Care Provider] - 3-5 Days Disposition Disposition: Home, Self Care Discharge Date/Time: 09/07/20 04:52
[2020-09-07 04:12] LABS: Absolute Lymphocyte Count 2.97 X10^3/uL (0.83-4.51); Absolute Neutrophil Count 3.5 X10^3/uL (2.0-7.7); Basophil# 0.05 X10^3/uL; Basophil% 0.7 % (0-1); Eosinophil# 0.39 X10^3/uL; Eosinophils% 5.2 % (0-5); Hematocrit 46.2 % (37-47); Hemoglobin 14.9 g/dL (12.0-15.0); Lymphocyte # 2.97 X10^3/ul (0.83-4.51); Lymphocyte % 39.5 % (19-41); Mean Corp Hgb Conc 32.3 g/dL (32-36); Mean Corpuscular Hgb 30.8 pg (27.0-32.0); Mean Corpuscular Volume 95.5 fL (81-99); Mean Platelet Vol. 9.7 fl (6.2-12.0); Monocyte# 0.58 X10^3/uL; Monocyte% 7.7 % (0-10); NRBC Flagged by Analyzer 0 % (0-5); Neutrophil % 46.6 % (47-70); Platelet Count 234 K/mm3 (150-450); RBC Distribution Width CV 12.9 % (11.6-14.6); Red Blood Count 4.84 M/mm3 (4.2-5.4); White Blood Count 7.5 K/mm3 (4.4-11.0)
[2020-09-07 04:25] LABS: Anion Gap 3 (5-15); BUN 12 mg/dL (7-18); Chloride 105 mmol/L (98-107); Creatinine, Serum 0.75 mg/dL (0.55-1.02); EST Glomerular Filtration Rate 83 mL/min (>60); Est Glom Filt Rate - Afr Amer 100 mL/min (>60); Estimated Creatinine Clearance 61.13 ml/min; Glucose 95 mg/dL (74-106); Potassium 3.9 mmol/L (3.5-5.1); Sodium Level 141 mmol/L (136-145); Troponin-I HS 17.2 pg/mL (3.0-53.7)
== END 2020-09-07 04:52 | disposition home or self-care (01) ==
PROVIDERS: Emergency Provider Emergency Medicine; PCP Family Medicine
DX: R06.02 Shortness of breath (principal); R06.00 Dyspnea, unspecified; F17.210 Nicotine dependence, cigarettes, uncomplicated; I48.91 Unspecified atrial fibrillation; Z79.1 Long term (current) use of non-steroidal anti-inflammatories (NSAID); Z79.82 Long term (current) use of aspirin
CPT/HCPCS: 71045; 80048; 84484; 85025; 93005; 99285; A4216

== ENCOUNTER 2020-11-07 08:06 | Inpatient (IN) | payer MEDICARE, SELFPAY ==
[2020-11-07] VITALS (11 sets, daily range): BP systolic 113–150; BP diastolic 81–118; PULSE 68–91; RESP 16–34; TEMP 35.9–36.7; O2SAT 89–98; BMI 22.1; BMI 17.9
--- NOTE | 2020-11-07 08:22 | RAD_ITS ---
STUDY: X-RAY CHEST REASON FOR EXAM: Female, 65 years old. Cough TECHNIQUE: Single AP portable view of the chest. COMPARISON: Comparison is made with prior study dated 09/07/2020. FINDINGS: EKG electrodes are seen. There is hyperinflation of the lungs consistent with chronic obstructive lung disease (COPD). Scattered calcified granulomas. There is no demonstrated pleural abnormality. Normal size heart. Normal mediastinum and tena. Normal visualized pulmonary arteries. Normal visualized aortic arch and descending thoracic aorta. There are diffuse degenerative changes of the visualized thoracic spine. Normal visualized ribs, clavicles, and shoulders. There is no demonstrated abnormality of the visualized soft tissue structures of the upper abdomen. RAD/Chest 1 View (Portable) IMPRESSION: Hyperinflation. The lungs are clear. Electronically Signed: Ari Doran MD at 9:29 EDT , Service support ,
--- NOTE | 2020-11-07 08:23 | EKG12_ITS ---
Test Reason : SOB Blood Pressure : / mmHG Vent. Rate : 077 BPM Atrial Rate : 077 BPM P-R Int : 114 ms QRS Dur : 082 ms QT Int : 410 ms P-R-T Axes : 069 067 070 degrees QTc Int : 463 ms Normal sinus rhythm Low voltage QRS (Limb Leads) Confirmed by YIN CHINCHILLA, ANUP ([id number]), loan expeditor DANIELE VALDERRAMA ([id number]) on 11/09/2020 8:41:57 AM Referred By: HANNA Confirmed By:ANUP ESQUEDA MD
--- NOTE | 2020-11-07 08:42 | EDS_ITS ---
HPI History of Present Illness Chief Complaint: Shortness of Breath Informant: patient Narrative Narrative: Patient is a 65-year-old female with history of atrial fibrillation, COPD, coronary artery disease and continued tobacco use's presenting with worsening shortness of breath and dyspnea on exertion. Patient was seen at [facility] [place] [facility] 3 days ago. At that time she is tested for Covid and was negative. She was placed on Z-Antwon and also ordered a prescription for prednisone. Patient started the Z-Antwon but did not fill her prescription for prednisone stating she could not afford it. Patient has continued to have shortness of breath with exertion and this morning when she got up to like she could not breathe when she is walking to the bathroom. She does not feel like her symptoms are necessarily worsening but they are not improving. She states she had a wet cough for the past month. She denies any fever. She wears 2 L of oxygen at night. She denies associated chest pain, leg swelling or fever. She has a history of blood clots, pulmonary embolism or DVT. She also like she is in wheezing. No GI or symptoms. No other complaints at this time. [facility] Medical History (Updated 11/07/20 @ 15:[address] Simi Marr, DO) Adnexal mass Atrial fibrillation Chronic lumbar back pain COPD (chronic obstructive pulmonary disease) COPD exacerbation Fibromyalgia Lactic acid acidosis Near syncope Panic disorder Pleuritic chest pain Pneumonia Shortness of breath SIRS (systemic inflammatory response syndrome) Tobacco dependence syndrome Unstable angina Home Medications albuterol sulfate 2 puff INHALATION Q6H PRN PRN #1 inhaler 05/02/14 [Rx Last Taken 10/30/15] clonazepam 0.5 mg PO DAILY PRN 10/30/15 [History Last Taken 10/29/15] tiotropium bromide 1 puff INHALATION DAILY 08/03/16 [History Last Taken Unknown] albuterol sulfate 2.5 mg INHALATION Q6HWA.RT PRN 06/30/17 [History Last Taken Unknown] trazodone 100 mg PO QHS 06/30/17 [History Last Taken Unknown] aspirin 81 mg PO DAILY@0800 #30 tab 12/06/17 [Rx Last Taken Unknown] atorvastatin 20 mg tablet 20 mg PO QHS #30 tab 02/11/19 [Rx Last Taken Unknown] loratadine 10 mg PO DAILY PRN 06/07/19 [History Last Taken Unknown] aripiprazole 2 mg PO DAILY 11/02/19 [History Last Taken Unknown] oxycodone-acetaminophen 1 ea PO BID 11/02/19 [History Last Taken Unknown] duloxetine 60 mg capsule,delayed release 120 mg PO DAILY cap 11/08/19 [History Last Taken Unknown] gabapentin 800 mg tablet 800 mg PO TID tab 11/08/19 [History Last Taken Unknown] diltiazem HCl 120 mg capsule,extended release 24 hr 120 mg PO DAILY #90 cap 04/24/20 [Rx Last Taken Unknown] Allergy/AdvReac Type Severity Reaction Status Date / Time No Known Allergies Allergy Verified 11/07/20 08:14 Family History (Reviewed 11/07/20 @ 13:59 by Divya Gong PLUNGER MACHINE OPERATOR, PLUNGER MACHINE OPERATOR-C) Mother CAD (coronary artery disease) Father Cancer Surgical History (Reviewed 11/07/20 @ 13:59 by Divya Gong PLUNGER MACHINE OPERATOR, PLUNGER MACHINE OPERATOR-C) H/O cardiac radiofrequency ablation History of cholecystectomy History of foot surgery History of hysterectomy History of right and left heart catheterization (12/05/17) History of tonsillectomy Social History Smoking Status: Current every day smoker tobacco type: cigarettes alcohol intake: never substance use type: does not use caffeine: Yes Type: carbonated beverages and coffee ROS ROS ED Constitutional Constitutional ED: Denies chills, fever(s) or malaise Eyes Eyes: Denies blurry vision or loss of vision ENT ENT ED: Denies rhinorrhea or sore throat Cardiovascular Cardiovascular: Denies chest pain or dizziness Respiratory/Chest Respiratory/Chest: Reports cough, dyspnea and sputum Gastrointestinal Gastrointestinal: Denies nausea or vomiting Genitourinary Genitourinary ED: Denies dysuria or hematuria Musculoskeletal Musculoskeletal: Denies arthralgias or myalgias Integumentary Denies rash or wounds Neurologic Neurologic: Denies focal weakness or headache(s) Psychiatric Psychiatric: Denies anxiety or behavioral changes EXAM Physical Exam Const Vital Signs: 11/07/20 08:08 11/07/20 08:50 11/07/20 09:10 Temperature 96.6 F L Temperature Source Temporal Pulse Rate 91 91 84 Respiratory Rate 34 H 28 H 20 H Respiratory Effort Short of Breath Labored Accessory Muscle Use Labored Accessory Muscle Use Respiratory Depth Shallow Respiratory Pattern Tachypnea Blood Pressure 141/90 H 150/91 H Blood Pressure Mean 107 110 Pulse Ox 97 91 89 Oxygen Delivery Method Room Air Room Air Room Air 11/07/20 11:25 11/07/20 12:13 Temperature 98 F Temperature Source Temporal Pulse Rate 86 76 Respiratory Rate 18 18 Respiratory Effort Respiratory Depth Respiratory Pattern Blood Pressure 131/118 H 129/86 H Blood Pressure Mean 122 100 Pulse Ox 98 96 Oxygen Delivery Method Nasal Cannula Nasal Cannula Positive well nourished and well developed General Appearance ED: well developed and NAD HEENT Reports TM's clear and moist mucous membranes atraumatic Tympanic Membrane ED: Yes TM's clear Eyes PERRL and EOMs intact bilaterally Neck supple and no JVD Resp normal respiratory effort Auscultation: rhonchi throughout; Negative for wheezes or diminished lung sounds Cardio regular rate, regular rhythm and no murmurs GI non-tender and non-distended Auscultation: normoactive bowel sounds Palpation: soft Extremity normal to inspection General Extremety ED: Negative for edema or tenderness General Extremity: Negative for edema Neuro oriented x3 Sensorium / Orientation: alert Motor Exam: Negative for general weakness Psych mental status grossly normal Skin Lesions: no lesions Rashes: no rashes MDM MDM MDM Narrative Medical decision making narrative: Patient is evaluated for increased shortness of breath. She does have a history significant for COPD, chronic hypoxia and continued tobacco abuse. Patient is requiring 2 L nasal cannula in the emergency room. She states she normally wears oxygen at night. CBC is remarkable for mild elevation of her hemoglobin of 15.8. I suspect this is chronic. Her D-dimer is elevated 0.72. CT obtained which shows of edematous changes but no other acute process including no PE or infiltrate. BMP is normal. Initial troponin is 77. Repeat high sensitive troponin is now 348. Serial EKGs do not show any acute changes and patient is not having any chest p ain. Case is discussed with cardiology on-call, Dr. Barron, who suspect more than likely her elevated troponin is not primary cardiac and likely more to strain. However he does agree with initiating heparin drip until further evaluation can be performed. Patient is given aspirin the emergency room. She is also given a dose of Solu-Medrol as it is possible she could be having a COPD exacerbation. Patient does have improvement of her breath sounds after receiving a DuoNeb in the ER. Case is discussed with hospitalist who accepts the patient for admission. Lab Data Attestation: I reviewed the patient's lab results. Labs: Laboratory Results - last 24 hr 11/07/20 11/07/20 11/07/20 08:30 08:30 08:30 WBC 5.4 RBC 5.18 Hgb 15.8 H Hct 48.7 H MCV 94.0 MCH 30.5 MCHC 32.4 RDW Std Deviation 46.3 H RDW Coeff of Disha 13.2 Plt Count 229 MPV 9.6 Immature Gran % (Auto) 0.200 Neut % (Auto) 67.1 Lymph % (Auto) 22.2 [place] % (Auto) 8.8 Eos % (Auto) 1.3 Baso % (Auto) 0.4 Absolute Neuts (auto) 3.6 Absolute Lymphs (auto) 1.19 Nucleated RBC % 0 PT INR APTT D-Dimer Quant (PE/DVT) 0.72 H* Sodium 139 Potassium 3.7 Chloride 101 Carbon Dioxide 30.0 Anion Gap 8 BUN 14 Creatinine 0.81 Estim Creat Clear Calc 60.59 Est GFR (MDRD) Af Amer 91 Est GFR (MDRD) Non-Af 76 BUN/Creatinine Ratio 17.3 Glucose 92 Calcium 9.3 Troponin I High Sens 77 H 11/07/20 11/07/20 08:30 10:32 WBC RBC Hgb Hct MCV MCH MCHC RDW Std Deviation RDW Coeff of Disha Plt Count MPV Immature Gran % (Auto) Neut % (Auto) Lymph % (Auto) [place] % (Auto) Eos % (Auto) Baso % (Auto) Absolute Neuts (auto) Absolute Lymphs (auto) Nucleated RBC % PT 12.5 INR 1.0 APTT 27.2 D-Dimer Quant (PE/DVT) Sodium Potassium Chloride Carbon Dioxide Anion Gap BUN Creatinine Estim Creat Clear Calc Est GFR (MDRD) Af Amer Est GFR (MDRD) Non-Af BUN/Creatinine Ratio Glucose Calcium Troponin I High Sens 348 H* Radiography Chest X-Ray - ED: 1 View, Read by ED Physician, Read by Radiologist and No Acute Disease Diagnostic Testing: Radiology Impression Chest X-Ray 11/07/20 08:22 IMPRESSION: Hyperinflation. The lungs are clear. Electronically Signed: Ari Doran MD at 9:29 EDT , Service support , Chest CTA 11/07/20 09:08 IMPRESSION: No evidence of pulmonary embolism. Hyperinflation and emphysematous changes. Electronically Signed: Ari Doran MD at 10:03 EDT , Service support , Rhythm Strip Rhythm Strip: Sinus Rhythm Rate: 77 Ectopy: None EKG Initial EKG: Attestation: I personally reviewed and interpreted this EKG as follows: Interpretation: Sinus Rhythm Comments: Normal sinus rhythm at a rate of 77 Normal axis Normal intervals Normal ST segments Follow-up EKG: Attestation: I personally reviewed and interpreted this EKG as follows: Interpretation: Sinus Rhythm Comments: Normal sinus rhythm at a rate of 70 Normal axis Normal intervals Normal ST segments Prior: Unchanged Discharge Plan Dx/Rx/DC Orders Clinical Impression: NSTEMI, initial episode of care, COPD exacerbation, Dyspnea Disposition Disposition: Acute Care Hospital [facility] Discharge Date/Time: 11/07/20 13:38
[2020-11-07 08:47] LABS: Absolute Lymphocyte Count 1.19 X10^3/uL (0.83-4.51); Absolute Neutrophil Count 3.6 X10^3/uL (2.0-7.7); Basophil# 0.02 X10^3/uL; Basophil% 0.4 % (0-1); Eosinophil# 0.07 X10^3/uL; Eosinophils% 1.3 % (0-5); Hematocrit 48.7 % (37-47); Hemoglobin 15.8 g/dL (12.0-15.0); Lymphocyte # 1.19 X10^3/ul (0.83-4.51); Lymphocyte % 22.2 % (19-41); Mean Corp Hgb Conc 32.4 g/dL (32-36); Mean Corpuscular Hgb 30.5 pg (27.0-32.0); Mean Platelet Vol. 9.6 fl (6.2-12.0); Monocyte# 0.47 X10^3/uL; Monocyte% 8.8 % (0-10); NRBC Flagged by Analyzer 0 % (0-5); Neutrophil # 3.61 X10^3/uL (2.7-7.7); Neutrophil % 67.1 % (47-70); Platelet Count 229 K/mm3 (150-450); RBC Distribution Width CV 13.2 % (11.6-14.6); RBC Distribution Width SD 46.3 fl (35.1-43.9); Red Blood Count 5.18 M/mm3 (4.2-5.4); White Blood Count 5.4 K/mm3 (4.4-11.0)
[2020-11-07] MEDS: Ipratropium/Albuterol Sulfate 3 ML AMPUL.NEB INHALATION ×3 (08:49→23:18)
[2020-11-07] MEDS: Albuterol 2.5 MG/3 ML VIAL.NEB. INHALATION ×2 (08:49→21:16)
[2020-11-07 09:04] LABS: D-Dimer Quantitative (DVT/PE) 0.72 FEU/ug/m (0.27-0.49)
[2020-11-07 09:05] LABS: Anion Gap 8 (5-15); BUN 14 mg/dL (7-18); BUN/Creat Ratio 17.3 RATIO (10-20); Calcium,Total 9.3 mg/dL (8.5-10.1); Chloride 101 mmol/L (98-107); Creatinine, Serum 0.81 mg/dL (0.55-1.02); EST Glomerular Filtration Rate 76 mL/min (>60); Est Glom Filt Rate - Afr Amer 91 mL/min (>60); Estimated Creatinine Clearance 60.59 ml/min; Glucose 92 mg/dL (74-106); Potassium 3.7 mmol/L (3.5-5.1); Sodium Level 139 mmol/L (136-145); Troponin-I HS 77 pg/mL (3.0-54.0)
--- NOTE | 2020-11-07 09:08 | CT_ITS ---
STUDY: CTA CHEST REASON FOR EXAM: Female, 65 years old. Cough, sob, elevated d dimer RADIATION DOSAGE (If Supplied By Facility): CTDIvol = ( 5.13 ) mGy, DLP = ( 156.21 ) mGycm TECHNIQUE: The examination was performed with the intravenous administration of IV 100mL Isovue-370. Post-processing of the angiographic images was performed, with multiplanar reformation and 3D reconstruction. Individualized dose optimization techniques were used for this CT. COMPARISON: Comparison is made with prior study dated 11/29/2016. FINDINGS: Normal enhancement of the main pulmonary artery and right and left pulmonary arteries. Normal enhancement of the bilateral peripheral pulmonary arteries. There is no demonstrated pulmonary embolism. Normal thoracic aorta and visualized great vessels. There is no demonstrated aortic dissection. Normal heart and pericardium. Normal mediastinum. Normal hilar regions. Normal visualized trachea and bronchi. Hyperinflation. Diffuse emphysematous changes with evidence of a centrilobular emphysematous changes worse in the upper lobes. Normal pleura. Normal chest wall structures. There are degenerative changes of thoracic spine. Normal visualized upper abdomen. CT/CTA Chest W/WO Contrast IMPRESSION: No evidence of pulmonary embolism. Hyperinflation and emphysematous changes. Electronically Signed: Ari Doran MD at 10:03 EDT , Service support ,
[2020-11-07] MEDS: oxyCODONE 5 MG Tablet 10 MG PO (10:53)
[2020-11-07] MEDS: Contrast Allergy Safety Check IV (10:54)
--- NOTE | 2020-11-07 11:15 | EKG12_ITS ---
Test Reason : REPEAT-ELEV TROPONIN Blood Pressure : / mmHG Vent. Rate : 070 BPM Atrial Rate : 070 BPM P-R Int : 126 ms QRS Dur : 078 ms QT Int : 436 ms P-R-T Axes : 082 068 079 degrees QTc Int : 470 ms Normal sinus rhythm Low voltage QRS (Limb Leads) Confirmed by YIN CHINCHILLA, ANUP ([id number]), marketing analyst DANIELE VALDERRAMA ([id number]) on 11/09/2020 8:42:17 AM Referred By: HANNA Confirmed By:ANUP ESQUEDA MD
[2020-11-07 11:18] LABS: Troponin-I HS 348 pg/mL (3.0-54.0)
--- NOTE | 2020-11-07 11:47 | NURSING ---
PCU ALINA MORA, NSTEMI
[2020-11-07] MEDS: MethylPREDNISolone 125 MG/2 ML Vial 60 MG IV (12:33)
[2020-11-07] MEDS: Heparin Injection (Vial) 5,000 UNIT/ML VIAL 4000 UNIT IV (12:33)
[2020-11-07] MEDS: Aspirin 325 MG Tablet PO (12:34)
[2020-11-07] MEDS: HEPARIN/D5w 25,000 UNITS 25,000 UNITS/250 ML IV.SOLN. 8 UNITS IV (12:34)
--- NOTE | 2020-11-07 12:38 | HP.PCM.HOS_ITS ---
HPI - General General Date of Admission: 11/07/20 Date of Service: 11/07/20 Chief Complaint: shortness of breath HPI Narrative KENZIE HYLTON, is a 65 F who presents acute worsening on chronic dyspnea. Over the past week she has become more short of breath for the past week. She has been coughing, but non-productive. She has known COPD, on QHS oxygen. She had troponins that went from 77-3 48. Cardiology was contacted and I recommend he [place]. Patient did receive aerosols as well as a methylprednisolone. Patient on oxygen and is feeling better at this time. She denies any chest pain. [facility] Medical History (Updated 11/07/20 @ 13:[address] Bart Oconnor, DO) Adnexal mass Atrial fibrillation Chronic lumbar back pain COPD (chronic obstructive pulmonary disease) COPD exacerbation Fibromyalgia Lactic acid acidosis Near syncope Panic disorder Pleuritic chest pain Pneumonia Shortness of breath SIRS (systemic inflammatory response syndrome) Tobacco dependence syndrome Unstable angina Home Medications albuterol sulfate 2 puff INHALATION Q6H PRN PRN #1 inhaler 05/02/14 [Rx Last Taken 10/30/15] clonazepam 0.5 mg PO DAILY PRN 10/30/15 [History Last Taken 10/29/15] tiotropium bromide 1 puff INHALATION DAILY 08/03/16 [History Last Taken Unknown] albuterol sulfate 2.5 mg INHALATION Q6HWA.RT PRN 06/30/17 [History Last Taken Unknown] trazodone 100 mg PO QHS 06/30/17 [History Last Taken Unknown] aspirin 81 mg PO DAILY@0800 #30 tab 12/06/17 [Rx Last Taken Unknown] atorvastatin 20 mg tablet 20 mg PO QHS #30 tab 02/11/19 [Rx Last Taken Unknown] loratadine 10 mg PO DAILY 06/07/19 [History Last Taken Unknown] aripiprazole 2 mg PO DAILY 11/02/19 [History Last Taken Unknown] oxycodone-acetaminophen 1 ea PO BID 11/02/19 [History Last Taken Unknown] cyclobenzaprine 10 mg tablet 10 mg PO QHS 11/08/19 [History Last Taken Unknown] duloxetine 60 mg capsule,delayed release 120 mg PO DAILY cap 11/08/19 [History Last Taken Unknown] gabapentin 800 mg tablet 800 mg PO TID tab 11/08/19 [History Last Taken Unknown] diltiazem HCl 120 mg capsule,extended release 24 hr 120 mg PO DAILY #90 cap 04/24/20 [Rx Last Taken Unknown] naproxen [Naprosyn] 500 mg PO BID PRN #20 tab 08/18/20 [Rx Last Taken Unknown] Allergy/AdvReac Type Severity Reaction Status Date / Time No Known Allergies Allergy Verified 11/07/20 08:14 Family History Mother CAD (coronary artery disease) Father Cancer Surgical History H/O cardiac radiofrequency ablation History of cholecystectomy History of foot surgery History of hysterectomy History of right and left heart catheterization (12/05/17) History of tonsillectomy Social History Smoking Status: Current every day smoker tobacco type: cigarettes alcohol intake: never substance use type: does not use caffeine: Yes Type: carbonated beverages and coffee ROS ROS Narrative Has had chronic weight loss that is currently being evaluated. All review of systems were negative except as mentioned above in the history of present illness and the other review of systems. Vital Signs Vital Signs Vital Signs: 11/07/20 08:08 11/07/20 08:50 11/07/20 09:10 Temperature 35.9 C L Temperature Source Temporal Pulse Rate 91 91 84 Respiratory Rate 34 H 28 H 20 H Respiratory Effort Short of Breath Labored Accessory Muscle Use Labored Accessory Muscle Use Respiratory Depth Shallow Respiratory Pattern Tachypnea Blood Pressure 141/90 H 150/91 H Blood Pressure Mean 107 110 Pulse Ox 97 91 89 Oxygen Delivery Method Room Air Room Air Room Air 11/07/20 11:25 11/07/20 12:13 Temperature 36.6 C Temperature Source Temporal Pulse Rate 86 76 Respiratory Rate 18 18 Respiratory Effort Respiratory Depth Respiratory Pattern Blood Pressure 131/118 H 129/86 H Blood Pressure Mean 122 100 Pulse Ox 98 96 Oxygen Delivery Method Nasal Cannula Nasal Cannula Weight Weight: 58.4 kg Body Mass Index (BMI) 22.1 Physical Exam Const alert General Appearance: cooperative HEENT normocephalic, head/scalp atraumatic, hearing grossly normal bilaterally and moist oral mucous membranes Eyes PERRL Neck no lymphadenopathy Resp Resp Narrative: Diminished. Faint wheezes bilaterally. Cardio regular rate, regular rhythm, S1 normal heart sound and S2 normal heart sound GI normal to inspection, nondistended, normoactive bowel sounds, soft to palpation, non-tender and non-distended Extremity normal to inspection Skin no rashes or lesions noted Neuro Sensorium / Orientation: awake and alert Psych affect normal Results Lab / Micro Data Attestation: I reviewed the patient's lab results. Result Diagrams: 11/07/20 08:30 11/07/20 08:30 Labs: Laboratory Results - last 24 hr 11/07/20 08:30: WBC 5.4, RBC 5.18, Hgb 15.8 H, Hct 48.7 H, MCV 94.0, MCH 30.5, MCHC 32.4, RDW Std Deviation 46.3 H, RDW Coeff of Disha 13.2, Plt Count 229, MPV 9.6, Immature Gran % (Auto) 0.200, Neut % (Auto) 67.1, Lymph % (Auto) 22.2, [place] % (Auto) 8.8, Eos % (Auto) 1.3, Baso % (Auto) 0.4, Absolute Neuts (auto) 3.6, Absolute Lymphs (auto) 1.19, Nucleated RBC % 0 11/07/20 08:30: D-Dimer Quant (PE/DVT) 0.72 H* 11/07/20 08:30: Sodium 139, Potassium 3.7, Chloride 101, Carbon Dioxide 30.0, Anion Gap 8, BUN 14, Creatinine 0.81, Estim Creat Clear Calc 60.59, Est GFR (MDRD) Af Amer 91, Est GFR (MDRD) Non-Af 76, BUN/Creatinine Ratio 17.3, Glucose 92, Calcium 9.3, Troponin I High Sens 77 H 11/07/20 10:32: Troponin I High Sens 348 H* Micro: Microbiology 11/07/20 08:35 Nasal Secretion SARS-CoV-2 Antigen (Rapid) - Final EKG Initial EKG: Attestation: I personally reviewed and interpreted this EKG as follows: Prior EKG tracings: available for review EKG Rhythm Intrepretation: Sinus Rhythm Radiology Impression Chest X-Ray 11/07/20 08:22 IMPRESSION: Hyperinflation. The lungs are clear. Electronically Signed: Ari Doran MD at 9:29 EDT , Service support , Chest CTA 11/07/20 09:08 IMPRESSION: No evidence of pulmonary embolism. Hyperinflation and emphysematous changes. Electronically Signed: Ari Doran MD at 10:03 EDT , Service support , Assessment & Plan Assessment/Plan (1) NSTEMI, initial episode of care: (2) COPD exacerbation: PLAN: 1. NSTEMI * known CAD * may be type 2 from AECOPD * heparin gtt * cardiology consult * on ASA, statin 2. AECOPD * diminished * continue BDs and methylpred 3. PAfib * in NSR * on dilt 4. VTE prophylaxis: not indicated as pt anticoagulated 5. Code status: DW pt, she wishes to be full code 6. COVID Vaccination: completed. Charges/Coding Visit Charges Inpatient E&M: 79567 Init Hosp L3
[2020-11-07 12:53] LABS: Prothrombin Time (Protime)PT. 12.5 SECONDS (11.7-14.9)
[2020-11-07 12:54] LABS: Partial Thromboplast Time 27.2 Seconds (24.1-36.2)
--- NOTE | 2020-11-07 13:44 | EKG12_ITS ---
Test Reason : AM Blood Pressure : / mmHG Vent. Rate : 050 BPM Atrial Rate : 050 BPM P-R Int : 104 ms QRS Dur : 078 ms QT Int : 448 ms P-R-T Axes : 057 063 096 degrees QTc Int : 408 ms Sinus bradycardia with short DE Nonspecific T wave abnormality Abnormal ECG When compared with ECG of 07-NOV-2020 15:08, MANUAL COMPARISON REQUIRED, DATA IS UNCONFIRMED Confirmed by EFE CHINCHILLA, CIRO ([id number]), mapping editor DANIELE VALDERRAMA ([id number]) on 11/09/2020 12:39:04 PM Referred By: ALINA Confirmed By:CIRO WILKS MD
[2020-11-07 14:44] LABS: Troponin-I HS 1359 pg/mL (3.0-54.0)
[2020-11-07] MEDS: dilTIAZem CD 120 MG Capsule PO (16:23)
[2020-11-07] MEDS: Gabapentin 800 MG Tablet PO ×2 (16:23→20:54)
[2020-11-07] MEDS: ARIPiprazole 2 MG Tablet PO (16:23)
--- NOTE | 2020-11-07 16:56 | CON.PCM.CA_ITS ---
Assessment & Plan Assessment/Plan (1) NSTEMI, initial episode of care: PLAN: The patient does have findings compatible with an acute non-ST segment elevation NE. At the present time she will continue to be monitored. She will continue medical therapy. She has been recommended for further evaluation with diagnostic cardiac catheterization. The procedure and risk were discussed with her and she was agreeable to this approach. (2) CAD (coronary artery disease): PLAN: The patient has a history of CAD. Based upon her previous cardiac catheterization she underwent LCx FFR. It was negative. Thus she did not receive PCI at the time. At the present time based upon her ongoing findings she will be considered for reevaluation in the cardiac catheterization laboratory. (3) Atrial fibrillation: QUALIFIERS: Atrial fibrillation type: unspecified Qualified Code(s): I48.91 - Unspecified atrial fibrillation PLAN: The patient has a history of atrial fibrillation. She has undergone EPS/RFA. She appears remaining in sinus rhythm at this time. She will continue to be monitored. (4) H/O cardiac radiofrequency ablation: PLAN: The details of her EPS/RFA are unknown at this time. However she states since that procedure she has been doing well and believes she has been remaining in sinus rhythm. (5) COPD (chronic obstructive pulmonary disease): PLAN: The patient has a history of underlying COPD. Certainly this can be a contributing factor to her progressive shortness of breath and dyspnea. She will continue evaluation care per internal medicine and proceed with her cardiovascular evaluation as noted. Addt'l Comments The above was discussed with the patient and the [facility] em ergency department staff. This note was generated using a voice recognition system and there may be incorrect words, spelling or punctuation that were not noted when reviewing the office note prior to saving. HPI Consult Data Date of Consult: 11/07/20 HPI Narrative HPI Narrative: KENZIE HYLTON, is a 65 year old white female who presents for cardiovascular consultation based upon abnormal cardiac enzymes compatible with a non-ST segment elevation NE in the setting of progressive shortness of breath/dyspnea superimposed upon a history of underlying CAD previously thought to be nonhemodynamically significant, atrial fibrillation status post EPS/RFA, and underlying COPD. The patient's last outpatient cardiovascular evaluation/office visit appears to been on 02-11-2019 at which time she was being followed by Dr. Trenton Bahena. She has not presented back for outpatient cardiovascular visit since that time. She states her main concern is been progressive shortness of breath/dyspnea. She notes that she does have, along with this, a uncomfortable sensation in her chest. This may be more prominent when she exerts herself. She has denied any acute orthopnea or PND or peripheral pitting edema. There is been no near syncope or syncope. She has been evaluated by the [facility] emergency department staff. Upon her initial evaluation she had a troponin I level performed and reported at 77. Over time it has increased with the most recent one being reported at 1359. Her ECG appeared to demonstrate sinus rhythm with no acute ECG changes. She underwent a chest x-ray and a chest CTA which did not appear to demonstrate any acute great vessel disease or thromboembolic disease but did demonstrate concerns of underlying COPD (please see reports below). She was recently evaluated at the [facility] for progressive shortness of breath/dyspnea. She was found to be COVID-19 negative at that time. She was prescribed medical therapy for her underlying COPD with a Z-Antwon as well as corticosteroid therapy. She has continued to wear O2 nasal cannula at 2 L per night. She had a repeat COVID-19 examination this day which was also reported as negative. She has been referred for further cardiovascular evaluation for consideration for diagnostic cardiac catheterization. COUNT INCLUDES THE [facility] Medical History (Updated 11/07/20 @ 17:[address] Saul Gr MD) Adnexal mass Atrial fibrillation CAD (coronary artery disease) Chronic lumbar back pain COPD (chronic obstructive pulmonary disease) COPD exacerbation Fibromyalgia Lactic acid acidosis Near syncope Panic disorder Pleuritic chest pain Pneumonia Shortness of breath SIRS (systemic inflammatory response syndrome) Tobacco dependence syndrome Unstable angina Home Medications albuterol sulfate 2 puff INHALATION Q6H PRN PRN #1 inhaler 05/02/14 [Rx Last Ta [place] 10/30/15] clonazepam 0.5 mg PO DAILY PRN 10/30/15 [History Last Taken 10/29/15] tiotropium bromide 1 puff INHALATION DAILY 08/03/16 [History Last Taken Unknown] albuterol sulfate 2.5 mg INHALATION Q6HWA.RT PRN 06/30/17 [History Last Taken Unknown] trazodone 100 mg PO QHS 06/30/17 [History Last Taken Unknown] aspirin 81 mg PO DAILY@0800 #30 tab 12/06/17 [Rx Last Taken Unknown] atorvastatin 20 mg tablet 20 mg PO QHS #30 tab 02/11/19 [Rx Last Taken Unknown] loratadine 10 mg PO DAILY PRN 06/07/19 [History Last Taken Unknown] aripiprazole 2 mg PO DAILY 11/02/19 [History Last Taken Unknown] oxycodone-acetaminophen 1 ea PO BID 11/02/19 [History Last Taken Unknown] duloxetine 60 mg capsule,delayed release 120 mg PO DAILY cap 11/08/19 [History Last Taken Unknown] gabapentin 800 mg tablet 800 mg PO TID tab 11/08/19 [History Last Taken Unknown] diltiazem HCl 120 mg capsule,extended release 24 hr 120 mg PO DAILY #90 cap 04/24/20 [Rx Last Taken Unknown] Allergy/AdvReac Type Severity Reaction Status Date / Time No Known Allergies Allergy Verified 11/07/20 08:14 Family History (Reviewed 11/07/20 @ 13:59 by Divya Gong DOCTOR OF NURSING PRACTICE, DOCTOR OF NURSING PRACTICE-C) Mother CAD (coronary artery disease) Father Cancer Surgical History (Reviewed 11/07/20 @ 13:59 by Divya Gong DOCTOR OF NURSING PRACTICE, DOCTOR OF NURSING PRACTICE-C) H/O cardiac radiofrequency ablation History of cholecystectomy History of foot surgery History of hysterectomy History of right and left heart catheterization (12/05/17) History of tonsillectomy Social History Smoking Status: Current every day smoker tobacco type: cigarettes alcohol intake: never substance use type: does not use caffeine: Yes Type: carbonated beverages and coffee ROS Constitutional Constitutional: Reports as per HPI Eyes Eyes: Reports as per HPI ENT HEENT: Reports as per HPI Cardiovascular Cardiovascular: Reports chest pain, dyspnea, dyspnea at rest and dyspnea on exertion Respiratory/Chest Respiratory/Chest: Reports dyspnea and dyspnea on exertion Gastrointestinal Gastrointestinal: Reports as per HPI Genitourinary Genitourinary: Reports as per HPI Musculoskeletal Musculoskeletal: Reports as per HPI Integumentary Integumentary: Reports as per HPI Neurologic Neurologic: Reports as per HPI Physical Exam Const alert and oriented x3 General Appearance: other Somewhat cachectic and frail-appearing Orientation / Consciousness: awake HEENT normocephalic, head/scalp atraumatic and hearing grossly normal bilaterally Eyes PERRL, EOMs intact bilaterally and conjunctivae normal Neck full ROM, supple and no JVD Resp Auscultation: diminished lung sounds Cardio regular rate, regular rhythm, S1 normal heart sound and S2 normal heart sound GI normal to inspection, nondistended, normoactive bowel sounds Extremity no pedal edema Skin no rashes or lesions noted Neuro oriented x3, moves all extremities, no focal motor deficits and no sensory deficits noted Psych mental status grossly normal Procedure Criteria Type of Procedure Procedure Type: Elective Elective Risks - COVID COVID Risk Discussion: The surgeon/proceduralist and patient have discussed in detail the risk of exposure to and/or potential harm posed by the COVID-19 virus with having a surgery/procedure at this time versus the risk of delaying the s urgery/procedure. It is not possible to know either the risk of delaying the surgery or procedure or chance of getting an infection with perfect accuracy, but a joint decision was made between the patient and the surgeon/proceduralist to proceed at this time with the scheduled surgery/procedure as indicated on the consent form. Objective Data Vital Signs: Vital Signs Temp Pulse Resp BP Pulse Ox 98.1 F 88 16 140/81 H 93 11/07/20 14:00 11/07/20 14:26 11/07/20 14:00 11/07/20 14:00 11/07/20 14:00 Oxygen Flow Rate (L/min) 2 Oxygen Delivery Method Nasal Cannula Weight: 104 lb 4.458 oz Body Mass Index (BMI) 17.9 Intake & Output: Intake and Output for Last 24 Hours 11/05/20 11/06/20 11/07/20 23:59 23:59 23:59 Intake Total 500 / 500 Balance 500 / 500 Lab / Micro Data Result Diagrams: 11/07/20 08:30 11/07/20 08:30 Labs: Laboratory Results - last 24 hr 11/07/20 08:30: WBC 5.4, RBC 5.18, Hgb 15.8 H, Hct 48.7 H, MCV 94.0, MCH 30.5, MCHC 32.4, RDW Std Deviation 46.3 H, RDW Coeff of Disha 13.2, Plt Count 229, MPV 9.6, Immature Gran % (Auto) 0.200, Neut % (Auto) 67.1, Lymph % (Auto) 22.2, [place] % (Auto) 8.8, Eos % (Auto) 1.3, Baso % (Auto) 0.4, Absolute Neuts (auto) 3.6, Absolute Lymphs (auto) 1.19, Nucleated RBC % 0 11/07/20 08:30: D-Dimer Quant (PE/DVT) 0.72 H* 11/07/20 08:30: Sodium 139, Potassium 3.7, Chloride 101, Carbon Dioxide 30.0, Anion Gap 8, BUN 14, Creatinine 0.81, Estim Creat Clear Calc 60.59, Est GFR (MDRD) Af Amer 91, Est GFR (MDRD) Non-Af 76, BUN/Creatinine Ratio 17.3, Glucose 92, Calcium 9.3, Troponin I High Sens 77 H 11/07/20 08:30: PT 12.5, INR 1.0, APTT 27.2 11/07/20 10:32: Troponin I High Sens 348 H* 11/07/20 14:16: Troponin I High Sens 1359 H* Micro: Microbiology 11/07/20 08:35 Nasal Secretion SARS-CoV-2 Antigen (Rapid) - Final Rhythm Strip Rhythm Strip: Sinus Rhythm Rate: 77 Ectopy: None Cardiology Labs/Tests 11/07/20 08:30: WBC 5.4, RBC 5.18, Hgb 15.8 H, Hct 48.7 H, MCV 94.0, MCH 30.5, MCHC 32.4, Plt Count 229, MPV 9.6, Immature Gran % (Auto) 0.200, Neut % (Auto) 67.1, Lymph % (Auto) 22.2, [place] % (Auto) 8.8, Eos % (Auto) 1.3, Baso % (Auto) 0.4, Absolute Neuts (auto) 3.6, Nucleated RBC % 0 11/07/20 08:30: D-Dimer Quant (PE/DVT) 0.72 H* 11/07/20 08:30: Sodium 139, Potassium 3.7, Chloride 101, Carbon Dioxide 30.0, Anion Gap 8, BUN 14, Creatinine 0.81, Est GFR (MDRD) Af Amer 91, Est GFR (MDRD) Non-Af 76, BUN/Creatinine Ratio 17.3, Glucose 92, Calcium 9.3 11/07/20 08:30: PT 12.5, INR 1.0, APTT 27.2 Rhythm: Sinus rhythm EKG: As noted above ECHO: 01-27-2019 Interpretation Summary The estimated ejection fraction is 65 %. Normal diastology for age. Trivial tricuspid valve insufficiency. Right ventricular systolic pressure estimated to be 25 mmHg. Compared to echo report dated 02/03/2018, no appreciable changes noted. The study was technically difficult. Contrast injection was performed. Stress Test: 12-05-2017 Interpretation Summary The estimated ejection fraction is 65 %. Normal, adequate, modified [place] treadmill echocardiogram. Negative for ischemia by EKG and echocardiographic criteria. No anginal symptoms noted. No arrhythmias noted. Appropriate blood pressure response to exercise. Markedly reduced exercise capacity for age. Moderate dyspnea experienced during peak exercise which may be an anginal equivalent. Final LVEF is 75%. No complications. Cardiac Cath: 12-05-2017 CONCLUSIONS Single vessel CAD of the LCX Normal Left Ventricular systolic function Normal LV size, wall motion,and systolic function RECOMMENDATIONS Staged for FFR Risk factor modification ASA Indefinitely Management as per referring Supervisor Paint Department d/c plavix. Tobacco cessation. Manual sheath removal. DESCRIPTION OF PROCEDURE The patient arrived to the procedure lab. The risks and benefits of the procedure as well as a full description of our services here and current unavailability of surgical backup were fully explained to the patient and/or their significant other prior to the catheterization. The Timeout was completed, verifying the correct patient and procedure. The patient's procedural site was prepped and draped in the usual fashion. Local anesthetic was given subcutaneously to right groin region with Lidocaine 2%. Using a modified Seldinger technique, arterial access was obtained via the right femoral artery, a 4Fr sheath was inserted Venous access was obtained via the right femoral vein, a 7Fr sheath was inserted. A 7Fr thermal dilution catheter was inserted and right heart pressures were recorded, it was then advanced to PA position for cardiac outputs. Thermal dilution cardiac outputs were then recorded. O2 satu rations were then obtained. The Thermal dilution catheter was then removed. Simultaneous pressures were then recorded. Left Ventriculography was performed in HOLT projection using a 4 Fr. Pigtail catheter. LV to AO pullback pressures were then recorded. Left Coronary Artery selective angiography was performed in multiple views using a 4 Fr. JL5 catheter. Right Coronary Artery selective angiography was then performed in multiple views using a 4 Fr. 3DRC catheter. The FFR wire was inserted. The pressure wire was then positioned across the lesion in the Circumflex. Adenosine was then given per protocol. Pressures and FFR were recorded. FFR Ratio Baseline: 0.99. FFR Ratio Post Adenosine: 0.92.The arterial sheath was sutured in place and capped. The venous sheath was then sutured inplace and capped CORONARY ANGIOGRAPHY DOMINANCE: Right Dominant LEFT HEART ASSESSMENT Left Ventricular Ejection Fraction: by LV Gram 65 % Normal LV wall motion Normal Left Ventricular systolic function RIGHT HEART ASSESSMENT Thermal CO: 6.8 Thermal CI: 4.17 Philip CO: 6.75 Philip CI: 4.14 PW: 15/16 11 PA: 32/11 22 RV: 36/0 8 RA: 8/6 3 PVR: 129 SVR: 965 LEFT MAIN: Angiographically normal LEFT ANTERIOR DECENDING ARTERY: Angiographically normal CIRCUMFLEX ARTERY: MID CIRC: 50 % Stenosis RIGHT CORONARY ARTERY: Angiographically normal COMPLICATIONS No Complications FFR: 12-05-2017 Reported as 0.92: Nonhemodynamically significant Radiography Diagnostic Testing: Radiology Impression Chest X-Ray 11/07/20 08:22 IMPRESSION: Hyperinflation. The lungs are clear. Electronically Signed: Ari Doran MD at 9:29 EDT , Service support , Chest CTA 11/07/20 09:08 IMPRESSION: No evidence of pulmonary embolism. Hyperinflation and emphysematous changes. Electronically Signed: Ari Doran MD at 10:03 EDT , Service support ,
[2020-11-07] MEDS: oxyCODONE 5 MG Tablet PO (17:03)
[2020-11-07] MEDS: TICAGRELOR 90 MG TABLET 180 MG PO (18:41)
[2020-11-07 19:20] LABS: Partial Thromboplast Time 80.8 Seconds (24.1-36.2)
[2020-11-07] MEDS: clonazePAM 0.5 MG Tablet PO (20:54)
[2020-11-07] MEDS: Atorvastatin Calcium 20 MG Tablet PO (20:55)
[2020-11-07] MEDS: traZODone 100 MG Tablet PO (22:26)
[2020-11-07] MEDS: Acetaminophen 500 MG Tablet 1000 MG PO (22:28)
--- NOTE | 2020-11-07 22:40 | PCS.PANDOC ---
PANDEMIC DOCUMENTATION INITIATED: Date: 09/25/2020 Time: 190
[2020-11-08] VITALS (20 sets, daily range): BP systolic 91–134; BP diastolic 59–76; PULSE 58–96; RESP 16–18; TEMP 36.3–37.1; O2SAT 92–100
[2020-11-08 05:39] LABS: Absolute Lymphocyte Count 0.56 X10^3/uL (0.83-4.51); Absolute Neutrophil Count 5.1 X10^3/uL (2.0-7.7); Basophil# 0.01 X10^3/uL; Basophil% 0.2 % (0-1); Hematocrit 40.1 % (37-47); Hemoglobin 13.3 g/dL (12.0-15.0); Lymphocyte # 0.56 X10^3/ul (0.83-4.51); Lymphocyte % 9.5 % (19-41); Mean Corp Hgb Conc 33.2 g/dL (32-36); Mean Corpuscular Hgb 30.9 pg (27.0-32.0); Mean Platelet Vol. 9.8 fl (6.2-12.0); Monocyte# 0.16 X10^3/uL; Monocyte% 2.7 % (0-10); NRBC Flagged by Analyzer 0 % (0-5); Neutrophil # 5.12 X10^3/uL (2.7-7.7); Neutrophil % 87.3 % (47-70); POSITIVE DIFFERENTIAL YES; Platelet Count 203 K/mm3 (150-450); RBC Distribution Width CV 12.9 % (11.6-14.6); Red Blood Count 4.31 M/mm3 (4.2-5.4); White Blood Count 5.9 K/mm3 (4.4-11.0)
[2020-11-08 05:46] LABS: Differential Indicated SCAN CRITERIA MET
--- NOTE | 2020-11-08 05:55 | EKG12_ITS ---
Test Reason : AM EKG Blood Pressure : / mmHG Vent. Rate : 061 BPM Atrial Rate : 061 BPM P-R Int : 122 ms QRS Dur : 078 ms QT Int : 422 ms P-R-T Axes : 070 062 102 degrees QTc Int : 424 ms Normal sinus rhythm Normal ECG When compared with ECG of 08-NOV-2020 04:48, MANUAL COMPARISON REQUIRED, DATA IS UNCONFIRMED Confirmed by EFE CHINCHILLA, CIRO ([id number]), editorial director DANIELE VALDERRAMA ([id number]) on 11/09/2020 12:41:56 PM Referred By: ALINA Confirmed By:CIRO WILKS MD
[2020-11-08 05:59] LABS: ALB/GLOB Ratio 0.7 RATIO (0.9-2.4); AST(SGOT) 19 U/L (15-37); Alanine Aminotransfer ALT/SGPT 19 U/L (13-56); Albumin, Serum 2.6 g/dL (3.2-5.0); Alkaline Phosphatase 96 U/L (45-117); Anion Gap 8 (5-15); BUN 14 mg/dL (7-18); BUN/Creat Ratio 21.3 RATIO (10-20); Calcium,Total 8.8 mg/dL (8.5-10.1); Chloride 103 mmol/L (98-107); Creatinine, Serum 0.66 mg/dL (0.55-1.02); EST Glomerular Filtration Rate 96 mL/min (>60); Est Glom Filt Rate - Afr Amer 116 mL/min (>60); Globulin 3.7 g/dL (2.2-4.2); Glucose 156 mg/dL (74-106); Potassium 3.5 mmol/L (3.5-5.1); Protein, Total 6.3 g/dL (6.4-8.2); Sodium Level 137 mmol/L (136-145)
[2020-11-08] MEDS: TICAGRELOR 90 MG TABLET PO (06:06)
[2020-11-08] MEDS: Aspirin E.C. 81 MG Tablet PO (06:06)
[2020-11-08] MEDS: Gabapentin 800 MG Tablet PO ×3 (06:08→21:41)
[2020-11-08 06:23] LABS: Differential Comment SCANNED
[2020-11-08] MEDS: Ipratropium/Albuterol Sulfate 3 ML AMPUL.NEB INHALATION ×2 (06:45→19:04)
[2020-11-08] MEDS: oxyCODONE 5 MG Tablet PO ×2 (07:54→21:41)
[2020-11-08] MEDS: dilTIAZem CD 120 MG Capsule PO (07:55)
[2020-11-08] MEDS: 0.9% Normal Saline 1,000 ML 15 ML IV (07:55)
--- NOTE | 2020-11-08 09:09 | CASEMGMT ---
According to the [facility] website, the following are in-network tertiary facilities: [facility], [place], [facility], [facility], [facility], [facility], and . Anuel CORREIA CM
--- NOTE | 2020-11-08 10:00 | NURSING ---
Gave report to Anamaria CORREIA in pipelines laborer
--- NOTE | 2020-11-08 10:20 | NURSING ---
Gave report to [facility] RN
[2020-11-08] MEDS: ARIPiprazole 2 MG Tablet PO (12:09)
[2020-11-08] MEDS: 0.9% Normal Saline 1,000 ML 75 ML IV ×2 (12:09→21:43)
[2020-11-08] MEDS: DULoxetine Hcl 60 MG Capsule 120 MG PO (12:09)
[2020-11-08] MEDS: Loratadine 10 MG Tablet PO (12:10)
--- NOTE | 2020-11-08 13:05 | CASEMGMT ---
MASOOD SOLORZANO assessment: Face to Face with patient for initial transition planning/care coordination assessment. AMSOOD SOLORZANO introduced self and role at [facility], pt voices understanding and consents to assessment. Pt's son is at bedside during assessment. Pt is on 2L nc in no distress. Pt is A/Ox4 and answers all questions appropriately. Care providers, pharmacy, and demographics verified/updated. Presentation: SOB, seen at [facility] for same recently Admitting dx: Hypoxia, NSTEMI PCP: Jose Specialists: Psychiatrist at [facility] Preferred Pharmacy: [facility] Insurance: [facility] Prescription Benefit: [id number] Living Will/HPOA: Pt has LW/HPOA and is aware that they are on file at [facility]. Pt states daughter, Divya Prieto, is HPOA. LNOK: Divya Prieto, daughter/HPOA; Smith Staples, son Living Arrangements: Pt states lives alone in mobile home with couple steps in but does state has some friends currently staying with her. Pt states independent with ADL's. Transportation: Pt states drives self and states no transportation concerns. DME/HHC: Pt states has home oxygen 2L at bedtime thru [facility] and states no need for any further DME. Pt states is interested in HHC at discharge and list of in-network HHC companies provided. Pt states no hx of HHC or SNF in the past. Pt states no concerns with going home at time of discharge. Pt is disabled. Pt states smokes 1-1.5 packs per day but plans to quit at this time and states does not drink ETOH. Pt states no further concerns/needs. CM to follow for increased home oxygen need and any further discharge planning/needs. Advised pt to ask for CM if any further questions/concerns/needs arise, voices understanding. Pt Goal: Home Plan: Home, pending increased home oxygen need. [place]en MASOOD SOLORZANO
--- NOTE | 2020-11-08 14:23 | PN.HOSP_ITS ---
Subjective Subjective Breathing better, but still with shortness of breath. Objective Data Objective Data Vital Signs: Vital Signs Temp Pulse Resp BP Pulse Ox 37.1 C 66 16 129/72 H 94 11/08/20 13:46 11/08/20 13:46 11/08/20 13:46 11/08/20 13:46 11/08/20 12:30 Oxygen Flow Rate (L/min) 2 Oxygen Delivery Method Nasal Cannula Weight: 47.3 kg Body Mass Index (BMI) 17.9 Intake & Output: Intake and Output for Last 24 Hours 11/06/20 11/07/20 11/08/20 23:59 23:59 23:59 Intake Total 555.47 / 795.47 294.25 / 294.25 Balance 555.47 / 795.47 294.25 / 294.25 Lab / Micro Data Result Diagrams: 11/08/20 05:00 11/08/20 05:00 Labs: Laboratory Results - last 24 hr 11/07/20 14:16: Troponin I High Sens 1359 H* 11/07/20 18:35: APTT 80.8 H 11/08/20 01:07: APTT 67.0 H 11/08/20 05:00: WBC 5.9, RBC 4.31, Hgb 13.3, Hct 40.1, MCV 93.0, MCH 30.9, MCHC 33.2, RDW Std Deviation 44.0 H, RDW Coeff of Disha 12.9, Plt Count 203, MPV 9.8, Immature Gran % (Auto) 0.300, Neut % (Auto) 87.3 H, Lymph % (Auto) 9.5 L, [place] % (Auto) 2.7, Eos % (Auto) 0.0, Baso % (Auto) 0.2, Absolute Neuts (auto) 5.1, Absolute Lymphs (auto) 0.56 L, Nucleated RBC % 0, Differential Comment SCANNED 11/08/20 05:00: Sodium 137, Potassium 3.5, Chloride 103, Carbon Dioxide 26.0, Anion Gap 8, BUN 14, Creatinine 0.66, Estim Creat Clear Calc 64.30, Est GFR (MDRD) Af Amer 116, Est GFR (MDRD) Non-Af 96, BUN/Creatinine Ratio 21.3 H, Glucose 156 H, Calcium 8.8, Total Bilirubin 0.30, AST 19, ALT 19, Alkaline Phosphatase 96, Total Protein 6.3 L, Albumin 2.6 L, Globulin 3.7, Albumin/Globulin Ratio 0.7 L Micro: Microbiology 11/07/20 08:35 Nasal Secretion SARS-CoV-2 Antigen (Rapid) - Final Rhythm Strip Rhythm Strip: Sinus Rhythm Rate: 77 Ectopy: None Physical Exam Const alert Resp no retractions and no use of accessory muscles Resp Narrative: diminished BS. scant wheezes. Cardio regular rate, regular rhythm, S1 normal heart sound and S2 normal heart sound GI normal to inspection, nondistended, normoactive bowel sounds, soft to palpation, non-tender and non-distended Extremity normal to inspection Psych affect normal Assessment & Plan Assessment/Plan (1) NSTEMI, initial episode of care: (2) COPD exacerbation: PLAN: 1. NSTEMI * known CAD * may be type 2 from AECOPD * heparin gtt * cardiology consult * on ASA, statin 2. AECOPD * diminished * continue BDs and methylpred * start prednisone 11/09 3. PAfib * in NSR * on dilt 4. Cardiomyopathy * notified by Dr. Gr of [facility] CM. * carvedilol, lisinopril 5. Code status: DW pt, she wishes to be full code 6. COVID Vaccination: completed. 7. Disposition: monitor overnight and if improved and otherwise stable, could possibly discharge 11/09 Charges/Coding Visit Charges Inpatient E&M: 40560 Subs Hosp L2
[2020-11-08] MEDS: clonazePAM 0.5 MG Tablet PO (14:34)
--- NOTE | 2020-11-08 14:40 | CHAPLAIN ---
Type of Pastoral Visit _x__ Initial Visit ___ Follow-up Visit ___ On-call Visit ___ General Patient Visit ___ Spiritual Assessment ___ Family Conference ___ Bereavement ___ Rapid Response ___ Code Blue ___ Other (describe below) Pastoral Care Referral From _x__ Patient ___ Family ___ Nurse ___ Physician ___ Investment Strategist ___ Snuff Box Finisher ___ Other (describe below) Sacrament/Intervention _x__ Active listening ___ Anointing ___ Jainism ___ Bereavement ___ Communion ___ Margarita exploration ___ ___ Life review _x__ Prayer ___ Reconciliation ___ Sacrament of Sick _x__ Supportive presence ___ Wedding ___ Other (describe below) Pastoral Comments
--- NOTE | 2020-11-08 18:28 | PCM.PN.CARD ---
Subjective Subjective The patient underwent diagnostic cardiac catheterization earlier this day without any obvious adverse cardiovascular effects. Objective Data Vital Signs: Vital Signs Temp Pulse Resp BP Pulse Ox 98.0 F 86 18 116/76 92 11/08/20 15:00 11/08/20 17:00 11/08/20 17:00 11/08/20 17:00 11/08/20 17:00 Oxygen Flow Rate (L/min) 2 Oxygen Delivery Method Nasal Cannula Weight: 104 lb 4.458 oz Body Mass Index (BMI) 17.9 Intake & Output: Intake and Output for Last 24 Hours 11/06/20 11/07/20 11/08/20 23:59 23:59 23:59 Intake Total 555.47 / 795.47 414.25 / 414.25 Balance 555.47 / 795.47 414.25 / 414.25 Lab / Micro Data Result Diagrams: 11/08/20 05:00 11/08/20 05:00 Labs: Laboratory Results - last 24 hr 11/07/20 18:35: APTT 80.8 H 11/08/20 01:07: APTT 67.0 H 11/08/20 05:00: WBC 5.9, RBC 4.31, Hgb 13.3, Hct 40.1, MCV 93.0, MCH 30.9, MCHC 33.2, RDW Std Deviation 44.0 H, RDW Coeff of Disha 12.9, Plt Count 203, MPV 9.8, Immature Gran % (Auto) 0.300, Neut % (Auto) 87.3 H, Lymph % (Auto) 9.5 L, [place] % (Auto) 2.7, Eos % (Auto) 0.0, Baso % (Auto) 0.2, Absolute Neuts (auto) 5.1, Absolute Lymphs (auto) 0.56 L, Nucleated RBC % 0, Differential Comment SCANNED 11/08/20 05:00: Sodium 137, Potassium 3.5, Chloride 103, Carbon Dioxide 26.0, Anion Gap 8, BUN 14, Creatinine 0.66, Estim Creat Clear Calc 64.30, Est GFR (MDRD) Af Amer 116, Est GFR (MDRD) Non-Af 96, BUN/Creatinine Ratio 21.3 H, Glucose 156 H, Calcium 8.8, Total Bilirubin 0.30, AST 19, ALT 19, Alkaline Phosphatase 96, Total Protein 6.3 L, Albumin 2.6 L, Globulin 3.7, Albumin/Globulin Ratio 0.7 L Rhythm Strip Rhythm Strip: Sinus Rhythm Rate: 77 Ectopy: None Cardiology Labs/Tests 11/07/20 18:35: APTT 80.8 H 11/08/20 01:07: APTT 67.0 H 11/08/20 05:00: WBC 5.9, RBC 4.31, Hgb 13.3, Hct 40.1, MCV 93.0, MCH 30.9, MCHC 33.2, Plt Count 203, MPV 9.8, Immature Gran % (Auto) 0.300, Neut % (Auto) 87.3 H, Lymph % (Auto) 9.5 L, [place] % (Auto) 2.7, Eos % (Auto) 0.0, Baso % (Auto) 0.2, Absolute Neuts (auto) 5.1, Nucleated RBC % 0 11/08/20 05:00: Sodium 137, Potassium 3.5, Chloride 103, Carbon Dioxide 26.0, Anion Gap 8, BUN 14, Creatinine 0.66, Est GFR (MDRD) Af Amer 116, Est GFR (MDRD) Non-Af 96, BUN/Creatinine Ratio 21.3 H, Glucose 156 H, Calcium 8.8, Total Bilirubin 0.30 Rhythm: Sinus rhythm Physical Exam Const alert and oriented x3 General Appearance: other Somewhat cachectic and frail-appearing Orientation / Consciousness: awake HEENT normocephalic, head/scalp atraumatic and hearing grossly normal bilaterally Eyes PERRL, EOMs intact bilaterally and conjunctivae normal Neck full ROM, supple and no JVD Resp Auscultation: diminished lung sounds Cardio regular rate, regular rhythm, S1 normal heart sound and S2 normal heart sound GI normal to inspection, nondistended, normoactive bowel sounds Extremity no pedal edema Skin no rashes or lesions noted Neuro oriented x3, moves all extremities, no focal motor deficits and no sensory deficits noted Psych mental status grossly normal Assessment & Plan Assessment/Plan (1) NSTEMI, initial episode of care: PLAN: The patient does have findings compatible with an acute non-ST segment elevation PR. At the present time she will continue to be monitored. Her cardiac catheterization does not appear to demonstrate any obvious angiographically significant appearing CAD. It does demonstrate left ventricular findings compatible with an atypical Takotsubo syndrome event. She will continue medical management which will include altering her calcium channel antagonist to a beta-ronak and adding an LYRIC inhibitor/ARB as tolerated. (2) CAD (coronary artery disease): PLAN: The patient has a history of CAD. Again, her cardiac catheterization did not demonstrate any obvious angiographically significant appearing CAD. She will continue risk factor modification medical therapy. (3) Atrial fibrillation: QUALIFIERS: Atrial fibrillation type: unspecified Qualified Code(s): I48.91 - Unspecified atrial fibrillation PLAN: The patient has a history of atrial fibrillation. She has undergone EPS/RFA. She appears remaining in sinus rhythm at this time. She will continue to be monitored. (4) H/O cardiac radiofrequency ablation: PLAN: The details of her EPS/RFA are unknown at this time. However she states since that procedure she has been doing well and believes she has been remaining in sinus rhythm. (5) COPD (chronic obstructive pulmonary disease): PLAN: The patient has a history of underlying COPD. Certainly this can be a contributing factor to her progressive shortness of breath and dyspnea. She will continue evaluation care per internal medicine and proceed with her cardiovascular evaluation as noted. Addt'l Comments The above was discussed with the patient, her son, and the aforementioned information was communicated to Dr. Oconnor of the [facility] staff. This note was generated using a voice recognition system and there may be incorrect words, spelling or punctuation that were not noted when reviewing the office note prior to saving.
--- NOTE | 2020-11-08 18:45 | CL.D_ITS ---
Patient Name: =KENZIE HYLTON Study Date: 11/08/2020 Performing: Saul Gr MD Ht: 64 inches 163 cm : 1955 Wt: 103.8 lbs 47 kg Age: 65 Gender: female BSA: 1.48 PROCEDURE(S) PERFORMED RZ90-SEG/COR/LV CLINICAL PROFILE AND INDICATIONS Indications: ACS <= 24 hrs Heart Failure: None Stress/Imaging Stress/Image Study Performed: No Angina Classification Anginal Classification w/in 2 Weeks: Anginal Equivalent Dyspnea CAD Presentations: Non-STEMI. CONCLUSIONS Elevated Left Ventricular End Diastolic Pressure Segmented LV systolic dysfunction- Mild LVEF: by LV gram 55 % Comment: LV: hypokinesis of the mid anterior and mid inferior segments with overall preserved LV syst olic function / LVEF appearing c/w an atypical Takotsobu Syndrome RECOMMENDATIONS Risk factor modification Medical therapy Case discussed / reviewed with Dr. Mackey of Interventional Cardiology DESCRIPTION OF PROCEDURE The patient arrived to the procedure lab. The risks and benefits of the procedure as well as a full d escription of our services here and current unavailability of surgical backup were fully explained to the patient and/or their significant other prior to the catheterization. The Timeout was completed, verifying the correct patient and procedure. The patient's procedural site was prepped and draped in the usual fashion. Local anesthetic was given subcutaneously to right radial region with Lidocaine 2% - Dr Mackey. Local anesthetic was given subcutaneously to right ulnar region with Lidocaine 2%. Using a modified Seldinger technique, arterial access was obtained via the right ulnar a 6Fr sheath was in serted. Left Coronary Artery selective angiography was performed in multiple views using a 5 Fr. 4.0 [place] catheter. Right Coronary Artery selective angiography was then performed in multiple views usi ng a 5 Fr. 4.0 [place] catheter. Left Ventriculography was performed in HOLT projection using a 4 Fr. [place] catheter. LV to AO pullback pressures were then recorded.The arterial sheath was pull ed and a TR Band was applied for hemostasis w/ 12ml air CORONARY ANGIOGRAPHY DOMINANCE: Right Dominant LEFT HEART ASSESSMENT Left Ventricular Ejection Fraction: by LV Gram 55 % Anterior Hypokinesis. Inferior Mid Hypokinesis Elevated Left Ventricular End Diastolic Pressure LVEDP: 34 mmHg LEFT MAIN: Angiographically normal LEFT ANTERIOR DESCENDING ARTERY: PROX LAD: Mild luminal irregularities CIRCUMFLEX ARTERY: OM 1: Proximal - 25 % Stenosis RIGHT CORONARY ARTERY: Angiographically normal AORTIC ROOT: Angiographically normal COMPLICATIONS No Complications PROCEDURE MEDICATIONS Versed 1 mg IV Fentanyl 50 mcg IV Fentanyl 50 mcg IV Oxygen: 2 L/min via nasal cannula Heparin given IA 11/08/2020 11:20:22 Verapamil 2.5mg, Ntg 100mcgs, 3000 units of Heparin given IA 11/08/2020 11:20:22 SUMMARY OF HEMODYNAMIC DATA Time AIR REST ECG 10:47:08 AO 94/58 (74) SA 11:24:33 LV 120/16, 39 11:31:14 LV 115/14, 34 11:31:20 LV 116/15, 28 11:32:26 LV 120/14, 31 11:32:34 LVp 119/14, 30 11:32:39 AOp 118/71 (91) 11:32:44 AO 124/75 (95) 11:33:43 Signed By Saul Gr MD On 11/08/2020 18:44:56 Saul Gr MD
[2020-11-08] MEDS: traZODone 100 MG Tablet PO (21:42)
[2020-11-08] MEDS: Carvedilol 3.125 MG TABLET PO (21:42)
[2020-11-08] MEDS: Atorvastatin Calcium 20 MG Tablet PO (21:42)
[2020-11-08] MEDS: Lisinopril 2.5 MG Tablet PO (21:43)
[2020-11-08] MEDS: guaiFENesin 1,200 MG Tablet 1200 MG PO (22:10)
[2020-11-09] VITALS (12 sets, daily range): BP systolic 108–127; BP diastolic 66–80; PULSE 61–106; RESP 16–22; TEMP 36.3–36.6; O2SAT 86–95
[2020-11-09] MEDS: Gabapentin 800 MG Tablet PO ×2 (05:47→13:54)
--- NOTE | 2020-11-09 05:55 | EKG12_ITS ---
Test Reason : Blood Pressure : / mmHG Vent. Rate : 066 BPM Atrial Rate : 066 BPM P-R Int : 104 ms QRS Dur : 074 ms QT Int : 426 ms P-R-T Axes : 063 041 067 degrees QTc Int : 446 ms Sinus rhythm with short OR Otherwise normal ECG When compared with ECG of 07-NOV-2020 11:29, MANUAL COMPARISON REQUIRED, DATA IS UNCONFIRMED Confirmed by EFE CHINCHILLA, CIRO ([id number]), health editor DANIELE VALDERRAMA ([id number]) on 11/09/2020 12:43:16 PM Referred By: DANIEL Confirmed By:CIRO WILKS MD
[2020-11-09 06:09] LABS: Absolute Lymphocyte Count 1.01 X10^3/uL (0.83-4.51); Absolute Neutrophil Count 17.4 X10^3/uL (2.0-7.7); Basophil# 0.02 X10^3/uL; Basophil% 0.1 % (0-1); Hematocrit 39.2 % (37-47); Hemoglobin 12.8 g/dL (12.0-15.0); Lymphocyte # 1.01 X10^3/ul (0.83-4.51); Lymphocyte % 5.3 % (19-41); Mean Corp Hgb Conc 32.7 g/dL (32-36); Mean Corpuscular Hgb 30.9 pg (27.0-32.0); Mean Corpuscular Volume 94.7 fL (81-99); Mean Platelet Vol. 9.9 fl (6.2-12.0); Monocyte# 0.49 X10^3/uL; Monocyte% 2.6 % (0-10); NRBC Flagged by Analyzer 0 % (0-5); Neutrophil % 91.5 % (47-70); Platelet Count 221 K/mm3 (150-450); RBC Distribution Width CV 13.2 % (11.6-14.6); RBC Distribution Width SD 46.2 fl (35.1-43.9); Red Blood Count 4.14 M/mm3 (4.2-5.4)
[2020-11-09 06:33] LABS: Anion Gap 6 (5-15); BUN 14 mg/dL (7-18); BUN/Creat Ratio 19.3 RATIO (10-20); Calcium,Total 8.6 mg/dL (8.5-10.1); Chloride 107 mmol/L (98-107); Creatinine, Serum 0.72 mg/dL (0.55-1.02); EST Glomerular Filtration Rate 86 mL/min (>60); Est Glom Filt Rate - Afr Amer 104 mL/min (>60); Estimated Creatinine Clearance 58.94 ml/min; Glucose 126 mg/dL (74-106); Potassium 4.1 mmol/L (3.5-5.1); Sodium Level 140 mmol/L (136-145)
[2020-11-09] MEDS: Ipratropium/Albuterol Sulfate 3 ML AMPUL.NEB INHALATION ×3 (06:51→15:19)
--- NOTE | 2020-11-09 07:50 | PN.CARD_ITS ---
Subjective Subjective The patient is awake and alert. She denies any ongoing chest discomfort. She states her main concern is her chronic shortness of breath and dyspnea. Objective Data Vital Signs: Vital Signs Temp Pulse Resp BP Pulse Ox 97.3 F L 82 20 H 108/66 94 11/09/20 04:26 11/09/20 07:23 11/09/20 07:23 11/09/20 04:26 11/09/20 07:21 Oxygen Flow Rate (L/min) 2 Oxygen Delivery Method Nasal Cannula Weight: 104 lb 4.458 oz Body Mass Index (BMI) 17.9 Intake & Output: Intake and Output for Last 24 Hours 11/07/20 11/08/20 11/09/20 23:59 23:59 23:59 Intake Total 555.47 / 795.47 1491.75 / 1491.75 Output Total 300 / 300 Balance 555.47 / 795.47 1191.75 / 1191.75 Lab / Micro Data Result Diagrams: 11/09/20 05:14 11/09/20 05:14 Labs: Laboratory Results - last 24 hr 11/09/20 05:14: WBC 19.0 H, RBC 4.14 L, Hgb 12.8, Hct 39.2, MCV 94.7, MCH 30.9, MCHC 32.7, RDW Std Deviation 46.2 H, RDW Coeff of Disha 13.2, Plt Count 221, MPV 9.9, Immature Gran % (Auto) 0.500, Neut % (Auto) 91.5 H, Lymph % (Auto) 5.3 L, [place] % (Auto) 2.6, Eos % (Auto) 0.0, Baso % (Auto) 0.1, Absolute Neuts (auto) 17.4 H, Absolute Lymphs (auto) 1.01, Nucleated RBC % 0 11/09/20 05:14: Sodium 140, Potassium 4.1, Chloride 107, Carbon Dioxide 27.0, Anion Gap 6, BUN 14, Creatinine 0.72, Estim Creat Clear Calc 58.94, Est GFR (MDRD) Af Amer 104, Est GFR (MDRD) Non-Af 86, BUN/Creatinine Ratio 19.3, Glucose 126 H, Calcium 8.6 Rhythm Strip Rhythm Strip: Sinus Rhythm Rate: 77 Ectopy: None Cardiology Labs/Tests 11/09/20 05:14: WBC 19.0 H, RBC 4.14 L, Hgb 12.8, Hct 39.2, MCV 94.7, MCH 30.9, MCHC 32.7, Plt Count 221, MPV 9.9, Immature Gran % (Auto) 0.500, Neut % (Auto) 91.5 H, Lymph % (Auto) 5.3 L, [place] % (Auto) 2.6, Eos % (Auto) 0.0, Baso % (Auto) 0.1, Absolute Neuts (auto) 17.4 H, Nucleated RBC % 0 11/09/20 05:14: Sodium 140, Potassium 4.1, Chloride 107, Carbon Dioxide 27.0, Anion Gap 6, BUN 14, Creatinine 0.72, Est GFR (MDRD) Af Amer 104, Est GFR (MDRD) Non-Af 86, BUN/Creatinine Ratio 19.3, Glucose 126 H, Calcium 8.6 Rhythm: Sinus rhythm EKG: Sinus rhythm; no acute ECG changes Physical Exam Const alert and oriented x3 General Appearance: other Somewhat cachectic and frail-appearing Orientation / Consciousness: awake HEENT normocephalic, head/scalp atraumatic and hearing grossly normal bilaterally Eyes PERRL, EOMs intact bilaterally and conjunctivae normal Neck full ROM, supple and no JVD Resp Auscultation: diminished lung sounds Cardio regular rate, regular rhythm, S1 normal heart sound and S2 normal heart sound GI normal to inspection, nondistended, normoactive bowel sounds Extremity no pedal edema Peripheral Pulses: Yes ulnar pulses present right (No obvious bruits: No obvious hematoma) 2+ Skin no rashes or lesions noted Neuro oriented x3, moves all extremities, no focal motor deficits and no sensory deficits noted Psych mental status grossly normal Assessment & Plan Assessment/Plan (1) NSTEMI, initial episode of care: PLAN: The patient does have findings compatible with an acute non-ST segment elevation IA. Her cardiac catheterization does not appear to demonstrate any obvious angiographically significant appearing CAD. It does demonstrate left ventricular findings compatible with an atypical Takotsubo syndrome event. It would not be unreasonable to obtain a baseline transthoracic echocardiogram to assist in further assessing her left ventricular wall motion and overall systolic function which can be used for comparison purposes in the future. She will continue medical management which will include altering her calcium channel antagonist to a beta-ronak and adding an LYRIC inhibitor/ARB as tolera amos. (2) CAD (coronary artery disease): PLAN: The patient has a history of CAD. Again, her cardiac catheterization did not demonstrate any obvious angiogr aphically significant appearing CAD. She will continue risk factor modification medical therapy. (3) Atrial fibrillation: QUALIFIERS: Atrial fibrillation type: unspecified Qualified Code(s): I48.91 - Unspecified atrial fibrillation PLAN: The patient has a history of atrial fibrillation. She has undergone EPS/RFA. She appears remaining in sinus rhythm at this time. She will continue to be monitored. (4) H/O cardiac radiofrequency ablation: PLAN: The details of her EPS/RFA are unknown at this time. However she states since that procedure she has been doing well and believes she has been remaining in sinus rhythm. (5) COPD (chronic obstructive pulmonary disease): PLAN: The patient has a history of underlying COPD. Certainly this can be a contributing factor to her progressive shortness of breath and dyspnea. She will continue evaluation care per internal medicine and proceed with her cardiovascular evaluation as noted. Addt'l Comments Overall, from a cardiac standpoint, the patient appears to be symptomatically an d hemodynamically stable. She will continue her adjusted medical therapy. She will need future outpatient cardiovascular follow-up to monitor her course which over time may include additional studies such as echocardiographic studies to monitor her left ventricular wall motion and overall systolic function. This note was generated using a voice recognition system and there may be incorrect words, spelling or punctuation that were not noted when reviewing the office note prior to saving.
--- NOTE | 2020-11-09 07:54 | ECHOD_ITS ---
Reason For Study: S/P MN Procedure This was a 2D Doppler, Color Flow transthoracic echocardiogram. Exam performed in department. Left Ventricle Normal left ventricle. The estimated ejection fraction is EF 45-50 %. Right Ventricle Normal right ventricle. Normal systolic function. Atria Normal left atrium. Normal right atrium. Mitral Valve The mitral valve is structurally normal. No prolapse or stenosis seen. Tricuspid Valve Normal tricuspid valve. Aortic Valve Normal aortic valve. Pulmonic Valve The pulmonic valve is not well visualized. Great Vessels Normal aortic root. Pericardium/Pleural No pericardial effusion. MMode/2D Measurements & Calculations LVIDd: 4.4 cm IVSd: 0.61 cm Ao root diam: 3.0 cm LVIDs: 3.3 cm LVPWd: 0.64 cm FS: 25.1 % LAV(MOD-bp): 27.8 ml LVAd ap4: 24.4 cm2 LVAd ap2: 23.1 cm2 LAV(MOD-bp) Indexed: 18.7 ml/m2 LVLd ap4: 7.1 cm LVLd ap2: 7.1 cm LAV(MOD-sp2): 25.6 ml EDV(MOD-sp4): 74.1 ml EDV(MOD-sp2): 68.9 ml LAV(MOD-sp4): 29.9 ml EDV(sp4-el): 71.3 ml EDV(sp2-el): 64.1 ml LVAs ap4: 12.5 cm2 LVAs ap2: 12.5 cm2 LVLs ap4: 5.2 cm LVLs ap2: 5.4 cm ESV(MOD-sp4): 25.6 ml ESV(MOD-sp2): 25.4 ml ESV(sp4-el): 25.4 ml ESV(sp2-el): 24.9 ml EF(MOD-sp4): 65.5 % EF(MOD-sp2): 63.1 % EF(sp4-el): 64.4 % SV(MOD-sp4): 48.5 ml SV(MOD-sp2): 43.5 ml SV(sp4-el): 45.9 ml LA dimension(2D): 2.3 cm LA A4 area: 13.6 cm2 Time Measurements MV dec time: 0.17 sec Doppler Measurements & Calculations MV E max emily: 76.9 cm/sec Ao V2 max: 100.0 cm/sec LV V1 max: 90.7 cm/sec MV A max emily: 57.8 cm/sec Ao max P.0 mmHg LV V1 max P.3 mmHg MV E/A: 1.3 PA V2 max: 83.5 cm/sec ECHO/Echo Complete Interpretation Summary The estimated ejection fraction is EF 45-50 %. Mild LV systolic function Referring Physician: Justin Robledo M.D. Performed By: Martha Sanchez, KAILASH, RVT
[2020-11-09] MEDS: Carvedilol 3.125 MG TABLET PO (08:46)
[2020-11-09] MEDS: ARIPiprazole 2 MG Tablet PO (08:46)
[2020-11-09] MEDS: guaiFENesin 1,200 MG Tablet 1200 MG PO (08:46)
[2020-11-09] MEDS: Aspirin E.C. 81 MG Tablet PO (08:46)
[2020-11-09] MEDS: predniSONE 20 MG Tablet 40 MG PO (08:46)
[2020-11-09] MEDS: Loratadine 10 MG Tablet PO (08:46)
[2020-11-09] MEDS: Lisinopril 2.5 MG Tablet PO (08:46)
[2020-11-09] MEDS: DULoxetine Hcl 60 MG Capsule 120 MG PO (08:46)
[2020-11-09] MEDS: oxyCODONE 5 MG Tablet PO (08:50)
--- NOTE | 2020-11-09 10:09 | CASEMGMT ---
Addendum entered by Mirella Bender 11/09/20 16:01: Call back from [facility] and they states they cannot service pt area. Anuel CORREIA CM Addendum entered by Mirella Bender 11/09/20 15:43: Call back from [facility] and pt is out of their service area. Referral faxed to [facility]. Pt is ready for discharge and is aware that this RN CM will keep working on getting HHC set up, voices understanding. Pt voices no further questions/concerns/needs. Anuel CORREIA CM Addendum entered by Mirella Bender 11/09/20 14:10: This RN CM has still not heard back from [facility] and all placed again with no answer. Referral faxed to [facility] at this time and call to be placed to ray Deleon, to be updated on referral. CM to follow. Anuel CORREIA CM Original Note: Per Roxy CORREIA, pt qualifies for 4L w/ exertion home oxygen. Pt has a concentrator at home for 2L at bedtime. New order obtained and faxed to [facility]. Call to [facility] to notify of new order and that pt will need e-tank for discharge, voices understanding. Pt updated on all and states would like [facility] then [facility] or [facility] if [facility] unable to accept. Referral faxed to [facility] at this time and call to notify of referral. Anuel CORREIA CM
--- NOTE | 2020-11-09 12:49 | NURSING ---
Report given to MASOOD Castro at this time.
[2020-11-09] MEDS: Acetaminophen 500 MG Tablet 1000 MG PO (13:54)
--- NOTE | 2020-11-09 14:58 | PCM.DC ---
Discharge Instructions Diet Discharge Diet: Low fat / Low cholesterol and 2000 mg Sodium Diet Dressing / Incision Call your doctor if you observe: Shortness of breath and Chest pain Follow Up Care Test Results: Test results from this visit will be discussed in further detail at your follow-up appointment, if applicable. Discharge Plan Admission Admit Date/Time: 11/07/20 12:38 Primary Reason for Your Visit: COPD exacerbation. Attending Provider: Bart Oconnor Primary Care Provider: Oh Garcia Consulting Providers: Saul Gr Discharge Orders/Prescriptions Prescriptions: New carvedilol 3.125 mg Tablet 3.125 mg PO BID Qty: 60 RF: 0 Ensure Enlive 0.08 gram-1.5 kcal/mL Liquid 120 ml PO 4X/DAY Qty: 2844 RF: 0 Mucus Relief ER 1,200 mg Tablet Extended Release 12hr 1,200 mg PO BID Qty: 10 RF: 0 lisinopril 2.5 mg Tablet 2.5 mg PO BID Qty: 60 RF: 0 prednisone 20 mg Tablet 40 mg PO BREAKFAST 4 Days Qty: 8 RF: 0 Continued atorvastatin 20 mg tablet 20 mg PO QHS Qty: 30 RF: 11 duloxetine 60 mg capsule,delayed release(DR/EC) 120 mg PO DAILY RF: 0 gabapentin 800 mg tablet 800 mg PO TID RF: 0 albuterol sulfate 1 INHALER inhaler 2 puff inhalation Q6H PRN PRN (Reason: Shortness Of Breath) Qty: 1 RF: 0 clonazepam 0.5 MG tablet 0.5 mg PO DAILY PRN (Reason: Anxiety) RF: 0 tiotropium bromide 1 PUFF inhaler 1 puff inhalation DAILY RF: 0 albuterol sulfate 2.5 MG/3 ML solution for nebulization 2.5 mg inhalation Q6HWA.RT PRN (Reason: COPD) RF: 0 trazodone 100 MG tablet 100 mg PO QHS RF: 0 aspirin 81 MG tablet 81 mg PO DAILY@0800 Qty: 30 RF: 0 loratadine 10 MG capsule 10 mg PO DAILY PRN (Reason: allergies) RF: 0 oxycodone-acetaminophen 1 EACH tablet 1 ea PO BID RF: 0 aripiprazole 2 MG tablet 2 mg PO DAILY RF: 0 Discontinued diltiazem HCl 120 mg capsule,extended release 24hr 120 mg PO DAILY Qty: 90 RF: 3 Referrals / Follow Up: Oh Garcia DO [Primary Care Provider] - Jonathan Beard R[employer]EDER, [employer]-C [Nurse Practitioner] - 11/22/20 10:30 am Disposition Disposition (needs filled in before D/C Order can be placed): Home, Self Care
--- NOTE | 2020-11-09 15:04 | DS.PCM_ITS ---
Providers Date of Admission: 11/07/20 Primary Care Physician: Dr. Oh Garcia DO Consultations 11/08/20 11:21 Consult: Cardiology Routine Consulting Provider: Saul Gr Reason for Consult: nstemi EMERGENT Consult: No MD Notified: Yes Date Notified: 11/08/20 Time Notified: 11:22 Method of Notification: Verbal Reason For Visit: HYPOXIA, NSTEMI Diagnosis Discharge Diagnosis (1) NSTEMI, initial episode of care: Status: Acute Code(s): I21.4 - Non-ST elevation (NSTEMI) myocardial infarction (2) CAD (coronary artery disease): Status: Acute Code(s): I25.10 - Atherosclerotic heart disease of [place] coronary artery without angina pectoris Qualifiers: Coronary Disease-Associated Artery/Lesion type: unspecified vessel or lesion type [place] vs. transplanted heart: [place] heart Associated angina: without angina Qualified Code(s): I25.10 - Atherosclerotic heart disease of [place] coronary artery without angina pectoris (3) Atrial fibrillation: Status: Inactive Code(s): I48.91 - Unspecified atrial fibrillation Qualifiers: Atrial fibrillation type: unspecified Qualified Code(s): I48.91 - Unspecified atrial fibrillation (4) H/O cardiac radiofrequency ablation: Status: Chronic Code(s): Z98.890 - Other specified postprocedural states (5) COPD (chronic obstructive pulmonary disease): Status: Chronic Code(s): J44.9 - Chronic obstructive pulmonary disease, unspecified Qualifiers: COPD type: unspecified COPD Qualified Code(s): J44.9 - Chronic obstructive pulmonary disease, unspecified (6) Takotsubo cardiomyopathy: Status: Acute Code(s): I51.81 - Takotsubo syndrome (7) Severe protein-calorie malnutrition: Status: Acute Code(s): E43 - Unspecified severe protein-calorie malnutrition Medications at Discharge Home Medications albuterol sulfate 2 puff INHALATION Q6H PRN PRN #1 inhaler 05/02/14 clonazepam 0.5 mg PO DAILY PRN 10/30/15 tiotropium bromide 1 puff INHALATION DAILY 08/03/16 albuterol sulfate 2.5 mg INHALATION Q6HWA.RT PRN 06/30/17 trazodone 100 mg PO QHS 06/30/17 aspirin 81 mg PO DAILY@0800 #30 tab 12/06/17 atorvastatin 20 mg tablet 20 mg PO QHS #30 tab 02/11/19 loratadine 10 mg PO DAILY PRN 06/07/19 aripiprazole 2 mg PO DAILY 11/02/19 oxycodone-acetaminophen 1 ea PO BID 11/02/19 duloxetine 60 mg capsule,delayed release 120 mg PO DAILY cap 11/08/19 gabapentin 800 mg tablet 800 mg PO TID tab 11/08/19 carvedilol 3.125 mg PO BID #60 tab 11/09/20 food supplemt, lactose-reduced [Ensure Enlive] 120 ml PO 4X/DAY #2844 ml 10/13 guaifenesin [Mucus Relief ER] 1,200 mg PO BID #10 tab 11/09/20 lisinopril 2.5 mg PO BID #60 tab 11/09/20 prednisone 40 mg PO BREAKFAST 4 Days #8 tab 11/09/20 Hospital Course Operations None Procedures 2-D Echocardiogram and Cardiac catheterization Summary of Care Provided Minutes Spent on Discharge: 34 Hospital Course: Six 5-year-old male presents with worsening shortness of breath. Patient has chronic dyspnea but has become more pronounced over the past week. Patient had troponins that were slightly elevated when she presented and cardiology was nausea contacted through the emergency room patient was started on a heparin drip. Patient also had exam consistent with COPD exacerbation was started on bronchodilators as well as methylprednisolone. Patient breathing overall improved. Patient was taken for cardiac cat heterization on that showed an atypical Takotsubo picture. EF was 55%. She did have an 2D echocardiogram performed today results of which are certainly pending. Patient had a non-ST elevation myocardial infarction due to takosubo cardiomyopathy and probably also compounded by the COPD exacerbation. Patient follow-up with cardiology as outpatient. Patient will require oxygen upon discharge none at rest but 4 L with activity. Physical Exam Const alert Resp normal respiratory effort and no retractions Resp Narrative: Diminished Cardio regular rate, regular rhythm and S1 normal heart sound Medical Records Data Medical Nutrition Assessment Dietitian: Malnutrition Criteria Met Start: 11/08/20 15:13 Freq: Status: Active Protocol: Document 11/08/20 15:13 AG (Rec: 11/08/20 15:13 AG [id number]) Nutrition Malnutrition Evidence of Malnutrition Exists Yes Malnutrition (severe): Chronic Evidenced By Suboptimal Energy Intake ( Severe),Weight Loss (Severe) Clinical Problem Chronic Disease or Condition Related Malnutrition Etiology severe malnutrition r/t predicted suboptimal energy intake w/ increased energy needs d/t COPD Signs/Symptoms as evidenced by unintentional wt loss of 25.7#/20% wt loss x 6 months; severe muscle wasting/fat loss in upper extremities, orbital, and clavicle region per physical exam Status Active Problem Recommendation Dietitian Recommendations/Changes regular diet given malnutrition; will add 120mL ensure enlive w/ medpass and provide additional calories/ protein if consumed. Weight / BMI Weight Weight: 47.3 kg Body Mass Index (BMI) 17.9 ABG / Lab / Microbiology Data Result Diagrams: 11/09/20 05:14 11/09/20 05:14 Laboratory: Laboratory Results - last 24 hr 11/09/20 05:14: WBC 19.0 H, RBC 4.14 L, Hgb 12.8, Hct 39.2, MCV 94.7, MCH 30.9, MCHC 32.7, RDW Std Deviation 46.2 H, RDW Coeff of Disha 13.2, Plt Count 221, MPV 9.9, Immature Gran % (Auto) 0.500, Neut % (Auto) 91.5 H, Lymph % (Auto) 5.3 L, [place] % (Auto) 2.6, Eos % (Auto) 0.0, Baso % (Auto) 0.1, Absolute Neuts (auto) 17.4 H, Absolute Lymphs (auto) 1.01, Nucleated RBC % 0 11/09/20 05:14: Sodium 140, Potassium 4.1, Chloride 107, Carbon Dioxide 27.0, Anion Gap 6, BUN 14, Creatinine 0.72, Estim Creat Clear Calc 58.94, Est GFR (MDRD) Af Amer 104, Est GFR (MDRD) Non-Af 86, BUN/Creatinine Ratio 19.3, Glucose 126 H, Calcium 8.6 Microbiology: Microbiology 11/07/20 08:35 Nasal Secretion SARS-CoV-2 Antigen (Rapid) - Final D/C Instructions Discharge Diet: Low fat / Low cholesterol and 2000 mg Sodium Diet Call your doctor if you observe: Shortness of breath and Chest pain Meaningful Use Info Meaningful Use Diagnoses (Choose all that apply): AMI AMI/Post PCI/Angioplasty Aspirin given w/in 24hrs of arrival?: Yes ASA at discharge?: Yes Antiplatelet Therapy at Discharge:: No Reason Antiplatelet Therapy not ordered:: non obstructive CAD Statins at discharge?: Yes Temo/ARB at discharge?: Yes Beta Adelso at discharge?: Yes Done w/ Acute OR measure.: Yes Documented LVEF (%): 55 Discharge Plan Admission Admit Date/Time: 11/07/20 12:38 Primary Reason for Your Visit: COPD exacerbation. Attending Provider: Bart Oconnor Primary Care Provider: Oh Garcia Consulting Providers: Saul Gr Discharge Orders/Prescriptions Prescriptions: New carvedilol 3.125 mg Tablet 3.125 mg PO BID Qty: 60 RF: 0 Ensure Enlive 0.08 gram-1.5 kcal/mL Liquid 120 ml PO 4X/DAY Qty: 2844 RF: 0 Mucus Relief ER 1,200 mg Tablet Extended Release 12hr 1,200 mg PO BID Qty: 10 RF: 0 lisinopril 2.5 mg Tablet 2.5 mg PO BID Qty: 60 RF: 0 prednisone 20 mg Tablet 40 mg PO BREAKFAST 4 Days Qty: 8 RF: 0 Continued atorvastatin 20 mg tablet 20 mg PO QHS Qty: 30 RF: 11 duloxetine 60 mg capsule,delayed release(DR/EC) 120 mg PO DAILY RF: 0 gabapentin 800 mg tablet 800 mg PO TID RF: 0 albuterol sulfate 1 INHALER inhaler 2 puff inhalation Q6H PRN PRN (Reason: Shortness Of Breath) Qty: 1 RF: 0 clonazepam 0.5 MG tablet 0.5 mg PO DAILY PRN (Reason: Anxiety) RF: 0 tiotropium bromide 1 PUFF inhaler 1 puff inhalation DAILY RF: 0 albuterol sulfate 2.5 MG/3 ML solution for nebulization 2.5 mg inhalation Q6HWA.RT PRN (Reason: COPD) RF: 0 trazodone 100 MG tablet 100 mg PO QHS RF: 0 aspirin 81 MG tablet 81 mg PO DAILY@0800 Qty: 30 RF: 0 loratadine 10 MG capsule 10 mg PO DAILY PRN (Reason: allergies) RF: 0 oxycodone-acetaminophen 1 EACH tablet 1 ea PO BID RF: 0 aripiprazole 2 MG tablet 2 mg PO DAILY RF: 0 Discontinued diltiazem HCl 120 mg capsule,extended release 24hr 120 mg PO DAILY Qty: 90 RF: 3 Referrals / Follow Up: hO Garcia DO [Primary Care Provider] - Jonathan Beard INVESTMENT COUNSELOR, INVESTMENT COUNSELOR-C [Nurse Practitioner] - 11/22/20 10:30 am Disposition Disposition (needs filled in before D/C Order can be placed): Home Health Ser vice Charges/Coding Visit Charges Inpatient E&M: 99781 Disch Hosp
--- NOTE | 2020-11-10 08:46 | CASEMGMT ---
Addendum entered by Mirella Bender 11/10/20 13:54: 1103 Call from [facility] and they state they can accept pt and will see pt today. She states they already spoke with pt regarding same. Call to [facility] to cancel referral, voice understanding and MASOOD SOLORZANO to check in with pt during f/u phone call. Anuel CORREIA CM Original Note: This RN CM received message from [facility] stating they can accept pt. Anuel CORREIA CM
--- NOTE | 2020-11-10 13:55 | CASEMGMT ---
MASOOD SOLORZANO Discharge Follow-Up Phone Call. Yumiko: 12 Strata: 3 Discharge Date: 11/09/20 Adm Dx: NSTEMI Call to pt to inquire about how she has been doing since being discharged from the hospital. Pt states, I'm doing okay. She states [facility] was out to see her at her home today and reviewed discharge instructions w/her. She states Jv was also there today to bring longer extension tubing and more O2 tanks. She states she has not picked up her new rx's @ [facility] yet, but her niece just went to pick them up and should be back any time now. MASOOD SLOORZANO advised pt to contact [facility] nurse if she has any questions about the medications once she gets them. Pt is aware of the appt scheduled w/Jonathan Beard on 11/22 and she states she has an appt w/Oh Garcia on 11/17, she thinks @ 11:30. She denies having any questions about the discharge instructions and denies any concerns/needs at this time. Juan THOMAS RN, CM
== END 2020-11-09 15:55 | disposition home health service (06) | DRG 280 ==
LOC: ED 08:52 → PCU 11-08 06:50
PROVIDERS: Internal Medicine Cardiovascular Disease; Emergency Provider Emergency Medicine; PCP Student in an Organized Health Care Education/Training Program
DX: I21.4 Non-ST elevation (NSTEMI) myocardial infarction (principal); E43 Unspecified severe protein-calorie malnutrition; J44.1 Chronic obstructive pulmonary disease with (acute) exacerbation; I51.81 Takotsubo syndrome; Z68.1 Body mass index [BMI] 19.9 or less, adult; I48.0 Paroxysmal atrial fibrillation; M79.7 Fibromyalgia; I25.10 Atherosclerotic heart disease of native coronary artery without angina pectoris; F17.210 Nicotine dependence, cigarettes, uncomplicated; Z23 Encounter for immunization; Z82.49 Family history of ischemic heart disease and other diseases of the circulatory system; Z86.711 Personal history of pulmonary embolism; Z86.718 Personal history of other venous thrombosis and embolism; Z90.49 Acquired absence of other specified parts of digestive tract; Z90.710 Acquired absence of both cervix and uterus
CPT/HCPCS: 36415; 71045; 71275; 80048; 80053; 84484; 85025; 85379; 85610; 85730; 87426; 93005; 93306; 93458; 94640; 94667; 94668; 99152; 99153; 99251; 99285; G0008; J7030; Q9967; 90686; A4216; C1769; C1894; G0463

== ENCOUNTER 2021-04-15 17:08 | Emergency (ER) | payer MEDICARE, SELFPAY ==
[2021-04-15 17:09] VITALS: BP 117/91; PULSE 85; RESP 18; TEMP 36.5; O2SAT 97; BMI 16.9
[2021-04-15 17:44] VITALS: PULSE 88; RESP 18; O2SAT 97
--- NOTE | 2021-04-15 18:09 | EKG12_ITS ---
Test Reason : CP Blood Pressure : / mmHG Vent. Rate : 081 BPM Atrial Rate : 081 BPM P-R Int : 130 ms QRS Dur : 074 ms QT Int : 376 ms P-R-T Axes : 087 071 060 degrees QTc Int : 436 ms Normal sinus rhythm Normal ECG Confirmed by EFE CHINCHILLA, CIRO ([id number]), web content editor DANIELE VALDERRAMA ([id number]) on 04/17/2021 9:21:25 AM Referred By: CODI/BASHIR Confirmed By:CIRO WILKS MD
--- NOTE | 2021-04-15 18:11 | RAD_ITS ---
INDICATION: chest pain EXAMINATION/TECHNIQUE: X-RAY - XR Chest 1 View COMPARISON: 10/30/2020 FINDINGS: LIFE-SUPPORT AND LINES: 1. None HEART AND VESSELS: The cardiac silhouette, pulmonary vasculature have normal appearance. No evidence of congestive failure. LUNGS AND PLEURAL SPACES: Lungs are hyperexpanded but clear. No infiltrate or consolidation. No pulmonary mass is noted. MEDIASTINUM AND HILAR REGIONS: No masses adenopathy noted. No areas of calcification. Visualized upper airway is normal in position. BONY ELEMENTS: No acute bony changes noted. RAD/Chest 1 View (Portable) IMPRESSION: 1. Pulmonary hyperexpansion without focal infiltrate consolidation or effusion. Sequelae of COPD is a consideration. 2. No evidence congestive failure. Electronically Signed: Vasu Foster MD at 18:48 EST ,
[2021-04-15 18:14] VITALS: PULSE 88; RESP 23; O2SAT 97
[2021-04-15] MEDS: Aspirin 81 MG TAB.CHEW 324 MG PO (18:19)
[2021-04-15 18:27] LABS: Absolute Lymphocyte Count 3.52 X10^3/uL (0.83-4.51); Absolute Neutrophil Count 3.2 X10^3/uL (2.0-7.7); Basophil# 0.06 X10^3/uL; Basophil% 0.8 % (0-1); Eosinophil# 0.27 X10^3/uL; Eosinophils% 3.5 % (0-5); Hematocrit 47.1 % (37-47); Hemoglobin 15.7 g/dL (12.0-15.0); Lymphocyte # 3.52 X10^3/ul (0.83-4.51); Lymphocyte % 45.5 % (19-41); Mean Corp Hgb Conc 33.3 g/dL (32-36); Mean Corpuscular Hgb 32.3 pg (27.0-32.0); Mean Corpuscular Volume 96.9 fL (81-99); Mean Platelet Vol. 9.8 fl (6.2-12.0); Monocyte# 0.63 X10^3/uL; Monocyte% 8.2 % (0-10); NRBC Flagged by Analyzer 0 % (0-5); Neutrophil # 3.23 X10^3/uL (2.7-7.7); Neutrophil % 41.7 % (47-70); Platelet Count 281 K/mm3 (150-450); RBC Distribution Width CV 12.4 % (11.6-14.6); RBC Distribution Width SD 44.3 fl (35.1-43.9); Red Blood Count 4.86 M/mm3 (4.2-5.4); White Blood Count 7.7 K/mm3 (4.4-11.0)
[2021-04-15 18:42] LABS: Anion Gap 1 (5-15); BUN 15 mg/dL (7-18); BUN/Creat Ratio 16.5 RATIO (10-20); Calcium,Total 9.7 mg/dL (8.5-10.1); Chloride 103 mmol/L (98-107); Creatinine, Serum 0.91 mg/dL (0.55-1.02); EST Glomerular Filtration Rate 66 mL/min (>60); Est Glom Filt Rate - Afr Amer 80 mL/min (>60); Estimated Creatinine Clearance 45.62 ml/min; Glucose 102 mg/dL (74-106); Sodium Level 137 mmol/L (136-145); Troponin-I HS 12 pg/mL (3.0-54.0)
--- NOTE | 2021-04-15 18:50 | ED.RN ---
pt. states she feels like her chest tightness feels like copd flair. denies nitro at this time
[2021-04-15 19:29] VITALS: BP 117/84; PULSE 82; RESP 18; O2SAT 95
[2021-04-15 19:57] LABS: Troponin-I HS 11 pg/mL (3.0-54.0)
--- NOTE | 2021-04-15 20:25 | ED.VIS.CHEST ---
HPI History of Present Illness Chief Complaint: Chest Pain Informant: patient Onset/Context/Timing Onset: Today Activity at onset: gradual Timing: Continuous Quality: Positive for Tightness Location: Substernal, Right Parasternal and Left Parasternal Worsened By: Coughing Relieved By: Nothing Associated Symptoms: Positive for Dyspnea, Cough, Lightheadedness and Acid Reflux; Negative for Nausea, Vomiting, Diaphoresis, Fever and Palpitations Narrative Narrative: Patient presents with chest pain that began today. Patient states it has gradually gotten worse throughout the day. Patient describes it as tightness. Patient states the pain is diffuse across her chest. Patient states it is worse with coughing. Patient states nothing seems to help with it. Patient admits to a cough and some shortness of breath. Patient does have a history of COPD. Patient admits to some heartburn and reflux. Patient also admits to some lightheadedness. Patient denies any nausea or vomiting. Patient denies any diaphoresis. CVD Risk Factors: Positive for Smoking; Negative for Hypertension, Diabetes, Hypercholesterolemia and Family History 1' </=55 PE Risk Factors: Negative for Recent Travel/Surgery, Recent Immobilization, Prior DVT or PE, Cancer and OCP + Smoking + >/=35 PFSH PFSH Medical History Adnexal mass Atherosclerotic heart disease of [place] coronary artery without angina pectoris Atrial fibrillation CAD (coronary artery disease) Chronic lumbar back pain COPD (chronic obstructive pulmonary disease) COPD exacerbation Fibromyalgia Lactic acid acidosis Near syncope Panic disorder Pleuritic chest pain Pneumonia Shortness of breath SIRS (systemic inflammatory response syndrome) Tobacco dependence syndrome Unstable angina Home Medications albuterol sulfate 2 puff INHALATION Q6H PRN PRN #1 inhaler 05/02/14 [Rx Last Taken 10/30/15] clonazepam 0.5 mg PO DAILY PRN 10/30/15 [History Last Taken 10/29/15] tiotropium bromide 1 puff INHALATION DAILY 08/03/16 [History Last Taken Unknown] albuterol sulfate 2.5 mg INHALATION Q6HWA.RT PRN 06/30/17 [History Last Taken Unknown] trazodone 100 mg PO QHS 06/30/17 [History Last Taken Unknown] aspirin 81 mg PO DAILY@0800 #30 tab 12/06/17 [Rx Last Taken Unknown] atorvastatin 20 mg tablet 20 mg PO QHS #30 tab 02/11/19 [Rx Last Taken Unknown] loratadine 10 mg PO DAILY PRN 06/07/19 [History Last Taken Unknown] aripiprazole 2 mg PO DAILY 11/02/19 [History Last Taken Unknown] oxycodone-acetaminophen 1 ea PO BID 11/02/19 [History Last Taken Unknown] duloxetine 60 mg capsule,delayed release 120 mg PO DAILY cap 11/08/19 [History Last Taken Unknown] gabapentin 800 mg tablet 800 mg PO TID tab 11/08/19 [History Last Taken Unknown] food supplemt, lactose-reduced [Ensure Enlive] 120 ml PO 4X/DAY #2844 ml 11/09/20 [Rx Last Taken Unknown] carvedilol 3.125 mg tablet 3.125 mg PO BID #60 tab 12/15/20 [Rx Last Taken Unknown] lisinopril 2.5 mg tablet 2.5 mg PO BID #60 tab 12/15/20 [Rx Last Taken Unknown] Allergy/AdvReac Type Severity Reaction Status Date / Time No Known Allergies Allergy Verified 04/15/21 17:10 Family History (Reviewed 12/15/20 @ 14:59 by Jonathan Beard CYLINDER BLOCK MECHANIC, CYLINDER BLOCK MECHANIC-C) Mother CAD (coronary artery disease) Father Cancer Surgical History H/O cardiac radiofrequency ablation History of cholecystectomy History of foot surgery History of hysterectomy History of left heart catheterization (LHC) (~11/08/20) History of right and left heart catheterization (12/05/17) History of tonsillectomy Social History Smoking Status: Current every day smoker tobacco type: cigarettes alcohol intake: never substance use type: does not use caffeine: Yes Type: carbonated beverages and coffee ROS ROS ED Constitutional Constitutional ED: Denies chills or fever(s) Eyes Eyes: Denies blurry vision or change in vision ENT ENT ED: Denies rhinorrhea or sore throat Cardiovascular Cardiovascular: Reports chest pain; Denies palpitations Respiratory/Chest Respiratory/Chest: Reports cough and dyspnea Gastrointestinal Gastrointestinal: Denies abdominal pain, nausea or vomiting Genitourinary Genitourinary ED: Denies dysuria or hematuria Musculoskeletal Musculoskeletal: Reports back pain and neck pain Integumentary Denies abscess or rash Neurologic Neurologic: Reports headache(s); Denies weakness Allergic/Immunologic Allergic/Immunologic ED: Denies mouth swelling or urticaria EXAM Physical Exam Const Vital Signs: 04/15/21 17:09 04/15/21 17:44 04/15/21 18:14 Temperature 97.7 F L Temperature Source Temporal Pulse Rate 85 88 88 Respiratory Rate 18 18 23 H Respiratory Effort Short of Breath Blood Pressure 117/91 H Blood Pressure Mean 99 Pulse Ox 97 97 97 Oxygen Delivery Method Room Air Room Air Room Air 04/15/21 19:29 04/15/21 20:32 Temperature 98.4 F Temperature Source Pulse Rate 82 63 Respiratory Rate 18 16 Respiratory Effort Blood Pressure 117/84 H 158/86 H Blood Pressure Mean 95 Pulse Ox 95 98 Oxygen Delivery Method Room Air Positive well nourished and well developed General Appearance ED: well developed and NAD HEENT normocephalic and atraumatic Eyes PERRL and EOMs intact bilaterally Neck supple and no JVD Chest Wall palpation of chest normal Resp normal respiratory effort and clear to auscultation bilaterally Effort and Inspection: Negative for respiratory distress Cardio regular rate, regular rhythm and no murmurs GI normal to inspection, nondistended, normoactive bowel sounds, soft to palpation, non-tender and non-distended Extremity normal to inspection General Extremety ED: Negative for edema or tenderness General Extremity: Negative for edema Neuro oriented x3, CN's II-XII intact bilaterally and no sensory deficits noted Sensorium / Orientation: awake and alert Motor Exam: strength 5/5 throughout Psych mental status grossly normal Heart Score History: Slightly/Non-Suspicious ECG: Normal Age: >45 - <65 years Risk Factors: 1 or 2 Risk Factors Troponin: </= Normal Limit Score: 2 MDM MDM MDM Narrative Medical decision making narrative: EKG was obtained. On my interpretation, it showed a normal sinus rhythm with a rate of 81. MT interval, QRS interval, and QTc intervals were all normal. [place] was normal. There are no acute ST or T wave changes. Portable 1 view chest x-ray was obtained. On my interpretation, lung orr are hyperinflated. There is normal cardiac silhouette. Bony thorax is normal. There is no acute process noted. Radiologist also interpreted the x-ray and agrees. CBC was within normal limits. Comprehensive metabolic profile was within normal limits. Initial high-sensitivity troponin was 12. 2-hour repeat high-sensitivity troponin was 11. Patient has a HEART score of 2. Patient was advised that this is low risk for acute cardiac event. Patient was instructed to follow-up with her primary care physician in 5 to 7 days. Patient understood and was agreeable with the plan. All questions were answered. Lab Data Attestation: I reviewed the patient's lab results. Labs: Laboratory Results - last 24 hr 04/15/21 04/15/21 04/15/21 17:33 17:33 19:35 WBC 7.7 RBC 4.86 Hgb 15.7 H Hct 47.1 H MCV 96.9 MCH 32.3 H MCHC 33.3 RDW Std Deviation 44.3 H RDW Coeff of Disha 12.4 Plt Count 281 MPV 9.8 Immature Gran % (Auto) 0.300 Neut % (Auto) 41.7 L Lymph % (Auto) 45.5 H [place] % (Auto) 8.2 Eos % (Auto) 3.5 Baso % (Auto) 0.8 Absolute Neuts (auto) 3.2 Absolute Lymphs (auto) 3.52 Nucleated RBC % 0 Sodium 137 Potassium 4.0 Chloride 103 Carbon Dioxide 33.0 H Anion Gap 1 L BUN 15 Creatinine 0.91 Estim Creat Clear Calc 45.62 Est GFR (MDRD) Af Amer 80 Est GFR (MDRD) Non-Af 66 BUN/Creatinine Ratio 16.5 Glucose 102 Calcium 9.7 Troponin I High Sens 12 11 Radiography Chest X-Ray - ED: 1 View, Read by ED Physician, Read by Radiologist, No Acute Disease and Chronic Changes Diagnostic Testing: Clinical Impression(s) from Imaging Studies Chest X-Ray 04/15/21 18:11 IMPRESSION: 1. Pulmonary hyperexpansion without focal infiltrate consolidation or effusion. Sequelae of COPD is a consideration. 2. No evidence congestive failure. Electronically Signed: Vasu Foster MD at 18:48 EST , EKG Initial EKG: Attestation: I personally reviewed and interpreted this EKG as follows: Interpretation: Sinus Rhythm (81) and No Acute Injury Pattern Prior EKG tracings: available for review Prior: Unchanged (11/09/2020) Discharge Plan Triage Chief Complaint: Chest Pain ED Provider: Bart Samaniego Dx/Rx/DC Orders Clinical Impression: Chest pain Instructions: ED Chest Pain, Uncertain Cause Prescriptions: No Action atorvastatin 20 mg tablet 20 mg PO QHS Qty: 30 RF: 11 duloxetine 60 mg capsule,delayed release(DR/EC) 120 mg PO DAILY RF: 0 gabapentin 800 mg tablet 800 mg PO TID RF: 0 carvedilol 3.125 mg tablet 3.125 mg PO BID Qty: 60 RF: 11 lisinopril 2.5 mg tablet 2.5 mg PO BID Qty: 60 RF: 11 albuterol sulfate 1 INHALER inhaler 2 puff inhalation Q6H PRN PRN (Reason: Shortness Of Breath) Qty: 1 RF: 0 clonazepam 0.5 MG tablet 0.5 mg PO DAILY PRN (Reason: Anxiety) RF: 0 tiotropium bromide 1 PUFF inhaler 1 puff inhalation DAILY RF: 0 albuterol sulfate 2.5 MG/3 ML solution for nebulization 2.5 mg inhalation Q6HWA.RT PRN (Reason: COPD) RF: 0 trazodone 100 MG tablet 100 mg PO QHS RF: 0 aspirin 81 MG tablet 81 mg PO DAILY@0800 Qty: 30 RF: 0 loratadine 10 MG capsule 10 mg PO DAILY PRN (Reason: allergies) RF: 0 oxycodone-acetaminophen 1 EACH tablet 1 ea PO BID RF: 0 aripiprazole 2 MG tablet 2 mg PO DAILY RF: 0 Ensure Enlive 0.08 gram-1.5 kcal/mL Liquid 120 ml PO 4X/DAY Qty: 2844 RF: 0 Primary Care Provider: Oh Garcia Referrals: Oh Garcia DO [Primary Care Provider] - 5-7 Days Disposition Disposition: Home, Self Care Discharge Date/Time: 04/15/21 20:33
[2021-04-15 20:32] VITALS: BP 158/86; PULSE 63; RESP 16; TEMP 36.9; O2SAT 98
== END 2021-04-15 20:33 | disposition home or self-care (01) ==
PROVIDERS: Emergency Provider Emergency Medicine; PCP Student in an Organized Health Care Education/Training Program; Visit Provider Emergency Medicine
DX: R07.9 Chest pain, unspecified (principal); J44.9 Chronic obstructive pulmonary disease, unspecified; I25.10 Atherosclerotic heart disease of native coronary artery without angina pectoris; R11.2 Nausea with vomiting, unspecified; R12 Heartburn; R00.2 Palpitations; F17.200 Nicotine dependence, unspecified, uncomplicated
CPT/HCPCS: 71045; 80048; 84484; 85025; 93005; 99285; A4216

== ENCOUNTER 2021-05-01 09:52 | Outpatient (CLI) | payer MEDICARE, SELFPAY ==
--- NOTE | 2021-05-01 09:53 | ECHOL_ITS ---
Reason For Study: SOB Procedure This was a limited 2D transthoracic echocardiogram. The study was technically difficult. Limited views were obtained. Exam performed in department. Left Ventricle Normal LV size. Mild segmental systolic dysfunction (see wall motion). The estimated ejection fraction is 50 %. Septal bounce. Unable to assess diastolic dysfunction. Mid-inferoseptal : Hypokinetic. Mid-anteroseptal : Hypokinetic. Right Ventricle Normal RV size. Normal systolic function. Mitral Valve There is no mitral annular calcification. Normal mitral valve. Tricuspid Valve Normal tricuspid valve. Aortic Valve Trisinus/trileaflet aortic valve. Normal aortic valve. Pulmonic Valve The pulmonic valve is not well visualized. Pericardium/Pleural No pericardial effusion. MMode/2D Measurements & Calculations LVIDd: 3.7 cm IVSd: 0.70 cm Ao root diam: 2.9 cm LVIDs: 2.7 cm LVPWd: 0.72 cm FS: 27.3 % SV(MOD-sp4): 25.8 ml LVAd ap4: 22.1 cm2 LVAd ap2: 20.7 cm2 LVLd ap4: 7.3 cm LVLd ap2: 7.4 cm EDV(MOD-sp4): 59.1 ml EDV(MOD-sp2): 52.3 ml EDV(sp4-el): 57.3 ml EDV(sp2-el): 49.1 ml LVAs ap4: 15.8 cm2 LVAs ap2: 13.1 cm2 LVLs ap4: 6.7 cm LVLs ap2: 6.6 cm ESV(MOD-sp4): 33.3 ml ESV(MOD-sp2): 23.6 ml ESV(sp4-el): 31.5 ml ESV(sp2-el): 22.1 ml EF(MOD-sp4): 43.6 % EF(MOD-sp2): 54.8 % EF(sp4-el): 45.1 % SV(MOD-sp2): 28.6 ml SV(sp4-el): 25.9 ml LA dimension(2D): 2.5 cm ECHO/Echo, Limited Study Interpretation Summary The study was technically difficult. Limited views were obtained. Mild segmental systolic dysfunction (see wall motion). The estimated ejection fraction is 50 %. Septal bounce. Unable to assess diastolic dysfunction. Ordering Physician: Jonathan Beard/Saul Gr Referring Physician: Oh Garcia Performed By: Carolina Alexander RDCS
== END 2021-05-01 23:59 | disposition home or self-care (01) ==
LOC: CVS 09:52
PROVIDERS: PCP Student in an Organized Health Care Education/Training Program; Referring Provider Nurse Practitioner Family; Visit Provider Nurse Practitioner Family
DX: R06.02 Shortness of breath (principal); I48.91 Unspecified atrial fibrillation; I51.81 Takotsubo syndrome; I25.10 Atherosclerotic heart disease of native coronary artery without angina pectoris
CPT/HCPCS: 93308

== ENCOUNTER 2021-05-04 07:08 | Outpatient (CLI) | payer MEDICARE, SELFPAY ==
--- NOTE | 2021-05-05 14:32 | STRESSREP_ITS ---
Stress Test Report Date: 05/04/2021 Procedure: Pharmacologic stress nuclear imaging study Indications: Chest pain; CAD; atrial fibrillation Consent: Per the patient Procedure: The patient underwent pharmacologic (Regadenoson 0.4mg ) evaluation with a peak heart rate of 93 beats per minute (59%predicted maximal heart rate) and a peak blood pressure of 108/74 mmHg. The baseline ECG demonstrated sinus rhythm. The peak pharmacologic ECG demonstrated no obvious ECG changes. There were no cardiac dysrhythmias pretest, during pharmacologic infusion, or r ecovery There was no complaint of chest discomfort during pharmacologic infusion or recovery. The examination was discontinued secondary to completion of protocol. Impression: 1. Pharmacologic (Regadenoson) evaluation 2. Peak pharmacologic ECG with no obvious ECG changes. 3. There were no cardiac dysrhythmias pretest, during pharmacologic infusion, or recovery. 4. Nuclear images pending Myocardial perfusion imaging study: Technique: The patient was injected with 10.8 millicuries of technetium 99m Cardiolite and subsequently rest SPECT Cardiolite nuclear imaging was obtained in the ho rizontal long, vertical long, and short axis views. The patient underwent pharmacologic (Regadenoson) evaluation with a peak heart rate of 93 beats per minute (59% percent predicted maximal heart rate) and a peak blood pressure of 108/74 mmHg. The patient was injected with 32.2 millicuries of technetium 99m Cardiolite and subsequently stress SPECT Cardiolite nuclear imaging was obtained in the horizontal long, vertical long, and short axis views. A gated Cardiolite study at peak stress was obtained. Interpretation: Rest and stress SPECT Cardiolite nuclear imaging status post realignment, no rmalization, and attenuation correction demonstrate relative uniform tracer uptake and myocardial perfusion appearing within normal limits. There is end systolic thickening and brightening. The gated Cardiolite study demonstrates myocardial thickening and inward wall motion. The reported LVEF is 70%. Impression: 1. Rest and stress SPECT Cardiolite nuclear imaging demonstrate relative uniform tracer uptake and myocardial perfusion appearing within normal limits. 2. The gated Cardiolite study reports an LVEF of 70%. This note was generated with [employer] software. It may contain incorrect words, spelling, and punctuation that were not noted in checking the note before signing.
== END 2021-05-04 23:59 | disposition home or self-care (01) ==
LOC: CVS 07:10
PROVIDERS: PCP Student in an Organized Health Care Education/Training Program; Referring Provider Student in an Organized Health Care Education/Training Program; Visit Provider Student in an Organized Health Care Education/Training Program
DX: R07.89 Other chest pain (principal); I48.91 Unspecified atrial fibrillation; I51.81 Takotsubo syndrome; Z72.0 Tobacco use
CPT/HCPCS: 78452; 93017; A9500; A4216; J2785

== ENCOUNTER 2021-06-26 15:26 | Emergency (ER) | payer MEDICARE, SELFPAY ==
[2021-06-26 15:27] VITALS: BP 118/93; PULSE 88; RESP 18; TEMP 37.1; O2SAT 98; BMI 17.4
--- NOTE | 2021-06-26 16:03 | EKG12_ITS ---
Test Reason : SOB Blood Pressure : / mmHG Vent. Rate : 076 BPM Atrial Rate : 076 BPM P-R Int : 134 ms QRS Dur : 082 ms QT Int : 396 ms P-R-T Axes : 088 070 076 degrees QTc Int : 445 ms Normal sinus rhythm Normal ECG Confirmed by FERNANDA CHINCHILLA, LUCAS ([id number]), newspaper editor managing DANIELE VALDERRAMA ([id number]) on 06/29/2021 10:42:20 A M Referred By: AKBAR Confirmed By:SHANE MICHAEL MD
--- NOTE | 2021-06-26 16:04 | ED.VIS.DYS ---
HPI History of Present Illness Chief Complaint: Shortness of Breath Informant: patient Onset/Context/Timing Onset: Today Context: - (Awoke with symptoms, progressively worse throughout the day) Timing: Continuous Quality: Positive for - (short of breath) Current Severity: Moderate Maximum Severity: Moderate Worsened by: Exertion and Coughing Relieved by: Nothing; Not Relieved By Albuterol Associated Symptoms cough Chest Pain: Positive for Continuous (Sore left upper chest and into periscapular area worse with movement but not breathing) Narrative Narrative: Patient states she woke up wheezing feeling like her COPD is worse today, she has been coughing more than usual but it is nonproductive, she denies any fevers or chills or exposure to any others with illness that she knows of. No swelling in her legs or orthopnea. She had albuterol in the nebulizer machine that she used at home but it did not help at all. She has spring allergies and has been using Flonase for them but no other specific medications, no prednisone recently. She uses oxygen 2 L every night but not during the day. She denies any history of congestive heart failure. [facility] Medical History Adnexal mass Atherosclerotic heart disease of [place] coronary artery without angina pectoris Atrial fibrillation CAD (coronary artery disease) Chronic lumbar back pain COPD (chronic obstructive pulmonary disease) COPD exacerbation Fibromyalgia Lactic acid acidosis Near syncope Panic disorder Pleuritic chest pain Pneumonia Shortness of breath SIRS (systemic inflammatory response syndrome) Tobacco dependence syndrome Unstable angina Home Medications albuterol sulfate 2 puff INHALATION Q6H PRN PRN #1 inhaler 05/02/14 [Rx Last Taken 10/30/15] clonazepam 0.5 mg PO DAILY PRN 10/30/15 [History Last Taken 10/29/15] tiotropium bromide 1 puff INHALATION DAILY 08/03/16 [History Last Taken Unknown] albuterol sulfate 2.5 mg INHALATION Q6HWA.RT PRN 06/30/17 [History Last Taken Unknown] trazodone 100 mg PO QHS 06/30/17 [History Last Taken Unknown] aspirin 81 mg PO DAILY@0800 #30 tab 12/06/17 [Rx Last Taken Unknown] atorvastatin 20 mg tablet 20 mg PO QHS #30 tab 01/02/20 [Rx Last Taken Unknown] aripiprazole 2 mg PO DAILY 11/02/19 [History Last Taken Unknown] duloxetine 60 mg capsule,delayed release 120 mg PO DAILY cap 11/08/19 [History Last Taken Unknown] gabapentin 800 mg tablet 800 mg PO TID tab 11/08/19 [History Last Taken Unknown] carvedilol 3.125 mg tablet 3.125 mg PO BID #60 tab 12/15/20 [Rx Last Taken Unknown] albuterol sulfate [Ventolin HFA] 1 - 2 puff INHALATION Q4H PRN PRN #1 inhaler 06/26/21 [Rx Last Taken Unknown] prednisone 10 mg PO UD #30 tab 06/26/21 [Rx Last Taken Unknown] Allergy/AdvReac Type Severity Reaction Status Date / Time No Known Allergies Allergy Verified 06/26/21 15:28 Family History Mother CAD (coronary artery disease) Father Cancer Surgical History H/O cardiac radiofrequency ablation History of cholecystectomy History of foot surgery History of hysterectomy History of left heart catheterization (LHC) (~11/08/20) History of right and left heart catheterization (12/05/17) History of tonsillectomy Social History Smoking Status: Current every day smoker tobacco type: cigarettes alcohol intake: never substance use type: does not use caffeine: Yes Type: carbonated beverages and coffee ROS ROS ED Constitutional Constitutional ED: Denies chills or fever(s) Eyes Eyes: Denies change in vision or diplopia ENT ENT ED: Denies rhinorrhea or sore throat Cardiovascular Cardiovascular: Reports chest pain; Denies orthopnea, palpitations or pedal edema Respiratory/Chest Respiratory/Chest: Reports cough and dyspnea; Denies orthopnea Gastrointestinal Gastrointestinal: Denies abdominal pain, diarrhea, nausea or vomiting Genitourinary Genitourinary ED: Denies dysuria or hematuria Musculoskeletal Musculoskeletal: Denies back pain or neck pain Integumentary Denies abscess or rash Neurologic Neurologic: Denies headache(s), paresthesias or weakness Psychiatric Psychiatric: Denies anxiety or suicidal thoughts EXAM Physical Exam Const Vital Signs: 06/26/21 15:27 06/26/21 15:34 06/26/21 16:17 Temperature 98.8 F Temperature Source Temporal Pulse Rate 88 87 Respiratory Rate 18 18 Respiratory Effort Short of Breath Labored Respiratory Depth Normal Respiratory Pattern Normal Blood Pressure 118/93 H Blood Pressure Mean 101 Pulse Ox 98 Oxygen Delivery Method Room Air 06/26/21 16:46 06/26/21 16:53 Temperature Temperature Source Pulse Rate 89 83 Respiratory Rate 19 H 21 H Respiratory Effort Respiratory Depth Respiratory Pattern Normal Blood Pressure 158/99 H Blood Pressure Mean 118 Pulse Ox 95 Oxygen Delivery Method Room Air Positive well nourished and well developed General Appearance ED: well developed and NAD HEENT Reports moist mucous membranes normocephalic and atraumatic Eyes PERRL and EOMs intact bilaterally Neck full ROM, supple, no meningeal signs and no JVD Resp normal respiratory effort, no retractions and no use of accessory muscles Resp Narrative: Coarse Rales throughout all lung orr on expiration, equal bilaterally Effort and Inspection: able to speak in complete sentences Cardio regular rate, regular rhythm and no murmurs GI non-tender and non-distended Auscultation: normoactive bowel sounds Palpation: soft Back/Spine no CVA tenderness General Back: other FROM Extremity normal to inspection General Extremety ED: Negative for edema, pulses abnormal or tenderness General Extremity: Negative for edema or pulses abnormal Neuro oriented x3, CN's II-XII intact bilaterally and no sensory deficits noted Sensorium / Orientation: awake and alert Motor Exam: strength 5/5 throughout Skin no rashes or lesions noted and no wounds MDM MDM MDM Narrative Medical decision making narrative: Patient states she is having chest discomfort in her left upper chest and periscapular area due to all the coughing. Started later today. Therefore I did more of a work-up including cardiac testing, it all came back negative/normal including 1 view chest x-ray my interpretation which shows emphysema but nothing acute. She felt better after the first DuoNeb treatment and did not want anything else ordered except Solu-Medrol which was given. She does not feel like she has an illness, rather feels like she is having allergies that are making her COPD flareup. In that case, I do not think she is as likely to benefit from antibiotics, but I will prescribe her a prednisone taper, advised that she use Zyrtec or Claudette daily, and follow-up. We discussed reasons to return, she is comfortable with the plan. Lab Data Attestation: I reviewed the patient's lab results. Labs: Laboratory Results - last 24 hr 06/26/21 06/26/21 16:35 16:35 WBC 6.8 RBC 4.57 Hgb 14.7 Hct 43.6 MCV 95.4 MCH 32.2 H MCHC 33.7 RDW Std Deviation 42.5 RDW Coeff of Disha 12.2 Plt Count 266 MPV 9.7 Immature Gran % (Auto) 0.100 Neut % (Auto) 53.8 Lymph % (Auto) 35.6 [place] % (Auto) 7.2 Eos % (Auto) 2.6 Baso % (Auto) 0.7 Absolute Neuts (auto) 3.7 Absolute Lymphs (auto) 2.42 Nucleated RBC % 0 Sodium 137 Potassium 3.7 Chloride 102 Carbon Dioxide 30.0 Anion Gap 5 BUN 12 Creatinine 0.75 Estim Creat Clear Calc 56.23 Est GFR (MDRD) Af Amer 99 Est GFR (MDRD) Non-Af 82 BUN/Creatinine Ratio 15.9 Glucose 105 Calcium 9.1 Troponin I High Sens 10 Rhythm Strip Rhythm Strip: Sinus Rhythm Rate: 75 Ectopy: None EKG Initial EKG: Attestation: I personally reviewed and interpreted this EKG as follows: Interpretation: Sinus Rhythm and No Acute Injury Pattern Discharge Plan Triage Chief Complaint: Shortness of Breath ED Provider: Santino Saunders Dx/Rx/DC Orders Clinical Impression: Acute exacerbation of chronic obstructive pulmonary disease, Seasonal allergies, Left-sided chest pain Instructions: ED COPD Flare Prescriptions: New prednisone 10 MG tablet 10 mg PO UD Qty: 30 RF: 0 albuterol sulfate [Ventolin HFA] 1 INHALER inhaler 1 - 2 puff inhalation Q4H PRN PRN (Reason: Wheezing) Qty: 1 RF: 0 No Action atorvastatin 20 mg tablet 20 mg PO QHS Qty: 30 RF: 11 duloxetine 60 mg capsule,delayed release(DR/EC) 120 mg PO DAILY RF: 0 gabapentin 800 mg tablet 800 mg PO TID RF: 0 carvedilol 3.125 mg tablet 3.125 mg PO BID Qty: 60 RF: 11 albuterol sulfate 1 INHALER inhaler 2 puff inhalation Q6H PRN PRN (Reason: Shortness Of Breath) Qty: 1 RF: 0 clonazepam 0.5 MG tablet 0.5 mg PO DAILY PRN (Reason: Anxiety) RF: 0 tiotropium bromide 1 PUFF inhaler 1 puff inhalation DAILY RF: 0 albuterol sulfate 2.5 MG/3 ML solution for nebulization 2.5 mg inhalation Q6HWA.RT PRN (Reason: COPD) RF: 0 trazodone 100 MG tablet 100 mg PO QHS RF: 0 aspirin 81 MG tablet 81 mg PO DAILY@0800 Qty: 30 RF: 0 aripiprazole 2 MG tablet 2 mg PO DAILY RF: 0 Primary Care Provider: Oh Garcia Referrals: Oh Garcia DO [Primary Care Provider] - 3-5 Days Disposition Disposition: Home, Self Care
[2021-06-26] MEDS: Albuterol 2.5 MG/3 ML VIAL.NEB. INHALATION ×2 (16:10→16:26)
[2021-06-26 16:17] VITALS: PULSE 87; RESP 18
[2021-06-26] MEDS: MethylPREDNISolone 125 MG/2 ML Vial IV (16:25)
[2021-06-26] MEDS: Ipratropium/Albuterol Sulfate 3 ML AMPUL.NEB INHALATION (16:28)
--- NOTE | 2021-06-26 16:39 | ED.RN ---
pt told rt that she did want to finish breathing tx.
[2021-06-26 16:46] VITALS: PULSE 89; RESP 19
[2021-06-26 16:47] LABS: Absolute Lymphocyte Count 2.42 X10^3/uL (0.83-4.51); Absolute Neutrophil Count 3.7 X10^3/uL (2.0-7.7); Basophil# 0.05 X10^3/uL; Basophil% 0.7 % (0-1); Eosinophil# 0.18 X10^3/uL; Eosinophils% 2.6 % (0-5); Hematocrit 43.6 % (37-47); Hemoglobin 14.7 g/dL (12.0-15.0); Lymphocyte # 2.42 X10^3/ul (0.83-4.51); Lymphocyte % 35.6 % (19-41); Mean Corp Hgb Conc 33.7 g/dL (32-36); Mean Corpuscular Hgb 32.2 pg (27.0-32.0); Mean Corpuscular Volume 95.4 fL (81-99); Mean Platelet Vol. 9.7 fl (6.2-12.0); Monocyte# 0.49 X10^3/uL; Monocyte% 7.2 % (0-10); NRBC Flagged by Analyzer 0 % (0-5); Neutrophil # 3.65 X10^3/uL (2.7-7.7); Neutrophil % 53.8 % (47-70); Platelet Count 266 K/mm3 (150-450); RBC Distribution Width CV 12.2 % (11.6-14.6); RBC Distribution Width SD 42.5 fl (35.1-43.9); Red Blood Count 4.57 M/mm3 (4.2-5.4); White Blood Count 6.8 K/mm3 (4.4-11.0)
--- NOTE | 2021-06-26 16:47 | BH.SGPN.T2 ---
Behaviors/Verbalizations/Mental Status: [] Client Response/Progress/Benefit: [] Narrative Note: []PT ASKED TO STOP BREATHING TREATMENT AND SAID SHE FELT BETTER. WANTED TO WAIT FOR ANOTHER.
[2021-06-26 16:53] VITALS: BP 158/99; PULSE 83; RESP 21; O2SAT 95
[2021-06-26 17:03] LABS: Anion Gap 5 (5-15); BUN 12 mg/dL (7-18); BUN/Creat Ratio 15.9 RATIO (10-20); Calcium,Total 9.1 mg/dL (8.5-10.1); Chloride 102 mmol/L (98-107); Creatinine, Serum 0.75 mg/dL (0.55-1.02); EST Glomerular Filtration Rate 82 mL/min (>60); Est Glom Filt Rate - Afr Amer 99 mL/min (>60); Estimated Creatinine Clearance 56.23 ml/min; Glucose 105 mg/dL (74-106); Potassium 3.7 mmol/L (3.5-5.1); Sodium Level 137 mmol/L (136-145); Troponin-I HS 10 pg/mL (3.0-54.0)
--- NOTE | 2021-06-26 17:17 | RAD_ITS ---
STUDY: AP PORTABLE UPRIGHT CHEST X-RAY OF 1718 HOURS ON 06/26/2021 REASON FOR EXAM: 66-year-old female with cough and shortness of breath. TECHNIQUE: A single view AP portable upright chest x-ray was performed per protocol. COMPARISON: 04/15/2021 FINDINGS: Mild demineralization.. No cardiomegaly. Mild emphysema. No pulmonary infiltrates, atelectasis, effusion, or pulmonary mass lesions. No pneumonia, pneumonitis or bronchitis. No evidence of emphysematous bullae. No interval change since previous study of 04/15/2021. RAD/Chest 1 View (Portable) IMPRESSION: 1. Mild emphysema. 2. No cardiomegaly or heart failure. 3. No other evidence of active cardiopulmonary disease. 4. Mild demineralization. 5. No interval change since the previous study of 04/15/2021. Electronically Signed: Jeff Schaffer MD at 17:49 EDT ,
--- NOTE | 2021-06-26 17:17 | ED.RN ---
PT STATED IT WAS OKAY TO TALK TO HER NIECE ABOUT HER CARE. FAMILY UPDATEDA. [facility]OOD [facility] [id number] .
[2021-06-26 17:57] VITALS: BP 143/97; O2SAT 97
[2021-06-26 18:17] LABS: BNP,B-Type NATRIURETIC PEPTIDE 15.2 pg/mL (0-100)
== END 2021-06-26 17:58 | disposition home or self-care (01) ==
PROVIDERS: Emergency Provider Emergency Medicine; PCP Student in an Organized Health Care Education/Training Program; Visit Provider Emergency Medicine
DX: J44.1 Chronic obstructive pulmonary disease with (acute) exacerbation (principal); I48.91 Unspecified atrial fibrillation; I25.10 Atherosclerotic heart disease of native coronary artery without angina pectoris; J30.2 Other seasonal allergic rhinitis; J98.4 Other disorders of lung; Z99.81 Dependence on supplemental oxygen
CPT/HCPCS: 71045; 80048; 83880; 84484; 85025; 87428; 93005; 94640; 99284

== ENCOUNTER 2021-07-11 21:22 | Observation (INO) | payer MEDICARE, SELFPAY ==
[2021-07-11 21:23] VITALS: BP 141/82; PULSE 94; RESP 22; TEMP 36.3; O2SAT 93; BMI 16.7
--- NOTE | 2021-07-11 21:30 | EKG12_ITS ---
Test Reason : SOB Blood Pressure : / mmHG Vent. Rate : 073 BPM Atrial Rate : 073 BPM P-R Int : 130 ms QRS Dur : 078 ms QT Int : 392 ms P-R-T Axes : 085 054 062 degrees QTc Int : 431 ms Normal sinus rhythm Normal ECG Confirmed by FERNANDA CHINCHILLA, LUCAS ([id number]), photo editor DANIELE VALDERRAMA ([id number]) on 07/13/2021 1:50:12 PM Referred By: MOHIT Confirmed By:SHANE MICHAEL MD
--- NOTE | 2021-07-11 21:32 | ED.VIS.DYS ---
HPI History of Present Illness Chief Complaint: Shortness of Breath Narrative Narrative: Patient presents with 3 to 4-day history of cough, shortness of breath and COPD exacerbation. She has no fever or chills she has a nonproductive cough. No upper airway congestion. No abdominal pain. No known COVID or influenza exposure. [facility] Medical History Adnexal mass Atherosclerotic heart disease of [place] coronary artery without angina pectoris Atrial fibrillation CAD (coronary artery disease) Chronic lumbar back pain COPD (chronic obstructive pulmonary disease) COPD exacerbation Fibromyalgia Lactic acid acidosis Near syncope Panic disorder Pleuritic chest pain Pneumonia Shortness of breath SIRS (systemic inflammatory response syndrome) Tobacco dependence syndrome Unstable angina Home Medications albuterol sulfate 2 puff INHALATION Q6H PRN PRN #1 inhaler 05/02/14 [Rx Last Taken 10/30/15] clonazepam 0.5 mg PO DAILY PRN 10/30/15 [History Last Taken 10/29/15] tiotropium bromide 1 puff INHALATION DAILY 08/03/16 [History Last Taken Unknown] albuterol sulfate 2.5 mg INHALATION Q6HWA.RT PRN 06/30/17 [History Last Taken Unknown] trazodone 100 mg PO QHS 06/30/17 [History Last Taken Unknown] aspirin 81 mg PO DAILY@0800 #30 tab 12/06/17 [Rx Last Taken Unknown] atorvastatin 20 mg tablet 20 mg PO QHS #30 tab 02/11/19 [Rx Last Taken Unknown] aripiprazole 2 mg PO DAILY 11/02/19 [History Last Taken Unknown] duloxetine 60 mg capsule,delayed release 120 mg PO DAILY cap 11/08/19 [History Last Taken Unknown] gabapentin 800 mg tablet 800 mg PO TID tab 11/08/19 [History Last Taken Unknown] carvedilol 3.125 mg tablet 3.125 mg PO BID #60 tab 12/15/20 [Rx Last Taken Unknown] albuterol sulfate [Ventolin HFA] 1 - 2 puff INHALATION Q4H PRN PRN #1 inhaler 06/26/21 [Rx Last Taken Unknown] prednisone 10 mg PO UD #30 tab 06/26/21 [Rx Last Taken Unknown] Allergy/AdvReac Type Severity Reaction Status Date / Time No Known Allergies Allergy Verified 07/11/21 21:23 Family History Mother CAD (coronary artery disease) Father Cancer Surgical History H/O cardiac radiofrequency ablation History of cholecystectomy History of foot surgery History of hysterectomy History of left heart catheterization (LHC) (~11/08/20) History of right and left heart catheterization (12/05/17) History of tonsillectomy Social History Smoking Status: Current every day smoker tobacco type: cigarettes alcohol intake: never substance use type: does not use caffeine: Yes Type: carbonated beverages and coffee ROS ROS ED ROS Narrative Past medical history: Reviewed Medications: Reviewed Social history: Noncontributory Review of systems: All systems negative except as indicated General: No fever Eyes: No visual changes ENT: No upper airway congestion, normal voice Neck: No neck pain Cardiovascular: No chest pain Respiratory: Dyspnea with nonproductive cough as in HPI Gastrointestinal: No abdominal pain, nausea vomiting or diarrhea Genitourinary: No dysuria Musculoskeletal: Denies myalgias no difficulty with ambulation Skin: No rash Neurological: No memory loss, confusion or any focal weakness Psych: No recent behavioral changes Hematologic: No easy bleeding or easy bruising EXAM Physical Exam Narrative Exam Narrative: Physical exam General: Well nourished, Well developed, No Acute Distress. Head: Normocephalic, Atraumatic Eyes: Conjunctiva not pale ENT: Moist mucous membranes. No congestion Neck: Supple, Nontender, No lymphadenopathy Cardiovascular: Regular rate, Regular rhythm Respiratory: Bilateral end expiratory wheezing. She has no retractions. She is speaking in full sentences and does not appear in significant distress. Abdomen: Soft, Nontender, Nondistended Back: Nontender, Normal Inspection. Negative for: CVA tenderness Extremities: Nontender, No edema Skin: Normal color, No rash Neurological: Alert, Normal Strength, Normal Sensation Psychological: Normal affect Const Vital Signs: 07/11/21 21:23 07/11/21 21:55 07/11/21 21:57 Temperature 97.3 F L Temperature Source Temporal Pulse Rate 94 78 Respiratory Rate 22 H 18 Respiratory Effort Short of Breath Respiratory Depth Normal Respiratory Pattern Normal Blood Pressure 141/82 H 137/89 H Blood Pressure Mean 101 105 Pulse Ox 93 94 Oxygen Delivery Method Room Air Room Air Room Air 07/11/21 22:55 Temperature Temperature Source Pulse Rate 80 Respiratory Rate 18 Respiratory Effort Respiratory Depth Respiratory Pattern Normal Blood Pressure Blood Pressure Mean Pulse Ox Oxygen Delivery Method MDM MDM MDM Narrative Medical decision making narrative: Patient presents with shortness of breath her work-up is unremarkable however I reevaluated her after 3 nebulizers and she still had wheezing and quite diminished breath sounds, I try to ambulate her and she was quite short of breath, she was 91% on room air resting therefore I believe the patient should be observed overnight. I did place her on doxycycline. Lab Data Labs: Laboratory Results - last 24 hr 07/11/21 07/11/21 07/11/21 21:50 21:50 21:50 WBC 8.6 RBC 4.72 Hgb 15.0 Hct 45.7 MCV 96.8 MCH 31.8 MCHC 32.8 RDW Std Deviation 44.8 H RDW Coeff of Disha 12.5 Plt Count 239 MPV 9.4 Immature Gran % (Auto) 0.200 Neut % (Auto) 52.7 Lymph % (Auto) 35.4 [place] % (Auto) 7.5 Eos % (Auto) 3.6 Baso % (Auto) 0.6 Absolute Neuts (auto) 4.5 Absolute Lymphs (auto) 3.04 Nucleated RBC % 0 Sodium 136 Potassium 3.8 Chloride 100 Carbon Dioxide 31.0 Anion Gap 5 BUN 16 Creatinine 0.74 Estim Creat Clear Calc 54.80 Est GFR (MDRD) Af Amer 102 Est GFR (MDRD) Non-Af 84 BUN/Creatinine Ratio 21.8 H Glucose 103 Calcium 9.1 Total Bilirubin 0.30 AST 18 ALT 19 Alkaline Phosphatase 92 B-Natriuretic Peptide 10.7 Total Protein 7.1 Albumin 3.3 Globulin 3.8 Albumin/Globulin Ratio 0.9 Radiography Diagnostic Testing: Chest x-ray interpreted by me does not show any pneumonia. Discharge Plan Triage Chief Complaint: Shortness of Breath ED Provider: Saul Jerome Dx/Rx/DC Orders Clinical Impression: COPD (chronic obstructive pulmonary disease), Acute dyspnea Prescriptions: No Action atorvastatin 20 mg tablet 20 mg PO QHS Qty: 30 RF: 11 duloxetine 60 mg capsule,delayed release(DR/EC) 120 mg PO DAILY RF: 0 gabapentin 800 mg tablet 800 mg PO TID RF: 0 carvedilol 3.125 mg tablet 3.125 mg PO BID Qty: 60 RF: 11 albuterol sulfate 1 INHALER inhaler 2 puff inhalation Q6H PRN PRN (Reason: Shortness Of Breath) Qty: 1 RF: 0 clonazepam 0.5 MG tablet 0.5 mg PO DAILY PRN (Reason: Anxiety) RF: 0 tiotropium bromide 1 PUFF inhaler 1 puff inhalation DAILY RF: 0 albuterol sulfate 2.5 MG/3 ML solution for nebulization 2.5 mg inhalation Q6HWA.RT PRN (Reason: COPD) RF: 0 trazodone 100 MG tablet 100 mg PO QHS RF: 0 aspirin 81 MG tablet 81 mg PO DAILY@0800 Qty: 30 RF: 0 aripiprazole 2 MG tablet 2 mg PO DAILY RF: 0 prednisone 10 MG tablet 10 mg PO UD Qty: 30 RF: 0 albuterol sulfate [Ventolin HFA] 1 INHALER inhaler 1 - 2 puff inhalation Q4H PRN PRN (Reason: Wheezing) Qty: 1 RF: 0 Primary Care Provider: Oh Garcia Referrals: Oh Garcia DO [Primary Care Provider] - Disposition Disposition: Acute Care Hospital [facility]
[2021-07-11] MEDS: Ipratropium/Albuterol Sulfate 3 ML AMPUL.NEB INHALATION (21:45)
[2021-07-11] MEDS: Albuterol 2.5 MG/3 ML VIAL.NEB. 5 MG INHALATION (21:45)
[2021-07-11] MEDS: MethylPREDNISolone 125 MG/2 ML Vial IV (21:48)
[2021-07-11 21:55] VITALS: BP 137/89; PULSE 78; RESP 18; O2SAT 94
[2021-07-11 21:57] VITALS: O2SAT 95
[2021-07-11 22:08] LABS: Absolute Lymphocyte Count 3.04 X10^3/uL (0.83-4.51); Absolute Neutrophil Count 4.5 X10^3/uL (2.0-7.7); Basophil# 0.05 X10^3/uL; Basophil% 0.6 % (0-1); Eosinophil# 0.31 X10^3/uL; Eosinophils% 3.6 % (0-5); Hematocrit 45.7 % (37-47); Lymphocyte # 3.04 X10^3/ul (0.83-4.51); Lymphocyte % 35.4 % (19-41); Mean Corp Hgb Conc 32.8 g/dL (32-36); Mean Corpuscular Hgb 31.8 pg (27.0-32.0); Mean Corpuscular Volume 96.8 fL (81-99); Mean Platelet Vol. 9.4 fl (6.2-12.0); Monocyte# 0.64 X10^3/uL; Monocyte% 7.5 % (0-10); NRBC Flagged by Analyzer 0 % (0-5); Neutrophil # 4.53 X10^3/uL (2.7-7.7); Neutrophil % 52.7 % (47-70); Platelet Count 239 K/mm3 (150-450); RBC Distribution Width CV 12.5 % (11.6-14.6); RBC Distribution Width SD 44.8 fl (35.1-43.9); Red Blood Count 4.72 M/mm3 (4.2-5.4); White Blood Count 8.6 K/mm3 (4.4-11.0)
--- NOTE | 2021-07-11 22:15 | RAD_ITS ---
INDICATION: sob EXAMINATION/TECHNIQUE: X-RAY - XR Chest 1 View COMPARISON: 06/26/2021 chest x-ray FINDINGS: LINES/DEVICES: None. LUNGS: Symmetric abnormally increased lung volumes with increased lucency in the upper lobes consistent with emphysema. No airspace opacity or abnormal interstitial pattern. No nodule or mass. No pleural effusion or pneumothorax. MEDIASTINUM AND CARDIOVASCULAR STRUCTURES: Normal size and contour of the cardiomediastinal silhouette. No evidence of pulmonary vascular congestion. BONES AND SOFT TISSUES: Mild lateral curvature thoracolumbar spine. Note of surgical clips right upper quadrant suggesting prior cholecystectomy. RAD/Chest 1 View (Portable) IMPRESSION: 1. Chronic emphysematous changes with no evidence of acute cardiopulmonary disease. Electronically Signed: Oh Rubio DO at 23:17 EDT ,
[2021-07-11 22:25] LABS: ALB/GLOB Ratio 0.9 RATIO (0.9-2.4); AST(SGOT) 18 U/L (15-37); Alanine Aminotransfer ALT/SGPT 19 U/L (13-56); Albumin, Serum 3.3 g/dL (3.2-5.0); Alkaline Phosphatase 92 U/L (45-117); Anion Gap 5 (5-15); BUN 16 mg/dL (7-18); BUN/Creat Ratio 21.8 RATIO (10-20); Calcium,Total 9.1 mg/dL (8.5-10.1); Chloride 100 mmol/L (98-107); Creatinine, Serum 0.74 mg/dL (0.55-1.02); EST Glomerular Filtration Rate 84 mL/min (>60); Est Glom Filt Rate - Afr Amer 102 mL/min (>60); Globulin 3.8 g/dL (2.2-4.2); Glucose 103 mg/dL (74-106); Potassium 3.8 mmol/L (3.5-5.1); Protein, Total 7.1 g/dL (6.4-8.2); Sodium Level 136 mmol/L (136-145)
[2021-07-11 22:50] LABS: BNP,B-Type NATRIURETIC PEPTIDE 10.7 pg/mL (0-100)
[2021-07-11 22:55] VITALS: PULSE 80; RESP 18
--- NOTE | 2021-07-11 23:05 | HP.PCM.HOS_ITS ---
HPI - General General Date of Admission: 07/11/21 Date of Service: 07/11/21 Chief Complaint: Dyspnea HPI Narrative The patient is a 66 y/o F w/ PMHx: Severe protein calorie malnutrition, HTN, HLD, Tobacco use, Anxiety and Depression/Panic disorder, PAF s/p RFA, CAD, Fibromyalgia, COPD who presents to the [facility] ED on 07/11/21 with history of 3 to 4 days of progressively worsening fatigue, cough, dyspnea and wheezing with no fevers or chills and the cough noted to be dry however given it was not improving prompted ED evaluation. Patient denies any recent ill contacts. But with the significant rise in heat and humidity she has had a lot of difficulties even just going outside in the morning. Work-up in the ED included T97.3, heart rate 94, BP 141/82, respiratory rate 22, patient 93 to 94% on room air, CBC WC 8.6, hemoglobin 15, platelet 239 without marked shift, CMP unremarkable, BNP 10.7, chest x-ray with no acute cardiopulmonary findings. In the ED patient was ambulated and decreased to 91% with increased work of breathing. Rapid COVID flu and antigen pending upon requested evaluation. In the ED patient ministered Solu-Medrol, DuoNeb therapy, albuterol as well as doxycycline. [facility] Medical History Adnexal mass Atherosclerotic heart disease of [place] coronary artery without angina pectoris Atrial fibrillation CAD (coronary artery disease) Chronic lumbar back pain COPD (chronic obstructive pulmonary disease) COPD exacerbation Fibromyalgia Lactic acid acidosis Near syncope Panic disorder Pleuritic chest pain Pneumonia Shortness of breath SIRS (systemic inflammatory response syndrome) Tobacco dependence syndrome Unstable angina Home Medications albuterol sulfate 2 puff INHALATION Q6H PRN PRN #1 inhaler 05/02/14 [Rx Last Taken 10/30/15] clonazepam 0.5 mg PO DAILY PRN 10/30/15 [History Last Taken 07/11/21] tiotropium bromide 1 puff INHALATION DAILY 08/03/16 [History Last Taken 07/11/21] albuterol sulfate 2.5 mg INHALATION Q6HWA.RT PRN 06/30/17 [History Last Taken Unknown] trazodone 100 mg PO QHS 05/21/18 [History Last Taken 07/10/21] aspirin 81 mg PO DAILY@0800 #30 tab 12/06/17 [Rx Last Taken 07/11/21] atorvastatin 20 mg tablet 20 mg PO QHS #30 tab 02/11/19 [Rx Last Taken 07/10/21] aripiprazole 2 mg PO DAILY 11/02/19 [History Last Taken 07/11/21] duloxetine 60 mg capsule,delayed release 120 mg PO DAILY cap 11/08/19 [History Last Taken 07/11/21] gabapentin 800 mg tablet 800 mg PO TID tab 11/08/19 [History Last Taken 07/11/21] carvedilol 3.125 mg tablet 3.125 mg PO BID #60 tab 12/15/20 [Rx Last Taken 07/11/21] albuterol sulfate [Ventolin HFA] 1 - 2 puff INHALATION Q4H PRN PRN #1 inhaler 06/26/21 [Rx Last Taken Unknown] Allergy/AdvReac Type Severity Reaction Status Date / Time No Known Allergies Allergy Verified 07/11/21 21:23 Family History Mother CAD (coronary artery disease) Father Cancer Surgical History H/O cardiac radiofrequency ablation History of cholecystectomy History of foot surgery History of hysterectomy History of left heart catheterization (LHC) (~11/08/20) History of right and left heart catheterization (12/05/17) History of tonsillectomy Social History (Updated 07/12/21 @ 00:[address] Debra Ojeda MD) household members: none Smoking Status: Current every day smoker tobacco type: cigarettes Smoking packs per day: 1 Smoking cigarettes per day: 20.0 Years smoked: 47 Smoking pack-years: 47.00 alcohol intake: never substance use type: does not use caffeine: Yes Type: carbonated beverages and coffee ROS ROS Narrative Admission Review of Systems: CONSTITUTIONAL: No weight loss, fever, chills, + weakness or fatigue. HEENT: Eyes: No visual loss, blurred vision, double vision or yellow sclerae. Ears, Nose, Throat: No hearing loss, sneezing, congestion, runny nose or sore throat. SKIN: No rash or itching, lesions, wounds. CARDIOVASCULAR: No chest pain, chest pressure or chest discomfort, palpitations, edema, orthopnea, syncopal events. RESPIRATORY: +Shortness of breath, cough without marked but occasional sputum, wheezing, No hemoptysis. GASTROINTESTINAL: No anorexia, nausea, vomiting or diarrhea, abdominal pain, melena, BRBPR. GENITOURINARY: No dysuria, frequency, urgency or retention. NEUROLOGICAL: No headache, dizziness, syncope, paralysis, ataxia, numbness or tingling in the extremities, focal weakness, change in bowel or bladder control, seizure. MUSCULOSKELETAL: + muscle, back pain, joint pain or stiffness. HEMATOLOGIC: No anemia, bleeding or bruising. LYMPHATICS: No enlarged nodes. No history of splenectomy. PSYCHIATRIC: + history of depression or anxiety. ENDOCRINOLOGIC: No reports of sweating, cold or heat intolerance. No polyuria or polydipsia. ALLERGIES: + rhinitis. Vital Signs Vital Signs Vital Signs: 07/11/21 21:23 07/11/21 21:55 07/11/21 21:57 Temperature 97.3 F L Temperature Source Temporal Pulse Rate 94 78 Respiratory Rate 22 H 18 Respiratory Effort Short of Breath Respiratory Depth Normal Respiratory Pattern Normal Blood Pressure 141/82 H 137/89 H Blood Pressure Mean 101 105 Pulse Ox 93 94 Oxygen Delivery Method Room Air Room Air Room Air 07/11/21 22:55 Temperature Temperature Source Pulse Rate 80 Respiratory Rate 18 Respiratory Effort Respiratory Depth Respiratory Pattern Normal Blood Pressure Blood Pressure Mean Pulse Ox Oxygen Delivery Method Weight Weight: 100 lb 15.547 oz Body Mass Index (BMI) 16.7 Physical Exam Narrative Physical Examination: General: Awake, alert, oriented x 3 and cooperative, seated upright in the ED bed, fatigued, notes breathing has improved somewhat since initial ED evaluation Skin: Normal color, normal turgor, no icterus, no cyanosis. HEENT: AT/NC, EOMI, PERRLA, mildly dry MM, no carotid bruits or JVD noted. Lungs: Significantly diminished, very tight, occasional end expiratory wheeze, no rales or rhonchi but significantly poor air movement. Heart: Currently regular rate and rhythm; no gallop, rub audible. Abdomen: Soft, thin cachectic habitus, NTTP, ND, distant mildly hyperactive BS, no HSM. Extremities: No cyanosis, clubbing, or edema, evidence of muscle wasting. Neurological: Patient awake, alert, oriented as noted, cognitive function intact; pupils equally reactive to light and accommodation, cranial nerves II- XII grossly normal, moving all 4 extremities, no focal deficits, strength moderately to severely global decrease secondary to acute presentation. Psychiatric: Affect appears fatigued, no acute evidence of depressive or anxiety feelings. Results Lab / Micro Data Result Diagrams: 07/11/21 21:50 07/11/21 21:50 Labs: Laboratory Results - last 24 hr 07/11/21 21:50: WBC 8.6, RBC 4.72, Hgb 15.0, Hct 45.7, MCV 96.8, MCH 31.8, MCHC 32.8, RDW Std Deviation 44.8 H, RDW Coeff of Disha 12.5, Plt Count 239, MPV 9.4, Immature Gran % (Auto) 0.200, Neut % (Auto) 52.7, Lymph % (Auto) 35.4, [place] % (Auto) 7.5, Eos % (Auto) 3.6, Baso % (Auto) 0.6, Absolute Neuts (auto) 4.5, Absolute Lymphs (auto) 3.04, Nucleated RBC % 0 07/11/21 21:50: Sodium 136, Potassium 3.8, Chloride 100, Carbon Dioxide 31.0, Anion Gap 5, BUN 16, Creatinine 0.74, Estim Creat Clear Calc 54.80, Est GFR (MDRD) Af Amer 102, Est GFR (MDRD) Non-Af 84, BUN/Creatinine Ratio 21.8 H, Glucose 103, Calcium 9.1, Total Bilirubin 0.30, AST 18, ALT 19, Alkaline Phosphatase 92, Total Protein 7.1, Albumin 3.3, Globulin 3.8, Albumin/Globulin Ratio 0.9 07/11/21 21:50: B-Natriuretic Peptide 10.7 Assessment & Plan Assessment/Plan (1) COPD exacerbation: PLAN: The patient is a 66 y/o F w/ PMHx: Severe protein calorie malnutrition, HTN, HLD, Tobacco use, Anxiety and Depression/Panic disorder, PAF s/p RFA, CAD, Fibromyalgia, COPD who presents to the [facility] ED on 07/11/21 with history of 3 to 4 days of progressively worsening fatigue, cough, dyspnea and wheezing with no fevers or chills and the cough noted to be dry however given it was not improving prompted ED evaluation. #1. Acute on chronic COPD exacerbation with Acute Hypoxia: Will admit to MS, maintain on oxygen with wean as tolerated to room air, continue ATC duonebs, PRN albuterol, IV methylprednisolone, HOB, IS parameters, defer abx given no marked WBC elevation or L shift and afebrile pending respiraotry viral panel, procalcitonin and sputum cultures. #2. PAF: Status post RFA, continue patient home aspirin, Coreg regimen. #3. Nonobstructive CAD: We will continue patient aspirin, statin, Coreg home regimen. #4. Hypertension: Continue home regimen including Coreg, PRN hydralazine. #5. Hyperlipidemia: We will continue patient on statin therapy. #6. Tobacco Abuse: Encouraged cessation, inpatient consultation per RT, NR if desired. #7. Severe protein calorie malnutrition: Evidenced by reduced BMI, body and fat loss, nutrition consulted. #8. Anxiety and depression/panic disorder: We will continue patient home trazodone, clonazepam, aripiprazole, duloxetine regimen. #9 DVT prophylaxis: SCDs, Lovenox. Charges/Coding Visit Charges OBSV E&M: 36887 Initial observation care L3
[2021-07-11 23:07] VITALS: BP 164/96; PULSE 97; RESP 16; O2SAT 94
[2021-07-11 23:39] VITALS: BP 164/96; PULSE 94; RESP 16; TEMP 36.6; O2SAT 94
[2021-07-11 23:54] VITALS: BMI 16.7
[2021-07-12] VITALS (13 sets, daily range): BP systolic 89–146; BP diastolic 65–93; PULSE 75–109; RESP 17–22; TEMP 36.5–36.7; O2SAT 92–95
[2021-07-12] MEDS: traZODone 100 MG Tablet PO ×2 (00:17→22:04)
[2021-07-12] MEDS: Carvedilol 3.125 MG TABLET PO ×3 (00:17→20:44)
--- NOTE | 2021-07-12 00:20 | NURSING ---
per patient, wears 2L oxygen at bedtime. Placed 2L at this time.
[2021-07-12] MEDS: 0.9% Saline Lock 10 ML Syringe IV ×3 (05:35→20:43)
[2021-07-12] MEDS: Gabapentin 800 MG Tablet PO ×3 (05:35→20:43)
[2021-07-12] MEDS: Acetaminophen 325 MG Tablet 650 MG PO (05:37)
[2021-07-12 06:15] LABS: Absolute Lymphocyte Count 0.66 X10^3/uL (0.83-4.51); Absolute Neutrophil Count 4.6 X10^3/uL (2.0-7.7); Basophil# 0.01 X10^3/uL; Basophil% 0.2 % (0-1); Eosinophil# 0.01 X10^3/uL; Eosinophils% 0.2 % (0-5); Hematocrit 42.5 % (37-47); Lymphocyte # 0.66 X10^3/ul (0.83-4.51); Lymphocyte % 12.5 % (19-41); Mean Corp Hgb Conc 32.9 g/dL (32-36); Mean Corpuscular Hgb 31.7 pg (27.0-32.0); Mean Corpuscular Volume 96.2 fL (81-99); Mean Platelet Vol. 9.5 fl (6.2-12.0); Monocyte# 0.04 X10^3/uL; Monocyte% 0.8 % (0-10); NRBC Flagged by Analyzer 0 % (0-5); Neutrophil # 4.55 X10^3/uL (2.7-7.7); Neutrophil % 86.1 % (47-70); Platelet Count 228 K/mm3 (150-450); RBC Distribution Width CV 12.4 % (11.6-14.6); RBC Distribution Width SD 44.1 fl (35.1-43.9); Red Blood Count 4.42 M/mm3 (4.2-5.4); White Blood Count 5.3 K/mm3 (4.4-11.0)
[2021-07-12 07:21] LABS: ALB/GLOB Ratio 0.9 RATIO (0.9-2.4); AST(SGOT) 15 U/L (15-37); Alanine Aminotransfer ALT/SGPT 18 U/L (13-56); Alkaline Phosphatase 92 U/L (45-117); Anion Gap 7 (5-15); BUN 13 mg/dL (7-18); BUN/Creat Ratio 18.4 RATIO (10-20); Calcium,Total 8.9 mg/dL (8.5-10.1); Chloride 105 mmol/L (98-107); EST Glomerular Filtration Rate 89 mL/min (>60); Est Glom Filt Rate - Afr Amer 107 mL/min (>60); Estimated Creatinine Clearance 57.93 ml/min; Globulin 3.3 g/dL (2.2-4.2); Glucose 182 mg/dL (74-106); Potassium 4.2 mmol/L (3.5-5.1); Protein, Total 6.3 g/dL (6.4-8.2); Sodium Level 137 mmol/L (136-145)
[2021-07-12] MEDS: Ipratropium/Albuterol Sulfate 3 ML AMPUL.NEB INHALATION ×3 (07:31→19:22)
--- NOTE | 2021-07-12 08:30 | PN.HOSP_ITS ---
Subjective Subjective Patient is a 66-year-old lady who presented with progressive shortness of breath and assessment of COPD with acute exacerbation made admitted to regular nursing floor for further medical management Objective Data Objective Data Vital Signs: Vital Signs Temp Pulse Resp BP Pulse Ox 97.7 F L 91 18 107/77 95 07/12/21 05:33 07/12/21 07:30 07/12/21 07:30 07/12/21 05:33 07/12/21 07:30 Oxygen Flow Rate (L/min) 2 Oxygen Delivery Method Nasal Cannula Weight: 45.8 kg Body Mass Index (BMI) 16.7 Intake & Output: Intake and Output for Last 24 Hours 07/10/21 07/11/21 07/12/21 23:59 23:59 23:59 Intake Total 260 / 260 Balance 260 / 260 Lab / Micro Data Result Diagrams: 07/12/21 05:51 07/12/21 05:51 Labs: Laboratory Results - last 24 hr 07/11/21 21:50: WBC 8.6, RBC 4.72, Hgb 15.0, Hct 45.7, MCV 96.8, MCH 31.8, MCHC 32.8, RDW Std Deviation 44.8 H, RDW Coeff of Disha 12.5, Plt Count 239, MPV 9.4, Immature Gran % (Auto) 0.200, Neut % (Auto) 52.7, Lymph % (Auto) 35.4, [place] % (Auto) 7.5, Eos % (Auto) 3.6, Baso % (Auto) 0.6, Absolute Neuts (auto) 4.5, Absolute Lymphs (auto) 3.04, Nucleated RBC % 0 07/11/21 21:50: Sodium 136, Potassium 3.8, Chloride 100, Carbon Dioxide 31.0, Anion Gap 5, BUN 16, Creatinine 0.74, Estim Creat Clear Calc 54.80, Est GFR (MDRD) Af Amer 102, Est GFR (MDRD) Non-Af 84, BUN/Creatinine Ratio 21.8 H, G lucose 103, Calcium 9.1, Total Bilirubin 0.30, AST 18, ALT 19, Alkaline Phosphatase 92, Total Protein 7.1, Albumin 3.3, Globulin 3.8, Albumin/Globulin Ratio 0.9 07/11/21 21:50: B-Natriuretic Peptide 10.7 07/12/21 05:51: WBC 5.3, RBC 4.42, Hgb 14.0, Hct 42.5, MCV 96.2, MCH 31.7, MCHC 32.9, RDW Std Deviation 44.1 H, RDW Coeff of Disha 12.4, Plt Count 228, MPV 9.5, Immature Gran % (Auto) 0.200, Neut % (Auto) 86.1 H, Lymph % (Auto) 12.5 L, [place] % (Auto) 0.8, Eos % (Auto) 0.2, Baso % (Auto) 0.2, Absolute Neuts (auto) 4.6, Absolute Lymphs (auto) 0.66 L, Nucleated RBC % 0 07/12/21 05:51: Sodium 137, Potassium 4.2, Chloride 105, Carbon Dioxide 25.0, Anion Gap 7, BUN 13, Creatinine 0.70, Estim Creat Clear Calc 57.93, Est GFR (MDRD) Af Amer 107, Est GFR (MDRD) Non-Af 89, BUN/Creatinine Ratio 18.4, Glucose 182 H, Calcium 8.9, Total Bilirubin 0.40, AST 15, ALT 18, Alkaline Phosphatase 92, Total Protein 6.3 L, Albumin 3.0 L, Globulin 3.3, Albumin/Globulin Ratio 0.9 Micro: Microbiology 07/11/21 21:50 Nasal Secretion SARS-CoV-2 & FLU Antigen (Rapid) - Final Radiography Diagnostic Testing: Radiology Impression Chest X-Ray 07/11/21 22:15 IMPRESSION: 1. Chronic emphysematous changes with no evidence of acute cardiopulmonary disease. Electronically Signed: Oh Rubio DO at 23:17 EDT , Physical Exam Narrative GENERAL: cooperative HEENT: Atraumatic; EYES; Anicteric, Normal Conjunctiva NECK; supple, normal thyroid, RESPIRATORY: Diminished to auscultation CARDIOVASCULAR: Regular S1 S2, GI: soft, normoactive bowel sounds, : No Renal angle tenderness; EXTREMITIES: No edema, no clubbing, MUSCULOSKELETAL: no muscle wasting NEURO: Awake; no lateralizing signs. SKIN: No Rash PSYCH; Flat affect Assessment & Plan Assessment/Plan (1) COPD exacerbation: PLAN: Patient is a 66-year-old lady who presented with progressive shortness of breath and assessment of COPD with acute exacerbation made admitted to regular nursing floor for further medical management 1. COPD ? With acute exacerbation. Managed with systemic steroid, bronchodilator treatment as well as supplemental oxygen ? Patient apparently wears oxygen at night she be assessed whether she needs oxygen 24/7 prior to any decision being made on her discharge 2. Paroxysmal A. fib ? With previous radiofrequency ablation ? Patient currently on aspirin as well as carvedilol 3. Hypertension - Blood pressure controlled, home medications continued with dose adjustment as needed 4. Previous history of Takotsubo cardiomyopathy ? Currently stable 5. Dyslipidemia -Patient is on statin therapy, continued at home dose 6. Tobacco dependence - Counseled on cessation, offered nicotine patch for tobacco cravings 7. Severe protein calorie malnutrition ? As evidenced by low BMI of 16.8 decreased energy intake. Consult has been placed to dietitian for subsequent recommendation 8. Panic disorder ? Patient is on clonazepam 9. Depression with anxiety ? Patient is on duloxetine 10. DVT prophylaxis ? SC Lovenox Charges/Coding Visit Charges OBSV E&M: 70857 Subsequent observation care L2
[2021-07-12] MEDS: DULoxetine Hcl 60 MG Capsule 120 MG PO (08:47)
[2021-07-12] MEDS: Aspirin E.C. 81 MG Tablet PO (08:48)
[2021-07-12] MEDS: ARIPiprazole 2 MG Tablet PO (08:48)
[2021-07-12] MEDS: Enoxaparin 30 MG/0.3 ML Syringe SC (08:48)
[2021-07-12 08:51] LABS: Procalcitonin < 0.04 ng/mL (0.00-0.09)
--- NOTE | 2021-07-12 09:35 | CASEMGMT ---
Addendum entered by Hallie Vogel 07/12/21 11:09: TC to Jesusita at [facility] to make aware pt did not qualify for O2 at rest or with exertion but was not tested at hs. She states to send updated readings and order with spot check and they will check pt at home. Faxed script at this time. Addendum entered by Hallie Vogel 07/12/21 10:13: TC to [facility], spoke with Jesusita, states pt rx is 4L with exertion which was changed from a hospital stay. Made her aware pt has not been on that much at the hospital. She requests updated script with testing starting at . Original Note: MASOOD SOLORZANO Assessment: Face to Face with pt for initial transition planning/care coordination assessment. MASOOD SOLORZANO introduced self and role at [facility], pt voices understanding and consents to assessment. Pt is A/O x4 and answers all questions appropriately at this time. Pt sitting up in bed in no distress. Care providers, pharmacy, and demographics verified/updated. Admitting Dx: COPD exac PCP:Jose Specialists:Clay pain mgmt; Maile cardio Preferred Pharmacy: [facility] Insurance: [employer] Prescription Benefit: yes LW/HPOA: Pt has a LW/DPOA on file at [facility]. Pt DPOA is her dtr Divya Prieto. LNOK: Divya Prieto, dtr; Smith Staples, son Living Arrangements: Pt lives alone in a mobile home with 6 steps to enter with a rail. Pt reports she is I in ADL's and denies concerns at home. Transportation: Pt drives self short distances. Pt neighbor transports her to medical appts. DME/HHC/SNF: Pt has oxygen at home through [facility]. She states she wears 2L at hs only. She states she does have portable tanks and they can be brought in for dc if needed. Pt has a pox as well. She also has a cane and FWW that she does not use. She has a medic alert. Pt has had HHC in the past but is unsure of which agency it was through. She denies need for HHC currently. Pt denies SNF stays. Pt states no concerns with going home at time of dc. Pt states no further concerns/needs. CM to follow. Advised pt to ask CM if any further question/concerns/needs arise, voices understanding. Pt Goal: Home Plan: Home, follow for increased O2.
--- NOTE | 2021-07-12 13:20 | NURSING ---
Pt signed consent and is enrolled in the [facility] Patient Link program
--- NOTE | 2021-07-12 15:22 | CASEMGMT ---
MASOOD CM in to discuss SOLANO form with patient. RN CM explained SOLANO form, patient voiced understanding. Pt signed form and filed in chart. Pt provided with a copy of signed SOLANO form. Patient had no further questions or concerns at this time.
[2021-07-12] MEDS: Polyethylene Glycol 3350 17 GM PACKET PO (17:36)
[2021-07-12] MEDS: guaiFENesin 10 ML UDC (200MG/10ML) 20 ML PO (20:43)
[2021-07-12] MEDS: Atorvastatin Calcium 20 MG Tablet PO (20:44)
[2021-07-13 03:28] VITALS: BP 117/66; PULSE 101; RESP 18; TEMP 36.5; O2SAT 98
[2021-07-13] MEDS: 0.9% Saline Lock 10 ML Syringe IV (06:17)
[2021-07-13] MEDS: Gabapentin 800 MG Tablet PO (06:17)
[2021-07-13 07:28] VITALS: PULSE 86; RESP 18; O2SAT 93
[2021-07-13] MEDS: Ipratropium/Albuterol Sulfate 3 ML AMPUL.NEB INHALATION (07:28)
--- NOTE | 2021-07-13 07:41 | PCM.DC.SUM ---
Providers Date of Admission: 07/11/21 Primary Care Physician: Dr. Oh Garcia, DO Reason For Visit: COPD EXACERBATION Diagnosis Discharge Diagnosis (1) COPD exacerbation: Status: Chronic Code(s): J44.1 - Chronic obstructive pulmonary disease with (acute) exacerbation Medications at Discharge Home Medications clonazepam 0.5 mg PO DAILY PRN 10/30/15 tiotropium bromide 1 puff INHALATION DAILY 08/03/16 albuterol sulfate 2.5 mg INHALATION Q6HWA.RT PRN 06/30/17 trazodone 100 mg PO QHS 06/30/17 aspirin 81 mg PO DAILY@0800 #30 tab 12/06/17 atorvastatin 20 mg tablet 20 mg PO QHS #30 tab 02/11/19 aripiprazole 2 mg PO DAILY 11/02/19 duloxetine 60 mg capsule,delayed release 120 mg PO DAILY cap 11/08/19 gabapentin 800 mg tablet 800 mg PO TID tab 11/08/19 carvedilol 3.125 mg tablet 3.125 mg PO BID #60 tab 12/15/20 azithromycin [Zithromax] 500 mg PO DAILY 3 Days #3 tab 07/13/21 prednisone 40 mg PO DAILY #10 tab 07/13/21 Hospital Course Summary of Care Provided Minutes Spent on Discharge: 35 Hospital Course: Patient is a 66-year-old lady who presented with progressive shortness of breath and assessment of COPD with acute exacerbation made admitted to regular nursing floor for further medical management 1. COPD ? With acute exacerbation. Managed with systemic steroid, bronchodilator treatment as well as supplemental oxygen ? Patient apparently wears oxygen at night she be assessed whether she needs oxygen 02/09 prior to any decision being made on her discharge ? Patient did not qualify for home oxygen. Was discharged home on azithromycin as well as prednisone 2. Paroxysmal A. fib ? With previous radiofrequency ablation ? Patient currently on aspirin as well as carvedilol 3. Hypertension - Blood pressure controlled, home medications continued with dose adjustment as needed 4. Previous history of Takotsubo cardiomyopathy ? Currently stable 5. Dyslipidemia -Patient is on statin therapy, continued at home dose 6. Tobacco dependence - Counseled on cessation, offered nicotine patch for tobacco cravings 7. Severe protein calorie malnutrition ? As evidenced by low BMI of 16.8 decreased energy intake. Consult has been placed to dietitian for subsequent recommendation 8. Panic disorder ? Patient is on clonazepam 9. Depression with anxiety ? Patient is on duloxetine 10. DVT prophylaxis ? SC Lovenox Physical Exam Narrative GENERAL: cooperative HEENT: Atraumatic; EYES; Anicteric, Normal Conjunctiva NECK; supple, normal thyroid, RESPIRATORY: Diminished to auscultation CARDIOVASCULAR: Regular S1 S2, GI: soft, normoactive bowel sounds, : No Renal angle tenderness; EXTREMITIES: No edema, no clubbing, MUSCULOSKELETAL: no muscle wasting NEURO: Awake; no lateralizing signs. SKIN: No Rash PSYCH; Flat affect Medical Records Data Medical Nutrition Assessment Dietitian: Malnutrition Criteria Met Start: 07/12/21 11:19 Freq: Status: Active Protocol: Document 07/12/21 11:20 AG (Rec: 07/12/21 11:20 AG [id number]) Nutrition Malnutrition Evidence of Malnutrition Exists Yes Malnutrition (severe): Chronic Evidenced By Suboptimal Energy Intake ( Severe),Physical Changes ( Severe) Clinical Problem Chronic Disease or Condition Related Malnutrition Etiology chronic severe malnutrition r/ t inadequate energy intake w/ increased energy needs d/t COPD Signs/Symptoms as evidenced by estimated energy intake meeting <75% of estimated energy needs >3 months; severe muscle wasting/ fat loss evident per physical exam in upper extremities, clavicle, acromion, orbital, and temporal areas; BMI 16.8 Status Active Problem Recommendation Dietitian Recommendations/Changes regular diet, ensure enlive 120mL 4x/day w/ medpass d/t malnutrition; will also try magic cup w/ lunch daily for additional calories/protein if consumed Weight / BMI Weight Weight: 48.4 kg Body Mass Index (BMI) 16.7 ABG / Lab / Microbiology Data Result Diagrams: 07/12/21 05:51 07/12/21 05:51 Laboratory: Laboratory Results - last 24 hr 07/12/21 05:51: Procalcitonin < 0.04 Microbiology: Microbiology 07/12/21 05:20 Mucosa - Nasopharyngeal Respiratory Panel (PCR) - Final 07/11/21 21:50 Nasal Secretion SARS-CoV-2 & FLU Antigen (Rapid) - Final D/C Instructions Discharge Diet: No restrictions Discharge Activity: Return to Normal Activity Call your doctor if you observe: Fever of 101 or Higher, Shortness of breath, Fainting spells and Chest pain Meaningful Use Info Meaningful Use Diagnoses (Choose all that apply): None applicable Discharge Plan Admission Admit Date/Time: 07/11/21 23:10 Attending Provider: Glen Arechiga Primary Care Provider: Oh Garcia Consulting Providers: Rom Agudelo Discharge Orders/Prescriptions Prescriptions: New azithromycin [Zithromax] 500 mg tablet 500 mg PO DAILY 3 Days Qty: 3 RF: 0 prednisone 20 mg tablet 40 mg PO DAILY Qty: 10 RF: 0 Continued atorvastatin 20 mg tablet 20 mg PO QHS Qty: 30 RF: 11 duloxetine 60 mg capsule,delayed release(DR/EC) 120 mg PO DAILY RF: 0 gabapentin 800 mg tablet 800 mg PO TID RF: 0 carvedilol 3.125 mg tablet 3.125 mg PO BID Qty: 60 RF: 11 clonazepam 0.5 MG tablet 0.5 mg PO DAILY PRN (Reason: Anxiety) RF: 0 tiotropium bromide 1 PUFF inhaler 1 puff inhalation DAILY RF: 0 albuterol sulfate 2.5 MG/3 ML solution for nebulization 2.5 mg inhalation Q6HWA.RT PRN (Reason: COPD) RF: 0 trazodone 100 MG tablet 100 mg PO QHS RF: 0 aspirin 81 MG tablet 81 mg PO DAILY@0800 Qty: 30 RF: 0 aripiprazole 2 MG tablet 2 mg PO DAILY RF: 0 Discontinued albuterol sulfate 1 INHALER inhaler 2 puff inhalation Q6H PRN PRN (Reason: Shortness Of Breath) Qty: 1 RF: 0 albuterol sulfate [Ventolin HFA] 1 INHALER inhaler 1 - 2 puff inhalation Q4H PRN PRN (Reason: Wheezing) Qty: 1 RF: 0 Referrals / Follow Up: Oh Garcia DO [Primary Care Provider] - Within 1 Week Disposition Disposition (needs filled in before D/C Order can be placed): Home, Self Care Charges/Coding Visit Charges OBSV E&M: 19996 Observation care discharge
[2021-07-13 08:39] VITALS: BP 108/84; PULSE 78; RESP 18; TEMP 36.3; O2SAT 99
[2021-07-13] MEDS: Aspirin E.C. 81 MG Tablet PO (08:43)
[2021-07-13] MEDS: Enoxaparin 30 MG/0.3 ML Syringe SC (08:43)
[2021-07-13] MEDS: DULoxetine Hcl 60 MG Capsule 120 MG PO (08:43)
[2021-07-13] MEDS: Carvedilol 3.125 MG TABLET PO (08:43)
[2021-07-13] MEDS: ARIPiprazole 2 MG Tablet PO (08:43)
--- NOTE | 2021-07-13 09:15 | NURSING ---
PT NOTED TO BE PREPARING TO TAKE MEDS FROM HOME WHEN THIS NURSE ENTERED ROOM. EXPLAINED TO PT [facility] POLICY TO DISPENSE MEDS FROM INPT PHA. PT VOICES UNDERSTANDING AND AGREEABLE. PT AGREEABLE TO HAVING HOME MEDS LOCKED SECURELY IN MED ROOM.
[2021-07-13 11:46] VITALS: O2SAT 96
== END 2021-07-13 11:47 | disposition home or self-care (01) ==
LOC: ED 23:16 → MS3 23:31
PROVIDERS: Family Medicine; Admitting Provider Internal Medicine; Emergency Provider Emergency Medicine; PCP Student in an Organized Health Care Education/Training Program; Visit Provider Internal Medicine
DX: J44.1 Chronic obstructive pulmonary disease with (acute) exacerbation (principal); E43 Unspecified severe protein-calorie malnutrition; I48.0 Paroxysmal atrial fibrillation; Z20.822 Contact with and (suspected) exposure to COVID-19; I10 Essential (primary) hypertension; F41.8 Other specified anxiety disorders; F17.210 Nicotine dependence, cigarettes, uncomplicated; I25.10 Atherosclerotic heart disease of native coronary artery without angina pectoris; E78.5 Hyperlipidemia, unspecified; M79.7 Fibromyalgia; Z79.899 Other long term (current) drug therapy; Z79.82 Long term (current) use of aspirin; Z68.1 Body mass index [BMI] 19.9 or less, adult; F41.0 Panic disorder [episodic paroxysmal anxiety]; R06.02 Shortness of breath
CPT/HCPCS: 36415; 71045; 80053; 83880; 84145; 85025; 87428; 87633; 93005; 94640; 96361; 96365; 96372; 96375; 96376; 97802; 99218; 99251; 99284; 99406; J7030; J7040; A4216; G0378; G0463

== ENCOUNTER 2021-07-21 22:12 | Emergency (ER) | payer MEDICARE, SELFPAY ==
[2021-07-21 22:13] VITALS: BP 155/79; PULSE 86; RESP 16; TEMP 36.6; O2SAT 96; BMI 17.7
[2021-07-21 22:20] VITALS: O2SAT 95
--- NOTE | 2021-07-21 22:35 | EKG12_ITS ---
Test Reason : SOB Blood Pressure : / mmHG Vent. Rate : 082 BPM Atrial Rate : 082 BPM P-R Int : 122 ms QRS Dur : 082 ms QT Int : 376 ms P-R-T Axes : 086 062 070 degrees QTc Int : 439 ms Normal sinus rhythm Normal ECG Confirmed by EFE CHINCHILLA, CIRO ([id number]), purchase request editor DANIELE VALDERRAMA ([id number]) on 07/23/2021 11:18:36 AM Referred By: BB Confirmed By:CIRO WILKS MD
--- NOTE | 2021-07-21 22:36 | ED.VIS.DYS ---
HPI History of Present Illness Chief Complaint: Shortness of Breath Informant: patient Onset/Context/Timing Onset: Days (3) Context: gradual and onset Timing: Continuous Quality: Positive for Dyspnea on exertion and Wheezing Current Severity: Moderate Maximum Severity: Severe Worsened by: Exertion and Coughing Relieved by: Rest, Oxygen and Albuterol Associated Symptoms cough Chest Pain: Positive for Tightness Narrative Narrative: 66-year-old female with COPD, she is on home oxygen 2 L at nighttime only was admitted for 2 days and discharged 1 week ago with a 3-day additional course of azithromycin in addition to a 5-day course of prednisone. When she finished the prednisone she started gradually getting worse to the point where today her albuterol did not seem to help nearly as much as it was before, so she presents by EMS for persistent dyspnea despite these treatments at home. She has no new symptoms, they are simply another exacerbation of the same symptoms she was admitted for. The cough is nonproductive. No hemoptysis. No fevers or chills. No leg swelling or orthopnea. Patient does not have a talent acquisition operations manager. [facility] Medical History Adnexal mass Atherosclerotic heart disease of [place] coronary artery without angina pectoris Atrial fibrillation CAD (coronary artery disease) Chronic lumbar back pain COPD (chronic obstructive pulmonary disease) COPD exacerbation Fibromyalgia Lactic acid acidosis Near syncope Panic disorder Pleuritic chest pain Pneumonia Shortness of breath SIRS (systemic inflammatory response syndrome) Tobacco dependence syndrome Unstable angina Home Medications clonazepam 0.5 mg PO DAILY PRN 10/30/15 [History Last Taken 07/11/21] tiotropium bromide [Spiriva with HandiHaler] 1 puff INHALATION DAILY 08/03/16 [History Last Taken 07/11/21] albuterol sulfate 2.5 mg INHALATION Q6HWA.RT PRN 06/30/17 [History Last Taken Unknown] trazodone 100 mg PO QHS 06/30/17 [History Last Taken 07/10/21] aspirin 81 mg PO DAILY@0800 #30 tab 12/06/17 [Rx Last Taken 07/11/21] atorvastatin 20 mg tablet 20 mg PO QHS #30 tab 02/11/19 [Rx Last Taken 07/10/21] aripiprazole 2 mg PO DAILY 11/02/19 [History Last Taken 07/11/21] duloxetine 60 mg capsule,delayed release 120 mg PO DAILY cap 11/08/19 [History Last Taken 07/11/21] gabapentin 800 mg tablet 800 mg PO TID tab 11/08/19 [History Last Taken 07/11/21] carvedilol 3.125 mg tablet 3.125 mg PO BID #60 tab 12/15/20 [Rx Last Taken 07/11/21] prednisone 10 mg PO UD #30 tab 07/22/21 [Rx Last Taken Unknown] Allergy/AdvReac Type Severity Reaction Status Date / Time No Known Allergies Allergy Verified 07/21/21 22:17 Family History Mother CAD (coronary artery disease) Father Cancer Surgical History H/O cardiac radiofrequency ablation History of cholecystectomy History of foot surgery History of hysterectomy History of left heart catheterization (LHC) (~11/08/20) History of right and left heart catheterization (12/05/17) History of tonsillectomy Social History household members: none Smoking Status: Current every day smoker tobacco type: cigarettes alcohol intake: never substance use type: does not use caffeine: Yes Type: carbonated beverages and coffee ROS ROS ED Constitutional Constitutional ED: Denies chills or fever(s) Eyes Eyes: Denies change in vision or diplopia ENT ENT ED: Denies rhinorrhea or sore throat Cardiovascular Cardiovascular: Reports as per HPI and chest pain; Denies palpitations Respiratory/Chest Respiratory/Chest: Reports as per HPI, cough, dyspnea, dyspnea on exertion and wheezing; Denies excessive phlegm production Gastrointestinal Gastrointestinal: Reports bloating; Denies abdominal pain, diarrhea, nausea or vomiting Genitourinary Genitourinary ED: Denies dysuria or hematuria Musculoskeletal Musculoskeletal: Denies back pain or neck pain Integumentary Denies abscess or rash Neurologic Neurologic: Denies headache(s), paresthesias or weakness Psychiatric Psychiatric: Denies anxiety or suicidal thoughts EXAM Physical Exam Const Vital Signs: 07/21/21 22:13 07/21/21 22:20 Temperature 97.8 F Temperature Source Temporal Pulse Rate 86 Respiratory Rate 16 Respiratory Effort Short of Breath Blood Pressure 155/79 H Blood Pressure Mean 104 Pulse Ox 96 Oxygen Delivery Method Room Air Room Air Positive well nourished and well developed General Appearance ED: well developed and NAD HEENT Reports moist mucous membranes normocephalic and atraumatic Eyes PERRL and EOMs intact bilaterally Neck full ROM and supple Resp normal respiratory effort Resp Narrative: Diffuse expiratory wheezing throughout all lung orr, symmetric bilaterally. Effort and Inspection: able to speak in complete sentences and prolonged expiratory phase; Negative for pursed lip breathing Cardio regular rate, regular rhythm and no murmurs Rate: Negative for tachycardic GI non-tender and non-distended Auscultation: normoactive bowel sounds Palpation: soft Back/Spine no CVA tenderness General Back: other FROM Extremity normal to inspection General Extremety ED: Negative for edema, pulses abnormal or tenderness General Extremity: Negative for edema or pulses abnormal Neuro oriented x3, CN's II-XII intact bilaterally and no sensory deficits noted Sensorium / Orientation: awake and alert Motor Exam: strength 5/5 throughout Skin no rashes or lesions noted and no wounds MDM MDM MDM Narrative Medical decision making narrative: Patient was 89% at 1 point while she was being triaged but during my conversation with her she was 95-96% on room air. We gave her a round of nebulizer treatments, and afterwards she was feeling much better. She was given Solu-Medrol 125 mg IV. She says she was feeling better enough to go home. We ambulated her, she did not become hypoxic and did okay although she is still wheezy, I think she needs a longer dose of steroids and then a taper. I will refer her to talent acquisition operations manager. Dr. Estes is on-call. Radiography Chest X-Ray - ED: 2 View, Read by ED Physician, No Acute Disease, Chronic Changes and No Infiltrates Rhythm Strip Rhythm Strip: Sinus Rhythm Rate: 85 Ectopy: None EKG Initial EKG: Attestation: I personally reviewed and interpreted this EKG as follows: Interpretation: Sinus Rhythm and No Acute Injury Pattern Comments: normal EKG Discharge Plan Triage Chief Complaint: Shortness of Breath ED Provider: Santino Saunders Dx/Rx/DC Orders Clinical Impression: Acute exacerbation of chronic obstructive pulmonary disease Instructions: ED COPD Flare Prescriptions: New prednisone 10 MG tablet 10 mg PO UD Qty: 30 RF: 0 No Action atorvastatin 20 mg tablet 20 mg PO QHS Qty: 30 RF: 11 duloxetine 60 mg capsule,delayed release(DR/EC) 120 mg PO DAILY RF: 0 gabapentin 800 mg tablet 800 mg PO TID RF: 0 carvedilol 3.125 mg tablet 3.125 mg PO BID Qty: 60 RF: 11 clonazepam 0.5 MG tablet 0.5 mg PO DAILY PRN (Reason: Anxiety) RF: 0 Spiriva with HandiHaler 1 PUFF inhaler 1 puff inhalation DAILY RF: 0 albuterol sulfate 2.5 MG/3 ML solution for nebulization 2.5 mg inhalation Q6HWA.RT PRN (Reason: COPD) RF: 0 trazodone 100 MG tablet 100 mg PO QHS RF: 0 aspirin 81 MG tablet 81 mg PO DAILY@0800 Qty: 30 RF: 0 aripiprazole 2 MG tablet 2 mg PO DAILY RF: 0 Primary Care Provider: Oh Garcia Referrals: Bethel Estes MD [STAFF PHYSICIAN] - (Call for pulmonology appointment) Oh Garcia DO [Primary Care Provider] - Disposition Disposition: Home, Self Care
[2021-07-21] MEDS: Albuterol 2.5 MG/3 ML VIAL.NEB. INHALATION ×2 (22:55)
[2021-07-21 23:03] VITALS: PULSE 91; RESP 18
[2021-07-21] MEDS: MethylPREDNISolone 125 MG/2 ML Vial IV (23:29)
--- NOTE | 2021-07-21 23:40 | RAD_ITS ---
INDICATION: cough sob copd EXAMINATION/TECHNIQUE: X-RAY - XR Chest 2 Views COMPARISON: 07/11/2021. FINDINGS: Hyperinflated lungs. The cardiomediastinal silhouette is unremarkable. No pleural effusion or pneumothorax. Degenerative changes of the thoracic spine. RAD/Chest PA and Lateral IMPRESSION: No acute radiographic abnormalities. COPD. Electronically Signed: Renzo Garibay MD at 1:04 EDT ,
[2021-07-22 00:04] VITALS: O2SAT 94
--- NOTE | 2021-07-22 00:06 | NURSING ---
patient reports ready to go home and declined further breathing treatments
[2021-07-22 00:07] VITALS: BP 152/82; PULSE 74; RESP 16; O2SAT 98
== END 2021-07-22 00:08 | disposition home or self-care (01) ==
PROVIDERS: Emergency Provider Emergency Medicine; PCP Student in an Organized Health Care Education/Training Program; Visit Provider Emergency Medicine
DX: J44.1 Chronic obstructive pulmonary disease with (acute) exacerbation (principal); I48.91 Unspecified atrial fibrillation; I25.10 Atherosclerotic heart disease of native coronary artery without angina pectoris; Z99.81 Dependence on supplemental oxygen; F17.210 Nicotine dependence, cigarettes, uncomplicated
CPT/HCPCS: 71046; 93005; 94640; 96374; 99285

== ENCOUNTER → 2021-09-13 | Outpatient (CLI) | payer MEDICARE, SELFPAY ==
--- NOTE | 2021-09-13 14:18 | CT_ITS ---
EXAM: CT CHEST, LUNG CANCER SCREENING WITHOUT INTRAVENOUS CONTRAST CLINICAL INDICATION: Screening TECHNIQUE: Helically acquired images were obtained of the chest without intravenous contrast using low dose (LDCT) lung cancer screening protocol. This CT exam was performed using one or more of the following dose reduction techniques: automated exposure control, adjustment of the mA and/or kV according to patient size, and/or use of iterative reconstruction technique. This report was created using [employer] report generation technology. COMPARISON: 10/29/2019 FINDINGS: LUNGS AND PLEURAL SPACES: There is minimal scarring in the lingula. No mass. No pleural effusion or thickening. No pneumothorax. HEART: Unremarkable. Heart size is normal. No pericardial effusion. No significant coronary artery calcifications. MEDIASTINUM: Unremarkable. No mediastinal or hilar adenopathy. Esophagus is unremarkable. No hiatal hernia. THYROID: Unremarkable. No thyroid lesions. BONES/JOINTS: Unremarkable. No suspicious lytic or blastic abnormality. VASCULATURE: Unremarkable. Thoracic aorta is non-dilated. LYMPH NODES: Unremarkable. No enlarged lymph nodes. CT/Low Dose CT Lung Screening IMPRESSION: 1. No acute pulmonary abnormality. There is scarring within the lingula. 2. Lung RADS category 2. Electronically Signed: Sina Mcdonough MD at 17:33 EDT ,
== END | disposition home or self-care (01) ==
LOC: CT 14:08
PROVIDERS: PCP Student in an Organized Health Care Education/Training Program; Referring Provider Internal Medicine Critical Care Medicine; Visit Provider Internal Medicine Critical Care Medicine
DX: Z12.2 Encounter for screening for malignant neoplasm of respiratory organs (principal); J98.4 Other disorders of lung; F17.210 Nicotine dependence, cigarettes, uncomplicated
CPT/HCPCS: 71271

== ENCOUNTER → 2021-10-16 | Outpatient (CLI) | payer MEDICARE, SELFPAY ==
--- NOTE | 2021-10-17 09:49 | PFT ---
INTRODUCTION: The patient is a 66-year-old female who presents for pulmonary function studies secondary to a diagnosis of COPD. Respiratory therapy reported good patient effort. Bronchodilators were used during testing. INTERPRETATION: Forced expiration spirometry demonstrates the presence of a severe large airways obstructive ventilatory defect. There was a significant response to aerosolized bronchodilators. Spirograms are of good quality but do not plateau indicating slow emptying of the lungs. Body plethysmography was performed and revealed an elevated TLC and RV, indicative of underlying hyperinflation and air trapping. Diffusing capacity by single breath CO is reduced at 66% of predicted. IMPRESSION: Partially reversible severe large airways obstructive ventilatory defect with associated hyperinflation, air trapping and mild reduction in diffusing capacity.
== END | disposition home or self-care (01) ==
LOC: PSN 09:08
PROVIDERS: PCP Student in an Organized Health Care Education/Training Program; Referring Provider Internal Medicine Critical Care Medicine; Visit Provider Internal Medicine Critical Care Medicine
DX: J44.9 Chronic obstructive pulmonary disease, unspecified (principal)
CPT/HCPCS: 94060; 94726; 94729

== ENCOUNTER → 2021-10-22 | Outpatient (CLI) | payer MEDICARE, SELFPAY ==
[2021-10-22 12:34] VITALS: PULSE 102; PULSE 106; PULSE 108; PULSE 109; PULSE 110; PULSE 80; PULSE 84; O2SAT 96; O2SAT 97; O2SAT 98; O2SAT 99
--- NOTE | 2021-10-23 07:54 | PCM.PSN.6M ---
PSN 6 Minute Walk Test 6 Minute Walk Test 6 Minute Walk Test: 6 Minute Walk Test PSN:6-Minute Walk Test Start: 10/22/21 12:34 Freq: Status: Active Protocol: [id number].6MINW Document 10/22/21 12:34 JONO (Rec: 10/22/21 12:36 JONO [id number]) 6 Minute Walk Test Date Performed 10/22/21 Time Performed 12:25 Height 5 ft 5 in Weight: 50.349 kg Weight in Pounds 111.[address]: Bethel Estes Assistive device used: None Pre-test Oxygen Delivery Method Room Air Pulse Ox (%) 97 Pulse Rate (60-100 beats/min) 80 Dyspnea Brandy Scale (0-10) 0.5 Exertion Brandy Scale (6-20) 6 1st minute Oxygen Delivery Method Room Air Pulse Ox (%) 98 Pulse Rate (60-100 beats/min) 102 H 2nd minute Oxygen Delivery Method Room Air Pulse Ox (%) 99 Pulse Rate (60-100 beats/min) 106 H 3rd minute Oxygen Delivery Method Room Air Pulse Ox (%) 96 Pulse Rate (60-100 beats/min) 110 H 4th minute Oxygen Delivery Method Room Air Pulse Ox (%) 97 Pulse Rate (60-100 beats/min) 109 H 5th minute Oxygen Delivery Method Room Air Pulse Ox (%) 98 Pulse Rate (60-100 beats/min) 108 H 6th minute Oxygen Delivery Method Room Air Pulse Ox (%) 98 Pulse Rate (60-100 beats/min) 109 H Dyspnea Brandy Scale (0-10) 1 Exertion Brandy Scale (6-20) 14 Post-test Oxygen Delivery Method Room Air Pulse Ox (%) 97 Pulse Rate (60-100 beats/min) 84 Full Laps Walked 13 Partial Lap, Number of Tiles Walked 49 Total Distance Walked (ft) 816 Interpretation Interpretation: The patient was able to ambulate 816 feet over the course of 6 minutes on room air with no assistive devices or breaks. The patient experienced no significant desaturation, but did have persistent tachycardia throughout testing with a peak heart rate of 110 bpm. These findings are consistent with a cardiovascular limitation exercise tolerance. Recommendations Recommendations: No supplemental oxygen is indicated at this time. Patient may benefit from cardiac optimization.
== END | disposition home or self-care (01) ==
LOC: PSN 12:03
PROVIDERS: PCP Student in an Organized Health Care Education/Training Program; Referring Provider Internal Medicine Critical Care Medicine; Visit Provider Internal Medicine Critical Care Medicine
DX: J44.9 Chronic obstructive pulmonary disease, unspecified (principal)
CPT/HCPCS: 94618

== ENCOUNTER 2021-11-12 08:50 | Day surgery (SDC) | payer MEDICARE, SELFPAY ==
[2021-11-12] MEDS: Lactated Ringers 1,000 ML 15 ML IV (09:05)
[2021-11-12 09:23] VITALS: BP 150/81; PULSE 69; RESP 18; TEMP 36.1; O2SAT 99; BMI 18.3
--- NOTE | 2021-11-12 09:25 | RAD_ITS ---
PROCEDURE: Caudal epidural. DATE OF EXAMINATION: 11/12/2021 INDICATION: Female, 66 years old. Chronic low back pain. FLUOROSCOPY TIME (if supplied): (3 seconds) minutes/seconds. One image was submitted. RAD/Fluor Guidance for Spine Inj IMPRESSION: Intraoperative imaging provided for caudal epidural. Electronically Signed: Ari Doran MD at 8:42 EDT ,
[2021-11-12] MEDS: MethylPREDNISolone Acetate 40 MG/ML Vial IM ×2 (10:13)
[2021-11-12] MEDS: 0.9% Normal Saline (Pres. free 10 ML Vial (10:13)
[2021-11-12] MEDS: Lidocaine 1% (30 ml sdv) 30 ML Vial (10:13)
--- NOTE | 2021-11-12 10:15 | OP.PCM_ITS ---
Report of Operation Date of Procedure: 11/12/21 Pre-Operative Diagnosis: Lumbosacral radiculopathy, lumbosacral degenerative di sc disease, lumbosacral spinal stenosis Post-Operative Diagnosis: Lumbosacral radiculopathy, lumbosacral degenerative disc disease, lumbosacral spinal stenosis Surgery/Procedure Performed:: Caudal epidural steroid injection under fluoroscopic guidance Type of Anesthesia: MAC Estimated Blood Loss (mL): Minimal Description of Procedure: DESCRIPTION OF PROCEDURE: History and physical of today was reviewed. Risks and benefits of the procedure were explained. The patient understood and agreed to proceed. Informed consent was obtained. IV inserted per routine protocol. The patient was taken to the operating room and placed in the prone position with a pillow positioned underneath the abdomen. The lower back and tailbone area was prepped and draped in a sterile fashion using iodine x3. Under fluoroscopy guidance on a lateral view, the caudal space was identified. The skin and subcutaneous tissue was anesthetized with approximately 3 mL of 1% lidocaine using a 25-gauge regular needle. Under direct visualization with fluoroscopy, using a 22-gauge 3-1/2-inch spinal needle, the needle was advanced via the skin through the sacral hiatus. The tip of the needle was passed through the sacrococcygeal ligament and advanced to approximately S4 area. After negative aspiration of blood or CSF, a total of 3 mL of contrast was injected to confirm correct placement of the needle as well as cephalad spread. The spread was followed to approximately L5 area. After confirmation on AP as well as lateral view and repeated negative aspiration, a total of 15 mL of preservative-free 0.125% Marcaine with 80 mg of Depo-Medrol was injected easily. The needle was then removed intact. The patient experienced no sign or symptoms of intrathecal or intravascular injection. The patient experienced no paresthesia. The procedure was completed without any apparent difficulty or any complications. The patient appeared to tolerate it well. ASSESSMENT AND PLAN: This is a 66-year-old female with lumbosacral radiculopathy, lumbosacral degenerative disc disease, lumbosacral spinal stenosis status post caudal epidural steroid injection, patient will continue her current medications, patient will follow in approximately 2 weeks for reevaluation. Complications None
[2021-11-12 10:20] VITALS: BP 120/80; BP 150/81; PULSE 88; RESP 16; TEMP 37.1; O2SAT 100
[2021-11-12 10:25] VITALS: BP 121/82; BP 150/81; PULSE 84; RESP 16; O2SAT 100
[2021-11-12 10:30] VITALS: BP 123/81; BP 150/81; PULSE 78; RESP 16; O2SAT 98
[2021-11-12 10:35] VITALS: BP 129/77; BP 150/81; PULSE 79; RESP 16; TEMP 36.9; O2SAT 99
== END 2021-11-12 11:02 | disposition home or self-care (01) ==
LOC: SDC 08:51 → AC 08:56
PROVIDERS: PCP Student in an Organized Health Care Education/Training Program; Visit Provider Anesthesiology Pain Medicine
PROC: 3E0S3BZ Introduction of Anesthetic Agent into Epidural Space, Percutaneous Approach (ICD-10-PCS; CPT 62282; principal; 2021-11-12 10:20)
DX: M51.37 Other intervertebral disc degeneration, lumbosacral region (principal); J44.9 Chronic obstructive pulmonary disease, unspecified; I48.91 Unspecified atrial fibrillation; M47.817 Spondylosis without myelopathy or radiculopathy, lumbosacral region; M62.830 Muscle spasm of back; M54.17 Radiculopathy, lumbosacral region; M50.30 Other cervical disc degeneration, unspecified cervical region; Z79.891 Long term (current) use of opiate analgesic; M47.812 Spondylosis without myelopathy or radiculopathy, cervical region; Z79.82 Long term (current) use of aspirin; I25.2 Old myocardial infarction; I25.10 Atherosclerotic heart disease of native coronary artery without angina pectoris; F41.9 Anxiety disorder, unspecified
CPT/HCPCS: 62323; 64483; 77003; J3490

== ENCOUNTER 2021-12-14 15:44 | Emergency (ER) | payer MEDICARE, SELFPAY ==
[2021-12-14 15:45] VITALS: BP 122/68; PULSE 78; RESP 18; TEMP 36.6; O2SAT 98
--- NOTE | 2021-12-14 16:09 | EDS_ITS ---
HPI History of Present Illness Chief Complaint: Cough Detail of Chief Complaint: Generalized weakness Informant: patient Narrative Narrative: Patient presents to the emergency department with complaint of generalized weakness for the last 2 days. Patient states that she wakes up in the morning and then develops this just fatigue and she gets shaky with trying to stand. Patient states that she is afraid to drive. Patient called EMS today because she was worried she may have carbon monoxide poisoning and they checked her house and there was no detection of carbon monoxide. Patient denies fever. She does have a cough that is chronic from history of COPD. Patient continues to smoke. She denies chest pain. She denies abdominal pain. She denies blood in her stool or black tarry stools. She denies urinary symptoms. Prior similar symptoms: No PFSH PFS Medical History (Updated 12/14/21 @ 18:[address] Yan Evans, DO) Adnexal mass Anxiety Arthritis Asthma Atherosclerotic heart disease of [place] coronary artery without angina pectoris Atrial fibrillation Back pain CAD (coronary artery disease) Cardiology follow-up encounter Chronic cough Chronic lumbar back pain COPD (chronic obstructive pulmonary disease) COPD exacerbation Depression Easy bruising Emphysema, unspecified Fibromyalgia Heartburn High cholesterol History of echocardiogram History of pain when walking History of stress test Lactic acid acidosis Leg cramps Near syncope On home oxygen therapy Panic disorder Pleuritic chest pain Pneumonia Shortness of breath Shortness of breath on exertion SIRS (systemic inflammatory response syndrome) Smoker Tobacco dependence syndrome Unstable angina Wears glasses Home Medications clonazepam 0.5 mg tablet 0.5 mg PO DAILY PRN Anxiety 10/30/15 [History Last Taken 11/12/21] albuterol sulfate 2.5 mg/3 mL (0.083 %) solution for nebulization 2.5 mg inhalation Q6HWA.RT PRN COPD 06/30/17 [History Last Taken 11/12/21] trazodone 100 mg tablet 100 mg PO QHS sleep 06/30/17 [History Last Taken 11/12/21] aspirin 81 mg tablet,delayed release 81 mg PO DAILY@0800 #30 tabs 12/06/17 [Rx Last Taken 11/12/21] atorvastatin 20 mg tablet 20 mg PO QHS #30 tabs 02/11/19 [Rx Last Taken 11/12/21] aripiprazole 2 mg tablet 2 mg PO DAILY mental health 11/02/19 [History Last Taken 11/12/21] duloxetine 60 mg capsule,delayed release 120 mg PO DAILY depression 11/08/19 [History Last Taken 07/11/21] gabapentin 800 mg tablet 800 mg PO TID pain 11/08/19 [History Last Taken 11/12/21] albuterol sulfate 90 mcg/actuation aerosol inhaler 2 puff inhalation Q6H PRN SOB 08/29/21 [History Last Taken 11/12/21] fluticasone fur. 100 mcg-umeclid 62.5 mcg-vilant 25 mcg inhalat.powder (Trelegy Ellipta) 1 inh inhalation DAILY #60 ea 08/29/21 [Rx Last Taken 11/12/21] midodrine 10 mg tablet 10 mg PO TID 08/29/21 [History Last Taken 11/12/21] baclofen 10 mg tablet 20 mg PO QHS 12/14/21 [History Last Taken Unknown] fluticasone fur. 100 mcg-umeclid 62.5 mcg-vilant 25 mcg inhalat.powder (Trelegy Ellipta) 1 inh inhalation DAILY 12/14/21 [History Last Taken Unknown] Allergy/AdvReac Type Severity Reaction Status Date / Time No Known Allergies Allergy Verified 12/14/21 15:45 Family History Mother CAD (coronary artery disease) Father Cancer Surgical History H/O cardiac radiofrequency ablation History of cardiac catheterization History of cholecystectomy History of foot surgery History of hysterectomy History of left heart catheterization (LHC) (~11/08/20) History of right and left heart catheterization (12/05/17) History of tonsillectomy Hx of laparoscopy Social History household members: none Smoking Status: Current every day smoker tobacco type: cigarettes alcohol intake: never substance use type: does not use caffeine: Yes Type: carbonated beverages and coffee ROS ROS ED Review of Systems ROS Unobtainable: other Constitutional Constitutional ED: Reports lethargy; Denies chills, fever(s), sweats or weight loss Eyes Eyes: Denies blurry vision, change in vision or diplopia ENT ENT ED: Denies rhinorrhea or sore throat Cardiovascular Cardiovascular: Denies chest pain, orthopnea or racing heartbeat Respiratory/Chest Respiratory/Chest: Reports cough; Denies dyspnea, dyspnea on exertion, orthopnea or sputum Gastrointestinal Gastrointestinal: Denies abdominal pain, diarrhea, nausea or vomiting Genitourinary Genitourinary ED: Denies dysuria, hematuria or urinary frequency Musculoskeletal Musculoskeletal: Denies arthralgias, back pain, myalgias or neck pain Integumentary Denies abscess, Abrasions or rash Neurologic Neurologic: Reports weakness; Denies headache(s) Psychiatric Psychiatric: Denies anxiety, depression or suicidal thoughts Endocrine Endocrinology: Denies polydipsia, polyphagia or polyuria Hematologic/Lymphatic Hematologic/Lymphatic: Denies easy bleeding, easy bruising or lymphadenopathy Allergic/Immunologic Allergic/Immunologic ED: Denies mouth swelling, tongue swelling or urticaria EXAM Physical Exam Const Vital Signs: 12/14/21 15:45 12/14/21 15:48 12/14/21 18:03 Temperature 97.8 F Temperature Source Oral Pulse Rate 78 Pulse Rate [Lying] 70 Pulse Rate [Sitting (for 1 minute prior to obtaining)] 72 Respiratory Rate 18 Respiratory Effort Normal Non-Labored Respiratory Depth Normal Respiratory Pattern Normal Blood Pressure 122/68 H Blood Pressure [Lying] 134/79 H Blood Pressure [Sitting (for 1 minute prior to obtaining)] 138/72 H Blood Pressure [Standing (for 1 minute prior to obtaining)] 112/78 Blood Pressure Mean 86 Blood Pressure Mean [Lying] 97 Blood Pressure Mean [Sitting (for 1 minute prior to obtaining)] 94 Blood Pressure Mean [Standing (for 1 minute prior to obtaining)] 89 Pulse Ox 98 Oxygen Delivery Method Room Air Positive well nourished and well developed General Appearance ED: well developed and NAD HEENT Reports TM's clear and moist mucous membranes normocephalic and atraumatic; Negative for trauma or tenderness Tympanic Membrane ED: Yes TM's clear Eyes PERRL and EOMs intact bilaterally General Eye ED: Negative for pale conjunctiva or scleral icterus Neck no lymphadenopathy, supple and no JVD General: Negative for tenderness Chest Wall inspection of chest normal and palpation of chest normal Chest: Negative for tenderness Resp normal respiratory effort and clear to auscultation bilaterally Effort and Inspection: Negative for respiratory distress or pain with movement Auscultation: Negative for rhonchi, wheezes or diminished lung sounds Cardio regular rate, regular rhythm, S1 normal heart sound, S2 normal heart sound and no murmurs Peripheral Pulses: pulses 2+ throughout GI normal to inspection, nondistended, normoactive bowel sounds, soft to palpation, non-tender, non-distended and no masses Back/Spine no CVA tenderness and no thoracic nor lumbar tenderness Extremity normal to inspection General Extremety ED: Negative for edema General Extremity: Negative for edema Neuro oriented x3, CN's II-XII intact bilaterally, no sensory deficits noted and gait normal Sensorium / Orientation: awake, alert, oriented to person, oriented to place and oriented to time Motor Exam: strength 5/5 throughout and strength abnormal Psych mental status grossly normal Skin no rashes or lesions noted and no wounds MDM MDM MDM Narrative Medical decision making narrative: IV line established on arrival. Patient placed on train gate attendant. EKG and lab work-up essentially unremarkable. Urinalysis was normal. COVID-19 rapid test was negative. At this time she did have orthostatic vitals that showed a systolic drop of 22.6 however she was asymptomatic. She was given a liter mostly of fluid bolus. At this point etiology of her generalized weakness and fatigue unclear. Patient advised to push fluids and follow-up with her primary care physician within next 3 to 5 days. Lab Data Attestation: I reviewed the patient's lab results. Labs: Laboratory Results - last 24 hr 12/14/21 12/14/21 12/14/21 16:47 16:50 16:50 WBC 6.6 RBC 4.08 L Hgb 12.8 Hct 39.9 MCV 97.8 MCH 31.4 MCHC 32.1 RDW Std Deviation 46.7 H RDW Coeff of Disha 13.0 Plt Count 224 MPV 8.9 Immature Gran % (Auto) 0.200 Neut % (Auto) 49.9 Lymph % (Auto) 39.0 Knott % (Auto) 7.3 Eos % (Auto) 3.0 Baso % (Auto) 0.6 Absolute Neuts (auto) 3.3 Absolute Lymphs (auto) 2.56 Nucleated RBC % 0 Sodium 137 Potassium 3.8 Chloride 103 Carbon Dioxide 31.0 Anion Gap 3 L BUN 7 Creatinine 0.78 Estim Creat Clear Calc 62.09 Est GFR (MDRD) Af Amer 95 Est GFR (MDRD) Non-Af 78 BUN/Creatinine Ratio 9.0 L Glucose 93 Calcium 9.0 Troponin I High Sens 15 Urine Color Yellow Urine Clarity Clear Urine pH 6.0 Ur Specific [place] 1.020 Urine Protein Negative Urine Glucose (UA) Normal Urine Ketones 5 H Urine Occult Blood Negative Urine Nitrite Negative Urine Bilirubin Negative Urine Urobilinogen Normal Ur Leukocyte Esterase 25 H Urine RBC 0 SEEN Urine WBC 0 SEEN Ur Squamous Epith Cells 0 SEEN Urine Bacteria 0 SEEN Urine Mucus 0 SEEN Radiography Chest X-Ray - ED: 1 View Diagnostic Testing: Clinical Impression(s) from Imaging Studies Chest X-Ray 12/14/21 16:20 IMPRESSION: COPD. Electronically Signed: Marilyn Celaya MD at 16:59 EDT , 1 view chest x-ray obtained interpreted by myself no acute disease process. Radiology read it is COPD otherwise nothing acute. EKG Initial EKG: Attestation: I personally reviewed and interpreted this EKG as follows: Comments: Sinus rhythm with a rate of 57 bpm with no acute ST segment changes Discharge Plan Triage Chief Complaint: Cough Other Complaint: Fatigue ED Provider: Yan Evans Dx/Rx/DC Orders Clinical Impression: Weakness Instructions: ED Weakness (Uncertain Cause) Prescriptions: No Action atorvastatin 20 mg tablet 20 mg PO QHS Qty: 30 11RF duloxetine 60 mg capsule,delayed release(DR/EC) 120 mg PO DAILY Label Comments: take 2 capsules by mouth once daily gabapentin 800 mg tablet 800 mg PO TID albuterol sulfate 90 mcg/actuation HFA aerosol inhaler 2 puff inhalation Q6H PRN (Reason: SOB) Trelegy Ellipta 100-62.5-25 mcg blister with device 1 inh inhalation DAILY Qty: 60 5RF midodrine 10 mg tablet 10 mg PO TID clonazepam 0.5 MG tablet 0.5 mg PO DAILY PRN (Reason: Anxiety) Label Comments: ANXIETY albuterol sulfate 2.5 MG/3 ML solution for nebulization 2.5 mg inhalation Q6HWA.RT PRN (Reason: COPD) trazodone 100 MG tablet 100 mg PO QHS aspirin 81 MG tablet 81 mg PO DAILY@0800 Qty: 30 0RF aripiprazole 2 MG tablet 2 mg PO DAILY baclofen 10 mg Tablet 20 mg PO QHS Trelegy Ellipta 100-62.5-25 mcg blister with device 1 inh inhalation DAILY Primary Care Provider: Oh Garcia Referrals: Oh Garcia DO [Primary Care Provider] - 3-5 Days Disposition Disposition: Home, Self Care
--- NOTE | 2021-12-14 16:20 | RAD_ITS ---
STUDY: X-RAY CHEST REASON FOR EXAM: Female, 66 years old. Cough TECHNIQUE: Single frontal view of the chest. COMPARISON: 07/21/2021 FINDINGS: The lungs are hyperinflated. There is a paucity of lung markings within the upper lungs consistent with emphysema. There is no new focal consolidation. Normal size heart. Normal mediastinum and tena. Normal visualized pulmonary arteries. Normal visualized aortic arch and descending thoracic aorta. Normal visualized thoracic spine. Normal visualized ribs, clavicles, and shoulders. There is no demonstrated abnormality of the visualized soft tissue structures of the upper abdomen. RAD/Chest 1 View (Portable) IMPRESSION: COPD. Electronically Signed: Marilyn Celaya MD at 16:59 EDT ,
[2021-12-14] MEDS: 0.9% Normal Saline 1,000 ML 150 ML IV (16:47)
[2021-12-14 16:55] LABS: Bacteria 0 SEEN /hpf (None Seen); Mucous, Urine 0 SEEN /hpf (<or=2+); Red Blood Cells-Urine 0 SEEN /hpf (0-5); Squamous Epithelial Cells - UA 0 SEEN /hpf (5-10); White Blood Cells 0 SEEN /hpf (0-5)
[2021-12-14 16:57] LABS: Absolute Lymphocyte Count 2.56 X10^3/uL (0.83-4.51); Absolute Neutrophil Count 3.3 X10^3/uL (2.0-7.7); Basophil# 0.04 X10^3/uL; Basophil% 0.6 % (0-1); Hematocrit 39.9 % (37-47); Hemoglobin 12.8 g/dL (12.0-15.0); Lymphocyte # 2.56 X10^3/ul (0.83-4.51); Mean Corp Hgb Conc 32.1 g/dL (32-36); Mean Corpuscular Hgb 31.4 pg (27.0-32.0); Mean Corpuscular Volume 97.8 fL (81-99); Mean Platelet Vol. 8.9 fl (6.2-12.0); Monocyte# 0.48 X10^3/uL; Monocyte% 7.3 % (0-10); NRBC Flagged by Analyzer 0 % (0-5); Neutrophil # 3.28 X10^3/uL (2.7-7.7); Neutrophil % 49.9 % (47-70); Platelet Count 224 K/mm3 (150-450); RBC Distribution Width SD 46.7 fl (35.1-43.9); Red Blood Count 4.08 M/mm3 (4.2-5.4); White Blood Count 6.6 K/mm3 (4.4-11.0)
[2021-12-14 16:58] LABS: Color, Urine Yellow (Yellow); Glucose, Dipstick Normal (Normal); Ketone-Dipstick 5 mg/dl (Negative); Leukocyte Esterase-Dipstick 25 /ul (Negative); Nitrite-Dipstick Negative (Negative); Occult Blood-Urine Negative /ul (Negative); Protein-Dipstick Negative (Negative); Urine Bilirubin Dipstick Negative (Negative); Urine Clarity Clear (Clear); Urine Urobilinogen Normal (Normal)
[2021-12-14 17:16] LABS: Anion Gap 3 (5-15); BUN 7 mg/dL (7-18); Chloride 103 mmol/L (98-107); Creatinine, Serum 0.78 mg/dL (0.55-1.02); EST Glomerular Filtration Rate 78 mL/min (>60); Est Glom Filt Rate - Afr Amer 95 mL/min (>60); Estimated Creatinine Clearance 62.09 ml/min; Glucose 93 mg/dL (74-106); Potassium 3.8 mmol/L (3.5-5.1); Sodium Level 137 mmol/L (136-145); Troponin-I HS 15 pg/mL (3.0-54.0)
[2021-12-14 18:03] VITALS: BP 112/78; BP 134/79; BP 138/72; PULSE 70; PULSE 72
--- NOTE | 2021-12-14 18:39 | EKG12_ITS ---
Test Reason : DYSRHYTHMIA Blood Pressure : / mmHG Vent. Rate : 057 BPM Atrial Rate : 057 BPM P-R Int : 134 ms QRS Dur : 080 ms QT Int : 434 ms P-R-T Axes : 084 060 065 degrees QTc Int : 422 ms Sinus bradycardia Otherwise normal ECG Confirmed by EFE CHINCHILLA, CIRO ([id number]), food editor SYL PENDLETON ([id number]) on 12/17/2021 11:39:36 AM Referred By: JB Confirmed By:CIRO WILKS MD
== END 2021-12-14 19:14 | disposition home or self-care (01) ==
PROVIDERS: Emergency Provider Emergency Medicine; PCP Student in an Organized Health Care Education/Training Program; Visit Provider Emergency Medicine
DX: R53.1 Weakness (principal); J43.9 Emphysema, unspecified; F17.200 Nicotine dependence, unspecified, uncomplicated; I25.10 Atherosclerotic heart disease of native coronary artery without angina pectoris; R53.83 Other fatigue; E78.00 Pure hypercholesterolemia, unspecified
CPT/HCPCS: 71045; 80048; 81001; 84484; 85025; 87428; 93005; 99285; A4216

== ENCOUNTER 2022-02-21 14:29 | Emergency (ER) | payer MEDICARE, SELFPAY ==
[2022-02-21 14:30] VITALS: BP 112/70; PULSE 80; RESP 16; TEMP 36.6; O2SAT 99; BMI 19.2
--- NOTE | 2022-02-21 14:54 | EX.ED.VIS.EY ---
HPI History of Present Illness Chief Complaint: Eye Problem Detail of Chief Complaint: Blurred vision right I since the beginning of the month Informant: patient Onset/Context/Timing Location: Right Eye Onset: Days Context: Sudden Onset Timing: Continuous Current Severity: Mild Maximum Severity: Mild Worsened by: Patient told she has a corneal abrasion Relieved by: Nothing Associated Symptoms Associated Symptoms - Eyes: Crusting (Day after she put away her Rose tree. She may have had a traumatic injury.), Drainage (There was drainage initially.), Matting (February 11) and Photophobia (Right); Negative for Burning, Eyelid swelling, Foreign body sensation, Itching or Redness Visual Changes: right: Blurred vision History of injury: Uncertain Visual correction: None Narrative Narrative: Patient is a 66-year-old woman who presents because of blurred vision since February 11. She states she was put away her [place] tree on February 10. She believes she did not injure it. When she awoke on February 11 her eyelashes were matted together she had drainage and the eye was swollen. Last week she saw her primary care physician who told her that she had a corneal abrasion and was placed on erythromycin ophthalmic ointment. Patient states her vision is still blurred. She denies history of glaucoma. She denies history of diabetes. She denies flashing lights. Prior similar symptoms: No Recent Illness/Hospitalization: No [facility] Medical History Adnexal mass Anxiety Arthritis Asthma Atherosclerotic heart disease of [place] coronary artery without angina pectoris Atrial fibrillation Back pain CAD (coronary artery disease) Cardiology follow-up encounter Chronic cough Chronic lumbar back pain COPD (chronic obstructive pulmonary disease) COPD exacerbation Depression Easy bruising Emphysema, unspecified Fibromyalgia Heartburn High cholesterol History of echocardiogram History of pain when walking History of stress test Lactic acid acidosis Leg cramps Near syncope On home oxygen therapy Panic disorder Pleuritic chest pain Pneumonia Shortness of breath Shortness of breath on exertion SIRS (systemic inflammatory response syndrome) Smoker Tobacco dependence syndrome Unstable angina Wears glasses Home Medications clonazepam 0.5 mg tablet 0.5 mg PO DAILY PRN Anxiety 10/30/15 [History Last Taken 11/12/21] albuterol sulfate 2.5 mg/3 mL (0.083 %) solution for nebulization 2.5 mg inhalation Q6HWA.RT PRN COPD 06/30/17 [History Last Taken 11/12/21] trazodone 100 mg tablet 100 mg PO QHS sleep 06/30/17 [History Last Taken 11/12/21] aspirin 81 mg tablet,delayed release 81 mg PO DAILY@0800 #30 tabs 12/06/17 [Rx Last Taken 11/12/21] atorvastatin 20 mg tablet 20 mg PO QHS #30 tabs 02/11/19 [Rx Last Taken 11/12/21] aripiprazole 2 mg tablet 2 mg PO DAILY mental health 11/02/19 [History Last Taken 11/12/21] duloxetine 60 mg capsule,delayed release 120 mg PO DAILY depression 11/08/19 [History Last Taken 07/11/21] gabapentin 800 mg tablet 800 mg PO TID pain 11/08/19 [History Last Taken 11/12/21] albuterol sulfate 90 mcg/actuation aerosol inhaler 2 puff inhalation Q6H PRN SOB 08/29/21 [History Last Taken 11/12/21] fluticasone fur. 100 mcg-umeclid 62.5 mcg-vilant 25 mcg inhalat.powder (Trelegy Ellipta) 1 inh inhalation DAILY #60 ea 08/29/21 [Rx Last Taken 11/12/21] midodrine 10 mg tablet 10 mg PO TID 08/29/21 [History Last Taken 11/12/21] baclofen 10 mg tablet 20 mg PO QHS 12/14/21 [History Last Taken Unknown] Allergy/AdvReac Type Severity Reaction Status Date / Time No Known Allergies Allergy Verified 02/21/22 14:36 Family History Mother CAD (coronary artery disease) Father Cancer Surgical History H/O cardiac radiofrequency ablation History of cardiac catheterization History of cholecystectomy History of foot surgery History of hysterectomy History of left heart catheterization (LHC) (~11/08/20) History of right and left heart catheterization (12/05/17) History of tonsillectomy Hx of laparoscopy Social History household members: none Smoking Status: Current every day smoker tobacco type: cigarettes alcohol intake: never substance use type: does not use caffeine: Yes Type: carbonated beverages and coffee ROS ROS ED Constitutional Constitutional ED: Denies chills, fever(s), subjective, sweats or weight loss Eyes Eyes: Reports blurry vision right and change in vision right; Denies diplopia ENT ENT ED: Denies ear pain, rhinorrhea or sore throat Cardiovascular Cardiovascular: Denies chest pain or palpitations Respiratory/Chest Respiratory/Chest: Denies cough, dyspnea or dyspnea on exertion Integumentary Denies Abrasions or rash Hematologic/Lymphatic Hematologic/Lymphatic: Denies easy bleeding or easy bruising Allergic/Immunologic Allergic/Immunologic ED: Denies mouth swelling, tongue swelling or urticaria EXAM Physical Exam Const Vital Signs: 02/21/22 14:30 Temperature 97.9 F Temperature Source Temporal Pulse Rate 80 Respiratory Rate 16 Blood Pressure 112/70 Blood Pressure Mean 84 Pulse Ox 99 Oxygen Delivery Method Room Air Positive well nourished and well developed General Appearance ED: well developed and NAD HEENT HEENT Narrative: Head is atraumatic normocephalic. Ears normal. Nares patent. Posterior pharynx unremarkable. Eyes Eyes Narrative: Pupils equal round reactive. Patient complains of photophobia to direct light. Extract muscle intact. Sclera is anicteric. There is no subconjunctival hemorrhage. Unable to perform funduscopic exam since the ophthalmoscope is not functional and since room. The slit-lamp examination was documented under the [facility]. Neck no lymphadenopathy, supple and no JVD Resp normal respiratory effort Cardio regular rate and regular rhythm Neuro oriented x3, CN's II-XII intact bilaterally and moves all extremities [facility] Narrative Medical decision making narrative: Will perform funduscopic exam and slit-lamp exam after patient's eye was anesthetized with tetracaine and stained with foreseen. Patient was informed of corneal abrasion in the visual field can cause blurred vision. 1 would suspect if this occurred on February 10 that it should be healed by now. Visual acuity is 20/100 right eye and 2074 left eye. Patient was instructed to follow-up with mud analysis operator or support analyst for exam and glasses. She presently uses reading glasses only. Patient's eyes were anesthetized with tetracaine and stained with foreseen. Under slit-lamp examination there is no abnormality the cornea. There is no abrasion. There is no flare cells anterior chamber. Patient's had cataract surgery. She states she was seen by mud analysis operator at the [facility]. Patient has known myopia. She now has hyperopia. Have referred to [facility] for follow-up exam and corrective lenses. Cardiovascular notes reviewed. Patient does have history of atrial fibrillation. Patient's history is not consistent with acute embolic phenomenon. For this reason patient was referred to ophthalmology. Discharge Plan Triage Chief Complaint: Eye Problem ED Provider: Hipolito Vuong Dx/Rx/DC Orders Clinical Impression: Farsightedness, Fibromyalgia, Atrial fibrillation, Atherosclerotic heart disease of [place] coronary artery without angina pectoris Instructions: Understanding Vision Problems, Understanding Focusing Problems Prescriptions: No Action atorvastatin 20 mg tablet 20 mg PO QHS Qty: 30 11RF duloxetine 60 mg capsule,delayed release(DR/EC) 120 mg PO DAILY Label Comments: take 2 capsules by mouth once daily gabapentin 800 mg tablet 800 mg PO TID albuterol sulfate 90 mcg/actuation HFA aerosol inhaler 2 puff inhalation Q6H PRN (Reason: SOB) Trelegy Ellipta 100-62.5-25 mcg blister with device 1 inh inhalation DAILY Qty: 60 5RF midodrine 10 mg tablet 10 mg PO TID clonazepam 0.5 MG tablet 0.5 mg PO DAILY PRN (Reason: Anxiety) Label Comments: ANXIETY albuterol sulfate 2.5 MG/3 ML solution for nebulization 2.5 mg inhalation Q6HWA.RT PRN (Reason: COPD) trazodone 100 MG tablet 100 mg PO QHS aspirin 81 MG tablet 81 mg PO DAILY@0800 Qty: 30 0RF aripiprazole 2 MG tablet 2 mg PO DAILY baclofen 10 mg Tablet 20 mg PO QHS Primary Care Provider: Oh Garcia Referrals: Oh Garcia DO [Primary Care Provider] - Davy Woodruff MD [Med Staff - Active Staff] - 1-2 Weeks Disposition Disposition: Home, Self Care
[2022-02-21] MEDS: Fluorescein 1 MG STRIP 1 STRIP EACH EYE (15:58)
[2022-02-21] MEDS: Tetracaine 0.5% Ophthalmic Bottle 1 DRP EACH EYE (15:59)
[2022-02-21 16:30] VITALS: RESP 16
== END 2022-02-21 16:30 | disposition home or self-care (01) ==
PROVIDERS: Emergency Provider Emergency Medicine; PCP Student in an Organized Health Care Education/Training Program; Visit Provider Emergency Medicine
DX: H52.00 Hypermetropia, unspecified eye (principal); J43.9 Emphysema, unspecified; I48.91 Unspecified atrial fibrillation; E78.00 Pure hypercholesterolemia, unspecified; I25.10 Atherosclerotic heart disease of native coronary artery without angina pectoris; M79.7 Fibromyalgia; H53.8 Other visual disturbances
CPT/HCPCS: 99283

== ENCOUNTER 2022-03-18 10:56 | Day surgery (SDC) | payer MEDICARE, SELFPAY ==
[2022-03-18] VITALS (8 sets, daily range): BP systolic 120–164; BP diastolic 82–102; PULSE 63–93; RESP 16; TEMP 36.4–37.4; O2SAT 95–100; BMI 18.7
[2022-03-18] MEDS: Lactated Ringers 1,000 ML 15 ML IV (11:30)
--- NOTE | 2022-03-18 11:50 | RAD_ITS ---
STUDY: X-RAY - LUMBAR SPINE REASON FOR EXAM: Female, 66 years old. MEDIAL BRANCH NERVE BLOCK, L4-S1, BILAT TECHNIQUE: 7 fluoroscopic view(s) of the lumbar spine were obtained. COMPARISON: None FINDINGS: 7 fluoroscopic guided views of the lumbar spine were obtained in the anterior projection during medial branch nerve block at L4-5 and L5-S1 bilaterally. . Images were obtained to document fluoroscopic findings. For more complete information recommend correlation with procedural notes RAD/L/S Spine Min 4 Views IMPRESSION: Fluoroscopic guided medial branch nerve block at L4-5 and L5-S1 bilaterally. Electronically Signed: Hector Quick MD at 17:21 EST ,
[2022-03-18] MEDS: Lidocaine 1% (5 ml sdv) 5 ML Vial (12:55)
[2022-03-18] MEDS: MethylPREDNISolone Acetate 80 MG/ML Vial (12:55)
--- NOTE | 2022-03-18 13:17 | PCM.OPRPT ---
Report of Operation Date of Procedure: 03/18/22 Pre-Operative Diagnosis: Lumbosacral spondylosis, lumbosacral GI disc disease, lumbar facet arthropathy Post-Operative Diagnosis: Lumbosacral spondylosis, lumbosacral GI disc disease, lumbar facet arthropathy Description of Surgical Findings:: PROCEDURE PERFORMED: Bilateral lumbar medial branch block at L4, L5, and S1. ANESTHESIA: MAC. BLOOD LOSS: Minimal. COMPLICATIONS: None. DESCRIPTION OF PROCEDURE: History and physical of today was reviewed. Risks and benefits of the procedure were explained. The patient understood and agreed to proceed. Informed consent was obtained. IV inserted per routine protocol. The patient was taken to the operating room and placed in the prone position with a pillow positioned underneath the abdomen. The lower back area was prepped and draped in a sterile fashion using iodine x3. Under fluoroscopy guidance on AP view, the L4 through S1 vertebral bodies were visualized. The skin and subcutaneous tissue was anesthetized with approximately 5 mL of 1% lidocaine using a 25-gauge regular needle. Under direct visualization with fluoroscopy, at approximately 25-degree angle, starting on the left L4, ending on the right L4, passing through the L5 and S1 bilaterally, using a 22-gauge 3-1/2-inch spinal needle, the needle was advanced via the skin. The tip of the needle was maneuvered and directed towards the superior medial gutter of the transverse process at the vicinity of the medial branch. Once tip of the needle was in contact with the bone, the needle was pulled approximately 2 mm off the bone. After negative aspiration for blood or CSF and confirmation on AP, oblique as well as lateral view, a total of 12 mL of preservative-free 0.25% Marcaine with 80 mg of Depo-Medrol was injected in divided doses between those six levels. The needles were then removed intact. The patient experienced no sign or symptoms of intrathecal or intravascular injection. The patient experienced no paresthesia. The procedure was completed without any apparent difficulty or any complications. The patient appeared to tolerate it well. ASSESSMENT AND PLAN: This is a 66-year-old female with lumbosacral spondylosis, lumbosacral degenerative disc disease, lumbar facet arthropathy status post bilateral lumbar medial branch block at L4-S1, patient will continue her current medications, patient will follow approximately 1 week for reevaluation.
== END 2022-03-18 14:24 | disposition home or self-care (01) ==
LOC: SDC 10:57 → AC 10:59
PROVIDERS: PCP Student in an Organized Health Care Education/Training Program; Referring Provider Anesthesiology Pain Medicine; Visit Provider Anesthesiology Pain Medicine
PROC: 3E0S3BZ Introduction of Anesthetic Agent into Epidural Space, Percutaneous Approach (ICD-10-PCS; CPT 62322; principal; 2022-03-18 12:45)
DX: M47.816 Spondylosis without myelopathy or radiculopathy, lumbar region (principal); J44.9 Chronic obstructive pulmonary disease, unspecified; I48.91 Unspecified atrial fibrillation; M47.817 Spondylosis without myelopathy or radiculopathy, lumbosacral region; M51.37 Other intervertebral disc degeneration, lumbosacral region; I25.10 Atherosclerotic heart disease of native coronary artery without angina pectoris; F41.0 Panic disorder [episodic paroxysmal anxiety]; F17.210 Nicotine dependence, cigarettes, uncomplicated
CPT/HCPCS: 64493; 64494; 64483; 72110; J7120

== ENCOUNTER 2022-05-27 08:54 | Day surgery (SDC) | payer MEDICARE, SELFPAY ==
[2022-05-27 09:25] VITALS: BP 143/77; PULSE 67; RESP 16; TEMP 36.8; O2SAT 99; BMI 19.5
[2022-05-27] MEDS: Lactated Ringers 1,000 ML 15 ML IV (09:28)
--- NOTE | 2022-05-27 10:18 | OP.PCM_ITS ---
Report of Operation Date of Procedure: 05/27/22 Pre-Operative Diagnosis: Cervical spondylosis, cervical degenerative disc disea se, cervical facet arthropathy Post-Operative Diagnosis: Cervical spondylosis, cervical degenerative disc disease, cervical facet arthropathy Surgery/Procedure Performed:: Left sided cervical medial branch block at C4, C5, C6, and C7. Type of Anesthesia: MAC Estimated Blood Loss (mL): Minimal Description of Procedure: DESCRIPTION OF PROCEDURE: History and physical of today was reviewed. Risks and benefits of the procedure were explained. The patient understood and agreed to proceed. Informed consent was obtained. IV inserted per routine protocol. The patient was taken to the operating room and placed in the prone position wi th a pillow positioned underneath the chest. The neck area was prepped and draped in a sterile fashion using iodine x3. Under fluoroscopy guidance on an AP view, the C4 through C7 vertebral bodies were visualized at approximately 10- degree angle, starting on the left C4, ending on the left C7, passing through the C5 and C6. Using a 25-gauge 3-1/2-inch spinal needle, the needle was advanced via the skin. The tip of the needle was maneuvered and directed towards the epiphyseal junction of each corresponding vertebra. Once the tip of the needle was at the vicinity of the medial branch, the needle was pulled approximately 2 mm off the bone. After negative aspiration of blood or CSF and confirmation on AP, oblique as well as lateral view, a total of 4 mL of preservative-free 0.25% Marcaine was injected in divided doses between those four levels. The needles were then removed intact. The patient experienced no sign or symptoms of intrathecal or intravascular injection. The patient experienced no paresthesia. The procedure was completed without any apparent difficulty or any complications. The patient appeared to tolerate it well. ASSESSMENT AND PLAN: This is a 66-year-old female with cervical spondylosis, cervical degenerative disc disease, cervical facet arthropathy status post left-sided cervical medial branch block at C4-C7, patient will continue her current medications, patient will follow in approximately 1-2 weeks for reevaluation. Complications None
--- NOTE | 2022-05-27 10:21 | RAD_ITS ---
PROCEDURE: Left C4-C7 medial branch nerve block. DATE OF EXAMINATION: May 27, 2022. INDICATION: Female, 66 years old. Chronic cervical pain. FLUOROSCOPY TIME (if supplied): (6.4 seconds) minutes/seconds. 0.47 mGy. 3 fluoroscopic images were submitted. RAD/Cerv Spine 2 or 3 Views IMPRESSION: Intraoperative imaging provided for left C4-C7 medial branch nerve block. Electronically Signed: Ari Doran MD at 13:04 EDT ,
[2022-05-27] MEDS: MethylPREDNISolone Acetate 80 MG/ML Vial (10:28)
[2022-05-27 10:35] VITALS: BP 115/67; BP 143/77; PULSE 74; RESP 16; TEMP 36.4; O2SAT 99
[2022-05-27 10:40] VITALS: BP 117/72; BP 143/77; PULSE 68; RESP 16; O2SAT 98
[2022-05-27 10:45] VITALS: BP 121/74; BP 143/77; PULSE 69; RESP 16; O2SAT 100
[2022-05-27 10:51] VITALS: BP 131/87; BP 143/77; PULSE 71; RESP 16; TEMP 36.8; O2SAT 100
== END 2022-05-27 11:19 | disposition home or self-care (01) ==
LOC: SDC 09:13 → AC 09:41
PROVIDERS: PCP Student in an Organized Health Care Education/Training Program; Referring Provider Anesthesiology Pain Medicine; Visit Provider Anesthesiology Pain Medicine
PROC: 3E0S3BZ Introduction of Anesthetic Agent into Epidural Space, Percutaneous Approach (ICD-10-PCS; CPT 62322; principal; 2022-05-27 10:25)
DX: M47.812 Spondylosis without myelopathy or radiculopathy, cervical region (principal); I48.91 Unspecified atrial fibrillation; M50.30 Other cervical disc degeneration, unspecified cervical region; I25.10 Atherosclerotic heart disease of native coronary artery without angina pectoris; F41.0 Panic disorder [episodic paroxysmal anxiety]; F17.210 Nicotine dependence, cigarettes, uncomplicated; J45.909 Unspecified asthma, uncomplicated; R05.3 Chronic cough; F32.A Depression, unspecified; E78.00 Pure hypercholesterolemia, unspecified; Z99.81 Dependence on supplemental oxygen
CPT/HCPCS: 64491; 64490; 72040; J7120

== ENCOUNTER 2022-08-26 10:10 | Day surgery (SDC) | payer MEDICARE, SELFPAY ==
[2022-08-26] VITALS (8 sets, daily range): BP systolic 126–146; BP diastolic 71–83; PULSE 58–70; RESP 16–18; TEMP 36.5–36.9; O2SAT 93–100; BMI 20.2
[2022-08-26] MEDS: Lactated Ringers 1,000 ML 15 ML IV (10:47)
--- NOTE | 2022-08-26 10:50 | RAD_ITS ---
PROCEDURE: Lumbar medial branch nerve block. DATE OF EXAMINATION: August 26, 2022 INDICATION: Female, 67 years old. Chronic back pain. FLUOROSCOPY TIME (if supplied): 17 seconds. 5 images are submitted RAD/L/S Spine Min 4 Views IMPRESSION: Intraoperative images are provided for intraforaminal needle positioning bilaterally at C3-4 as well as on the right at L4-5, and L5-S1. Incidental note of prior L3-S1 laminectomy defects. Electronically Signed: Daniel Tellez MD at 7:37 EDT Reading Location ID and State: [id number] / Unknown , Service support ,
[2022-08-26] MEDS: Bupivacaine 0.25% 30 ML Vial (11:22)
[2022-08-26] MEDS: Lidocaine 1% (5 ml sdv) 5 ML Vial (11:22)
[2022-08-26] MEDS: MethylPREDNISolone Acetate 80 MG/ML Vial (11:22)
--- NOTE | 2022-08-26 12:04 | PCM.OPRPT ---
Report of Operation Date of Procedure: 08/26/22 Description of Surgical Findings:: Pre-Operative Diagnosis: Lumbosacral spondylosis, lumbosacral degenerative disc disease, lumbar facet arthropathy Post-Operative Diagnosis: Lumbosacral spondylosis, lumbosacral degenerative disc disease, lumbar facet arthropathy Description of Surgical Findings:: PROCEDURE PERFORMED: Bilateral lumbar medial branch block at L4, L5, and S1. ANESTHESIA: MAC. BLOOD LOSS: Minimal. COMPLICATIONS: None. DESCRIPTION OF PROCEDURE: History and physical of today was reviewed. Risks and benefits of the procedure were explained. The patient understood and agreed to proceed. Informed consent was obtained. IV inserted per routine protocol. The patient was taken to the operating room and placed in the prone position with a pillow positioned underneath the abdomen. The lower back area was prepped and draped in a sterile fashion using iodine x3. Under fluoroscopy guidance on AP view, the L4 through S1 vertebral bodies were visualized. The skin and subcutaneous tissue was anesthetized with approximately 5 mL of 1% lidocaine using a 25-gauge regular needle. Under direct visualization with fluoroscopy, at approximately 25-degree angle, starting on the left L4, ending on the right L4, passing through the L5 and S1 bilaterally, using a 22-gauge 3-1/2-inch spinal needle, the needle was advanced via the skin. The tip of the needle was maneuvered and directed towards the superior medial gutter of the transverse process at the vicinity of the medial branch. Once tip of the needle was in contact with the bone, the needle was pulled approximately 2 mm off the bone. After negative aspiration for blood or CSF and confirmation on AP, oblique as well as lateral view, a total of 12 mL of preservative-free 0.25% Marcaine with 80 mg of Depo-Medrol was injected in divided doses between those six levels. The needles were then removed intact. The patient experienced no sign or symptoms of intrathecal or intravascular injection. The patient experienced no paresthesia. The procedure was completed without any apparent difficulty or any complications. The patient appeared to tolerate it well. ASSESSMENT AND PLAN: This is a 67 -year-old female with lumbosacral spondylosis, lumbosacral degenerative disc disease, lumbar facet arthropathy status post bilateral lumbar medial branch block at L4 S1, patient will continue her current medications, patient will follow approximately 2 weeks for reevaluation.
== END 2022-08-26 12:35 | disposition home or self-care (01) ==
LOC: SDC 10:11 → AC 10:24
PROVIDERS: PCP Student in an Organized Health Care Education/Training Program; Referring Provider Anesthesiology Pain Medicine; Visit Provider Anesthesiology Pain Medicine
PROC: 3E0S3BZ Introduction of Anesthetic Agent into Epidural Space, Percutaneous Approach (ICD-10-PCS; CPT 62322; principal; 2022-08-26 11:45)
DX: M47.816 Spondylosis without myelopathy or radiculopathy, lumbar region (principal); M46.96 Unspecified inflammatory spondylopathy, lumbar region; M51.37 Other intervertebral disc degeneration, lumbosacral region; M47.817 Spondylosis without myelopathy or radiculopathy, lumbosacral region; F17.210 Nicotine dependence, cigarettes, uncomplicated; I25.2 Old myocardial infarction; M62.830 Muscle spasm of back; Z79.891 Long term (current) use of opiate analgesic; M47.812 Spondylosis without myelopathy or radiculopathy, cervical region
CPT/HCPCS: 64494; 64493; 64483; 72110; J7120

== ENCOUNTER 2022-10-28 08:18 | Day surgery (SDC) | payer MEDICARE, SELFPAY ==
[2022-10-28] MEDS: Lactated Ringers 1,000 ML 15 ML IV (08:40)
[2022-10-28 08:41] VITALS: BP 161/72; PULSE 65; RESP 18; TEMP 36.6; O2SAT 100; BMI 20.1
--- NOTE | 2022-10-28 10:03 | RAD_ITS ---
PROCEDURE: Left shoulder injection. DATE OF EXAMINATION: October 28, 2022. INDICATION: Female, 67 years old. Left shoulder pain. FLUOROSCOPY TIME (if supplied): (4 seconds) minutes/seconds. 0.22 mGy. 3 images were submitted. RAD/Fluoro Guided Needle Placement IMPRESSION: Intraoperative imaging provided for left shoulder injection. Electronically Signed: Ari Doran MD at 15:38 EDT ,
[2022-10-28] MEDS: Lidocaine 1% (5 ml sdv) 5 ML Vial (10:14)
[2022-10-28] MEDS: MethylPREDNISolone Acetate 40 MG/ML Vial IM (10:14)
--- NOTE | 2022-10-28 10:18 | OP.PCM_ITS ---
Report of Operation Date of Procedure: 10/28/22 Description of Surgical Findings:: PREOPERATIVE DIAGNOSIS: Osteoarthritis of the left shoulder. POSTOPERATIVE DIAGNOSIS: Osteoarthritis of the left shoulder. PROCEDURE PERFORMED: Left shoulder intraarticular steroid injection under fluoroscopic guidance. ANESTHESIA: MAC. BLOOD LOSS: Minimal. COMPLICATIONS: None. DESCRIPTION OF PROCEDURE: History and physical of today was reviewed. Risks and benefits of the procedure were explained. The patient understood and agreed to proceed. Informed consent was obtained. IV inserted per routine protocol. The patient was taken to the operating room and placed in the supine position. The left shoulder area was prepped and draped in a sterile fashion using iodine x3. Under fluoroscopic guidance on AP view, the left shoulder joint was visualized. The skin and subcutaneous tissue was anesthetized with approximately 1 mL of 1% lidocaine using a 25-gauge regular needle at the anterior shoulder joint area. Under direct visualization with fluoroscopy on AP view, using a 22-gauge 3-1/2-inch spinal needle, the needle was advanced via the skin directed towards the intraarticular position at the supraspinatus level. Once the tip of the needle was at the vicinity of the shoulder joint, after negative aspiration for blood, positive aspiration for synovial fluid, a total of 1 mL of contrast was injected to confirm correct placement of the needle as well as anterior and posterior spread of the contrast at the shoulder joint. Cephalocaudal spread as well was visualized through the arthrogram. After confirmation on AP as well as oblique view and repeated negative aspiration for blood, a total of 4 mL of preservative-free 0.25% Marcaine with 40 mg of Depo- Medrol was injected easily. The needle was then removed intact. The patient experienced no sign or symptoms of intravascular injection. The patient experienced no paresthesia. The procedure was completed without any apparent difficulty or any complications. The patient appeared to tolerate it well. Assessment and plan: This is a 67-year-old female with osteoarthritis of the left shoulder status post left shoulder intra-articular steroid injection under fluoroscopic guidance, patient will continue her current medications, patient will follow up in approximately 2 weeks for reevaluation.
[2022-10-28 10:20] VITALS: BP 133/65; BP 161/72; PULSE 71; RESP 16; TEMP 37.2; O2SAT 100
[2022-10-28 10:25] VITALS: BP 132/83; BP 161/72; PULSE 68; RESP 16; O2SAT 99
[2022-10-28 10:30] VITALS: BP 147/75; BP 161/72; PULSE 66; RESP 16; O2SAT 100
[2022-10-28 10:41] VITALS: BP 138/78; BP 161/72; PULSE 60; RESP 16; TEMP 37.3; O2SAT 100
[2022-10-28 10:49] VITALS: BP 161/72
== END 2022-10-28 11:09 | disposition home or self-care (01) ==
LOC: SDC 08:18 → AC 08:20
PROVIDERS: PCP Student in an Organized Health Care Education/Training Program; Referring Provider Anesthesiology Pain Medicine; Visit Provider Anesthesiology Pain Medicine
PROC: 3E0U3GC Introduction of Other Therapeutic Substance into Joints, Percutaneous Approach (ICD-10-PCS; CPT 20610; principal; 2022-10-28 09:55)
DX: M19.012 Primary osteoarthritis, left shoulder (principal); I48.91 Unspecified atrial fibrillation; E78.00 Pure hypercholesterolemia, unspecified; F17.200 Nicotine dependence, unspecified, uncomplicated; F32.A Depression, unspecified; R23.3 Spontaneous ecchymoses; F41.9 Anxiety disorder, unspecified; J45.909 Unspecified asthma, uncomplicated; I25.10 Atherosclerotic heart disease of native coronary artery without angina pectoris; F41.0 Panic disorder [episodic paroxysmal anxiety]
CPT/HCPCS: 23350; 01620; 76000; 77002; J7120

== ENCOUNTER → 2023-01-16 | Outpatient (CLI) | payer MEDICARE, SELFPAY ==
[2023-01-16 08:15] VITALS: PULSE 68; PULSE 69; PULSE 88; PULSE 89; PULSE 90; PULSE 92; O2SAT 98; O2SAT 99
--- NOTE | 2023-01-17 13:59 | WT_ITS ---
PSN 6 Minute Walk Test 6 Minute Walk Test 6 Minute Walk Test: 6 Minute Walk Test PSN:6-Minute Walk Test Start: 01/16/23 08:24 Freq: Status: Active Protocol: [id number].[id number] Document 01/16/23 08:15 AE (Rec: 01/16/23 08:29 [facility] Desktop) 6 Minute Walk Test Date Performed 01/16/23 Time Performed 08:15 Height 5 ft 6 in Weight: 53.977 kg Weight in Pounds 119.[address]: Dr. Estes Assistive device used: None Pre-test Oxygen Delivery Method Room Air Pulse Ox 99 Pulse Rate (60-100) 68 Dyspnea Brandy Scale (0-10) 0 Exertion Brandy Scale (6-20) 6 1st minute Oxygen Delivery Method Room Air Pulse Ox 98 Pulse Rate (60-100) 90 2nd minute Oxygen Delivery Method Room Air Pulse Ox 98 Pulse Rate (60-100) 89 3rd minute Oxygen Delivery Method Room Air Pulse Ox 98 Pulse Rate (60-100) 92 4th minute Oxygen Delivery Method Room Air Pulse Ox 98 Pulse Rate (60-100) 89 5th minute Oxygen Delivery Method Room Air Pulse Ox 98 Pulse Rate (60-100) 90 6th minute Oxygen Delivery Method Room Air Pulse Ox 98 Pulse Rate (60-100) 88 Dyspnea Brandy Scale (0-10) 0.5 Exertion Brandy Scale (6-20) 11 Post-test Oxygen Delivery Method Room Air Pulse Ox 99 Pulse Rate (60-100) 69 Full Laps Walked 13 Partial Lap, Number of Tiles Walked 15 Total Distance Walked (ft) 782 Interpretation Interpretation: The patient was able to ambulate 782 feet over the course of 6 minutes on room air with no assistive devices or breaks. The patient experienced no significant desaturation or tachycardia during testing. These findings are consistent with a musculoskeletal limitation exercise tolerance. The patient did ambulate a similar distance in October 2021 Recommendations Recommendations: No supplemental oxygen is indicated at this time.
== END | disposition home or self-care (01) ==
LOC: PSN 08:01
PROVIDERS: PCP Student in an Organized Health Care Education/Training Program; Referring Provider Internal Medicine Critical Care Medicine; Visit Provider Internal Medicine Critical Care Medicine
DX: J43.2 Centrilobular emphysema (principal)
CPT/HCPCS: 94618

== ENCOUNTER → 2023-01-24 | Outpatient (CLI) | payer MEDICARE, SELFPAY ==
--- NOTE | 2023-01-27 10:35 | PFTCOMP_ITS ---
COMPLETE PULMONARY FUNCTION TEST INTERPRETATION Brief HPI: Patient is a 67-year-old female, currently under the care of myself, who presents to [facility] for complete pulmonary function tests secondary to diagnosis of COPD. Respiratory therapist reports good effort and reproducible results. Interpretation: Forced expiration spirometry shows a moderate large airways obstructive ventilatory defect with an FEV1 of 66% predicted. There is no significant bronchodilator response by strict ATS criteria. Spirograms are of good quality and plateau slowly, indicating slowly emptying areas of the lungs. The respiratory flow volume loop shows decreased expiratory flow rates at all lung volumes consistent with airway obstruction. Lung volumes by body plethysmography show an elevated total lung capacity at 6.47 L, 123% predicted. FRC and RV are elevated out of proportion. Lung volume measurements are consistent with hyperinflation and air-trapping. Diffusion capacity by carbon monoxide is decreased at 44% predicted. The airway resistance is elevated. Compared to previous pulmonary function tests from 10/16/2021, there has been significant improvement in spirometry and air trapping, but decreased DLCO. Impression: Irreversible moderate large airways obstructive ventilatory defect resulting in air trapping with hyperinflation and a disproportionate reduction in diffusion capacity
== END | disposition home or self-care (01) ==
LOC: PSN 13:07
PROVIDERS: PCP Student in an Organized Health Care Education/Training Program; Referring Provider Internal Medicine Critical Care Medicine; Visit Provider Internal Medicine Critical Care Medicine
DX: J43.2 Centrilobular emphysema (principal)
CPT/HCPCS: 94060; 94726; 94729

== ENCOUNTER 2023-01-27 06:28 | Day surgery (SDC) | payer MEDICARE, SELFPAY ==
[2023-01-27 06:58] VITALS: BP 106/80; PULSE 62; RESP 18; TEMP 36.8; O2SAT 100; BMI 20.5
--- NOTE | 2023-01-27 07:00 | RAD_ITS ---
PROCEDURE: Right lumbar radiofrequency ablation. DATE OF EXAMINATION: January 27, 2023. INDICATION: Female, 67 years old. Chronic low back pain. FLUOROSCOPY TIME (if supplied): (19.1 seconds) minutes/seconds. 4.48 mGy. 8 images were obtained. RAD/Lumbar Spine 2 or 3 Views IMPRESSION: Fluoroscopic services provided for right lumbar radiofrequency ablation. Electronically Signed: Ari Doran MD at 11:11 EST ,
[2023-01-27] MEDS: Lactated Ringers 1,000 ML 15 ML IV (07:03)
[2023-01-27] MEDS: MethylPREDNISolone Acetate 40 MG/ML Vial (08:15)
[2023-01-27] MEDS: Lidocaine 1% (30 ml sdv) 30 ML Vial (08:15)
--- NOTE | 2023-01-27 08:24 | PCM.OPRPT ---
Report of Operation Date of Procedure: 01/27/23 Pre-Operative Diagnosis: Lumbosacral spondylosis, lumbosacral degenerative disc disease, lumbar facet arthropathy Post-Operative Diagnosis: Lumbosacral spondylosis, lumbosacral degenerative disc disease, lumbar facet arthropathy Surgery/Procedure Performed:: Right-sided lumbar radiofrequency ablation of the medial branch L4, L5, S1 Type of Anesthesia: MAC Estimated Blood Loss (mL): Minimal Description of Procedure: History and physical today was reviewed. Risks and benefits of procedure explained. The patient understood, agreed to the procedure and informed consent was obtained. IV inserted per routine protocol. The patient was taken to the operating room, placed in the prone position with a pillow positioned underneath the abdomen. The right side of the lower back was prepped and draped in a sterile fashion using iodine x 3. Under fluoroscopy guidance, on an oblique view, the L3 through S1 vertebral bodies were visualized. The skin and subcutaneous tissue was anesthetized with approximately 10 mL of 1% lidocaine using a 25-gauge regular needle. Under direct visualization with fluoroscopy at approximately 25-degree angle, starting on the right L3, ending on the right S1 passing through the L4-L5 using a 20-gauge 15 cm with a 10 mm curved active tip radiofrequency ablation needle the needle passed through the skin. The tip of the needle was maneuvered and directed towards the superior and medial gutter of the transverse process at the vicinity of the medial branch. Once the tip of the needle was in contact with the bone, the needle pulled approximately 2 mm up the bone. The stylet of each needle was then removed. After negative aspiration of blood with CSF and confirmation of AP as well as oblique view, radiofrequency ablation probe was then inserted at each level. Impedance was then recorded at L3 to be 302, at L4 287, at L5 252, at S1 288 ohm. Motor-evoked potential was then initiated to 1.5 volt without any motor response at each corresponding level. The probe was then removed intact and a total of 6 mL preservative-free 1% lidocaine was injected in divided doses between those 4 levels after negative aspiration of blood with CSF. The radiofrequency ablation probe was then reinserted after confirmation of AP, oblique as well as lateral view. Radiofrequency ablation was then initiated to 80 degrees Celsius for 90 seconds at each level. Once concluded, the probe was then removed intact and a total of 6 mL of preservative-free 0.25% Marcaine with 40 mg Depo-Medrol was injected in divided doses between those 4 levels. The needles were then removed intact. The patient experienced no signs or symptoms of intrathecal, intravascular injection. The patient experienced no paraesthesia. The procedure was completed without any apparent difficulty, any complication. The patient appeared to tolerate well. Sensory as well as motor exam was unchanged from prior to procedure. ASSESSMENT AND PLAN: This is a 67-year-old female with lumbosacral spondylosis, lumbosacral degenerative disc disease, lumbar facet arthropathy, status post right-sided radiofrequency ablation of the medial branch L4 through S1. The patient will continue her current medications. The patient will follow up in approximately 2 weeks for reevaluation. Complications None
[2023-01-27 08:25] VITALS: BP 106/80; BP 125/64; PULSE 67; RESP 16; TEMP 36.7; O2SAT 99
[2023-01-27 08:30] VITALS: BP 106/80; BP 112/65; PULSE 65; RESP 16; O2SAT 100
[2023-01-27 08:35] VITALS: BP 106/80; PULSE 64; RESP 16; TEMP 36.6; O2SAT 99
[2023-01-27 08:58] VITALS: BP 106/80
== END 2023-01-27 09:01 | disposition home or self-care (01) ==
LOC: SDC 06:29 → AC 06:30
PROVIDERS: PCP Student in an Organized Health Care Education/Training Program; Referring Provider Anesthesiology Pain Medicine; Visit Provider Anesthesiology Pain Medicine
PROC: (CPT 64635; principal; 2023-01-27 07:55)
DX: M47.817 Spondylosis without myelopathy or radiculopathy, lumbosacral region (principal); J44.9 Chronic obstructive pulmonary disease, unspecified; I48.91 Unspecified atrial fibrillation; M51.37 Other intervertebral disc degeneration, lumbosacral region; I25.10 Atherosclerotic heart disease of native coronary artery without angina pectoris; I51.81 Takotsubo syndrome; F41.9 Anxiety disorder, unspecified; F32.A Depression, unspecified; K21.9 Gastro-esophageal reflux disease without esophagitis; E78.00 Pure hypercholesterolemia, unspecified; F17.210 Nicotine dependence, cigarettes, uncomplicated; Z99.81 Dependence on supplemental oxygen; Z79.899 Other long term (current) drug therapy; Z79.82 Long term (current) use of aspirin
CPT/HCPCS: 64635; 64636 ×2; 00630; 72100; 76000; J7120

== ENCOUNTER → 2023-06-24 | Outpatient (CLI) | payer MEDICARE, SELFPAY ==
[2023-06-24 12:37] LABS: Platelet Count 225 K/mm3 (150-450)
[2023-06-24 12:59] LABS: International Normalized Ratio 1.1; Prothrombin Time (Protime)PT. 13.9 SECONDS (11.7-14.9)
[2023-06-24 13:00] LABS: Partial Thromboplast Time 26.8 Seconds (24.1-36.2)
== END | disposition home or self-care (01) ==
PROVIDERS: PCP Student in an Organized Health Care Education/Training Program; Visit Provider Internal Medicine Critical Care Medicine
DX: R91.1 Solitary pulmonary nodule (principal)
CPT/HCPCS: 36415; 85049; 85610; 85730

== ENCOUNTER 2023-09-29 08:18 | Day surgery (SDC) | payer MEDICARE, SELFPAY ==
[2023-09-29] VITALS (8 sets, daily range): BP systolic 114–133; BP diastolic 74–84; PULSE 72–80; RESP 16–18; TEMP 36.6; O2SAT 98–100; BMI 20.3
--- NOTE | 2023-09-29 08:30 | RAD_ITS ---
STUDY: X-RAY - THORACIC SPINE REASON FOR EXAM: Female, 68 years old. INSERTION, SPINAL CORD STIM,TRIAL TECHNIQUE: 5 view(s) of the thoracic spine were obtained. COMPARISON: None. FINDINGS: 92 seconds of fluoroscopy in the thoracic spine was utilized by referring during dorsal column spinal stimulator placement in 5 images are significant for interpretation. . RAD/Lumbar Spine 2 or 3 Views IMPRESSION: Fluoroscopy during dorsal column spinal stimulator placement. Electronically Signed: Vasu Do MD at 13:41 EDT ,
--- NOTE | 2023-09-29 08:30 | PCM.PRE.AN2 ---
ASA Classification* ASA Classification ASA Classification: 3 Assessment & Plan Anesthesia* Anesthesia Assessment Anesthesia Assessment: Discussed sedation and/or anesthesia options, risks, benefits, and alternatives with patient/parents/legal guardian/POA. Questions invited. The patient/parents/legal guardian/POA seems to understand and agrees to proceed with anesthesia plan. Reviewed the physical assessment, medical history, allergy history and patient home medications list prior to surgery/procedure/anesthetic and documented any changes. Performed airway and anesthesia risk assessments. Anesthesia Type Anesthesia Type: MAC (see written pre anesthesia record for full assessment) Anesthesia Focused Assessment* Airway Assessment Mouth opens: >3 cm Mallampati Score: II Focused Labs Anesthesia Preop lab: CBC WBC 6.6 K/mm3 (4.4-11.0) 12/14/21 16:50 RBC 4.08 M/mm3 (4.2-5.4) L 12/14/21 16:50 Hgb 12.8 g/dL (12.0-15.0) 12/14/21 16:50 Hct 39.9 % (37-47) 12/14/21 16:50 Plt Count 225 K/mm3 (150-450) 06/24/23 11:56 CHEMISTRY Potassium 3.8 mmol/L (3.5-5.1) 12/14/21 16:50 Sodium 137 mmol/L (136-145) 12/14/21 16:50 Magnesium 2.2 mg/dL (1.6-2.6) 10/07/17 12:04 BUN 7 mg/dL (7-18) 12/14/21 16:50 Creatinine 0.78 mg/dL (0.55-1.02) 12/14/21 16:50 Glucose 93 mg/dL (74-106) 12/14/21 16:50 TSH 2.49 uIU/mL (0.358-3.74) 06/26/20 10:12 COAG PT 13.9 SECONDS (11.7-14.9) 06/24/23 11:56 Pre-Assessment Diagnosis/Proposed Procedure Planned Operative Procedure(s): insertion of trial spinal cord stimulator Anesthesia History 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 When Was Last Pacemaker Check QUESTION #4 FULL TEXT: You/Your Family Experience fever (hyperthermia) with Anesthesia Last Oral Intake Last Oral intake: Last Oral Intake NPO since Meds taken in AM with sips of water? 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 - fiberglass product tester: PONV - fiberglass product tester Female Yes 09/26/23 08:43 HX of Motion Sickness No 09/26/23 08:43 HX of N/V After Surgery No 09/26/23 08:43 Non-Smoker No 09/26/23 08:43 Duration of Surgery greater No 09/26/23 08:43 than 60 minutes Number of Risk Factors 1 09/26/23 08:43 PONV Score Low Risk 09/26/23 08:43 Height & Weight Height & Weight: Anesthesia: Height & Weight Height 5 ft 5 in 06/24/23 07:31 Respiratory Assessment Respiratory Assessment - fiberglass product tester: Respiratory Tract Infection Hx - fiberglass product tester Hx Respiratory Tract Infection No 09/26/23 08:43 STOP Sleep Apnea STOP Sleep Apnea - fiberglass product tester: STOP Sleep Apnea - fiberglass product tester Hx Hypertension No 09/26/23 08:43 Hx Sleep Apnea Yes 09/26/23 08:43 CPAP No 09/26/23 08:43 BIPAP No 09/26/23 08:43 Do you snore loudly (louder than talking or can be heard Do you often feel tired/ fatigued/ sleepy during daytime? Has anyone observed you stop breathing during sleep? STOP Results Positive 09/26/23 08:43 QUESTION #5 FULL TEXT : Do you snore loudly (louder than talking or can be heard through closed doors)? 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 Specify any problems Hx of Preganancy in last 3 N/A 09/26/23 08:43 Months Nurse Filling Out Transfusion NBUCHER 09/26/23 08:43 & Questions: Date: 09/26/23 09/26/23 08:43 Time: 08:48 09/26/23 08:43 Patient unable to answer at this time (ie. confused, unrespo /Reproduction History /Reproductive History - fiberglass product tester: /Reproductive Hx- fiberglass product tester Hx Now Gestational Age (in weeks): EDC: Hx Hx Para Hx Section SAB No 09/26/23 08:43 Active Medications Active Medications: Current Medications Generic Name Dose Route Start Last Admin Trade Name Freq PRN Reason Stop Dose Admin Lactated Ringer's 1,000 mls @ 15 mls/hr 09/29/23 08:30 IV .Q48H ANT PFSH Medical History No natural teeth Ambulates with cane Injury of back GERD (gastroesophageal reflux disease) History of Holter monitoring Wears glasses Depression Anxiety Arthritis Easy bruising High cholesterol Back pain Heartburn Smoker Asthma On home oxygen therapy Emphysema, unspecified Shortness of breath on exertion Chronic cough Leg cramps History of pain when walking History of echocardiogram History of stress test Cardiology follow-up encounter Atherosclerotic heart disease of [place] coronary artery without angina pectoris CAD (coronary artery disease) Near syncope COPD (chronic obstructive pulmonary disease) Atrial fibrillation Chronic lumbar back pain COPD exacerbation Unstable angina Adnexal mass Lactic acid acidosis SIRS (systemic inflammatory response syndrome) Pneumonia Pleuritic chest pain Shortness of breath Panic disorder Tobacco dependence syndrome Fibromyalgia Home Medications ?Medication ?Instructions ?Recorded ?Last Taken ?Type clonazepam 0.5 mg tablet 0.5 mg PO DAILY PRN Anxiety 09/19/16 10/03/22 History trazodone 100 mg tablet 150 mg PO QHS sleep 06/30/17 11/12/21 History aspirin 81 mg tablet,delayed 81 mg PO DAILY@0800 #30 tabs 12/06/17 01/26/23 Rx release albuterol sulfate 90 mcg/actuation 2 puff inhalation Q6H PRN SOB 08/29/21 11/12/21 History aerosol inhaler benztropine 0.5 mg tablet 0.5 mg PO BID PRN tremors 12/24/22 Unknown History gabapentin 400 mg capsule 400 mg PO TID 12/24/22 01/27/23 History budesonide 1 mg/2 mL suspension 1 mg (2 mL) inhalation BID #60 mL 04/01/23 Unknown Rx for nebulization famotidine 40 mg tablet 40 mg PO DAILY 04/01/23 Unknown History fluticasone propionate 50 1 spray intranasal DAILY 04/01/23 Unknown History mcg/actuation nasal spray,suspension ipratropium 0.5 mg-albuterol 3 mg 3 ml inhalation Q4H PRN PRN SOB 04/01/23 Unknown Rx (2.5 mg base)/3 mL nebulization &/OR WHEEZING #180 mL soln oxycodone-acetaminophen 5 mg-325 1 tab PO TID PRN pain 04/01/23 Unknown History mg tablet albuterol sulfate 2.5 mg/3 mL 2.5 mg inhalation .QID PRN COPD 06/24/23 Unknown History (0.083 %) solution for nebulization cetirizine 10 mg tablet 10 mg PO QDAY 06/24/23 Unknown History duloxetine 60 mg capsule,delayed 60 mg PO DAILY depression 06/24/23 Unknown History release Allergy/AdvReac Type Severity Reaction Status Date / Time No Known Allergies Allergy Verified 09/26/23 08:37 Family History Mother CAD (coronary artery disease) Father Cancer Surgical History History of lobectomy of lung (07/15/23) History of shoulder surgery History of cardiac catheterization Hx of laparoscopy History of left heart catheterization (LHC) (~11/08/20) H/O cardiac radiofrequency ablation History of foot surgery History of tonsillectomy History of hysterectomy History of cholecystectomy History of right and left heart catheterization (12/05/17) Social History household members: none Smoking Status: Current every day smoker tobacco type: cigarettes alcohol intake: never substance use type: does not use caffeine: Yes Type: carbonated beverages and coffee Review of Systems (Anesthesia) ROS Narrative System reviewed and no additional complaints, except as documented.
[2023-09-29] MEDS: Lactated Ringers 1,000 ML 15 ML IV (08:46)
[2023-09-29] MEDS: Cefazolin 2 GM in 0.9% Normal Saline (100mL Bag) 100 ML IV (09:30)
[2023-09-29] MEDS: Lidocaine 2% (20 ml mdv) 20 ML Vial (09:40)
[2023-09-29] MEDS: Bupivacaine 0.25% 30 ML Vial (09:40)
--- NOTE | 2023-09-29 09:58 | PCM.OPRPT ---
Report of Operation Date of Procedure: 09/29/23 Description of Surgical Findings:: Pre-Operative Diagnosis: Lumbosacral radiculopathy, lumbosacral degenerative disc disease, lumbosacral spinal stenosis, postlaminectomy syndrome of the lumbar spine. Post-Operative Diagnosis: Lumbosacral radiculopathy, lumbosacral degenerative disc disease, lumbosacral spinal stenosis, postlaminectomy syndrome of the lumbar spine. Surgery/Procedure Performed:: 1.? Percutaneous spinal cord stimulator trial x2 leads at the thoracolumbar level,2- spinal cord stimulator programming, 3-intraoperative fluoroscopic interpretation ANESTHESIA: MAC COMPLICATIONS: None BLOOD LOSS: Minimal Implanted device: Spinal cord stimulator lead [id number] lot number [id number], lead #2? [id number] lot number [id number] PROCEDURE IN DETAIL: History and physical today was reviewed. Risks and benefits of procedure explained. The patient understood, agreed to procedure, informed consent was obtained. IV inserted per routine protocol. The patient was taken to the operating room, placed in the prone position with a pillow positioned underneath the abdomen. A 2 g of Ancef IV piggyback was infused per anesthesia. The lower back area was prepped and draped in a sterile fashion using iodine x3 I[place]an was placed.? The C-arm was brought in position for AP view at the L1-2 vertebral bodies under direct visualization fluoroscopy on a true AP view the L1-2 interlaminar space was identified skin and subcutaneous tissue and size approximately 10 cc of a mix of 2% lidocaine and 0.25% Marcaine using a 25-gauge regular needle followed by a 25-gauge 3-1/2 inch spinal needle towards the interlaminar space at L1-L2, the skin and subcutaneous tissue were then anesthetized and using an 11-gauge blade was then taken down to the skin and subcutaneous tissue using a 14-gauge 3 1/2 inch inch Touhy needle provided by the [employer] kit the needle was passed through the skin towards the interlaminar space at L1-2 and a left paramedian approach the needle was then advanced under direct visualization fluoroscopy towards the interlaminar space at L1-2 [id number] technique was then carried to air towards the interlaminar space at L1-2 once the tip of the needle was in the epidural space and loss of resistance was encountered to air and after confirmation of AP as well as oblique view of the spinal cord stimulator lead was then advanced under direct visualization fluoroscopy to be at the tip of the lead at T8 and the bottom of the lead around mid T10 after confirmation of AP as well as lateral view to confirm correct placement of the lead in the posterior compartment of the epidural space the previous procedure was then repeated to the same level at T12-L1 interlaminar space left paramedian approach the lead was then advanced to the right the second lead was then inserted under direct visualization with fluoroscopy to be at the mid T8 and mid T10 area the leads were were then connected to the external neurostimulator and patient was then awakened to confirm satisfactory coverage of the painful area once satisfactory coverage was then achieved the stylette of each needle was then removed and the skin and subcutaneous tissue on to the left of the paramedian needles was then taken anesthetized with a total of 10 cc of the previous mixture of 0.25% Marcaine and 2% lidocaine using a 25-gauge regular needle , using the 2-0 silk stitch to secure both leads to the skin with Steri-Strips, the skin was then covered with a Steri-Strips and bacitracin, the external stimulator was then attached to the pouch to the right of the patient's lower back area, the patient was then returned into the supine position in a stable condition and returned to recovery in a stable condition patient experienced no signs or symptoms of intrathecal or intravascular injection patient experienced no paresthesia the procedure was completed without any apparent difficulty any complication the patient appeared to tolerate well, motor as well as sensory function was unchanged from prior to the procedure ASSESSMENT AND PLAN: This is a 68 year-old Female with lumbosacral radiculopathy lumbosacral, degenerative disc disease lumbosacral spinal stenosis, postlaminectomy syndrome of the lumbar spine status post 1.? Spinal cord stimulator thoracolumbar leads placement x2 percutaneous trial, spinal cord stimulator programming, 3-intraoperative fluoroscopic interpretation,? patient will continue her current medications a prescription was provided to the patient Keflex 500 mg 1 p.o. every 8 hours for 7 days postop instruction were given in writing to the patient and her niece as well as verbally, patient will follow up approximately 1 week for reevaluation.
--- NOTE | 2023-09-29 10:06 | PCM.POST.ANE ---
Anesthesia: Postop Eval I Current Vital Signs Temperature: 97.8 F Pulse Rate: 80 Blood Pressure: 114/80 Respiratory Rate: 18 Pulse Ox: 100 Oxygen Delivery Method: Room Air Assessment Airway patent: Yes Spontaneous unlabored respirations: Yes Mental status: Awake and Calm nausea: No Vomiting: No Anesthesia Complication: No Fluid Hydration Crystalloid volume administer (ml): 400 Total IV fluid infused: 400 Progress Note Anesthesia document: Postop Eval 1 completed: Yes
--- NOTE | 2023-09-29 10:12 | PCM.POSTANE2 ---
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 Spontaneous unlabored Yes 09/29/23 10:07 RISHI respirations Mental status Awake,Calm 09/29/23 10:07 [email or web address] nausea No 09/29/23 10:07 [email or web address] Vomiting No 09/29/23 10:07 RISHI Anesthesia Postop Eval I: Fluid Summary Crystalloid volume administer 400 09/29/23 10:07 RISHI (ml) Colloids volume administered ( ml) Blood Product volume administered (ml) Total IV fluid infused 400 09/29/23 10:07 RISHI Anesthesia Postop Eval I: Summary Notes Anesthesia Complication No 09/29/23 10:07 RISHI Anesthesia Complication Comment: Post-operative progress note Anesthesia: Postop Eval II Evaluation Mental status: Awake Pain Level: 0 nausea: No Vomiting: No
== END 2023-09-29 11:54 | disposition home or self-care (01) ==
LOC: SDC 08:18 → AC 08:19
PROVIDERS: PCP Student in an Organized Health Care Education/Training Program; Referring Provider Anesthesiology Pain Medicine; Visit Provider Anesthesiology Pain Medicine
PROC: (CPT 63650; principal; 2023-09-29 09:15)
DX: Z45.42 Encounter for adjustment and management of neurostimulator (principal); J44.9 Chronic obstructive pulmonary disease, unspecified; I48.91 Unspecified atrial fibrillation; M48.07 Spinal stenosis, lumbosacral region; M96.1 Postlaminectomy syndrome, not elsewhere classified; M51.17 Intervertebral disc disorders with radiculopathy, lumbosacral region; Z90.710 Acquired absence of both cervix and uterus; Z90.49 Acquired absence of other specified parts of digestive tract; F32.A Depression, unspecified; E78.00 Pure hypercholesterolemia, unspecified; Z99.81 Dependence on supplemental oxygen; F17.200 Nicotine dependence, unspecified, uncomplicated
CPT/HCPCS: 63650 ×2; 00620; J7120; 72100; 76000; J2405

== ENCOUNTER 2023-12-01 11:55 | Day surgery (SDC) | payer MEDICARE, SELFPAY ==
[2023-12-01] VITALS (7 sets, daily range): BP systolic 98–141; BP diastolic 59–78; PULSE 70–84; RESP 12–16; TEMP 36.1–37.3; O2SAT 96–100; BMI 21.2
--- NOTE | 2023-12-01 12:11 | PCM.PRE.AN2 ---
ASA Classification* ASA Classification ASA Classification: 3 Assessment & Plan Anesthesia* Anesthesia Assessment Anesthesia Assessment: Discussed sedation and/or anesthesia options, risks, benefits, and alternatives with patient/parents/legal guardian/POA. Questions invited. The patient/parents/legal guardian/POA seems to understand and agrees to proceed with anesthesia plan. Reviewed the physical assessment, medical history, allergy history and patient home medications list prior to surgery/procedure/anesthetic and documented any changes. Performed airway and anesthesia risk assessments. Anesthesia Type Anesthesia Type: MAC Anesthesia Focused Assessment* Airway Assessment Mouth opens: >3 cm Mallampati Score: II Focused Labs Anesthesia Preop lab: CBC WBC 6.6 K/mm3 (4.4-11.0) 12/14/21 16:50 RBC 4.08 M/mm3 (4.2-5.4) L 12/14/21 16:50 Hgb 12.8 g/dL (12.0-15.0) 12/14/21 16:50 Hct 39.9 % (37-47) 12/14/21 16:50 Plt Count 225 K/mm3 (150-450) 06/24/23 11:56 CHEMISTRY Potassium 3.8 mmol/L (3.5-5.1) 12/14/21 16:50 Sodium 137 mmol/L (136-145) 12/14/21 16:50 Magnesium 2.2 mg/dL (1.6-2.6) 10/07/17 12:04 BUN 7 mg/dL (7-18) 12/14/21 16:50 Creatinine 0.78 mg/dL (0.55-1.02) 12/14/21 16:50 Glucose 93 mg/dL (74-106) 12/14/21 16:50 TSH 2.49 uIU/mL (0.358-3.74) 06/26/20 10:12 COAG PT 13.9 SECONDS (11.7-14.9) 06/24/23 11:56 Pre-Assessment Diagnosis/Proposed Procedure Planned Operative Procedure(s): Insertion Spinal Chord Stimulator Anesthesia History 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 When Was Last Pacemaker Check QUESTION #4 FULL TEXT: You/Your Family Experience fever (hyperthermia) with Anesthesia Last Oral Intake Last Oral intake: Last Oral Intake NPO since Meds taken in AM with sips of water? 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: PONV - finishing machine operator automatic Female HX of Motion Sickness HX of N/V After Surgery Non-Smoker Duration of Surgery greater than 60 minutes Number of Risk Factors PONV Score Height & Weight Height & Weight: Anesthesia: Height & Weight Height 5 ft 5 in 09/29/23 08:34 Respiratory Assessment Respiratory Assessment - finishing machine operator automatic: Respiratory Tract Infection Hx - finishing machine operator automatic Hx Respiratory Tract Infection No 09/26/23 08:43 STOP Sleep Apnea STOP Sleep Apnea - finishing machine operator automatic: STOP Sleep Apnea - finishing machine operator automatic Hx Hypertension No 09/26/23 08:43 Hx Sleep Apnea Yes 09/29/23 10:23 CPAP No 09/29/23 10:05 BIPAP No 09/26/23 08:43 Do you snore loudly (louder than talking or can be heard Do you often feel tired/ fatigued/ sleepy during daytime? Has anyone observed you stop breathing during sleep? STOP Results QUESTION #5 FULL TEXT : Do you snore loudly (louder than talking or can be heard through closed doors)? 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 Specify any problems Hx of Preganancy in last 3 Months Nurse Filling Out Transfusion & Questions: Date: Time: Patient unable to answer at this time (ie. confused, unrespo /Reproduction History /Reproductive History - finishing machine operator automatic: /Reproductive Hx- finishing machine operator automatic Hx Now Gestational Age (in weeks): EDC: Hx Hx Para Hx Section SAB No 09/26/23 08:43 PFSH Medical History No natural teeth Ambulates with cane Injury of back GERD (gastroesophageal reflux disease) History of Holter monitoring Wears glasses Depression Anxiety Arthritis Easy bruising High cholesterol Back pain Heartburn Smoker Asthma On home oxygen therapy Emphysema, unspecified Shortness of breath on exertion Chronic cough Leg cramps History of pain when walking History of echocardiogram History of stress test Cardiology follow-up encounter Atherosclerotic heart disease of [place] coronary artery without angina pectoris CAD (coronary artery disease) Near syncope COPD (chronic obstructive pulmonary disease) Atrial fibrillation Chronic lumbar back pain COPD exacerbation Unstable angina Adnexal mass Lactic acid acidosis SIRS (systemic inflammatory response syndrome) Pneumonia Pleuritic chest pain Shortness of breath Panic disorder Tobacco dependence syndrome Fibromyalgia Home Medications ?Medication ?Instructions ?Recorded ?Last Taken ?Type clonazepam 0.5 mg tablet 0.5 mg PO DAILY PRN Anxiety 10/30/15 11/12/21 History trazodone 100 mg tablet 150 mg PO QHS sleep 06/30/17 11/12/21 History aspirin 81 mg tablet,delayed 81 mg PO DAILY@0800 #30 tabs 12/06/17 09/26/23 Rx release albuterol sulfate 90 mcg/actuation 2 puff inhalation Q6H PRN SOB 08/29/21 09/29/23 History aerosol inhaler benztropine 0.5 mg tablet 0.5 mg PO BID PRN tremors 12/24/22 Unknown History gabapentin 400 mg capsule 400 mg PO TID 12/24/22 09/29/23 History budesonide 1 mg/2 mL suspension 1 mg (2 mL) inhalation BID #60 mL 04/01/23 Unknown Rx for nebulization famotidine 40 mg tablet 40 mg PO DAILY 04/01/23 Unknown History fluticasone propionate 50 1 spray intranasal DAILY 04/01/23 Unknown History mcg/actuation nasal spray,suspension ipratropium 0.5 mg-albuterol 3 mg 3 ml inhalation Q4H PRN PRN SOB 04/01/23 Unknown Rx (2.5 mg base)/3 mL nebulization &/OR WHEEZING #180 mL soln oxycodone-acetaminophen 5 mg-325 1 tab PO TID PRN pain 04/01/23 09/29/23 History mg tablet albuterol sulfate 2.5 mg/3 mL 2.5 mg inhalation .QID PRN COPD 06/24/23 Unknown History (0.083 %) solution for nebulization cetirizine 10 mg tablet 10 mg PO QDAY 06/24/23 09/29/23 History duloxetine 60 mg capsule,delayed 60 mg PO DAILY depression 06/24/23 09/29/23 History release Allergy/AdvReac Type Severity Reaction Status Date / Time No Known Allergies Allergy Verified 12/01/23 12:10 Family History Mother CAD (coronary artery disease) Father Cancer Surgical History History of lobectomy of lung (07/15/23) History of shoulder surgery History of cardiac catheterization Hx of laparoscopy History of left heart catheterization (LHC) (~11/08/20) H/O cardiac radiofrequency ablation History of foot surgery History of tonsillectomy History of hysterectomy History of cholecystectomy History of right and left heart catheterization (12/05/17) Social History household members: none Smoking Status: Current every day smoker tobacco type: cigarettes alcohol intake: never substance use type: does not use caffeine: Yes Type: carbonated beverages and coffee Review of Systems (Anesthesia) ROS Narrative System reviewed and no additional complaints, except as documented.
[2023-12-01] MEDS: Lidocaine 2% (20 ml mdv) 20 ML Vial (12:35)
[2023-12-01] MEDS: Bupivacaine 0.25% 30 ML Vial (12:36)
[2023-12-01] MEDS: Cefazolin 2 GM in Syringe IV (12:56)
--- NOTE | 2023-12-01 13:05 | RAD_ITS ---
STUDY: X-RAY - LUMBAR SPINE REASON FOR EXAM: Female, 68 years old. DONE IN OR. SPINAL CORD STIMULATOR IMPLANT. 506 SECONDS. 78.05 mGy. 7 SPOTS. TECHNIQUE: 7 fluoroscopic images of the thoracic and lumbar spine were obtained. COMPARISON: Prior fluoroscopic guided spinal stimulating catheter exam dated September 29, 2023 FINDINGS: Additional history: Permanent placement of spinal stimulating catheter. Surgical instrumentation hardware is present. 7 fluoroscopic frontal and lateral images of the thoracic and lumbar spine show 2 catheter leads in the mid thoracic spine. RAD/Lumbar Spine 2 or 3 Views IMPRESSION: 1. Status post placement of thoracic SPINAL CORD STIMULATOR CATHETER/DEVICE. 2. Refer to performing physician''s procedural notes for detailed findings and impression. Electronically Signed: Raymundo Donis MD at 12:00 EDT ,
[2023-12-01] MEDS: Bacitracin 500 UNITS/GM PACKET (14:01)
--- NOTE | 2023-12-01 14:15 | PCM.OPRPT ---
Report of Operation Date of Procedure: 12/01/23 Description of Surgical Findings:: Pre-Operative Diagnosis: Lumbosacral radiculopathy, lumbosacral degenerative disc disease, lumbosacral spinal stenosis, postlaminectomy syndrome of the lumbar spine Post-Operative Diagnosis: Lumbosacral radiculopathy, lumbosacral degenerative disc disease, lumbosacral spinal stenosis, postlaminectomy syndrome of the lumbar spine Surgery/Procedure Performed:: 1. Implant of spinal cord stimulator thoracolumbar leads x2 #2 spinal cord stimulator Medtronic intellis generator placement #3 spinal cord stimulator generator pocket creation at the right gluteal region #4 spinal cord stimulator simple programming, 5-intraoperative fluoroscopic interpretation ANESTHESIA: MAC COMPLICATIONS: None BLOOD LOSS: Minimal less than 10 cc Implanted device: Spinal cord stimulator lead [id number] lot number [id number], lead #2 [id number] lot number [id number] Medtronic spinal cord stimulator generator intellis serial number [id number] PROCEDURE IN DETAIL: History and physical today was reviewed. Risks and benefits of procedure explained. The patient understood, agreed to procedure, informed consent was obtained. IV inserted per routine protocol. The patient was taken to the operating room, placed in the prone position with a pillow positioned underneath the abdomen. A 2 g of Ancef IV piggyback was infused per anesthesia. The lower back and right gluteal area was prepped and draped in a sterile fashion using iodine x3 Ioban was placed. The C-arm was brought in position for AP view at the L2-3 vertebral bodies under direct visualization fluoroscopy on a true AP view the L1-2 interlaminar space was identified skin and subcutaneous tissue and size approximately 10 cc of a mix of 2% lidocaine and 0.25% Marcaine using a 25-gauge regular needle followed by a 25-gauge 3-1/2 inch spinal needle towards the interlaminar space at L1-2, the skin and subcutaneous tissue were then anesthetized and using an 11-gauge blade was then taken down to the skin and subcutaneous tissue using a 14-gauge 3-1/2 inch Touhy needle provided by the [employer] kit the needle was passed through the skin towards the interlaminar space at L1-2 and a paramedian approach the needle was then advanced under direct visualization fluoroscopy towards the interlaminar space at L1-2 [id number] technique was then carried to air towards the interlaminar space at L1-2 once the tip of the needle was in the epidural space and loss of resistance was encountered to air and after confirmation of AP as well as oblique view of the spinal cord stimulator lead was then advanced under direct visualization fluoroscopy to be at the tip of the lead at mid T7 and the bottom of the lead around upper T10 after confirmation of AP as well as lateral view to confirm correct placement of the lead in the posterior compartment of the epidural space the previous procedure was then repeated to a level above at T12-L1 interlaminar space the second lead was then inserted under direct visualization with fluoroscopy to be at the mid T7 and upper T10 area the leads were were then connected to the external neurostimulator and patient was then awakened to confirm satisfactory coverage of the painful area once satisfactory coverage was then achieved the stylette of each needle was then removed and the skin and subcutaneous tissue on to the left of the paramedian needles was then taken anesthetized with a total of 10 cc of the previous mixture of 0.25% Marcaine and 2% lidocaine using a 25-gauge regular needle the vertical incision approximately 4 cm was then taken down through the skin and subcutaneous tissue towards the fascia making sure hemostasis was then maintained via cautery, at the right gluteal region the above mixture of anesthetics were used approximately 20 cc and an approximately 8 cm horizontal incision was then made at the right gluteal region hemostasis was maintained via Bovie as well as pressure at approximately 3 cm thickness from the skin , the spinal cord stimulator leads were then passed through the above incision and secured using the bumpy anchor and sutured down with a 2-0 silk to the fascia at that level the spinal cord stimulator leads were then tunneled via a tunneler provided by the [employer] kit towards the previously incised spinal cord stimulator battery at the right gluteal region skin and subcutaneous tissue were anesthetized with approximately 10 cc of a mix of 2% lidocaine and 0.25% Marcaine using a 25 gauge regular needle, skin and subcutaneous tissue was then taken down with the 11-gauge blade hemostasis was maintained with Bovie and direct pressure the incision was then taken down to the fascia and the battery was then secured with the 2-0 silk sutures that were the spinal cord stimulator leads the upper lead was then marked the new until spinal cord stimulator battery was then provided Via [employer] kit the battery was then reattached of the spinal cord stimulator make ensure that the top lead is attached to the top position from 0-7 electrodes and the bottom from 8-15 electrodes once impedance was then checked to be in the proper average number the intellis battery was then inserted into the pocket and impedance with when checked again the pocket was then inspected to confirm hemostasis in place, the intellis battery was then secured to the fascia using a 2-0 silk to the upper eyes of the battery confirming an upward writing of the intellis facing posterior, the battery was then placed into a Tyrx antibacterial envelope, once complete confirmation the battery was then placed in the position and the the mid paramedian and the gluteal incisions were then closed primarily through a 0-0 Vicryl in an interrupted fashion followed by a 3.0 Vicryl in an interrupted fashion followed by a 4.0 monocryl in a running fashion to the skin, hemostasis was then maintained during the procedure the skin was then covered with a Steri-Strips and bacitracin patient was then returned into the supine position in a stable condition and returned to recovery in a stable condition patient experienced no signs or symptoms of intrathecal or intravascular injection patient experienced no paresthesia the procedure was completed without any apparent difficulty any complication the patient appeared to tolerate well, motor as well as sensory function was unchanged from prior to the procedure ESTIMATED BLOOD LOSS: Minimal less than 25 mL ASSESSMENT AND PLAN: This is a 68-year-old female with lumbosacral radiculopathy lumbosacral degenerative disc disease lumbosacral spinal stenosis, postlaminectomy syndrome of the lumbar spine, status post 1. Spinal cord stimulator thoracolumbar leads placement x2 #2 spinal cord stimulator Medtronic intellis generator placement #3 spinal cord stimulator generator pocket creation at the right gluteal region #4 spinal cord stimulator simple programming, 5-intraoperative fluoroscopic interpretation patient will continue her current medications a prescription was provided to the patient Keflex 500 mg 1 p.o. every 8 hours for 7 days postop instruction were given in writing to the patient and her daughter as well as verbally and in writing, patient will follow approximately 1 week for reevaluation. Bread Pan Greaser: Mary Ann Zaldivar Additional Vice President Of Procurement #2: Landy Candelario Type of Anesthesia: MAC
--- NOTE | 2023-12-01 14:42 | PCM.POST.ANE ---
Anesthesia: Postop Eval I Current Vital Signs Temperature: 97 F Pulse Rate: 70 Blood Pressure: 98/59 Respiratory Rate: 14 Pulse Ox: 99 Oxygen Delivery Method: Room Air Assessment Airway patent: Yes Spontaneous unlabored respirations: Yes Mental status: Awake and Calm nausea: No Vomiting: No Anesthesia Complication: No Fluid Hydration Crystalloid volume administer (ml): 120 Total IV fluid infused: 120 Progress Note Anesthesia document: Postop Eval 1 completed: Yes
--- NOTE | 2023-12-01 14:57 | PCM.POSTANE2 ---
Anesthesia Postop Eval I Sum Postop Eval Completion status Anesthesia document: Postop Eval 1 completed: Yes Anesthesia Postop Eval I Summary Anesthesia Postop Eval I Summary: Anesthesia Postop Eval I: Assessment Summary Airway patent Yes 12/01/23 14:42 [email or web address] Spontaneous unlabored Yes 12/01/23 14:42 [email or web address] respirations Mental status Awake,Calm 12/01/23 14:42 [email or web address] nausea No 12/01/23 14:42 [email or web address] Vomiting No 12/01/23 14:42 [email or web address] Anesthesia Postop Eval I: Fluid Summary Crystalloid volume administer 120 12/01/23 14:42 [email or web address] (ml) Colloids volume administered ( ml) Blood Product volume administered (ml) Total IV fluid infused 120 12/01/23 14:42 [email or web address] Anesthesia Postop Eval I: Summary Notes Anesthesia Complication No 12/01/23 14:42 [email or web address] Anesthesia Complication Comment: Post-operative progress note Anesthesia: Postop Eval II Evaluation Mental status: Awake and Calm Pain Level: 1 nausea: No Vomiting: No Complications Anesthesia Complication: No
--- NOTE | 2023-12-16 14:35 | HP.PCM_ITS ---
History and Physical Date of Admission: 12/01/23 Chief Complaint: SCS trial decreased pain 70%. History of Present Illness: This is a 68 Y/O female who was seen and evaluated at our office today as a follow up. Pain: neck, left shoulder, left blade, left elbow, lower back, right leg Quality: intermittent Region: Pain in neck, into left shoulder and blade and has pain in left elbow. Reports pain in lower back and down right leg. Severity: dull - moderate Timing: on going since 1996 Aggravated by: walking Relieved by: pain medication, ice Pain score (out of 10): 5/10 overall Other info: Patient is here for a follow up post SCS trial decreased pain 50%. Reports pain in her neck as constant ache that radiates into the left shoulder to left elbow. Reports pain across the lower back as a intermittent ache that radiates to right hip and down right leg. States the pain is dull to moderate. Reports tingling in right leg. Needs refills of percocet and gabapentin, she stated her pain is better, she can do more around the house and able to walk more and stand up straight, she is interested in the implant, she continues to do ok with her medications without side effects, she denies any bowel or bladder changes. Review of Systems: Patient denies any recent fever, chills, change in weight without trying, vision or hearing problems. No cp or peripheral edema but has SOB due to COPD. They note no lumps or swollen glands, no new rashes, changing moles, or change in bowel or bladder function. Mood has been fair. Past Medical History: h/o depression h/o anxiety h/o chronic obstructive pulmonary disease h/o A-fibrillation h/o STEMI/mild heart attack 2020 h/o DDD h/o ovarian cancer h/o insomnia h/o panic attacks h/o emphysema s/p Laminectomy 03/2016 s/p bilateral feet (sand down arch) s/p left shoulder arthroscopy s/p cholecystectomy s/p neurectomy-right neuroma Family History: ======== Structured Family History ======== heart issues Father: Lung cancer Mother: Overdose Social History: [Tobacco: Former smoker (0 pk yrs / 0 yrs quit) Pipe Smoker: No Cigar Smoker: No Chewing Tobacco User: No Electronic Cigarette User: No] Living situation: Occupation: disabled Tobacco: cigarettes EtOH: denies Rec. drugs: denies Allergies: No Known Allergies Medications: 1) albuterol sulfate HFA 90 mcg/actuation aerosol inhaler, as directed 2) aripiprazole 2 mg tablet, Take 1 tablet by mouth once daily 3) aspirin 81 mg chewable tablet, Take 1 tablet by mouth once daily 4) atorvastatin 20 mg tablet, Take 1 tablet by mouth once daily 5) baclofen 5 mg tablet, Take 2 tablet by mouth every evening 6) clonazepam 0.5 mg tablet, Take 1 tablet by mouth once daily 7) docusate sodium 250 mg capsule, Take 1 tablet by mouth every evening 8) duloxetine 60 mg capsule,delayed release, Take 2 tablet by mouth once daily 9) fluticasone propionate 50 mcg/actuation nasal spray,suspension, 2 sprays each nostril qday 10) gabapentin 400 mg capsule, take 1 capsule PO QID 11) ibuprofen 600 mg tablet, Take 1 tablet by mouth 1-3 Times a Day 12) Melatin 3 mg tablet, Take 1 tablet by mouth every evening 13) midodrine 10 mg tablet, Take 1 tablet by mouth 3 Times a Day 14) Narcan 4 mg/actuation nasal spray, 1 spray intranasal prn 15) omeprazole 20 mg tablet,delayed release, Take 1 tablet by mouth once daily 16) Percocet 5 mg-325 mg tablet, 1 PO TID PRN PAIN. 17) Physical therapy to evaluate and treat for back pain, 6 weeks 18) trazodone 50 mg tablet, 2 tabs po qhs 19) Xray of the cervical spine, AP/Lat./Flex./Ext./Od./Obli Physical Examination: Wt: 124 lb Ht/Ln: 65 in BMI: 20.6 BP: 134/72 Pulse: 66 RR: 16 Temp: 98.1F Well nourished and well developed in no acute distress. Affect is normal and ap propriate. Mucosa pink and moist. Chest is unlabored breathing. No conversational shortness of breath or cough. Wearing face mask. Pt is alert and oriented to place, person and time, appropriate responses, Neck is supple without significant lymphadenopathy or thyromegaly. Abdomen soft & non-tender. No HSM or masses appreciated. Extremities show no cyanosis, clubbing, or edema. Gait is antalgic . Lumbar paraspinal muscle tenderness bilaterally, worse on the right. Lumbar ROM is limited due to pain worse with extension. Bilateral lumbar facet loading is positive. Negative SLR from seated position bilaterally. Negative ZEHRA test bilaterally. Cervical ROM is limited due to pain with extension. Cervical paraspinal muscle tenderness . Bilateral cervical facet loading is positive . Left shoulder ROM limited by pain, worse with anterior motion. Left shoulder tenderness with palpation of posterior glenohumeral joint. Left elbow with good ROM but complains of pain. Motor and sensory exam is unchanged. 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 (Transmitted by Hardy Austin MD) PRESCRIBE: gabapentin 400 mg capsule, take 1 capsule PO QID, # 120, RF: 0. (Transmitted by Hardy Austin MD) Continue current medication regimen.Will call for refills. OARRS was reviewed today. UDS was reviewed and compliant. Discussed using miralax to help with OIC and using walker for ambulation. SOAPP score is 5 Xray of the lumbar spine was reviewed with the pt today and they appear to understand. Xray of the cervical spine was reviewed with the pt today and they appear to understand. There are no signs of diversion or addiction with the pt, there is also no signs of abuse or misuse, continues to do well with their medications without any side effects, we will continue monitoring the pt closely. PEG was reviewed today. Life style modifications were also discussed today and the pt appears to understand. Smoking cessation was discussed today and pt was encouraged. Risks and benefits of the above meds were discussed with the pt and they appear to understand. The common side effects of the medications were discussed and all of their questions and concerns were answered and they appear to understand. Discussed natural and expected course of this diagnosis and need to alert me if symptoms do not follow expected course, or if any worse. Pt is to continue with her HEP. Removed the trial SCS, leads intact upon removal, sutures removed, area cleaned, bandage applied, no redness or edema noted. instructions given for post care at home of incision sites. Given excellent response to the SCS stimulator with improvement in their pain, ability to perform ADLs, better sleep quality, and improvement in their fu nctional status, we will proceed with permanent spinal cord stimulator implant x2 leads at the thoracolumbar level, and SCS generator implant at the gluteal region under fluoroscopic guidance. The above plan was discussed today with the pt in details and she appears to understand and agrees to continue with the plan.
== END 2023-12-01 15:26 | disposition home or self-care (01) ==
LOC: SDC 11:56 → AC 11:58
PROVIDERS: PCP Student in an Organized Health Care Education/Training Program; Referring Provider Anesthesiology Pain Medicine; Visit Provider Anesthesiology Pain Medicine
PROC: (CPT 63685; principal; 2023-12-01 13:15)
DX: Z45.42 Encounter for adjustment and management of neurostimulator (principal); J44.9 Chronic obstructive pulmonary disease, unspecified; I48.91 Unspecified atrial fibrillation; M48.07 Spinal stenosis, lumbosacral region; M47.816 Spondylosis without myelopathy or radiculopathy, lumbar region; Z87.891 Personal history of nicotine dependence; Z79.891 Long term (current) use of opiate analgesic; F41.0 Panic disorder [episodic paroxysmal anxiety]; M25.522 Pain in left elbow; M25.512 Pain in left shoulder; M62.838 Other muscle spasm; M50.30 Other cervical disc degeneration, unspecified cervical region; G47.00 Insomnia, unspecified; M47.812 Spondylosis without myelopathy or radiculopathy, cervical region; M96.1 Postlaminectomy syndrome, not elsewhere classified; I25.2 Old myocardial infarction; Z79.82 Long term (current) use of aspirin; F32.A Depression, unspecified; M25.812 Other specified joint disorders, left shoulder; M47.817 Spondylosis without myelopathy or radiculopathy, lumbosacral region; Z90.2 Acquired absence of lung [part of]; Z90.710 Acquired absence of both cervix and uterus; Z90.49 Acquired absence of other specified parts of digestive tract; Z99.81 Dependence on supplemental oxygen; I25.10 Atherosclerotic heart disease of native coronary artery without angina pectoris
CPT/HCPCS: 63685; 00300; 72100; 76000; C1778; C1820; A4216; J2405

== ENCOUNTER 2024-04-26 07:07 | Day surgery (SDC) | payer MEDICARE, SELFPAY ==
[2024-04-26] VITALS (9 sets, daily range): BP systolic 133–148; BP diastolic 71–81; PULSE 62–69; RESP 16–18; TEMP 36.2–36.6; O2SAT 98–100; BMI 21.4
--- NOTE | 2024-04-26 07:40 | RAD_ITS ---
EXAM: SPINE 1 VIEW ANY LEVEL CLINICAL HISTORY: BLOCK, MEDIAL BRANCH NERVE, CERVICAL LT TECHNIQUE: 4 fluoroscopic spot images at 13.5 seconds 4 median branch nerve cervical block 0.38 mGy cumulative dose FINDINGS: As above RAD/Spine 1 View Any Level IMPRESSION: As above Reading Location: [id number]
--- NOTE | 2024-04-26 08:25 | PRE.ANES_ITS ---
ASA Classification* ASA Classification ASA Classification: 3 Assessment & Plan Anesthesia* Anesthesia Assessment Anesthesia Assessment: Discussed sedation and/or anesthesia options, risks, benefits, and alternatives with patient/parents/legal guardian/POA. Questions invited. The patient/parents/legal guardian/POA seems to understand and agrees to proceed with anesthesia plan. Reviewed the physical assessment, medical history, allergy history and patient home medications list prior to surgery/procedure/anesthetic and documented any changes. Performed airway and anesthesia risk assessments. Anesthesia Type Anesthesia Type: MAC History Source History Obtained from:: Patient and Chart Anesthesia Focused Assessment* Temperature: 98 F Pulse Rate: 69 Blood Pressure: 146/74 Respiratory Rate: 16 Pulse Ox: 98 Oxygen Delivery Method: Room Air Airway Assessment Mouth opens: >3 cm Mallampati Score: III Teeth Condition: Missing (Edentulous.) Neck Range of motion (ROM): Limited ROM (Somewhat decreased extension) Focused Labs Anesthesia Preop lab: CBC WBC 6.6 K/mm3 (4.4-11.0) 12/14/21 16:50 12/14/21 RBC 4.08 M/mm3 (4.2-5.4) L 12/14/21 16:50 12/14/21 Hgb 12.8 g/dL (12.0-15.0) 12/14/21 16:50 12/14/21 Hct 39.9 % (37-47) 12/14/21 16:50 12/14/21 Plt Count 225 K/mm3 (150-450) 06/24/23 11:56 06/24/23 CHEMISTRY Potassium 3.8 mmol/L (3.5-5.1) 12/14/21 16:50 12/14/21 Sodium 137 mmol/L (136-145) 12/14/21 16:50 12/14/21 Magnesium 2.2 mg/dL (1.6-2.6) 10/07/17 12:04 10/07/17 BUN 7 mg/dL (7-18) 12/14/21 16:50 12/14/21 Creatinine 0.78 mg/dL (0.55-1.02) 12/14/21 16:50 12/14/21 Glucose 93 mg/dL (74-106) 12/14/21 16:50 12/14/21 TSH 2.49 uIU/mL (0.358-3.74) 06/26/20 10:12 COAG PT 13.9 SECONDS (11.7-14.9) 06/24/23 11:56 Pre-Assessment Diagnosis/Proposed Procedure Planned Operative Procedure(s): Left-sided cervical medial branch block C3 C4-C5-C6 under fluoroscopy. 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 When Was Last Pacemaker Check QUESTION #4 FULL TEXT: You/Your Family Experience fever (hyperthermia) with Anesthesia Last Oral Intake Last Oral intake: Last Oral Intake NPO since 05:30 04/26/24 07:34 Meds taken in AM with sips of Yes 04/26/24 07:34 water? Meds patient instructed to duloxetine, oxycodone 04/26/24 07:34 take am of surgery Any additional information?: Yes NPO since: 05:30 Meds taken in AM with sips of water?: Yes PONV PONV - electrical controls assembler: PONV - electrical controls assembler Female HX of Motion Sickness HX of N/V After Surgery Non-Smoker Duration of Surgery greater than 60 minutes Number of Risk Factors PONV Score Height & Weight Height & Weight: Anesthesia: Height & Weight Height 5 ft 5 in 04/26/24 07:34 Weight: 58.4 kg 04/26/24 07:34 Body Mass Index (BMI) 21.4 04/26/24 07:34 Respiratory Assessment Respiratory Assessment - electrical controls assembler: Respiratory Tract Infection Hx - electrical controls assembler Hx Respiratory Tract Infection No 09/26/23 08:43 STOP Sleep Apnea STOP Sleep Apnea - electrical controls assembler: STOP Sleep Apnea - electrical controls assembler Hx Hypertension No 09/26/23 08:43 Hx Sleep Apnea Yes 12/01/23 14:50 CPAP No 12/01/23 14:36 BIPAP No 09/26/23 08:43 Do you snore loudly (louder than talking or can be heard Do you often feel tired/ fatigued/ sleepy during daytime? Has anyone observed you stop breathing during sleep? STOP Results QUESTION #5 FULL TEXT : Do you snore loudly (louder than talking or can be heard through closed doors)? 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 Specify any problems Hx of Preganancy in last 3 Months Nurse Filling Out Transfusion & Questions: Date: Time: Patient unable to answer at this time (ie. confused, unrespo /Reproduction History /Reproductive History - electrical controls assembler: /Reproductive Hx- electrical controls assembler Hx Now Gestational Age (in weeks): EDC: Hx Hx Para Hx Section SAB No 09/26/23 08:43 [facility] Medical History No natural teeth Ambulates with cane Injury of back GERD (gastroesophageal reflux disease) History of Holter monitoring Wears glasses Depression Anxiety Arthritis Easy bruising High cholesterol Back pain Heartburn Smoker Asthma On home oxygen therapy Emphysema, unspecified Shortness of breath on exertion Chronic cough Leg cramps History of pain when walking History of echocardiogram History of stress test Cardiology follow-up encounter Atherosclerotic heart disease of [place] coronary artery without angina pectoris CAD (coronary artery disease) Near syncope COPD (chronic obstructive pulmonary disease) Atrial fibrillation Chronic lumbar back pain COPD exacerbation Unstable angina Adnexal mass Lactic acid acidosis SIRS (systemic inflammatory response syndrome) Pneumonia Pleuritic chest pain Shortness of breath Panic disorder Tobacco dependence syndrome Fibromyalgia Home Medications ?Medication ?Instructions ?Recorded ?Last Taken ?Type clonazepam 0.5 mg tablet 0.5 mg PO DAILY PRN Anxiety 10/30/15 11/30/23 History trazodone 100 mg tablet 150 mg PO QHS sleep 06/30/17 04/25/24 History aspirin 81 mg tablet,delayed 81 mg PO DAILY@0800 #30 t abs 12/06/17 04/25/24 Rx release albuterol sulfate 90 mcg/actuation 2 puff inhalation Q 6H PRN SOB 08/29/21 09/29/23 History aerosol inhaler benztropine 0.5 mg tablet 0.5 mg PO BID PRN tremors 11/30/23 History gabapentin 400 mg capsule 400 mg PO TID 12/24/2204/25 History budesonide 1 mg/2 mL suspension 1 mg (2 mL) inhalation BID #60 mL 04/01/23 Unknown Rx for nebulization famotidine 40 mg tablet 40 mg PO DAILY 04/01/2311/11 History fluticasone propionate 50 1 spray intranasal DAILY 11/30/23 History mcg/actuation nasal spray,suspension ipratropium 0.5 mg-albuterol 3 mg 3 ml inhalation Q4H PRN PRN SOB 04/01/23 11/30/23 Rx (2.5 mg base)/3 mL nebulization &/OR WHEEZING #180 mL soln oxycodone-acetaminophen 5 mg-325 1 tab PO TID PRN pain 04/01/23 04/26/24 History mg tablet albuterol sulfate 2.5 mg/3 mL 2.5 mg inhalation .QID P RN COPD 06/24/23 Unknown History (0.083 %) solution for nebulization cetirizine 10 mg tablet 10 mg PO QDAY 06/24/2304/25 History duloxetine 60 mg capsule,delayed 60 mg PO DAILY depres akhil 06/24/23 04/26/24 History release atorvastatin 20 mg tablet 20 mg PO QDAY 12/15/2304/25 History Allergy/AdvReac Type Severity Reaction Status Date / Time No Known Allergies Allergy Verified 04/26/24 07:32 Family History Mother CAD (coronary artery disease) Father Cancer Surgical History History of lobectomy of lung (07/15/23) History of shoulder surgery History of cardiac catheterization Hx of laparoscopy History of left heart catheterization (LHC) (~11/08/20) H/O cardiac radiofrequency ablation History of foot surgery History of tonsillectomy History of hysterectomy History of cholecystectomy History of right and left heart catheterization (12/05/17) Social History household members: none Smoking Status: Current every day smoker tobacco type: cigarettes alcohol intake: never substance use type: does not use caffeine: Yes Type: carbonated beverages and coffee Review of Systems (Anesthesia) ROS Narrative System reviewed and no additional complaints, except as documented. Physical Exam Resp clear to auscultation bilaterally
[2024-04-26] MEDS: MethylPREDNISolone Acetate 80 MG/ML Vial (09:07)
[2024-04-26] MEDS: Bupivacaine 0.25% 30 ML Vial (09:07)
--- NOTE | 2024-04-26 09:13 | PCM.POST.ANE ---
Anesthesia: Postop Eval I Current Vital Signs Temperature: 97.9 F Pulse Rate: 64 Blood Pressure: 148/75 Respiratory Rate: 18 Pulse Ox: 100 Oxygen Delivery Method: Room Air Assessment Airway patent: Yes Spontaneous unlabored respirations: Yes Mental status: Awake and Calm nausea: No Vomiting: No Anesthesia Complication: No Fluid Hydration Crystalloid volume administer (ml): 10 Total IV fluid infused: 10 Progress Note Anesthesia document: Postop Eval 1 completed: Yes
--- NOTE | 2024-04-26 09:34 | OP.PCM_ITS ---
Operative Report (Standard) Operative Information Date of Procedure: 04/26/24 Pre-Operative Diagnosis: 1 Post-Operative Diagnosis: 1 Surgery/Procedure Performed: 1 chemical worker: No Type of Anesthesia: Local MAC RN Documented Start/Stop Times: Operation Date: 04/26/24 08:40 Case Time Into Pre-Op 04/26/24 07:19 Out of Pre-Op 04/26/24 08:45 Anesthesia Start 04/26/24 08:57 Into Room 04/26/24 08:57 Procedure Start 04/26/24 09:03 Procedure End 04/26/24 09:05 Anesthesia End 04/26/24 09:10 Out of Room 04/26/24 09:10 Into Recovery 04/26/24 09:11 Out of Recovery 04/26/24 09:31 Into Phase II Recovery 04/26/24 09:32 Procedure Start Time: 09:35 Procedure Stop Time: 09:35 Select all DRAINS/GRAFTS/IMPLANTS that apply: None Estimated Blood Loss: 1 Specimen collected: No Description of surgery: Pre-Operative Diagnosis: Cervical spondylosis, cervical degenerative disc disease, cervical facet arthropathy Post-Operative Diagnosis: Cervical spondylosis, cervical degenerative disc disease, cervical facet arthropathy Surgery/Procedure Performed:: Left sided cervical medial branch block at C3, C4, C5, C6 Type of Anesthesia: MAC Estimated Blood Loss (mL): Minimal Description of Procedure: DESCRIPTION OF PROCEDURE: History and physical of today was reviewed. Risks and benefits of the procedure were explained. The patient understood and agreed to proceed. Informed consent was obtained. IV inserted per routine protocol. The patient was taken to the operating room and placed in the prone position with a pillow positioned underneath the chest. The neck area was prepped and draped in a sterile fashion using iodine x3. Under fluoroscopy guidance on an AP view, the C3 through C6 vertebral bodies were visualized at approximately 10- degree angle, starting on the left C3, ending on the left C6, passing through the C4 and C5. Using a 25-gauge 3-1/2-inch spinal needle, the needle was advanced via the skin. The tip of the needle was maneuvered and directed towards the epiphyseal junction of each corresponding vertebra. Once the tip of the needle was at the vicinity of the medial branch, the needle was pulled approximately 2 mm off the bone. After negative aspiration of blood or CSF and confirmation on AP, oblique as well as lateral view, a total of 4 mL of preservative-free 0.25% Marcaine was injected in divided doses between those four levels. The needles were then removed intact. The patient experienced no sign or symptoms of intrathecal or intravascular injection. The patient experienced no paresthesia. The procedure was completed without any apparent difficulty or any complications. The patient appeared to tolerate it well. ASSESSMENT AND PLAN: This is a 68-year-old female with cervical spondylosis, cervical degenerative disc disease, cervical facet arthropathy status post left-sided cervical medial branch block at C3-C6, patient will continue her current medications, patient will follow in approximately 1-2 weeks for reevaluation. Surgical Findings: 1 Complications Complications: No Admit VTE Documentation VTE Present on Admission: No VTE Mechan Device Prophylaxis: None VTE Pharm Prophylaxis ordered?: No
--- NOTE | 2024-04-26 10:03 | POSTOPAN2_ITS ---
Anesthesia Postop Eval I Sum Postop Eval Completion status Anesthesia document: Postop Eval 1 completed: Yes Anesthesia Postop Eval I Summary Anesthesia Postop Eval I Summary: Anesthesia Postop Eval I: Assessment Summary Airway patent Yes 04/26/24 09:14 HUMAN RESOURCES BENEFITS ADMINISTRATOR.[email or web address] Spontaneous unlabored Yes 04/26/24 09:14 HUMAN RESOURCES BENEFITS ADMINISTRATOR.[email or web address] respirations Mental status Awake,Calm 04/26/24 09:14 HUMAN RESOURCES BENEFITS ADMINISTRATOR.[email or web address] nausea No 04/26/24 09:14 HUMAN RESOURCES BENEFITS ADMINISTRATOR.[email or web address] Vomiting No 04/26/24 09:14 HUMAN RESOURCES BENEFITS ADMINISTRATOR.[email or web address] Anesthesia Postop Eval I: Fluid Summary Crystalloid volume administer 10 04/26/24 09:14 HUMAN RESOURCES BENEFITS ADMINISTRATOR.LMIL (ml) Colloids volume administered ( ml) Blood Product volume administered (ml) Total IV fluid infused 10 04/26/24 09:14 HUMAN RESOURCES BENEFITS ADMINISTRATOR.LMIL Anesthesia Postop Eval I: Summary Notes Anesthesia Complication No 04/26/24 09:14 HUMAN RESOURCES BENEFITS ADMINISTRATOR.[email or web address] Anesthesia Complication Comment: Post-operative progress note Anesthesia: Postop Eval II Evaluation Mental status: Awake Pain Level: 3 nausea: No Vomiting: No
--- NOTE | 2024-04-26 10:03 | PCM.POSTANE2 ---
Anesthesia Postop Eval I Sum Postop Eval Completion status Anesthesia document: Postop Eval 1 completed: Yes Anesthesia Postop Eval I Summary Anesthesia Postop Eval I Summary: Anesthesia Postop Eval I: Assessment Summary Airway patent Yes 04/26/24 09:14 [email or web address] Spontaneous unlabored Yes 04/26/24 09:14 CONNIE [email or web address] respirations Mental status Awake,Calm 04/26/24 09:14 [email or web address] nausea No 04/26/24 09:14 [email or web address] Vomiting No 04/26/24 09:14 [email or web address] Anesthesia Postop Eval I: Fluid Summary Crystalloid volume administer 10 04/26/24 09:14 [email or web address] (ml) Colloids volume administered ( ml) Blood Product volume administered (ml) Total IV fluid infused 10 04/26/24 09:14 CONNIE [email or web address] Anesthesia Postop Eval I: Summary Notes Anesthesia Complication No 04/26/24 09:14 CONNIE [email or web address] Anesthesia Complication Comment: Post-operative progress note Anesthesia: Postop Eval II Evaluation Mental status: Awake Pain Level: 3 nausea: No Vomiting: No
== END 2024-04-26 09:59 | disposition home or self-care (01) ==
LOC: SDC 07:08 → AC 07:09
PROVIDERS: Referring Provider Anesthesiology Pain Medicine; Visit Provider Anesthesiology Pain Medicine
PROC: 3E0S3BZ Introduction of Anesthetic Agent into Epidural Space, Percutaneous Approach (ICD-10-PCS; CPT 62322; principal; 2024-04-26 08:35)
DX: M47.812 Spondylosis without myelopathy or radiculopathy, cervical region (principal); M50.31 Other cervical disc degeneration, high cervical region; F17.210 Nicotine dependence, cigarettes, uncomplicated; Z90.49 Acquired absence of other specified parts of digestive tract; M46.92 Unspecified inflammatory spondylopathy, cervical region
CPT/HCPCS: 64492; 64491; 64490; 72020; A4216

== ENCOUNTER 2024-06-28 06:44 | Day surgery (SDC) | payer MEDICARE, SELFPAY ==
[2024-06-28] VITALS (8 sets, daily range): BP systolic 122–136; BP diastolic 74–97; PULSE 70–79; RESP 16; TEMP 36.3–36.6; O2SAT 97–100; BMI 22.4
[2024-06-28] MEDS: Lactated Ringers 1,000 ML 15 ML IV (07:04)
--- NOTE | 2024-06-28 07:35 | RAD_ITS ---
PROCEDURE: CERV SPINE 4 OR 5 VIEWS 06/28/2024 REASON FOR EXAM: BLOCK, LT MEDIAL BRANCH, C3 C4 C5 C6 TECHNIQUE: Fluoroscopy with 4 spot images during cervical spine block/injection FINDINGS: Fluoroscopy time 6.6 seconds Cumulative dose 0.64 mGy Spot images with unilateral multilevel needle localization. Please see procedural report for further detail. RAD/Cerv Spine 4 or 5 Views IMPRESSION: Fluoroscopy as above. Reading Location: [id number]
--- NOTE | 2024-06-28 07:36 | PCM.PRE.AN2 ---
ASA Classification* ASA Classification ASA Classification: 2 Assessment & Plan Anesthesia* Anesthesia Assessment Anesthesia Assessment: Discussed sedation and/or anesthesia options, risks, benefits, and alternatives with patient/parents/legal guardian/POA. Questions invited. The patient/parents/legal guardian/POA seems to understand and agrees to proceed with anesthesia plan. Reviewed the physical assessment, medical history, allergy history and patient home medications list prior to surgery/procedure/anesthetic and documented any changes. Performed airway and anesthesia risk assessments. Anesthesia Type Anesthesia Type: MAC Anesthesia Focused Assessment* Temperature: 98 F Pulse Rate: 79 Blood Pressure: 133/74 Respiratory Rate: 16 Pulse Ox: 100 Airway Assessment Mouth opens: >3 cm Mallampati Score: II Focused Labs Anesthesia Preop lab: CBC WBC 6.6 K/mm3 (4.4-11.0) 12/14/21 16:50 12/14/21 RBC 4.08 M/mm3 (4.2-5.4) L 12/14/21 16:50 12/14/21 Hgb 12.8 g/dL (12.0-15.0) 12/14/21 16:50 12/14/21 Hct 39.9 % (37-47) 12/14/21 16:50 12/14/21 Plt Count 225 K/mm3 (150-450) 06/24/23 11:56 06/24/23 CHEMISTRY Potassium 3.8 mmol/L (3.5-5.1) 12/14/21 16:50 12/14/21 Sodium 137 mmol/L (136-145) 12/14/21 16:50 12/14/21 Magnesium 2.2 mg/dL (1.6-2.6) 10/07/17 12:04 10/07/17 BUN 7 mg/dL (7-18) 12/14/21 16:50 12/14/21 Creatinine 0.78 mg/dL (0.55-1.02) 12/14/21 16:50 12/14/21 Glucose 93 mg/dL (74-106) 12/14/21 16:50 12/14/21 TSH 2.49 uIU/mL (0.358-3.74) 06/26/20 10:12 06/26/20 COAG PT 13.9 SECONDS (11.7-14.9) 06/24/23 11:56 06/24/23 Pre-Assessment Diagnosis/Proposed Procedure Planned Operative Procedure(s): Medial branch nerve block, cervical 3,4,5,6 under fluoroscopy Anesthesia History 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 When Was Last Pacemaker Check QUESTION #4 FULL TEXT: You/Your Family Experience fever (hyperthermia) with Anesthesia Last Oral Intake Last Oral intake: Last Oral Intake NPO since 21:00 06/28/24 07:05 Meds taken in AM with sips of Yes 06/28/24 07:05 water? 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 - awnings mechanic: PONV - awnings mechanic Female HX of Motion Sickness HX of N/V After Surgery Non-Smoker Duration of Surgery greater than 60 minutes Number of Risk Factors PONV Score Height & Weight Height & Weight: Anesthesia: Height & Weight Height 5 ft 5 in 06/28/24 07:05 Weight: 61 kg 06/28/24 07:05 Body Mass Index (BMI) 22.4 06/28/24 07:05 Respiratory Assessment Respiratory Assessment - awnings mechanic: Respiratory Tract Infection Hx - awnings mechanic Hx Respiratory Tract Infection No 09/26/23 08:43 STOP Sleep Apnea STOP Sleep Apnea - awnings mechanic: STOP Sleep Apnea - awnings mechanic Hx Hypertension No 09/26/23 08:43 Hx Sleep Apnea Yes 12/01/23 14:50 CPAP No 04/26/24 09:11 BIPAP No 09/26/23 08:43 Do you snore loudly (louder than talking or can be heard Do you often feel tired/ fatigued/ sleepy during daytime? Has anyone observed you stop breathing during sleep? STOP Results QUESTION #5 FULL TEXT : Do you snore loudly (louder than talking or can be heard through closed doors)? 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 Specify any problems Hx of Preganancy in last 3 Months Nurse Filling Out Transfusion & Questions: Date: Time: Patient unable to answer at this time (ie. confused, unrespo /Reproduction History /Reproductive History - awnings mechanic: /Reproductive Hx- awnings mechanic Hx Now Gestational Age (in weeks): EDC: Hx Hx Para Hx Section SAB No 09/26/23 08:43 Active Medications Active Medications: Current Medications Generic Name Dose Route Start Last Admin Trade Name Freq PRN Reason Stop Dose Admin Lactated Ringer's 1,000 mls @ 15 mls/hr 06/28/24 07:00 06/28/24 07:04 IV 15 mls/hr .Q48H ANT Administration PFSH Medical History No natural teeth Ambulates with cane Injury of back GERD (gastroesophageal reflux disease) History of Holter monitoring Wears glasses Depression Anxiety Arthritis Easy bruising High cholesterol Back pain Heartburn Smoker Asthma On home oxygen therapy Emphysema, unspecified Shortness of breath on exertion Chronic cough Leg cramps History of pain when walking History of echocardiogram History of stress test Cardiology follow-up encounter Atherosclerotic heart disease of [place] coronary artery without angina pectoris CAD (coronary artery disease) Near syncope COPD (chronic obstructive pulmonary disease) Atrial fibrillation Chronic lumbar back pain COPD exacerbation Unstable angina Adnexal mass Lactic acid acidosis SIRS (systemic inflammatory response syndrome) Pneumonia Pleuritic chest pain Shortness of breath Panic disorder Tobacco dependence syndrome Fibromyalgia Home Medications ?Medication ?Instructions ?Recorded ?Last Taken ?Type clonazepam 0.5 mg tablet 0.5 mg PO DAILY PRN Anxiety 10/30/15 11/30/23 History trazodone 100 mg tablet 150 mg PO QHS sleep 06/30/17 04/25/24 History aspirin 81 mg tablet,delayed 81 mg PO DAILY@0800 #30 tabs 12/06/17 04/25/24 Rx release albuterol sulfate 90 mcg/actuation 2 puff inhalation Q6H PRN SOB 08/29/21 09/29/23 History aerosol inhaler benztropine 0.5 mg tablet 0.5 mg PO BID PRN tremors 12/24/22 06/28/24 History gabapentin 400 mg capsule 400 mg PO TID 12/24/22 04/25/24 History budesonide 1 mg/2 mL suspension 1 mg (2 mL) inhalation BID #60 mL 04/01/23 Unknown Rx for nebulization famotidine 40 mg tablet 40 mg PO DAILY 04/01/23 11/30/23 History fluticasone propionate 50 1 spray intranasal DAILY 04/01/23 11/30/23 History mcg/actuation nasal spray,suspension ipratropium 0.5 mg-albuterol 3 mg 3 ml inhalation Q4H PRN PRN SOB 04/01/23 11/30/23 Rx (2.5 mg base)/3 mL nebulization &/OR WHEEZING #180 mL soln oxycodone-acetaminophen 5 mg-325 1 tab PO TID PRN pain 04/01/23 06/28/24 History mg tablet albuterol sulfate 2.5 mg/3 mL 2.5 mg inhalation .QID PRN COPD 06/24/23 Unknown History (0.083 %) solution for nebulization cetirizine 10 mg tablet 10 mg PO QDAY 06/24/23 04/25/24 History duloxetine 60 mg capsule,delayed 60 mg PO DAILY depression 06/24/23 06/28/24 History release atorvastatin 20 mg tablet 20 mg PO QDAY 12/15/23 04/25/24 History Allergy/AdvReac Type Severity Reaction Status Date / Time No Known Allergies Allergy Verified 06/28/24 07:01 Family History Mother CAD (coronary artery disease) Father Cancer Surgical History History of lobectomy of lung (07/15/23) History of shoulder surgery History of cardiac catheterization Hx of laparoscopy History of left heart catheterization (LHC) (~11/08/20) H/O cardiac radiofrequency ablation History of foot surgery History of tonsillectomy History of hysterectomy History of cholecystectomy History of right and left heart catheterization (12/05/17) Social History household members: none Smoking Status: Current every day smoker tobacco type: cigarettes alcohol intake: never substance use type: does not use caffeine: Yes Type: carbonated beverages and coffee Review of Systems (Anesthesia) ROS Narrative System reviewed and no additional complaints, except as documented.
[2024-06-28] MEDS: MethylPREDNISolone Acetate 80 MG/ML Vial (08:30)
[2024-06-28] MEDS: Bupivacaine 0.25% 30 ML Vial (08:30)
--- NOTE | 2024-06-28 08:56 | PCM.OPRPT ---
Operative Report (Standard) Operative Information Date of Procedure: 06/28/24 Pre-Operative Diagnosis: Cervical spondylosis, cervical degenerative disc disease, cervical facet arthropathy Post-Operative Diagnosis: Cervical spondylosis, cervical degenerative disc disease, cervical facet arthropathy Surgery/Procedure Performed: Left sided cervical medial branch block at C3, C4, C5, C6 melter supervisor oxygen furnace: No Type of Anesthesia: Local MAC RN Documented Start/Stop Times: Operation Date: 06/28/24 08:35 Case Time Into Pre-Op 06/28/24 06:48 Out of Pre-Op 06/28/24 08:17 Anesthesia Start 06/28/24 08:24 Into Room 06/28/24 08:24 Procedure Start 06/28/24 08:30 Procedure End 06/28/24 08:31 Anesthesia End 06/28/24 08:33 Out of Room 06/28/24 08:33 Into Recovery 06/28/24 08:37 Out of Recovery 06/28/24 08:52 Into Phase II Recovery 06/28/24 08:53 Procedure Start Time: 08:58 Procedure Stop Time: 08:58 Select all DRAINS/GRAFTS/IMPLANTS that apply: None Estimated Blood Loss: 1 Specimen collected: No Description of surgery: History and physical of today was reviewed. Risks and benefits of the procedure were explained. The patient understood and agreed to proceed. Informed consent was obtained. IV inserted per routine protocol. The patient was taken to the operating room and placed in the prone position with a pillow positioned underneath the chest. The neck area was prepped and draped in a sterile fashion using iodine x3. Under fluoroscopy guidance on an AP view, the C3 through C6 vertebral bodies were visualized at approximately 10-degree angle, starting on the left C3, ending on the left C6, passing through the C4 and C5. Using a 25-gauge 3-1/2-inch spinal needle, the needle was advanced via the skin. The tip of the needle was maneuvered and directed towards the epiphyseal junction of each corresponding vertebra. Once the tip of the needle was at the vicinity of the medial branch, the needle was pulled approximately 2 mm off the bone. After negative aspiration of blood or CSF and confirmation on AP, oblique as well as lateral view, a total of 4 mL of preservative-free 0.25% Marcaine was injected in divided doses between those four levels. The needles were then removed intact. The patient experienced no sign or symptoms of intrathecal or intravascular injection. The patient experienced no paresthesia. The procedure was completed without any apparent difficulty or any complications. The patient appeared to tolerate it well. ASSESSMENT AND PLAN: This is a 69-year-old female with cervical spondylosis, cervical degenerative disc disease, cervical facet arthropathy status post left-sided cervical medial branch block at C3-C6, patient will continue her current medications, patient will follow in approximately 1-2 weeks for reevaluation. Surgical Findings: 1 Complications Complications: No Admit VTE Documentation VTE Present on Admission: No VTE Mechan Device Prophylaxis: None VTE Pharm Prophylaxis ordered?: No
--- NOTE | 2024-06-28 09:00 | PCM.POST.ANE ---
Anesthesia: Postop Eval I Current Vital Signs Temperature: 97.6 F Pulse Rate: 71 Blood Pressure: 136/85 Respiratory Rate: 16 Pulse Ox: 98 Oxygen Delivery Method: Room Air Assessment Airway patent: Yes Spontaneous unlabored respirations: Yes Mental status: Awake and Calm nausea: No Vomiting: No Anesthesia Complication: No Fluid Hydration Crystalloid volume administer (ml): 200 Total IV fluid infused: 200 Progress Note Anesthesia document: Postop Eval 1 completed: Yes
--- NOTE | 2024-06-28 09:10 | POSTOPAN2_ITS ---
Anesthesia Postop Eval I Sum Postop Eval Completion status Anesthesia document: Postop Eval 1 completed: Yes Anesthesia Postop Eval I Summary Anesthesia Postop Eval I Summary: Anesthesia Postop Eval I: Assessment Summary Airway patent Yes 06/28/24 09:01 MARKET BASKET [email or web address] Spontaneous unlabored Yes 06/28/24 09:01 MARKET BASKET MAKER.CATHERINE respirations Mental status Awake,Calm 06/28/24 09:01 MARKET BASKET [email or web address].[email or web address] nausea No 06/28/24 09:01 MARKET BASKET [email or web address].[email or web address] Vomiting No 06/28/24 09:01 MARKET BASKET MAKER.CATHERINE Anesthesia Postop Eval I: Fluid Summary Crystalloid volume administer 200 06/28/24 09:01 MARKET BASKET [email or web address].[email or web address] (ml) Colloids volume administered ( ml) Blood Product volume administered (ml) Total IV fluid infused 200 06/28/24 09:01 MARKET BASKET MAKER.CATHERINE Anesthesia Postop Eval I: Summary Notes Anesthesia Complication No 06/28/24 09:01 MARKET BASKET MAKER.CATHERINE Anesthesia Complication Comment: Post-operative progress note Anesthesia: Postop Eval II Evaluation Mental status: Awake Pain Level: 2 nausea: No Vomiting: No
--- NOTE | 2024-06-28 09:10 | PCM.POSTANE2 ---
Anesthesia Postop Eval I Sum Postop Eval Completion status Anesthesia document: Postop Eval 1 completed: Yes Anesthesia Postop Eval I Summary Anesthesia Postop Eval I Summary: Anesthesia Postop Eval I: Assessment Summary Airway patent Yes 06/28/24 09:01 TRACK [email or web address] Spontaneous unlabored Yes 06/28/24 09:01 TRACK [email or web address].[email or web address] respirations Mental status Awake,Calm 06/28/24 09:01 TRACK [email or web address] nausea No 06/28/24 09:01 TRACK [email or web address] Vomiting No 06/28/24 09:01 TRACK GRINDER.CATHERINE Anesthesia Postop Eval I: Fluid Summary Crystalloid volume administer 200 06/28/24 09:01 TRACK [email or web address] (ml) Colloids volume administered ( ml) Blood Product volume administered (ml) Total IV fluid infused 200 06/28/24 09:01 TRACK GRINDER.CATHERINE Anesthesia Postop Eval I: Summary Notes Anesthesia Complication No 06/28/24 09:01 TRACK GRINDER.CATHERINE Anesthesia Complication Comment: Post-operative progress note Anesthesia: Postop Eval II Evaluation Mental status: Awake Pain Level: 2 nausea: No Vomiting: No
== END 2024-06-28 09:01 | disposition home or self-care (01) ==
LOC: SDC 06:45 → AC 06:46
PROVIDERS: Referring Provider Anesthesiology Pain Medicine; Visit Provider Anesthesiology Pain Medicine
PROC: 3E0S3BZ Introduction of Anesthetic Agent into Epidural Space, Percutaneous Approach (ICD-10-PCS; CPT 62322; principal; 2024-06-28 08:30)
DX: M47.812 Spondylosis without myelopathy or radiculopathy, cervical region (principal); M50.30 Other cervical disc degeneration, unspecified cervical region
CPT/HCPCS: 64491; 64490; 72050

== ENCOUNTER 2024-11-17 12:01 | Day surgery (SDC) | payer MEDICARE, SELFPAY ==
--- NOTE | 2024-11-12 12:00 | PAT.ANE_ITS ---
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 When Was Last Pacemaker Check QUESTION #4 FULL TEXT: You/Your Family Experience fever (hyperthermia) with Anesthesia Last Oral Intake Last Oral intake: Last Oral Intake NPO since Meds taken in AM with sips of water? 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 - frame table operator: PONV - frame table operator Female Yes 11/12/24 11:40 HX of Motion Sickness No 11/12/24 11:40 HX of N/V After Surgery No 11/12/24 11:40 Non-Smoker Yes 11/12/24 11:40 Duration of Surgery greater No 11/12/24 11:40 than 60 minutes Number of Risk Factors 2 11/12/24 11:40 PONV Score Moderate Risk 11/12/24 11:40 Height & Weight Height & Weight: Anesthesia: Height & Weight Height 5 ft 5 in 06/28/24 07:05 Respiratory Assessment Respiratory Assessment - frame table operator: Respiratory Tract Infection Hx - frame table operator Hx Respiratory Tract Infection No 11/12/24 11:40 STOP Sleep Apnea STOP Sleep Apnea - frame table operator: STOP Sleep Apnea - frame table operator Hx Hypertension No 11/12/24 11:40 Hx Sleep Apnea Yes: 2L O2 @ NIGHT 11/12/24 11:40 CPAP No 11/12/24 11:40 BIPAP No 11/12/24 11:40 Do you snore loudly (louder than talking or can be heard Do you often feel tired/ fatigued/ sleepy during daytime? Has anyone observed you stop breathing during sleep? STOP Results Positive 11/12/24 11:40 QUESTION #5 FULL TEXT : Do you snore loudly (louder than talking or can be heard through closed doors)? 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 - frame table operator: Tobacco Use History - frame table operator Tobacco Use Non-smoker 04/26/24 08:34 Smoking Status Former smoker 11/12/24 11:40 Hx Tobacco Use Yes 11/12/24 11:40 Years Smoking Packs Smoked per Day Smoking Cessation Date was Yes - quit smoking within 15 11/12/24 11:40 within the last 15 years years Hx Smoking Cessation Date 12/12/23 11/12/24 11:40 Hx Smoking Cessation No 11/12/24 11:40 Counseling Hematologic Medial History Hematologic Hx - frame table operator: Hematologic Medical Hx - extrusion former Hx of Blood Transfusion No 11/12/24 11:40 Hx of Transfusion in last 3 No 11/12/24 11:40 Months Date of Last Transfusion (if within last 3 months) Ever experience any problems No 11/12/24 11:40 with transfusion(s)? Specify any problems Hx of Preganancy in last 3 N/A 11/12/24 11:40 Months Nurse Filling Out Transfusion NBUCHER 11/12/24 11:40 & Questions: Date: 11/12/24 11/12/24 11:40 Time: 11:46 11/12/24 11:40 Patient unable to answer at this time (ie. confused, unrespo /Reproduction History /Reproductive History - frame table operator: /Reproductive Hx- frame table operator Hx Now No 11/12/24 11:40 Gestational Age (in weeks): EDC: Hx Hx Para Hx Section SAB No 11/12/24 11:40 [facility] Medical History (Updated 11/12/24 @ 12:01 by Felicity Casey) CAD (coronary artery disease) NSTEMI (non-ST elevated myocardial infarction) Poor historian Loss of hearing Hypothyroid Thyroid disease Restless legs Syncope Non-smoker History of atrial fibrillation No natural teeth Ambulates with cane Injury of back GERD (gastroesophageal reflux disease) History of Holter monitoring Wears glasses Depression Anxiety Arthritis Easy bruising High cholesterol Back pain Heartburn Smoker Asthma On home oxygen therapy Emphysema, unspecified Shortness of breath on exertion Chronic cough Leg cramps History of pain when walking History of echocardiogram History of stress test Cardiology follow-up encounter Atherosclerotic heart disease of [place] coronary artery without angina pectoris CAD (coronary artery disease) Near syncope COPD (chronic obstructive pulmonary disease) Atrial fibrillation Chronic lumbar back pain COPD exacerbation Unstable angina Adnexal mass Lactic acid acidosis SIRS (systemic inflammatory response syndrome) Pneumonia Pleuritic chest pain Shortness of breath Panic disorder Tobacco dependence syndrome Fibromyalgia Home Medications ?Medication ?Instructions ?Recorded ?Last Taken ?Type trazodone 100 mg tablet 150 mg PO QHS sleep 06/30/17 04/25/24 History aspirin 81 mg tablet,delayed 81 mg PO DAILY@0800 #30 t abs 12/06/17 04/25/24 Rx release albuterol sulfate 90 mcg/actuation 2 puff inhalation Q 6H PRN SOB 08/29/21 09/29/23 History aerosol inhaler benztropine 0.5 mg tablet 0.5 mg PO BID PRN tremors 06/28/24 History gabapentin 400 mg capsule 400 mg PO TID 12/24/2204/25 History fluticasone propionate 50 1 spray intranasal DAILY PRN 04/01/23 11/30/23 History mcg/actuation nasal allergy symptoms spray,suspension ipratropium 0.5 mg-albuterol 3 mg 3 ml inhalation Q4H PRN PRN SOB 04/01/23 11/30/23 Rx (2.5 mg base)/3 mL nebulization &/OR WHEEZING #180 mL soln oxycodone-acetaminophen 5 mg-325 1 tab PO TID PRN pain 04/01/23 06/28/24 History mg tablet albuterol sulfate 2.5 mg/3 mL 2.5 mg inhalation .QID P RN COPD 06/24/23 Unknown History (0.083 %) solution for nebulization cetirizine 10 mg tablet 10 mg PO QDAY 06/24/2304/25 History duloxetine 60 mg capsule,delayed 60 mg PO DAILY depres akhil 06/24/23 06/28/24 History release atorvastatin 20 mg tablet 20 mg PO QDAY 12/15/2304/25 History dicyclomine 20 mg tablet 20 mg PO TID 06/30/24 Unknow n History linaclotide 145 mcg capsule 145 mcg PO QAM #30 caps Unknown Rx (Linzess) peg 3350-electrolytes 236 240 ml PO Q10M #4,000 mL Unknown Rx gram-22.74 gram-6.74 gram-5.86 gram solution (Golytely) budesonide 1 mg/2 mL suspension 1 mg inhalation BID NC N SOB 11/12/24 Unknown His tory for nebulization levothyroxine 25 mcg tablet 25 mcg PO DAILY 11/12/24 U nknown History Allergy/AdvReac Type Severity Reaction Status Date / Time No Known Allergies Allergy Verified 11/12/24 11:35 Family History Mother CAD (coronary artery disease) Father Cancer Surgical History History of esophagogastroduodenoscopy (EGD) History of colonoscopy History of lobectomy of lung (07/15/23) History of shoulder surgery History of cardiac catheterization Hx of laparoscopy History of left heart catheterization (LHC) (~11/08/20) H/O cardiac radiofrequency ablation History of foot surgery History of tonsillectomy History of hysterectomy History of cholecystectomy History of right and left heart catheterization (12/05/17) Social History household members: none Smoking Status: Former smoker alcohol intake: never substance use type: does not use caffeine: Yes Type: carbonated beverages and coffee Audit: Pertinent Findings Pertinent Findings EKG Perinent findings: 12/14/2021. Sinus bradycardia 57 bpm. Otherwise normal EKG. Echo (EF%) pertinent findings: 05/01/2021. EF 50%. Consult pertinent findings: Cardiology 12/15/2023. Takotsubo cardiomyopathy. Resolved. Coronary artery disease without angina. Continue medical management. Atrial fibrillation. Chronic. Post ablation in early . Currently not on anticoagulation. Recommendation Anesthesia Recommendation Anesthesia recommendation: OPTIMIZED for anesthesia
[2024-11-17] VITALS (8 sets, daily range): BP systolic 93–144; BP diastolic 60–88; PULSE 69–78; RESP 16; TEMP 36.1–36.9; O2SAT 96–100; BMI 21.2
--- NOTE | 2024-11-17 12:09 | PCM.HP.STD ---
HPI - General General Date of Admission: 11/17/24 Date of Service: 11/17/24 Chief Complaint: abdominal pain and constipation HPI Narrative JANETH HYLTON, is a 69 F who presents with the Chief Complaint: Constipation [facility]GI established 07/06/2024 for worsening constipation over the past 3 to 4 months with a bowel movement every 2 to 3 weeks. Patient has tried MiraLAX Dulcolax and added enemas. Patient endorses a history of chronic constipation. Patient currently taking oxycodone 3 times daily. Recommended EGD and colonoscopy. Started on Linzess 145 mcg daily. OV 10.06.24 patient had a UTI and 2 falls since her last visit and had to cancel her colonoscopy and EGD. She continues to have constipation. She is having a bowel movement once per week if she uses an enema. She continues to take Linzess 145 mcg daily without relief. She has abdominal pain that is not relieved with dicyclomine 3 times daily. New linaclotide (Linzess) 290 mcg PO QAM 30 caps 2RF peg 3350-electrolytes 236-22.74-6.74 -5.86 gram (Golytely) until fecal effluent is clear ] [facility] Medical History CAD (coronary artery disease) NSTEMI (non-ST elevated myocardial infarction) Poor historian Loss of hearing Hypothyroid Thyroid disease Restless legs Syncope Non-smoker History of atrial fibrillation No natural teeth Ambulates with cane Injury of back GERD (gastroesophageal reflux disease) History of Holter monitoring Wears glasses Depression Anxiety Arthritis Easy bruising High cholesterol Back pain Heartburn Smoker Asthma On home oxygen therapy Emphysema, unspecified Shortness of breath on exertion Chronic cough Leg cramps History of pain when walking History of echocardiogram History of stress test Cardiology follow-up encounter Atherosclerotic heart disease of [place] coronary artery without angina pectoris CAD (coronary artery disease) Near syncope COPD (chronic obstructive pulmonary disease) Atrial fibrillation Chronic lumbar back pain COPD exacerbation Unstable angina Adnexal mass Lactic acid acidosis SIRS (systemic inflammatory response syndrome) Pneumonia Pleuritic chest pain Shortness of breath Panic disorder Tobacco dependence syndrome Fibromyalgia Home Medications ?Medication ?Instructions ?Recorded ?Last Taken ?Type trazodone 100 mg tablet 150 mg PO QHS sleep 06/30/17 04/25/24 History aspirin 81 mg tablet,delayed 81 mg PO DAILY@0800 #30 tabs 12/06/17 04/25/24 Rx release albuterol sulfate 90 mcg/actuation 2 puff inhalation Q6H PRN SOB 08/29/21 09/29/23 History aerosol inhaler benztropine 0.5 mg tablet 0.5 mg PO BID PRN tremors 12/24/22 06/28/24 History gabapentin 400 mg capsule 400 mg PO TID 12/24/22 04/25/24 History fluticasone propionate 50 1 spray intranasal DAILY PRN 04/01/23 11/30/23 History mcg/actuation nasal allergy symptoms spray,suspension ipratropium 0.5 mg-albuterol 3 mg 3 ml inhalation Q4H PRN PRN SOB 04/01/23 11/30/23 Rx (2.5 mg base)/3 mL nebulization &/OR WHEEZING #180 mL soln oxycodone-acetaminophen 5 mg-325 1 tab PO TID PRN pain 04/01/23 06/28/24 History mg tablet albuterol sulfate 2.5 mg/3 mL 2.5 mg inhalation .QID PRN COPD 06/24/23 Unknown History (0.083 %) solution for nebulization cetirizine 10 mg tablet 10 mg PO QDAY 06/24/23 04/25/24 History duloxetine 60 mg capsule,delayed 60 mg PO DAILY depression 06/24/23 06/28/24 History release atorvastatin 20 mg tablet 20 mg PO QDAY 12/15/23 04/25/24 History dicyclomine 20 mg tablet 20 mg PO TID 06/30/24 Unknown History linaclotide 145 mcg capsule 145 mcg PO QAM #30 caps 07/06/24 Unknown Rx (Linzess) peg 3350-electrolytes 236 240 ml PO Q10M #4,000 mL 10/06/24 Unknown Rx gram-22.74 gram-6.74 gram-5.86 gram solution (Golytely) budesonide 1 mg/2 mL suspension 1 mg inhalation BID PRN SOB 11/12/24 Unknown History for nebulization levothyroxine 25 mcg tablet 25 mcg PO DAILY 11/12/24 Unknown History Allergy/AdvReac Type Severity Reaction Status Date / Time No Known Allergies Allergy Verified 11/12/24 11:35 Family History Mother CAD (coronary artery disease) Father Cancer Surgical History History of esophagogastroduodenoscopy (EGD) History of colonoscopy History of lobectomy of lung (07/15/23) History of shoulder surgery History of cardiac catheterization Hx of laparoscopy History of left heart catheterization (LHC) (~11/08/20) H/O cardiac radiofrequency ablation History of foot surgery History of tonsillectomy History of hysterectomy History of cholecystectomy History of right and left heart catheterization (12/05/17) Social History household members: none Smoking Status: Former smoker alcohol intake: never substance use type: does not use caffeine: Yes Type: carbonated beverages and coffee ROS Constitutional Constitutional: Denies fatigue, fever(s), poor appetite, weight gain or weight loss Gastrointestinal Gastrointestinal: Denies belching, bloating, change in bowel habits, change in stool character, chewing difficulty, coffee ground emesis, constipation, cramping, diarrhea, dyspepsia, dysphagia, early satiety, excessive flatus, fecal incontinence, heartburn, hematemesis, hematochezia, hemorrhoids, loose stools, melena, nausea, odynophagia, rectal bleeding, tenesmus, vomiting or weight changes Physical Exam Const alert, oriented x3, no apparent distress and healthy appearing General Appearance: cooperative GI normal to inspection, nondistended, normoactive bowel sounds, soft to palpation, non-tender and non-distended Percussion: normal to percussion Rectal Exam: deferred Assessment & Plan Assessment/Plan (1) Difficulty swallowing: (2) Constipation: (3) IBS (irritable bowel syndrome): (4) Bloating: (5) Abdominal pain: PLAN: Assessment and Plan Assessment and Plan (1) Difficulty swallowing: Status: Acute Plan: Janeth is a 69-year-old female patient here today for continued issues with constipation. Patient takes oxycodone?acetaminophen daily for her pain. I believe her constipation is likely opioid-induced. At patient's last appointment she was started on Linzess 145 mcg daily. She has not noticed any relief with this dose and continues to use enemas once per week to have a bowel movement. She was unable to have her colonoscopy and EGD done due to UTI that resulted in a few falls. She was rescheduled for this today. I have increased her dose of Linzess to 290 mcg daily. Dicyclomine is not helpful for abdominal pain recommended to discontinuation. - Increase Linzess to 290 mcg daily - Discontinue dicyclomine - EGD and colonoscopy - Follow-up after procedures (2) Constipation: Status: Acute Medications: New linaclotide (Linzess) 290 mcg PO QAM 30 caps 2RF peg 3350-electrolytes 236-22.74-6.74 -5.86 gram (Golytely) until fecal effluent is clear
[2024-11-17] MEDS: Lactated Ringers 1,000 ML 15 ML IV (12:45)
--- NOTE | 2024-11-17 12:47 | PCM.PRE.AN2 ---
ASA Classification* ASA Classification ASA Classification: 3 Assessment & Plan Anesthesia* Anesthesia Assessment Anesthesia Assessment: Discussed sedation and/or anesthesia options, risks, benefits, and alternatives with patient/parents/legal guardian/POA. Questions invited. The patient/parents/legal guardian/POA seems to understand and agrees to proceed with anesthesia plan. Reviewed the physical assessment, medical history, allergy history and patient home medications list prior to surgery/procedure/anesthetic and documented any changes. Performed airway and anesthesia risk assessments. Anesthesia Type Anesthesia Type: MAC History Source History Obtained from:: Patient and Chart Anesthesia Focused Assessment* Temperature: 98.5 F Pulse Rate: 75 Blood Pressure: 144/88 Respiratory Rate: 16 Pulse Ox: 99 Oxygen Delivery Method: Room Air Airway Assessment Mouth opens: >3 cm Mallampati Score: II Teeth Condition: Dentures Neck Range of motion (ROM): Limited ROM Labs Anesthesia Preop lab: CBC WBC, (4.4-11.0) 6.6 K/mm3 12/14/21, 16:50 RBC, (4.2-5.4) 4.08 M/mm3 L 12/14/21, 16:50 Hgb, (12.0-15.0) 12.8 g/dL 12/14/21, 16:50 Hct, (37-47) 39.9 % 12/14/21, 16:50 Plt Count, (150-450) 225 K/mm3 06/24/23, 11:56 CHEMISTRY Potassium, (3.5-5.1) 3.8 mmol/L 12/14/21, 16:50 Sodium, (136-145) 137 mmol/L 12/14/21, 16:50 Magnesium, (1.6-2.6) 2.2 mg/dL 10/07/17, 12:04 BUN, (7-18) 7 mg/dL 12/14/21, 16:50 Creatinine, (0.55-1.02) 0.78 mg/dL 12/14/21, 16:50 Glucose, (74-106) 93 mg/dL 12/14/21, 16:50 TSH, (0.358-3.74) 2.49 uIU/mL 06/26/20, 10:12 COAG PT, (11.7-14.9) 13.9 SECONDS 06/24/23, 11:56 Pre-Assessment Diagnosis/Proposed Procedure Planned Operative Procedure(s): CSCOPE, EGD Anesthesia History Anesthesia History - attendant sales: Anesthesia History - attendant sales Hx Hospitalization Yes: 10/2024 [facility]/ 11/12/24 11:40 COLLAPSE/HEAD INJURY @ [facility] Any Problems With Anesthesia No 11/12/24 11:40 Cholinesterase deficiency No 11/12/24 11:40 You/Your Family Experience No 11/12/24 11:40 fever (hyperthermia) with Relationship Recent Exposure to Contagious No 06/28/24 07:05 Disease Does patient have nerve Yes: INSTRUCTED TO BRING 11/12/24 11:40 stimulator REMOTE Patient instructed to have device shut off --Does patient have Pacemaker No 11/17/24 12:29 or ICD? When Was Last Pacemaker Check QUESTION #4 FULL TEXT: You/Your Family Experience fever (hyperthermia) with Anesthesia Last Oral Intake Last Oral intake: Last Oral Intake NPO since 08:00 11/17/24 12:29 Meds taken in AM with sips of Yes 11/17/24 12:29 water? Meds patient instructed to see med list 11/17/24 12:29 take am of surgery PONV PONV - attendant sales: PONV - attendant sales Female Yes 11/12/24 11:40 HX of Motion Sickness No 11/12/24 11:40 HX of N/V After Surgery No 11/12/24 11:40 Non-Smoker Yes 11/12/24 11:40 Duration of Surgery greater No 11/12/24 11:40 than 60 minutes Number of Risk Factors 2 11/12/24 11:40 PONV Score Moderate Risk 11/12/24 11:40 Height & Weight Height & Weight: Anesthesia: Height & Weight Height 5 ft 5 in 11/17/24 12:29 Weight: 58 kg 11/17/24 12:29 Body Mass Index (BMI) 21.2 11/17/24 12:29 Respiratory Assessment Respiratory Assessment - attendant sales: Respiratory Tract Infection Hx - attendant sales Hx Respiratory Tract Infection No 11/12/24 11:40 STOP Sleep Apnea STOP Sleep Apnea - attendant sales: STOP Sleep Apnea - attendant sales Hx Hypertension No 11/12/24 11:40 Hx Sleep Apnea Yes: 2L O2 @ NIGHT 11/12/24 11:40 CPAP No 11/12/24 11:40 BIPAP No 11/12/24 11:40 Do you snore loudly (louder than talking or can be heard Do you often feel tired/ fatigued/ sleepy during daytime? Has anyone observed you stop breathing during sleep? STOP Results Positive 11/12/24 11:40 QUESTION #5 FULL TEXT : Do you snore loudly (louder than talking or can be heard through closed doors)? 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 Specify any problems Hx of Preganancy in last 3 N/A 11/12/24 11:40 Months Nurse Filling Out Transfusion NBUCHER 11/12/24 11:40 & Questions: Date: 11/12/24 11/12/24 11:40 Time: 11:46 11/12/24 11:40 Patient unable to answer at this time (ie. confused, unrespo /Reproduction History /Reproductive History - attendant sales: /Reproductive Hx- attendant sales Hx Now No 11/12/24 11:40 Gestational Age (in weeks): EDC: Hx Hx Para Hx Section SAB No 11/12/24 11:40 Active Medications Active Medications: Current Medications Generic Name Dose Route Start Last Admin Trade Name Freq PRN Reason Stop Dose Admin Lactated Ringer's 1,000 mls @ 15 mls/hr 11/17/24 12:30 11/17/24 12:45 IV 15 mls/hr .Q48H ANT Administration PFSH Medical History CAD (coronary artery disease) NSTEMI (non-ST elevated myocardial infarction) Poor historian Loss of hearing Hypothyroid Thyroid disease Restless legs Syncope Non-smoker History of atrial fibrillation No natural teeth Ambulates with cane Injury of back GERD (gastroesophageal reflux disease) History of Holter monitoring Wears glasses Depression Anxiety Arthritis Easy bruising High cholesterol Back pain Heartburn Smoker Asthma On home oxygen therapy Emphysema, unspecified Shortness of breath on exertion Chronic cough Leg cramps History of pain when walking History of echocardiogram History of stress test Cardiology follow-up encounter Atherosclerotic heart disease of [place] coronary artery without angina pectoris CAD (coronary artery disease) Near syncope COPD (chronic obstructive pulmonary disease) Atrial fibrillation Chronic lumbar back pain COPD exacerbation Unstable angina Adnexal mass Lactic acid acidosis SIRS (systemic inflammatory response syndrome) Pneumonia Pleuritic chest pain Shortness of breath Panic disorder Tobacco dependence syndrome Fibromyalgia Home Medications ?Medication ?Instructions ?Recorded ?Last Taken ?Type trazodone 100 mg tablet 150 mg PO QHS sleep 06/30/17 04/25/24 History aspirin 81 mg tablet,delayed 81 mg PO DAILY@0800 #30 tabs 12/06/17 11/15/24 Rx release albuterol sulfate 90 mcg/actuation 2 puff inhalation Q6H PRN SOB 08/29/21 11/17/24 09:00 History aerosol inhaler benztropine 0.5 mg tablet 0.5 mg PO BID PRN tremors 12/24/22 06/28/24 History gabapentin 400 mg capsule 400 mg PO TID 12/24/22 11/17/24 09:00 History fluticasone propionate 50 1 spray intranasal DAILY PRN 04/01/23 11/30/23 History mcg/actuation nasal allergy symptoms spray,suspension ipratropium 0.5 mg-albuterol 3 mg 3 ml inhalation Q4H PRN PRN SOB 04/01/23 11/30/23 Rx (2.5 mg base)/3 mL nebulization &/OR WHEEZING #180 mL soln oxycodone-acetaminophen 5 mg-325 1 tab PO TID PRN pain 04/01/23 11/17/24 09:00 History mg tablet albuterol sulfate 2.5 mg/3 mL 2.5 mg inhalation .QID PRN COPD 06/24/23 11/17/24 09:00 History (0.083 %) solution for nebulization cetirizine 10 mg tablet 10 mg PO QDAY 06/24/23 04/25/24 History duloxetine 60 mg capsule,delayed 60 mg PO DAILY depression 06/24/23 11/17/24 09:00 History release atorvastatin 20 mg tablet 20 mg PO QDAY 12/15/23 04/25/24 History dicyclomine 20 mg tablet 20 mg PO TID 06/30/24 Unknown History linaclotide 145 mcg capsule 145 mcg PO QAM #30 caps 07/06/24 Unknown Rx (Linzess) peg 3350-electrolytes 236 240 ml PO Q10M #4,000 mL 10/06/24 Unknown Rx gram-22.74 gram-6.74 gram-5.86 gram solution (Golytely) budesonide 1 mg/2 mL suspension 1 mg inhalation BID PRN SOB 11/12/24 Unknown History for nebulization levothyroxine 25 mcg tablet 25 mcg PO DAILY 11/12/24 Unknown History Allergy/AdvReac Type Severity Reaction Status Date / Time No Known Allergies Allergy Verified 11/17/24 12:26 Family History Mother CAD (coronary artery disease) Father Cancer Surgical History History of esophagogastroduodenoscopy (EGD) History of colonoscopy History of lobectomy of lung (07/15/23) History of shoulder surgery History of cardiac catheterization Hx of laparoscopy History of left heart catheterization (LHC) (~11/08/20) H/O cardiac radiofrequency ablation History of foot surgery History of tonsillectomy History of hysterectomy History of cholecystectomy History of right and left heart catheterization (12/05/17) Social History household members: none Smoking Status: Former smoker alcohol intake: never substance use type: does not use caffeine: Yes Type: carbonated beverages and coffee Review of Systems (Anesthesia) ROS Narrative System reviewed and no additional complaints, except as documented.
--- NOTE | 2024-11-17 13:00 | COLBX_PTH ---
PATIENT: KENZIE HYLTON LOC: EN U#:[id number] AGE/SX: 69/F ROOM: RE11/17/[address]: Dr. Panchito Chavez DO : 1955 BED: DIS: 11/17/2024 SPEC #: [id number] RECD: 11/17/24 14:20 STATUS: AMALIA RERebeka #: [id number] MILES: 11/17/24 13:[address]: Panchito Chavez DEPT: SURGICAL PATHOLOGY RECD BY: Mason Dwyer ENTERED: 11/17/24 15:10 SP TYPE: COLON BX OTHR DR: Dr. Davy Portillo DO Tissues: A - Duodenum, NOS B - Gastric mucous membrane C - COLON BIOPSY D - Transverse colon Procedures: Immunohistochemical Stains Surgery Specimen Level IV HEADER OPERATION: Colonoscopy, EGD and biopsy, polypectomy PRE-OP DIAGNOSIS: Abdominal pain, bloating, constipation, difficulty swallowing TISSUE SUBMITTED: A- Duodenum biopsy, B- Gastric body biopsy, C- Hepatic flexure polyp, D- Transverse colon polyp MICROSCOPIC DIAGNOSIS A. Small intestine, duodenum, biopsy: * Small bowel mucosa with no pathologic change B. Stomach, gastric body, biopsy: * Antral and oxyntic mucosa with chronic focal active inflammation with reactive changes * The Helicobacter pylori immunostain is negative C. Colon, hepatic flexure, polyp, biopsy: * Tubular adenoma D. Colon, transverse colon, polyp, biopsy: * Tubular adenoma MICROSCOPIC DESCRIPTION Slides are reviewed. All matched controls reacted appropriately. These tests were developed and their performance characteristics determined by [facility]. They may not have been cleared or approved by the U.[place]. Food and Drug Administration. The FDA has determined that such clearance or approval is not necessary. The above immunohistochemical/dualISH markers are viewed by the Pathologist. GROSS DESCRIPTION A. Received in fixative is one container labeled with the patient's name and designated Duodenum biopsy. The specimen consists of two irregular fragments of malagon tissue that measure 0.3 and 0.4 cm. The specimen is totally submitted in one cassette. B. Received in fixative is one container labeled with the patient's name and designated Gastric body biopsy. The specimen consists of four irregular fragments of malagon tissue that measure 0.4 to 0.6 cm. The specimen is totally submitted in one cassette. C. Received in fixative is one container labeled with the patient's name and designated Hepatic flexure polyp. The specimen consists of one irregular fragment of malagon tissue that measures 0.3 cm, admixed with flocculent material. The specimen is totally submitted in one cassette. D. Received in fixative is one container labeled with the patient's name and designated Transverse colon polyp. The specimen consists of two irregular fragments of malagon tissue that measure 0.3 and 0.4 cm, admixed with flocculent material. The specimen is totally submitted in one cassette. AK 11/17/2024 CPT:04251n2 ,66164
--- NOTE | 2024-11-17 13:22 | OP.EGD_ITS ---
Patient Name: Janeth Staples Procedure Date: 11/17/2024 12:44 PM Date of : 1955 Age: 69 Procedure: Upper GI endoscopy Indications: Epigastric abdominal pain, Functional Dyspepsia, Failure to respond to medical treatment Providers: Panchito Chavez DO Referring MD: Davy Portillo Do Medicines: Monitored Anesthesia Care Patient Profile: This is a 69 year old female. Refer to note in patient chart for documentation of history and physical. Patient has symptoms of chronic abdominal cramping, acute abdominal distention, chronic epigastric abdominal pain, chronic dyspepsia and chronic nausea. Complications: No immediate complications. Procedure: Pre-Anesthesia Assessment: - Prior to the procedure, a History and Physical was performed, and patient medications and allergies were reviewed. The patient is competent. The risks and benefits of the procedure and the sedation options and risks were discussed with the patient. All questions were answered and informed consent was obtained. Patient identification and proposed procedure were verified by the physician in the pre-procedure area. Mental Status Examination: alert and oriented. Airway Examination: normal oropharyngeal airway and neck mobility. Respiratory Examination: clear to auscultation. CV Examination: normal. Prophylactic Antibiotics: The patient does not require prophylactic antibiotics. Prior Anticoagulants: The patient has taken no anticoagulant or antiplatelet agents. ASA Grade Assessment: II - A patient with mild systemic disease. After reviewing the risks and benefits, the patient was deemed in satisfactory condition to undergo the procedure. The anesthesia plan was to use monitored anesthesia care (MAC). Immediately prior to administration of medications, the patient was re-assessed for adequacy to receive sedatives. The heart rate, respiratory rate, oxygen saturations, blood pressure, adequacy of pulmonary ventilation, and response to care were monitored throughout the procedure. The physical status of the patient was re-assessed after the procedure. After obtaining informed consent, the endoscope was passed under direct vision. Throughout the procedure, the patient's blood pressure, pulse, and oxygen saturations were monitored continuously. The Colonoscope was introduced through the mouth, and advanced to the fourth part of the duodenum. Small bowel enteroscopy was deemed necessary. The upper GI endoscopy was accomplished without difficulty. The patient tolerated the procedure well. Scope In: 1:00:24 PM Scope Out: 1:04:07 PM Total Procedure Duration Time 0 hours 3 minutes 43 seconds Findings: No gross lesions were noted in the entire esophagus. Diffuse mild inflammation characterized by erythema and friability was found in the entire examined stomach. Biopsies were taken with a cold forceps for histology. Verification of patient identification for the specimen was done. Biopsies were taken with a cold forceps for Helicobacter pylori testing. Verification of patient identification for the specimen was done. Estimated blood loss was minimal. Diffuse mildly erythematous mucosa without active bleeding and with no stigmata of bleeding was found in the entire duodenum. Biopsies were taken with a cold forceps for histology. Verification of patient identification for the specimen was done. Estimated blood loss was minimal. Impression: - No gross lesions in the entire esophagus. - Bile gastritis. Biopsied. - Erythematous duodenopathy. Biopsied. Recommendation: - Discharge patient to home. - Resume previous diet. - Continue present medications. - Await pathology results. Procedure Code(s): --- Professional --- 93706, Small intestinal endoscopy, enteroscopy beyond second portion of duodenum, not including ileum; with biopsy, single or multiple CPT copyright 2021 [employer]. All rights reserved. The codes documented in this report are preliminary and upon fretted string instrument repairer review may be revised to meet current compliance requirements. Panchito Chavez DO 11/17/2024 1:22:38 PM This report has been signed electronically. Number of Addenda: 0 Note Initiated On: 11/17/2024 12:44 PM
--- NOTE | 2024-11-17 13:23 | OP.PROVAT_ITS ---
11/17/2024 Davy Portillo Do Re : Upper GI endoscopy procedure for Janeth Staples Dear Dr. Portillo This procedure was performed on Sunday, November 17, 2024. My impressions and recommendations are as follows: Impressions : - No gross lesions in the entire esophagus. - Bile gastritis. Biopsied. - Erythematous duodenopathy. Biopsied. Recommendations : - Discharge patient to home. - Resume previous diet. - Continue present medications. - Await pathology results. My findings are described in the full procedure note, which is enclosed. If I can be of further assistance, please feel free to contact me at . Sincerely, Panchito Chavez, 11/17/2024 1:22:38 PM This report has been signed electronically.
--- NOTE | 2024-11-17 13:27 | OP.PROVAT_ITS ---
11/17/2024 Davy Portillo Do Re : Colonoscopy procedure for Janeth Staples Dear Dr. Portillo This procedure was performed on Sunday, November 17, 2024. My impressions and recommendations are as follows: Impressions : - Preparation of the colon was poor. - Stool in the entire examined colon. - Two 7 mm polyps in the transverse colon and at the hepatic flexure, removed with a jumbo cold forceps. Resected and retrieved. Recommendations : - Repeat colonoscopy because the examination was incomplete and because the bowel preparation was poor. - Continue present medications. My findings are described in the full procedure note, which is enclosed. If I can be of further assistance, please feel free to contact me at . Sincerely, Panchito Chvaez, 11/17/2024 1:26:51 PM This report has been signed electronically.
--- NOTE | 2024-11-17 13:27 | OP.COLON_ITS ---
Patient Name: Janeth Staples Procedure Date: 11/17/2024 1:04 PM Date of : 1955 Age: 69 Procedure: Colonoscopy Indications: Generalized abdominal pain Providers: Panchito Chavez DO Referring MD: Davy Portillo Do Medicines: Monitored Anesthesia Care Patient Profile: This is a 69 year old female. Refer to note in patient chart for documentation of history and physical. Patient has symptoms of chronic abdominal cramping, acute abdominal distention, chronic epigastric abdominal pain, chronic dyspepsia and chronic nausea. Last Colonoscopy: date unknown. Unable to locate last colonoscopy report. Complications: No immediate complications. Procedure: Pre-Anesthesia Assessment: - Prior to the procedure, a History and Physical was performed, and patient medications and allergies were reviewed. The patient is competent. The risks and benefits of the procedure and the sedation options and risks were discussed with the patient. All questions were answered and informed consent was obtained. Patient identification and proposed procedure were verified by the physician in the pre-procedure area. Mental Status Examination: alert and oriented. Airway Examination: normal oropharyngeal airway and neck mobility. Respiratory Examination: clear to auscultation. CV Examination: normal. Prophylactic Antibiotics: The patient does not require prophylactic antibiotics. Prior Anticoagulants: The patient has taken no anticoagulant or antiplatelet agents. ASA Grade Assessment: II - A patient with mild systemic disease. After reviewing the risks and benefits, the patient was deemed in satisfactory condition to undergo the procedure. The anesthesia plan was to use monitored anesthesia care (MAC). Immediately prior to administration of medications, the patient was re-assessed for adequacy to receive sedatives. The heart rate, respiratory rate, oxygen saturations, blood pressure, adequacy of pulmonary ventilation, and response to care were monitored throughout the procedure. The physical status of the patient was re-assessed after the procedure. After I obtained informed consent, the scope was passed under direct vision. Throughout the procedure, the patient's blood pressure, pulse, and oxygen saturations were monitored continuously. The Colonoscope was introduced through the anus and advanced to the cecum, identified by appendiceal orifice and ileocecal valve. The colonoscopy was performed without difficulty. The patient tolerated the procedure well. The quality of the bowel preparation was poor. The ileocecal valve, appendiceal orifice, and rectum were photographed. Scope In: 1:05:58 PM Scope Withdrawal Time 0 hours 8 minutes 39 seconds Scope Out: 1:19:33 PM Total Procedure Duration Time 0 hours 13 minutes 35 seconds Findings: The perianal and digital rectal examinations were normal. A large amount of stool was found in the entire colon, precluding visualization. Lavage of the area was performed using copious amounts, resulting in incomplete clearance with continued poor visualization. Two sessile polyps were found in the transverse colon and hepatic flexure. The polyps were 7 mm in size. These polyps were removed with a jumbo cold forceps. Resection and retrieval were complete. Verification of patient identification for the specimen was done. Estimated blood loss was minimal. There was a medium-sized lipoma, in the ascending colon. Impression: - Preparation of the colon was poor. - Stool in the entire examined colon. - Two 7 mm polyps in the transverse colon and at the hepatic flexure, removed with a jumbo cold forceps. Resected and retrieved. Recommendation: - Repeat colonoscopy because the examination was incomplete and because the bowel preparation was poor. - Continue present medications. Procedure Code(s): --- Professional --- 29505, Colonoscopy, flexible; with biopsy, single or multiple CPT copyright 2021 [employer]. All rights reserved. The codes documented in this report are preliminary and upon water treatment plant operator review may be revised to meet current compliance requirements. Panchito Chavez DO 11/17/2024 1:26:51 PM This report has been signed electronically. Number of Addenda: 0 Note Initiated On: 11/17/2024 1:04 PM
--- NOTE | 2024-11-17 13:30 | PCM.POST.ANE ---
Anesthesia: Postop Eval I Current Vital Signs Temperature: 97.6 F Pulse Rate: 70 Blood Pressure: 93/60 Respiratory Rate: 16 Pulse Ox: 100 Oxygen Delivery Method: Room Air Assessment Airway patent: Yes Spontaneous unlabored respirations: Yes Mental status: Asleep nausea: No Vomiting: No Anesthesia Complication: No Fluid Hydration Crystalloid volume administer (ml): 600 Total IV fluid infused: 600 Progress Note Anesthesia document: Postop Eval 1 completed: Yes
--- NOTE | 2024-11-17 14:04 | PCM.POSTANE2 ---
Anesthesia Postop Eval I Sum Postop Eval Completion status Anesthesia document: Postop Eval 1 completed: Yes Anesthesia Postop Eval I Summary Anesthesia Postop Eval I Summary: Anesthesia Postop Eval I: Assessment Summary Airway patent Yes 11/17/24 13:31 [email or web address] Spontaneous unlabored Yes 11/17/24 13:31 [email or web address] respirations Mental status Asleep 11/17/24 13:31 [email or web address] nausea No 11/17/24 13:31 [email or web address] Vomiting No 11/17/24 13:31 [email or web address] Anesthesia Postop Eval I: Fluid Summary Crystalloid volume administer 600 11/17/24 13:31 [email or web address] (ml) Colloids volume administered ( ml) Blood Product volume administered (ml) Total IV fluid infused 600 11/17/24 13:31 [email or web address] Anesthesia Postop Eval I: Summary Notes Anesthesia Complication No 11/17/24 13:31 [email or web address] Anesthesia Complication Comment: Post-operative progress note Anesthesia: Postop Eval II Evaluation Mental status: Awake and Calm Pain Level: 1 nausea: No Vomiting: No Complications Anesthesia Complication: No
== END 2024-11-17 14:12 | disposition home or self-care (01) ==
LOC: EN 12:01 → AC 12:02
PROVIDERS: Visit Provider Internal Medicine Gastroenterology
PROC: 0DJD8ZZ Inspection of Lower Intestinal Tract, Via Natural or Artificial Opening Endoscopic (ICD-10-PCS; CPT 45378; principal; 2024-11-17 12:55)
DX: R13.10 Dysphagia, unspecified (principal); J44.9 Chronic obstructive pulmonary disease, unspecified; I48.91 Unspecified atrial fibrillation; Z79.82 Long term (current) use of aspirin; K58.9 Irritable bowel syndrome, unspecified; Z90.710 Acquired absence of both cervix and uterus; Z79.51 Long term (current) use of inhaled steroids; I25.10 Atherosclerotic heart disease of native coronary artery without angina pectoris; Z87.891 Personal history of nicotine dependence; K63.5 Polyp of colon; M54.50 Low back pain, unspecified; E78.00 Pure hypercholesterolemia, unspecified; R14.0 Abdominal distension (gaseous); K59.00 Constipation, unspecified; Z79.891 Long term (current) use of opiate analgesic; I25.2 Old myocardial infarction; Z99.81 Dependence on supplemental oxygen; G89.29 Other chronic pain; Z79.899 Other long term (current) drug therapy; F41.9 Anxiety disorder, unspecified; F32.A Depression, unspecified; E03.9 Hypothyroidism, unspecified; Z79.890 Hormone replacement therapy; Z90.49 Acquired absence of other specified parts of digestive tract; R10.9 Unspecified abdominal pain; K29.50 Unspecified chronic gastritis without bleeding; K31.89 Other diseases of stomach and duodenum; D17.5 Benign lipomatous neoplasm of intra-abdominal organs
CPT/HCPCS: 44361; 45380; 88305; 88342; J2405

== ENCOUNTER 2025-01-24 12:36 | Day surgery (SDC) | payer MEDICARE, SELFPAY ==
--- NOTE | 2025-01-21 15:27 | PAT.ANESEVAL ---
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 When Was Last Pacemaker Check QUESTION #4 FULL TEXT: You/Your Family Experience fever (hyperthermia) with Anesthesia Last Oral Intake Last Oral intake: Last Oral Intake NPO since Meds taken in AM with sips of water? 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 - tire setter: PONV - tire setter Female Yes 01/21/25 09:33 HX of Motion Sickness No 01/21/25 09:33 HX of N/V After Surgery No 01/21/25 09:33 Non-Smoker Yes 01/21/25 09:33 Duration of Surgery greater No 01/21/25 09:33 than 60 minutes Number of Risk Factors 2 01/21/25 09:33 PONV Score Moderate Risk 01/21/25 09:33 Height & Weight Height & Weight: Anesthesia: Height & Weight Height 5 ft 5 in 11/17/24 12:29 Respiratory Assessment Respiratory Assessment - tire setter: Respiratory Tract Infection Hx - tire setter Hx Respiratory Tract Infection No 01/21/25 09:33 STOP Sleep Apnea STOP Sleep Apnea - tire setter: STOP Sleep Apnea - tire setter Hx Hypertension No 01/21/25 09:33 Hx Sleep Apnea No: 2L O2 @ NIGHT 01/21/25 09:33 CPAP No 01/21/25 09:33 BIPAP No 01/21/25 09:33 Do you snore loudly (louder No 01/21/25 09:33 than talking or can be heard Do you often feel tired/ Yes 01/21/25 09:33 fatigued/ sleepy during daytime? Has anyone observed you stop No 01/21/25 09:33 breathing during sleep? STOP Results Negative 01/21/25 09:33 QUESTION #5 FULL TEXT : Do you snore loudly (louder than talking or can be heard through closed doors)? 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: Tobacco Use History - tire setter Tobacco Use Non-smoker 04/26/24 08:34 Smoking Status Former smoker 01/21/25 09:33 Hx Tobacco Use No 01/21/25 09:33 Years Smoking Packs Smoked per Day Smoking Cessation Date was Yes - quit smoking within 15 01/21/25 09:33 within the last 15 years years Hx Smoking Cessation Date 12/12/23 01/21/25 09:33 Hx Smoking Cessation No 01/21/25 09:33 Counseling Hematologic Medial History Hematologic Hx - tire setter: Hematologic Medical Hx - [place] Hx of Blood Transfusion No 01/21/25 09:33 Hx of Transfusion in last 3 No 01/21/25 09:33 Months Date of Last Transfusion (if within last 3 months) Ever experience any problems No 01/21/25 09:33 with transfusion(s)? Specify any problems Hx of Preganancy in last 3 No 01/21/25 09:33 Months Nurse Filling Out Transfusion DSCHRIBER 01/21/25 09:33 & Questions: Date: 01/21/25 01/21/25 09:33 Time: 09:34 01/21/25 09:33 Patient unable to answer at this time (ie. confused, unrespo /Reproduction History /Reproductive History - tire setter: /Reproductive Hx- tire setter Hx Now No 01/21/25 09:33 Gestational Age (in weeks): EDC: Hx Hx Para Hx Section SAB No 01/21/25 09:33 Does the father of the baby or his family experience fever w Father of the baby Malignant Hypertension history comment [facility] Medical History (Updated 01/21/25 @ 09:41 by Pamela Sainz) Essential tremor CAD (coronary artery disease) NSTEMI (non-ST elevated myocardial infarction) Poor historian Loss of hearing Hypothyroid Thyroid disease Restless legs Syncope Non-smoker History of atrial fibrillation No natural teeth Ambulates with cane Injury of back GERD (gastroesophageal reflux disease) History of Holter monitoring Wears glasses Depression Anxiety Arthritis Easy bruising High cholesterol Back pain Smoker Asthma On home oxygen therapy Emphysema, unspecified Shortness of breath on exertion Chronic cough Leg cramps History of pain when walking History of echocardiogram History of stress test Cardiology follow-up encounter Atherosclerotic heart disease of [place] coronary artery without angina pectoris CAD (coronary artery disease) Near syncope COPD (chronic obstructive pulmonary disease) Atrial fibrillation Chronic lumbar back pain COPD exacerbation Unstable angina Adnexal mass Lactic acid acidosis SIRS (systemic inflammatory response syndrome) Pneumonia Pleuritic chest pain Shortness of breath Panic disorder Tobacco dependence syndrome Fibromyalgia Home Medications Medication Instructions Recorded Last Taken Type trazodone 100 mg tablet 200 mg PO QHS sleep 06/30/17 04/25/24 History aspirin 81 mg tablet,delayed 81 mg PO DAILY@0800 #30 tabs 12/06/17 01/20/25 Rx release albuterol sulfate 90 mcg/actuation 2 puff inhalation Q6H PRN SOB 08/29/21 11/17/24 09:00 History aerosol inhaler benztropine 0.5 mg tablet 0.5 mg PO BID PRN tremors 12/24/22 06/28/24 History gabapentin 400 mg capsule 400 mg PO TID 12/24/22 11/17/24 09:00 History fluticasone propionate 50 1 spray intranasal DAILY PRN 04/01/23 11/30/23 History mcg/actuation nasal allergy symptoms spray,suspension oxycodone-acetaminophen 5 mg-325 1 tab PO TID PRN pain 04/01/23 11/17/24 09:00 History mg tablet albuterol sulfate 2.5 mg/3 mL 2.5 mg inhalation .QID PRN COPD 06/24/23 11/17/24 09:00 History (0.083 %) solution for nebulization duloxetine 60 mg capsule,delayed 60 mg PO DAILY depression 06/24/23 11/17/24 09:00 History release atorvastatin 20 mg tablet 20 mg PO QHS 12/15/23 04/25/24 History levothyroxine 25 mcg tablet 25 mcg PO DAILY 11/12/24 Unknown History pantoprazole 40 mg tablet,delayed 40 mg PO QDAY #30 tabs 12/02/24 Unknown Rx release plecanatide 3 mg tablet (Trulance) 3 mg PO QDAY #30 tabs 12/02/24 Unknown Rx carbidopa 25 mg-levodopa 100 mg 1 tab PO TID 01/12/25 Unknown History tablet (Sinemet) cetirizine 10 mg tablet 10 mg PO QDAY PRN allergy symptoms 01/12/25 Unknown History famotidine 40 mg tablet 40 mg PO QHS 01/12/25 Unknown History umeclidinium 62.5 mcg-vilanterol 1 inh inhalation DAILY 01/12/25 Unknown History 25 mcg/actuation powdr for inhalation (Anoro Ellipta) Allergy/AdvReac Type Severity Reaction Status Date / Time No Known Allergies Allergy Verified 01/21/25 09:27 Family History Mother CAD (coronary artery disease) Father Cancer Surgical History (Updated 01/21/25 @ 09:41 by Pamela Sainz) History of esophagogastroduodenoscopy (EGD) History of colonoscopy History of lobectomy of lung (07/15/23) History of shoulder surgery History of cardiac catheterization Hx of laparoscopy History of left heart catheterization (LHC) (~11/08/20) H/O cardiac radiofrequency ablation History of foot surgery History of tonsillectomy History of hysterectomy History of cholecystectomy History of right and left heart catheterization (12/05/17) Social History household members: none Smoking Status: Former smoker alcohol intake: never substance use type: does not use caffeine: Yes Type: carbonated beverages and coffee Audit: Pertinent Findings Pertinent Findings EKG Perinent findings: 12/14/2021. Sinus bradycardia at 57 bpm. Stress test pertinent findings: 05/05/2021. Negative. EF 70%. Echo (EF%) pertinent findings: 05/01/2021. EF 50% septal bounce. Unable to assess diastolic dysfunction. Consult pertinent findings: Cardiology 12/15/2023. Takotsubo cardiomyopathy. Continue to monitor echocardiograms if needed. Coronary artery disease. Mild. Medical management. Atrial fibrillation chronic. Post ablation early 1999. Recommendation Anesthesia Recommendation Anesthesia recommendation: OPTIMIZED for anesthesia
[2025-01-24] VITALS (9 sets, daily range): BP systolic 95–121; BP diastolic 64–80; PULSE 82–88; RESP 14–18; TEMP 36.5–36.6; O2SAT 97–100; BMI 21.6
[2025-01-24] MEDS: Lactated Ringers 1,000 ML 15 ML IV (13:07)
--- NOTE | 2025-01-24 13:10 | RAD_ITS ---
PROCEDURE: FLUOR GUIDANCE FOR SPINE INJ 01/24/2025 REASON FOR EXAM: CAUDAL BLOCK TECHNIQUE: Procedure Code: RADSPN Modality: DX Procedure: FLUOR GUIDANCE FOR SPINE INJ. Fluoroscopy: 3.3 seconds. Radiation dose: 1.4 mGy. 1 image was submitted. COMPARISON: None FINDINGS: Intraoperative fluoroscopic services provided for caudal block. RAD/Fluor Guidance for Spine Inj IMPRESSION: Intraoperative fluoroscopic services provided for caudal block. Reading Location: [facility]
--- NOTE | 2025-01-24 13:38 | PCM.PRE.AN2 ---
ASA Classification* ASA Classification ASA Classification: 3 Assessment & Plan Anesthesia* Anesthesia Assessment Anesthesia Assessment: Discussed sedation and/or anesthesia options, risks, benefits, and alternatives with patient/parents/legal guardian/POA. Questions invited. The patient/parents/legal guardian/POA seems to understand and agrees to proceed with anesthesia plan. Reviewed the physical assessment, medical history, allergy history and patient home medications list prior to surgery/procedure/anesthetic and documented any changes. Performed airway and anesthesia risk assessments. Anesthesia Type Anesthesia Type: MAC History Source History Obtained from:: Patient and Chart Anesthesia Focused Assessment* Temperature: 97.9 F Pulse Rate: 88 Blood Pressure: 121/80 Respiratory Rate: 18 Pulse Ox: 99 Oxygen Delivery Method: Room Air Airway Assessment Mouth opens: >3 cm Mallampati Score: I Teeth Condition: Missing (Patient is edentulous.) Neck Range of motion (ROM): Limited ROM (Slight Decrease) Labs Anesthesia Preop lab: CBC WBC, (4.4-11.0) 6.6 K/mm3 12/14/21, 16:50 RBC, (4.2-5.4) 4.08 M/mm3 L 12/14/21, 16:50 Hgb, (12.0-15.0) 12.8 g/dL 12/14/21, 16:50 Hct, (37-47) 39.9 % 12/14/21, 16:50 Plt Count, (150-450) 225 K/mm3 06/24/23, 11:56 CHEMISTRY Potassium, (3.5-5.1) 3.8 mmol/L 12/14/21, 16:50 Sodium, (136-145) 137 mmol/L 12/14/21, 16:50 Magnesium, (1.6-2.6) 2.2 mg/dL 10/07/17, 12:04 BUN, (7-18) 7 mg/dL 12/14/21, 16:50 Creatinine, (0.55-1.02) 0.78 mg/dL 12/14/21, 16:50 Glucose, (74-106) 93 mg/dL 12/14/21, 16:50 TSH, (0.358-3.74) 2.49 uIU/mL 06/26/20, 10:12 COAG PT, (11.7-14.9) 13.9 SECONDS 06/24/23, 11:56 Pre-Assessment Diagnosis/Proposed Procedure Planned Operative Procedure(s): CAUDAL EPIDURAL STEROID INJECTION UNDER FLUOR Anesthesia History 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 When Was Last Pacemaker Check QUESTION #4 FULL TEXT: You/Your Family Experience fever (hyperthermia) with Anesthesia Last Oral Intake Last Oral intake: Last Oral Intake NPO since 07:00 01/24/25 13:07 Meds taken in AM with sips of Yes 01/24/25 13:07 water? 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 Female Yes 01/21/25 09:33 HX of Motion Sickness No 01/21/25 09:33 HX of N/V After Surgery No 01/21/25 09:33 Non-Smoker Yes 01/21/25 09:33 Duration of Surgery greater No 01/21/25 09:33 than 60 minutes Number of Risk Factors 2 01/21/25 09:33 PONV Score Moderate Risk 01/21/25 09:33 Height & Weight Height & Weight: Anesthesia: Height & Weight Height 5 ft 5 in 01/24/25 13:07 Weight: 59 kg 01/24/25 13:07 Body Mass Index (BMI) 21.6 01/24/25 13:07 Respiratory Assessment Respiratory Assessment - interlocking machine operator: Respiratory Tract Infection Hx - interlocking machine operator Hx Respiratory Tract Infection No 01/21/25 09:33 STOP Sleep Apnea STOP Sleep Apnea - interlocking machine operator: STOP Sleep Apnea - interlocking machine operator Hx Hypertension No 01/21/25 09:33 Hx Sleep Apnea No: 2L O2 @ NIGHT 01/21/25 09:33 CPAP No 01/21/25 09:33 BIPAP No 01/21/25 09:33 Do you snore loudly (louder No 01/21/25 09:33 than talking or can be heard Do you often feel tired/ Yes 01/21/25 09:33 fatigued/ sleepy during daytime? Has anyone observed you stop No 01/21/25 09:33 breathing during sleep? STOP Results Negative 01/21/25 09:33 QUESTION #5 FULL TEXT : Do you snore loudly (louder than talking or can be heard through closed doors)? 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 Specify any problems Hx of Preganancy in last 3 No 01/21/25 09:33 Months Nurse Filling Out Transfusion DSCHRIBER 01/21/25 09:33 & Questions: Date: 01/21/25 01/21/25 09:33 Time: 09:34 01/21/25 09:33 Patient unable to answer at this time (ie. 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 operator: /Reproductive Hx- interlocking machine operator Hx Now No 01/21/25 09:33 Gestational Age (in weeks): EDC: Hx Hx Para Hx Section SAB No 01/21/25 09:33 Does the father of the baby or his family experience fever w Father of the baby Malignant Hypertension history comment Active Medications Active Medications: Current Medications Generic Name Dose Route Start Last Admin Trade Name Freq PRN Reason Stop Dose Admin Lactated Ringer's 1,000 mls @ 15 mls/hr 01/24/25 12:45 01/24/25 13:07 IV 15 mls/hr .Q48H ANT Administration PFSH Medical History Essential tremor CAD (coronary artery disease) NSTEMI (non-ST elevated myocardial infarction) Poor historian Loss of hearing Hypothyroid Thyroid disease Restless legs Syncope Non-smoker History of atrial fibrillation No natural teeth Ambulates with cane Injury of back GERD (gastroesophageal reflux disease) History of Holter monitoring Wears glasses Depression Anxiety Arthritis Easy bruising High cholesterol Back pain Smoker Asthma On home oxygen therapy Emphysema, unspecified Shortness of breath on exertion Chronic cough Leg cramps History of pain when walking History of echocardiogram History of stress test Cardiology follow-up encounter Atherosclerotic heart disease of [place] coronary artery without angina pectoris CAD (coronary artery disease) Near syncope COPD (chronic obstructive pulmonary disease) Atrial fibrillation Chronic lumbar back pain COPD exacerbation Unstable angina Adnexal mass Lactic acid acidosis SIRS (systemic inflammatory response syndrome) Pneumonia Pleuritic chest pain Shortness of breath Panic disorder Tobacco dependence syndrome Fibromyalgia Home Medications Medication Instructions Recorded Last Taken Type trazodone 100 mg tablet 200 mg PO QHS sleep 06/30/17 04/25/24 History aspirin 81 mg tablet,delayed 81 mg PO DAILY@0800 #30 tabs 12/06/17 01/20/25 Rx release albuterol sulfate 90 mcg/actuation 2 puff inhalation Q6H PRN SOB 08/29/21 01/24/25 History aerosol inhaler benztropine 0.5 mg tablet 0.5 mg PO BID PRN tremors 12/24/22 06/28/24 History gabapentin 400 mg capsule 400 mg PO TID 12/24/22 01/24/25 History fluticasone propionate 50 1 spray intranasal DAILY PRN 04/01/23 11/30/23 History mcg/actuation nasal allergy symptoms spray,suspension oxycodone-acetaminophen 5 mg-325 1 tab PO TID PRN pain 04/01/23 01/24/25 History mg tablet albuterol sulfate 2.5 mg/3 mL 2.5 mg inhalation .QID PRN COPD 06/24/23 11/17/24 09:00 History (0.083 %) solution for nebulization duloxetine 60 mg capsule,delayed 60 mg PO DAILY depression 06/24/23 11/17/24 09:00 History release atorvastatin 20 mg tablet 20 mg PO QHS 12/15/23 04/25/24 History levothyroxine 25 mcg tablet 25 mcg PO DAILY 11/12/24 Unknown History pantoprazole 40 mg tablet,delayed 40 mg PO QDAY #30 tabs 12/02/24 01/24/25 Rx release plecanatide 3 mg tablet (Trulance) 3 mg PO QDAY #30 tabs 12/02/24 Unknown Rx carbidopa 25 mg-levodopa 100 mg 1 tab PO TID 01/12/25 01/24/25 History tablet (Sinemet) cetirizine 10 mg tablet 10 mg PO QDAY PRN allergy symptoms 01/12/25 Unknown History famotidine 40 mg tablet 40 mg PO QHS 01/12/25 Unknown History umeclidinium 62.5 mcg-vilanterol 1 inh inhalation DAILY 01/12/25 01/24/25 History 25 mcg/actuation powdr for inhalation (Anoro Ellipta) Allergy/AdvReac Type Severity Reaction Status Date / Time No Known Allergies Allergy Verified 01/24/25 12:59 Family History Mother CAD (coronary artery disease) Father Cancer Surgical History History of esophagogastroduodenoscopy (EGD) History of colonoscopy History of lobectomy of lung (07/15/23) History of shoulder surgery History of cardiac catheterization Hx of laparoscopy History of left heart catheterization (LHC) (~11/08/20) H/O cardiac radiofrequency ablation History of foot surgery History of tonsillectomy History of hysterectomy History of cholecystectomy History of right and left heart catheterization (12/05/17) Social History household members: none Smoking Status: Former smoker alcohol intake: never substance use type: does not use caffeine: Yes Type: carbonated beverages and coffee Review of Systems (Anesthesia) ROS Narrative System reviewed and no additional complaints, except as documented.
[2025-01-24] MEDS: Lidocaine 1% (5 ml sdv) 5 ML Vial (13:54)
[2025-01-24] MEDS: 0.9% Normal Saline (Pres. free 10 ML Vial (13:54)
--- NOTE | 2025-01-24 14:13 | PCM.POST.ANE ---
Anesthesia: Postop Eval I Current Vital Signs Temperature: 98 F Pulse Rate: 82 Blood Pressure: 95/64 Respiratory Rate: 16 Pulse Ox: 100 Assessment Airway patent: Yes Spontaneous unlabored respirations: Yes nausea: No Vomiting: No Anesthesia Complication: No Fluid Hydration Crystalloid volume administer (ml): 300 Total IV fluid infused: 300 Progress Note Anesthesia document: Postop Eval 1 completed: Yes
--- NOTE | 2025-01-24 14:56 | POSTOPAN2_ITS ---
Anesthesia Postop Eval I Sum Postop Eval Completion status Anesthesia document: Postop Eval 1 completed: Yes Anesthesia Postop Eval I Summary Anesthesia Postop Eval I Summary: Anesthesia Postop Eval I: Assessment Summary Airway patent Yes 01/24/25 14:13 CODE ENFORCEMENT INSPECTOR.TNES Spontaneous unlabored Yes 01/24/25 14:13 CODE ENFORCEMENT INSPECTOR.TNES respirations Mental status nausea No 01/24/25 14:13 CODE ENFORCEMENT INSPECTOR.TNES Vomiting No 01/24/25 14:13 CODE ENFORCEMENT INSPECTOR.TNES Anesthesia Postop Eval I: Fluid Summary Crystalloid volume administer 300 01/24/25 14:13 CODE ENFORCEMENT INSPECTOR.TNES (ml) Colloids volume administered ( ml) Blood Product volume administered (ml) Total IV fluid infused 300 01/24/25 14:13 CODE ENFORCEMENT INSPECTOR.TNES Anesthesia Postop Eval I: Summary Notes Anesthesia Complication No 01/24/25 14:13 CODE ENFORCEMENT INSPECTOR.TNES Anesthesia Complication Comment: Post-operative progress note Anesthesia: Postop Eval II Evaluation Mental status: Awake and Calm Pain Level: 0 nausea: No Vomiting: No Complications Anesthesia Complication: No
--- NOTE | 2025-01-24 14:56 | PCM.POSTANE2 ---
Anesthesia Postop Eval I Sum Postop Eval Completion status Anesthesia document: Postop Eval 1 completed: Yes Anesthesia Postop Eval I Summary Anesthesia Postop Eval I Summary: Anesthesia Postop Eval I: Assessment Summary Airway patent Yes 01/24/25 14:13 APPLIANCE [email or web address] Spontaneous unlabored Yes 01/24/25 14:13 APPLIANCE [email or web address] respirations Mental status nausea No 01/24/25 14:13 APPLIANCE [email or web address] Vomiting No 01/24/25 14:13 APPLIANCE [email or web address].[email or web address] Anesthesia Postop Eval I: Fluid Summary Crystalloid volume administer 300 01/24/25 14:13 APPLIANCE [email or web address].[email or web address] (ml) Colloids volume administered ( ml) Blood Product volume administered (ml) Total IV fluid infused 300 01/24/25 14:13 APPLIANCE [email or web address] Anesthesia Postop Eval I: Summary Notes Anesthesia Complication No 01/24/25 14:13 APPLIANCE [email or web address] Anesthesia Complication Comment: Post-operative progress note Anesthesia: Postop Eval II Evaluation Mental status: Awake and Calm Pain Level: 0 nausea: No Vomiting: No Complications Anesthesia Complication: No
--- NOTE | 2025-01-24 15:10 | PCM.OPRPT ---
Operative Report (Standard) Operative Information Date of Procedure: 01/24/25 Pre-Operative Diagnosis: lumbosacral radiculopathy, lumbosacral degenerative disc disease, lumbosacral spinal stenosis Post-Operative Diagnosis: lumbosacral radiculopathy, lumbosacral degenerative disc disease, lumbosacral spinal stenosis Surgery/Procedure Performed: Diagnostic/therapeutic caudal epidural steroid injection under fluoroscopic guidance central communications specialist: No Type of Anesthesia: Local MAC RN Documented Start/Stop Times: Operation Date: 01/24/25 14:10 Case Time Into Pre-Op 01/24/25 12:40 Anesthesia Start 01/24/25 13:47 Into Room 01/24/25 13:47 Procedure Start 01/24/25 13:53 Procedure End 01/24/25 13:55 Anesthesia End 01/24/25 13:59 Out of Room 01/24/25 13:59 Into Recovery 01/24/25 14:01 Into Phase II Recovery 01/24/25 14:15 Out of Recovery 01/24/25 14:15 Out of Phase II 01/24/25 14:29 Procedure Start Time: 15:11 Procedure Stop Time: 15:11 Select all DRAINS/GRAFTS/IMPLANTS that apply: None Estimated Blood Loss: 0 Specimen collected: No Description of surgery: ANESTHESIA: MAC. BLOOD LOSS: Minimal. COMPLICATIONS: None. DESCRIPTION OF PROCEDURE: History and physical of today was reviewed. Risks and benefits of the procedure were explained. The patient understood and agreed to proceed. Informed consent was obtained. IV inserted per routine protocol. The patient was taken to the operating room and placed in the prone position with a pillow positioned underneath the abdomen. The lower back and tailbone area was prepped and draped in a sterile fashion using iodine x3. Under fluoroscopy guidance on a lateral view, the caudal space was identified. The skin and subcutaneous tissue was anesthetized with approximately 3 mL of 1% lidocaine using a 25-gauge regular needle. Under direct visualization with fluoroscopy, using a 22-gauge 3-1/2-inch spinal needle, the needle was advanced via the skin through the sacral hiatus. The tip of the needle was passed through the sacrococcygeal ligament and advanced to approximately S4 area. After negative aspiration of blood or CSF, a total of 3 mL of contrast was injected to confirm correct placement of the needle as well as cephalad spread. The spread was followed to approximately L5 area. After confirmation on AP as well as lateral view and repeated negative aspiration, a total of 15 mL of preservative-free 0.125% Marcaine with 80 mg of Depo-Medrol was injected easily. The needle was then removed intact. The patient experienced no sign or symptoms of intrathecal or intravascular injection. The patient experienced no paresthesia. The procedure was completed without any apparent difficulty or any complications. The patient appeared to tolerate it well. ASSESSMENT AND PLAN: This is a 69-year-old female with lumbosacral radiculopathy, lumbosacral degenerative disc disease, lumbosacral spinal stenosis, status post diagnostic/therapeutic caudal epidural steroid injection under fluoroscopic guidance, patient will continue her current medications, patient will follow-up in approximately 2 weeks for reevaluation. Surgical Findings: 0 Complications Complications: No Admit VTE Documentation VTE Present on Admission: No VTE Mechan Device Prophylaxis: None VTE Pharm Prophylaxis ordered?: No
== END 2025-01-24 14:29 | disposition home or self-care (01) ==
LOC: SDC 12:37 → AC 12:39
PROVIDERS: Referring Provider Anesthesiology Pain Medicine; Visit Provider Anesthesiology Pain Medicine
PROC: 3E0S3BZ Introduction of Anesthetic Agent into Epidural Space, Percutaneous Approach (ICD-10-PCS; CPT 62282; principal; 2025-01-24 14:05)
DX: M48.07 Spinal stenosis, lumbosacral region (principal); M51.17 Intervertebral disc disorders with radiculopathy, lumbosacral region
CPT/HCPCS: 62323; 01992; 64483; 77003; 94640